=== PATIENT | male | born 1990 | race Caucasian/White ===

== ENCOUNTER 2021-08-14 10:31 | Outpatient (REF) | payer OTHER, SELFPAY | END 2021-08-14 10:32 | disposition home or self-care (01) | LOC: HO.LAB 10:31 | PROVIDERS: PCP Internal Medicine; Visit Provider Internal Medicine | DX: Z20.822 Contact with and (suspected) exposure to COVID-19 (principal) | CPT/HCPCS: C9803; U0003; U0005 ==

== ENCOUNTER 2022-02-20 09:50 | Outpatient (REF) | payer OTHER, SELFPAY ==
[2022-02-20 12:32] LABS: Influenza A PCR NEGATIVE (Negative); Influenza B PCR NEGATIVE (Negative); Resp Syncy Virus RNA Qual PCR NEGATIVE (Negative); SARS COV2 PCR INHOUSE NEGATIVE (Negative)
== END 2022-02-20 09:51 | disposition home or self-care (01) ==
LOC: HO.LAB 09:50
PROVIDERS: Visit Provider Internal Medicine
DX: Z20.822 Contact with and (suspected) exposure to COVID-19 (principal); R43.9 Unspecified disturbances of smell and taste
CPT/HCPCS: 0241U

== ENCOUNTER 2023-01-17 19:43 | Inpatient (IN) | payer MEDICAID, SELFPAY ==
--- NOTE | ~2023-01-17 | US_ITS ---
EXAMINATION: US ABDOMEN LIMITED CLINICAL INFORMATION: Right upper quadrant pain with elevated bilirubin. COMPARISON: None TECHNIQUE: Real-time imaging of the right upper quadrant abdominal viscera. FINDINGS: PANCREAS: Pancreas could not be evaluated as it was obscured by bowel gas LIVER: I suspect the liver is enlarged. There is increased echogenicity consistent with hepatic steatosis. The liver contour is normal. No focal hepatic lesion. There is no intrahepatic biliary duct dilatation seen. GALLBLADDER: The gallbladder is physiologically distended without evidence of stones, sludge, polyps, wall thickening or pericholecystic fluid. COMMON BILE DUCT: Normal in caliber measuring 0.3 cm in diameter. RIGHT KIDNEY: No hydronephrosis. No renal calculi or focal parenchymal lesions. The kidney measures 11.7 cm in maximum dimension. FREE FLUID: None. US/US abdomen limited IMPRESSION: Enlarged fatty liver.
--- NOTE | ~2023-01-17 | XR_ITS ---
EXAMINATION: XR SHOULDER, LEFT CLINICAL INFORMATION: Pain post injury COMPARISON: None TECHNIQUE: AP external rotation, Grashey, scapular Y, and axillary views of the left shoulder. FINDINGS: Humeral head is well-seated in the glenoid fossa. I do not appreciate any acute fracture or dislocation. Acromioclavicular joint is grossly unremarkable. Visualized left-sided ribs and upper chest unremarkable. XR/XR shoulder LT min 2V IMPRESSION: No acute fracture or dislocation.
--- NOTE | ~2023-01-17 | CT_ITS ---
EXAMINATION: CT head/brain wo IV con CLINICAL INFORMATION: Reason for Exam fall head strike COMPARISON: None. TECHNIQUE: Contiguous axial imaging was performed from the skull base to vertex without intravenous contrast. Sagittal and coronal reformatted images were obtained. This CT examination was performed using dose optimization techniques as appropriate, variously including the following: * Automated exposure control * Adjustment of mA and/or kV according to patient size (this includes techniques or standardized protocols for targeted exams where dose is matched to indication/reason for exam; i.e. extremities or head) Use of iterative reconstruction technique DLP: 620 mGy-cm FINDINGS: No acute osseous or soft tissue abnormality. The mastoid air cells and visualized portions of the paranasal sinuses are well aerated. There is no evidence of acute intracranial hemorrhage or territorial infarction. No abnormal mass effect or midline shift is seen. Moore to white matter differentiation is well preserved. No extra-axial fluid collections are identified. No hydrocephalus. No significant volume loss. There is no abnormal attenuation within the brain parenchyma. CT/CT head/brain wo IV con IMPRESSION: No acute intracranial abnormality including hemorrhage, mass effect, hydrocephalus, or acute territorial edematous infarction. .
--- NOTE | ~2023-01-17 | XR_ITS ---
EXAMINATION: XR CHEST CLINICAL INFORMATION: Chest pain. COMPARISON: None TECHNIQUE: 2 views of the chest were obtained. FINDINGS: No significant abnormality is noted involving the heart, lungs, mediastinum, bony thorax or soft tissues. XR/XR chest 2V IMPRESSION: Unremarkable examination.
[2023-01-17 19:49] VITALS: BP 166/100; PULSE 104; O2SAT 98
--- NOTE | 2023-01-17 19:51 | ECG_ITS ---
Test Reason : CHEST PAIN Blood Pressure : / mmHG Vent. Rate : 114 BPM Atrial Rate : 114 BPM P-R Int : 138 ms QRS Dur : 092 ms QT Int : 342 ms P-R-T Axes : 066 033 059 degrees QTc Int : 471 ms Sinus tachycardia Possible Lateral infarct , age undetermined Possible Inferior infarct , age undetermined Abnormal ECG No previous ECGs available Referred By: Allison Whitehead Electronically Signed By:NILDA RIZO MD
[2023-01-17 20:28] LABS: MANUAL DIFF FLAG NO
[2023-01-17 20:29] LABS: Basophils Absolute Auto 0.1 X10*3/uL (0.0-0.2); Mean Corpuscular HGB Conc 34.6 g/dl (31.0-36.0); Mean Corpuscular Hemoglobin 30.2 pg (27.0-33.0); PLT CLUMP 1; Red Cell Distribution Width 14.2 % (11.0-16.0); SCAN SMEAR FLAG 1
[2023-01-17 20:31] LABS: Basophils Percent Auto 0.5 % (0-2); Eosinophils Absolute Auto 0.1 X10*3/uL (0.0-0.4); Hematocrit 40.2 % (42.0-52.0); Hemoglobin 13.9 g/dl (14.0-18.0); Imm Gran Abs Auto 0.02 X10*3/uL (0.00-0.03); Imm Gran Pct Auto 0.2 % (0.0-0.4); Lymphocytes Absolute Auto 1.1 X10*3/uL (1.2-4.9); Lymphocytes Percent Auto 12.2 % (20-40); Mean Corpuscular Volume 87.2 fL (80.0-98.0); Mean Platelet Volume 9.6 fL (9.4-12.4); Monocytes Absolute Auto 0.9 X10*3/uL (0.1-1.2); Monocytes Percent Auto 9.3 % (2-11); Neutrophils Percent Auto 76.8 % (45-73); Red Blood Count 4.61 X10*6/uL (4.60-5.80)
[2023-01-17 20:33] LABS: Platelet Count 107 X10*3/uL (160-400); White Blood Count 9.2 X10*3/uL (4.8-10.8)
[2023-01-17 20:54] VITALS: BP 149/96; PULSE 110; RESP 18; TEMP 36.8; O2SAT 95; BMI 26.4
--- NOTE | 2023-01-17 20:56 | ED.ALCOHOL ---
HPI - Alcohol General Chief Complaint: ETOH/Substance Use <KALPESH Martinez - Last Filed: 01/17/23 20:59> Stated Complaint: Left shoulder,Arm,and Chest Pain <KALPESH Martinez - Last Filed: 01/17/23 20:59> Time Seen by Provider: 01/17/23 22:19 <KALPESH Martinez - Last Filed: 01/17/23 20:59> Source: patient and EMS <KALPESH Ruiz - Last Filed: 01/17/23 23:11> Mode of arrival: EMS <KALPESH Ruiz - Last Filed: 01/17/23 23:11> Limitations: no limitations <KALPESH Ruiz Last Filed: 01/17/23 23:11> History of Present Illness HPI narrative: 33-year-old male history of alcohol use disorder current daily drinkers drinks about 2-3 sleeves of whiskey a day, also drinks wine from time to time, last drink was this morning presenting seeking detox, reports mild headache, nausea, vomiting, visual, auditory hallucinations, sweats, anxiety, tremors both with movement and at rest. Patient is accompanied by his family who state this is the worse that they have seen him. Patient has gone to detox before has not helped him. Patient has never had alcohol withdrawal seizures. Patient tells me he feels awful. Patient also complaining of left back pain, pain to left shoulder and headache, patient reports he had a snowboarding accident a few days ago, fell he thinks he hit his head however he is unsure he tells me he was too intoxicated and forgets. He tells me he drink heavily yesterday unsure how much he drank, he blacked out. Denies any other drug use. Denies suicidal and homicidal ideation. Reports palpitations as well. Denies chest pain, shortness of breath, abdominal pain, changes in urination or bowel habits. CIWA-19 <KALPESH Ruiz - Last Filed: 01/17/23 23:11> Related Data Home Medications: Previous Rx's Medication Instructions Recorded azithromycin 250 mg tablet See Rx Instructions PO .COMPLEX #6 02/20/22 tabs <KALPESH Martinez - Last Filed: 01/17/23 20:59> Allergies/Adverse Reactions: Allergies Allergy/AdvReac Type Severity Reaction Status Date / Time No Known Allergies Allergy Unverified 02/20/22 09:56 <KALPESH Martinez - Last Filed: 01/17/23 20:59> [facility] Social History Social History: Social History Advance Directives: No Advance Directives Information Provided: Yes <KALPESH Martinez - Last Filed: 01/17/23 20:59> Physical Exam ED Vital Signs: Vital Signs - 24 hr 01/17/23 20:54 01/17/23 22:57 Temperature 98.3 F Pulse Rate 110 H 112 H Respiratory Rate 18 14 Blood Pressure 149/96 H 156/91 H Pulse Oximetry 95 96 Oxygen Delivery Method Room Air Room Air BMI result Body Mass Index 26.4 <KALPESH Martinez - Last Filed: 01/17/23 20:59> Vital Signs - 24 hr 01/17/23 20:54 01/17/23 22:57 Temperature 98.3 F Pulse Rate 110 H 112 H Respiratory Rate 18 14 Blood Pressure 149/96 H 156/91 H Pulse Oximetry 95 96 Oxygen Delivery Method Room Air Room Air BMI result Body Mass Index 26.4 Vital signs stable <KALPESH Ruiz - Last Filed: 01/17/23 23:11> Appearance: Alert.? Oriented X3.? No acute distress.? Head: Normocephalic, atraumatic, no step-offs or deformities Eyes: Pupils equal, round and reactive to light.? ENT: Pharynx normal.? Tongue fasciculations noted. Neck: Normal inspection.? Neck supple.? CVS: Normal heart rate and rhythm.? Pulses normal.?+ pain with palpation overlying the left pectoralis major muscle. Normal right. Respiratory: No respiratory distress.? Breath sounds normal.? Abdomen: Soft and nontender.? Skin: Skin warm and dry.? Normal skin color.? Normal skin turgor.? Extremities: No lower extremity edema.? No calf ttp. 5/5 strength to bilateral upper and lower extremities 2+ radial pulses equal bilateral. No wrist drop. Full range of motion to bilateral wrists, elbows, shoulders. Bilateral upper extremities with resting tremors. Asterixis present. Neuro: Oriented X 3.? No motor deficit.? No sensory deficit. CN 2-12 intact <KALPESH Ruiz - Last Filed: 01/17/23 23:11> Course Course Course Narrative: RME - 33 y/o male presents to the ER evaluation of possible alcohol withdrawal. He drinks 1 pt of Rafal Beam per day, last drink was yesterday. Interested in detox. Last drink was yesterday. Also reports left sided chest pain, back pain and shoulder pain from a snowboarding accident 1 month ago, never evaluated. 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 <KALPESH Martinez - Last Filed: 01/17/23 20:59> Reevaluation(s) Reevaluation #1: CBC within normal limits. Chemistry with elevated anion gap likely secondary to ethanol. Total bilirubin 3.3, direct bilirubin elevated 1.6. AST is an ALT is elevated as well, alk-phos 172. These abnormal values are all likely secondary to alcohol abuse chronic in nature. Patient without abdominal tenderness to palpation on exam however will order right upper quadrant ultrasound to evaluate the liver. Ultrasound revealing enlarged fatty liver. Ethanol level 149, this is likely low for patient's baseline concerns for acute alcohol withdrawal with a CO2 of 19. Patient doing well with Ativan and phenobarbital. Seizure precautions in place. COVID and influenza as well as RSV are negative. X-ray of left shoulder with no acute fractures or dislocations. X-ray unremarkable. CT of the head pending. <KALPESH Ruiz - Last Filed: 01/17/23 23:11> Time: 23:10 <KALPESH Ruiz - Last Filed: 01/17/23 23:11> Reevaluation #2: Discuss case with hospitalist. Hospitalist will admit this patient. <KALPESH Ruiz - Last Filed: 01/17/23 23:11> Time: 23:10 <KALPESH Ruiz - Last Filed: 01/17/23 23:11> Medical Decision Making Medical Decision Making MDM Narrative: 33-year-old male presents with acute alcohol withdrawal, also complaining of headache and left shoulder and pack pain status post snowboarding related injury yesterday. Physical examination with bilateral upper extremities with resting tremors, tongue fasciculations. Patient diaphoretic and anxious. Vital signs significant for hypertension and tachycardia. Concerns for DTs, alcohol withdrawal, will rule out alcoholic ketoacidosis. There are signs of autonomic dysfunction on exam. Will rule out electrolyte abnormalities. Plan at this time labs, close observation, seizure precautions. Will give 2 mg of p.o. Ativan now insert him on high-dose phenobarbital. <KALPESH Ruiz - Last Filed: 01/17/23 23:11> Differential Diagnosis Differential Diagnoses: The differential diagnosis associated with the presentation includes <KALPESH Ruiz - Last Filed: 01/17/23 23:11> Concerns for DTs, alcohol withdrawal, will rule out alcoholic ketoacidosis. There are signs of autonomic dysfunction on exam. Will rule out electrolyte abnormalities. <KALPESH Ruiz - Last Filed: 01/17/23 23:11> Admission/Observation Consideration of admission/observation: Escalation of care including admission/observation considered <KALPESH Ruiz - Last Filed: 01/17/23 23:11> Patient will need to be admitted to the hospital <KALPESH Ruiz - Last Filed: 01/17/23 23:11> Consult Healthcare Provider Management of the patient was discussed with: Hospitalist <KALPESH Ruiz - Last Filed: 01/17/23 23:11> Lab Data MDM Lab Attestation statement: I reviewed the patient's lab results. <KALPESH Ruiz - Last Filed: 01/17/23 23:11> Result Diagrams: 01/17/23 20:24 01/17/23 20:24 <KALPESH Martinez - Last Filed: 01/17/23 20:59> Labs: Lab Results 01/17/23 01/17/23 Range/Units 20:24 20:24 WBC 9.2 (4.8-10.8) X10*3/uL RBC 4.61 (4.60-5.80) X10*6/uL Hgb 13.9 L (14.0-18.0) g/dl Hct 40.2 L (42.0-52.0) % MCV 87.2 (80.0-98.0) fL MCH 30.2 (27.0-33.0) pg MCHC 34.6 (31.0-36.0) g/dl RDW 14.2 (11.0-16.0) % Plt Count 107 L (160-400) X10*3/uL MPV 9.6 (9.4-12.4) fL Immature Gran % (Auto) 0.2 (0.0-0.4) % Neut % (Auto) 76.8 H (45-73) % Lymph % (Auto) 12.2 L (20-40) % Salem % (Auto) 9.3 (2-11) % Eos % (Auto) 1.0 (0-4) % Baso % (Auto) 0.5 (0-2) % Lymph # (Auto) 1.1 L (1.2-4.9) X10*3/uL Salem # (Auto) 0.9 (0.1-1.2) X10*3/uL Eos # (Auto) 0.1 (0.0-0.4) X10*3/uL Baso # (Auto) 0.1 (0.0-0.2) X10*3/uL Abs Immat Gran (auto) 0.02 (0.00-0.03) X10*3/uL Absolute Neuts (auto) 7.0 (2.0-8.3) x10*3/uL Absolute Nucleated RBC 0.000 (0.0-0.012) X10*3/uL Nucleated RBC % (auto) 0.0 (0.0-0.2) /100WBC Sodium 139 (135-145) mmol/L Potassium 3.6 (3.3-5.1) mmol/L Chloride 99 (96-108) mmol/L Carbon Dioxide 21 L (22-29) mmol/L Anion Gap 23 H (12-20) BUN 8 L (9-16) mg/dL Creatinine 0.75 (0.5-1.4) mg/dL Estim Creat Clear Calc 150.6 Estimated GFR > 60 Random Glucose 112 (60-115) mg/dL Calcium 9.2 (8.4-10.2) mg/dL Magnesium 1.7 (1.6-2.6) mg/dL Total Bilirubin 3.3 H (0.0-1.0) mg/dL Direct Bilirubin 1.6 H (0.0-0.5) mg/dL AST 372 H (5-37) U/L ALT 41 H (0-40) U/L Alkaline Phosphatase 172 H (39-117) U/L Total Protein 9.3 H (6.5-8.0) g/dL Albumin 4.5 (3.5-5.0) g/dL Ethyl Alcohol 149 mg/dL <KALPESH Martinez - Last Filed: 01/17/23 20:59> Lab Results 01/17/23 01/17/23 Range/Units 20:24 20:24 WBC 9.2 (4.8-10.8) X10*3/uL RBC 4.61 (4.60-5.80) X10*6/uL Hgb 13.9 L (14.0-18.0) g/dl Hct 40.2 L (42.0-52.0) % MCV 87.2 (80.0-98.0) fL MCH 30.2 (27.0-33.0) pg MCHC 34.6 (31.0-36.0) g/dl RDW 14.2 (11.0-16.0) % Plt Count 107 L (160-400) X10*3/uL MPV 9.6 (9.4-12.4) fL Immature Gran % (Auto) 0.2 (0.0-0.4) % Neut % (Auto) 76.8 H (45-73) % Lymph % (Auto) 12.2 L (20-40) % Salem % (Auto) 9.3 (2-11) % Eos % (Auto) 1.0 (0-4) % Baso % (Auto) 0.5 (0-2) % Lymph # (Auto) 1.1 L (1.2-4.9) X10*3/uL Salem # (Auto) 0.9 (0.1-1.2) X10*3/uL Eos # (Auto) 0.1 (0.0-0.4) X10*3/uL Baso # (Auto) 0.1 (0.0-0.2) X10*3/uL Abs Immat Gran (auto) 0.02 (0.00-0.03) X10*3/uL Absolute Neuts (auto) 7.0 (2.0-8.3) x10*3/uL Absolute Nucleated RBC 0.000 (0.0-0.012) X10*3/uL Nucleated RBC % (auto) 0.0 (0.0-0.2) /100WBC Sodium 139 (135-145) mmol/L Potassium 3.6 (3.3-5.1) mmol/L Chloride 99 (96-108) mmol/L Carbon Dioxide 21 L (22-29) mmol/L Anion Gap 23 H (12-20) BUN 8 L (9-16) mg/dL Creatinine 0.75 (0.5-1.4) mg/dL Estim Creat Clear Calc 150.6 Estimated GFR > 60 Random Glucose 112 (60-115) mg/dL Calcium 9.2 (8.4-10.2) mg/dL Magnesium 1.7 (1.6-2.6) mg/dL Total Bilirubin 3.3 H (0.0-1.0) mg/dL Direct Bilirubin 1.6 H (0.0-0.5) mg/dL AST 372 H (5-37) U/L ALT 41 H (0-40) U/L Alkaline Phosphatase 172 H (39-117) U/L Total Protein 9.3 H (6.5-8.0) g/dL Albumin 4.5 (3.5-5.0) g/dL Ethyl Alcohol 149 mg/dL <KALPESH Ruiz - Last Filed: 01/17/23 23:11> Independent Interpretation I performed an independent interpretation of an: Ultrasound (Fatty liver) and CT Scan <KALPESH Ruiz - Last Filed: 01/17/23 23:11> Radiology Impression Discussion of test interpretation with radiology: I have reviewed the radiologist's reading. <KALPESH Ruiz - Last Filed: 01/17/23 23:11> Independent Historian Clinical information obtained from an independent historian. History obtained from or confirmed by: Other (Mother) <KALPESH Ruiz Last Filed: 01/17/23 23:11> Core Measures AMI core measures followed: Yes <KALPESH Ruiz - Last Filed: 01/17/23 23:11> Measure exclusions: not indicated <KALPESH Ruiz - Last Filed: 01/17/23 23:11> Medications Administered Discontinued Medications Generic Name Dose Route Start Last Admin Trade Name Freq PRN Reason Stop Dose Admin Lorazepam 2 mg 01/17/23 22:32 01/17/23 22:44 Lorazepam 1 Mg Tablet PO 01/17/23 22:33 2 mg ONCE ONE Administration Phenobarbital Sodium 450 mg 01/17/23 22:45 01/17/23 22:58 Phenobarbital Sodium 130 Mg/Ml Im Once IM 01/17/23 22:46 450 mg ONCE ONE Administration <KALPESH Martinez - Last Filed: 01/17/23 20:59> Medications Administered Discontinued Medications Generic Name Dose Route Start Last Admin Trade Name Freq PRN Reason Stop Dose Admin Lorazepam 2 mg 01/17/23 22:32 01/17/23 22:44 Lorazepam 1 Mg Tablet PO 01/17/23 22:33 2 mg ONCE ONE Administration Phenobarbital Sodium 450 mg 01/17/23 22:45 01/17/23 22:58 Phenobarbital Sodium 130 Mg/Ml Im Once IM 01/17/23 22:46 450 mg ONCE ONE Administration <KALPESH Ruiz - Last Filed: 01/17/23 23:11> Critical Care Time Critical Care Time Critical Care Time: No <KALPESH Ruiz - Last Filed: 01/17/23 23:11> Discharge Plan Discharge Clinical Impression: Alcohol withdrawal syndrome <KALPESH Martinez - Last Filed: 01/17/23 20:59> Patient Disposition: Still a Patient <KALPESH Martinez - Last Filed: 01/17/23 20:59> Prescriptions: No Action azithromycin 250 mg tablet See Rx Instructions PO .COMPLEX Qty: 6 0RF Rx Instructions: take 500 mg today (day 1), then 250 mg for 4 days (days 2-5) PO <KALPESH Martinez - Last Filed: 01/17/23 20:59>
[2023-01-17 21:31] LABS: Alanine Aminotransferase 41 U/L (0-40); Albumin Level 4.5 g/dL (3.5-5.0); Alkaline Phosphatase 172 U/L (39-117); Anion Gap 23 (12-20); Aspartate Amino Transferase 372 U/L (5-37); Bilirubin Direct 1.6 mg/dL (0.0-0.5); Bilirubin Total 3.3 mg/dL (0.0-1.0); Blood Urea Nitrogen 8 mg/dL (9-16); Calcium 9.2 mg/dL (8.4-10.2); Carbon Dioxide 21 mmol/L (22-29); Chloride 99 mmol/L (96-108); Creatinine Clr Calc Pharmacy 150.6; Estimated Glomerular Filt Rate > 60; Ethanol 149 mg/dL; Glucose Random 112 mg/dL (60-115); Magnesium 1.7 mg/dL (1.6-2.6); Potassium 3.6 mmol/L (3.3-5.1); Sodium 139 mmol/L (135-145); Total Protein 9.3 g/dL (6.5-8.0)
[2023-01-17] MEDS: LORazepam 1 MG TABLET 2 MG PO (22:44)
--- NOTE | 2023-01-17 22:50 | PC.NURSE ---
Pt A&Ox4, reports 5/10 pain to L shoulder and elbow r/t snowboarding accident almost 1 month ago. L upper arm yellow bruising noted. Pt reports mild nausea, moderately anxious, no sleep in two nights, and seeing dots and spots. Visual hand tremors noted, moist palms, auditory hallucinations, mom at bedside stated he thinks he is hearing people in the waiting room talk about him . Pt reports last alcohol drink was this AM. CIWA score 21. Pt placed on the monitor. Seizure precautions in place. IV line placed. Denies SI/HI. Mom at bedside.
[2023-01-17 22:57] VITALS: BP 156/91; PULSE 112; RESP 14; O2SAT 96
[2023-01-17] MEDS: PHENobarbitaL sodium 130 MG/ML IM ONCE 450 MG IM (22:58)
[2023-01-17] MEDS: Enoxaparin Sodium 40 MG/0.4 ML SYRINGE SUBCUT (23:07)
--- NOTE | 2023-01-17 23:15 | P.HPHOSP_ITS ---
History of Present Illness Date of Service: 01/17/23 Chief Complaint: Alcohol withdrawals This is a 33-year-old male who is not on prescription medications who presents to the emergency department for concerns of alcohol withdrawal. Patient states he drinks whiskey every day and had been drinking last night until this morning. His last drink was in a.m.. He has been having tremors, sweating and nausea throughout the day. States he has had alcohol withdrawal in the past. No withdrawal seizures in the past. Patient states he is seeking detox and wants help. States he does not have any past medical history and is not on prescription medications. Patient normally drinks about 3 sleeves of whiskey per day but states last night he drank much more and does not remember. Denies any drug use. Previous smoker. Denies suicidal or homicidal ideations. Patient denies fever, chills, abdominal pain, changes in urinary or bowel habits. Review of Systems 2 Constitutional: Constitutional: Reports chills, Reports lethargy and Reports malaise Cardiovascular: Cardiovascular: Reports no additional cardiovascular complaints Respiratory: Respiratory: Reports no additional respiratory complaints Gastrointestinal: Gastrointestinal: Reports nausea Genitourinary: Genitourinary: Reports no additional male genitourinary complaints Musculoskeletal: Musculoskeletal: Reports no additional musculoskeletal complaints [facility] Medical History Alcohol use disorder Functional capacity: independent ambulation Pertinent family history: No family history of CAD Social History Patient Tobacco Use Status: Never used Tobacco Advance Directives: No Advance Directives Information Provided: Yes Nutrition Risks: No Nutritional Risk Meds Allergies Allergy/AdvReac Type Severity Reaction Status Date / Time No Known Allergies Allergy Unverified 02/20/22 09:56 Active Medications: Current Medications Enoxaparin Sodium (Enoxaparin Sodium 40 Mg/0.4 Ml Syringe) 40 mg SUBCUT Q24H [facility] Last Admin: 01/17/23 23:07 Dose: 40 mg Thiamine HCl 100 mg/ Sodium (Chloride) 101 mls @ 202 mls/hr IV DAILY LEXY Sodium Chloride (Ns) 1,000 mls @ 999 mls/hr IV .Q1H1M [facility] Stop: 01/17/23 23:45 Melatonin (Melatonin 3 Mg Tablet) 6 mg PO BEDTIME PRN PRN Reason: Insomnia Ondansetron HCl (Ondansetron Hcl 4 Mg/2 Ml Vial) 4 mg IVPUSH Q8H PRN PRN Reason: Nausea and Vomiting Pharmacy Consult (Consult Rx Etoh Phenob Im/Po) 1 each MISCELLANE ONCE PRN; Protocol PRN Reason: Consult order Pharmacy Consult (Consult Rx Perform Med Rec) 1 each MISCELLANE ONCE PRN PRN Reason: Consult order Phenobarbital (Phenobarbital 30 Mg Tablet) 60 mg PO BID [facility] Stop: 01/19/23 21:01 Phenobarbital (Phenobarbital 30 Mg Tablet) 30 mg PO BID [facility] Stop: 01/21/23 21:01 Phenobarbital (Phenobarbital 15 Mg Tablet) 15 mg PO DAILY [facility] Stop: 01/23/23 09:01 Phenobarbital Sodium (Phenobarbital Sodium 130 Mg/Ml Vial Im Q3hx2) 338 mg IM Q3H [facility] Stop: 01/18/23 05:01 Sodium Chloride (0.9 % Sodium Chloride Flush 3 Ml Syringe) 3 ml IVFLUSH QSHIFT [facility] Physical Exam Vital Signs and Narrative: Vital Signs: Last Vital Signs Temp 98.3 F 01/17/23 20:54 Pulse 112 H 01/17/23 22:57 Resp 14 01/17/23 22:57 BP 156/91 H 01/17/23 22:57 Pulse Ox 96 01/17/23 22:57 O2 Del Method 01/17/23 22:57 BMI result Body Mass Index 26.4 Middle-aged male lying in bed in mild distress Neck supple, no JVD Tachycardic with regular rhythm, S1-S2 heard Regular breath sounds bilaterally, no wheezing or crackles appreciated Abdomen soft nontender, no guarding, no rigidity Patient is awake, alert and oriented to self, place, time and person ; bilateral hand tremors present Psych: Anxious No pedal edema Results Labs 01/17/23 20:24 01/17/23 20:24 Labs: Laboratory Results - last 24 hr 01/17/23 01/17/23 20:24 20:24 MCV 87.2 MCH 30.2 MCHC 34.6 RDW 14.2 Plt Count 107 L MPV 9.6 Immature Gran % (Auto) 0.2 Neut % (Auto) 76.8 H Lymph % (Auto) 12.2 L Gem % (Auto) 9.3 Eos % (Auto) 1.0 Baso % (Auto) 0.5 Lymph # (Auto) 1.1 L Gem # (Auto) 0.9 Eos # (Auto) 0.1 Baso # (Auto) 0.1 Abs Immat Gran (auto) 0.02 Absolute Neuts (auto) 7.0 Absolute Nucleated RBC 0.000 Nucleated RBC % (auto) 0.0 Anion Gap 23 H Estim Creat Clear Calc 150.6 Estimated GFR > 60 Random Glucose 112 Calcium 9.2 Magnesium 1.7 Total Bilirubin 3.3 H Direct Bilirubin 1.6 H AST 372 H ALT 41 H Alkaline Phosphatase 172 H Total Protein 9.3 H Albumin 4.5 Ethyl Alcohol 149 Imaging Radiologist's Impressions: Impressions Chest X-Ray 01/17/23 20:18 IMPRESSION: Unremarkable examination. Shoulder X-Ray 01/17/23 20:18 IMPRESSION: No acute fracture or dislocation. Abdomen Ultrasound 01/17/23 22:41 IMPRESSION: Enlarged fatty liver. Assessment and Plan (1) Alcohol withdrawal syndrome: Status: Acute Plan This is a 33-year-old male who is not on prescription medications presents to the emergency department for concerns of alcohol withdrawal. #. Alcohol use disorder: Will monitor CIWA and admit for alcohol withdrawal. CARE team consulted. Initiating thiamine and phenobarb protocol. UDS pending. Checking folate levels #. Thrombocytopenia due to alcohol use #. Elevated transaminases due to alcohol use in the setting of fatty liver DVT prophylaxis: Lovenox 40 mg daily Full code Regular diet Admit as inpatient and will require two night minimum hospital stay for close monitoring of alcohol withdrawal Time Spent With Patient Time: Total time managing care of this patient today ____ minutes. Quality Stroke Does the patient have a stroke diagnosis?: No VTE Prior VTE?: No VTE Risk Level:: Medical - low VTE Device Contraindication: Treatment Not Indicated VTE Drug Contraindication: N/A - Med Ordered
[2023-01-17] MEDS: 0.9 % Sodium Chloride 1,000 ML 999 ML IV (23:16)
[2023-01-17] MEDS: Thiamine HCL 100 MG in 0.9 % Sodium Chloride 100 ML 202 MG IV (23:16)
[2023-01-17 23:18] LABS: Acetone, serum QL Negative (Negative)
[2023-01-17 23:44] LABS: Amphetamine Screen Urine Not Detected (Not Detect); Barbiturates, Urine Not Detected (Not Detect); Benzodiazepines Screen Urine Not Detected (Not Detect); Cannabinoid Screen Urine POSITIVE (Not Detect); Cocaine Screen Urine Not Detected (Not Detect); Fentanyl, urine Not Detected (Not Detect); Opiate Screen Urine Not Detected (Not Detect); Phencyclidine Screen Urine Not Detected (Not Detect)
[2023-01-18 00:26] LABS: Folate 4.6 ng/mL (> or = 4.0); Vitamin B12 721 pg/mL (200-900)
[2023-01-18] MEDS: OLANZapine 5 MG TABLET PO (00:38)
[2023-01-18] MEDS: 0.9 % Sodium Chloride Flush 3 ML SYRINGE IVFLUSH (00:39)
[2023-01-18 00:43] VITALS: BP 142/84; PULSE 124; RESP 14; O2SAT 95
[2023-01-18 01:21] LABS: COVID-19 Test Negative (Negative); IDNOW Serial# 6674DD1D
[2023-01-18] MEDS: PHENobarbitaL sodium 130 MG/ML VIAL IM Q3Hx2 338 MG IM ×2 (02:07→05:27)
[2023-01-18 02:12] VITALS: BP 137/87; PULSE 118; RESP 16; O2SAT 94
[2023-01-18] MEDS: ondansetron HCL 4 MG/2 ML VIAL IVPUSH (04:05)
--- NOTE | 2023-01-18 04:12 | PC.NURSE ---
Pt reported nausea, medicated per JAN.
[2023-01-18 05:25] VITALS: BP 130/90; PULSE 98; RESP 12; TEMP 36.7; O2SAT 96
[2023-01-18 06:51] LABS: Basophils Percent Auto 0.5 % (0-2); Imm Gran Abs Auto 0.01 X10*3/uL (0.00-0.03); Imm Gran Pct Auto 0.2 % (0.0-0.4); MANUAL DIFF FLAG NO
[2023-01-18 06:53] LABS: Eosinophils Percent Auto 0.3 % (0-4); Hematocrit 36.5 % (42.0-52.0); Hemoglobin 12.4 g/dl (14.0-18.0); Lymphocytes Absolute Auto 1.2 X10*3/uL (1.2-4.9); Lymphocytes Percent Auto 21.3 % (20-40); Mean Corpuscular Volume 88.2 fL (80.0-98.0); Mean Platelet Volume 11.3 fL (9.4-12.4); Monocytes Absolute Auto 0.9 X10*3/uL (0.1-1.2); Monocytes Percent Auto 16.1 % (2-11); Neutrophils Absolute Auto 3.6 x10*3/uL (2.0-8.3); Neutrophils Percent Auto 61.6 % (45-73); Red Blood Count 4.14 X10*6/uL (4.60-5.80); Red Cell Distribution Width 14.1 % (11.0-16.0); White Blood Count 5.8 X10*3/uL (4.8-10.8)
[2023-01-18 07:04] LABS: Platelet Count 67 X10*3/uL (160-400)
[2023-01-18 07:37] LABS: Anion Gap 20 (12-20); Blood Urea Nitrogen 7 mg/dL (9-16); Calcium 8.4 mg/dL (8.4-10.2); Carbon Dioxide 22 mmol/L (22-29); Chloride 99 mmol/L (96-108); Creatinine Clr Calc Pharmacy 161.3; Estimated Glomerular Filt Rate > 60; Glucose Random 87 mg/dL (60-115); Potassium 3.7 mmol/L (3.3-5.1); Sodium 137 mmol/L (135-145)
[2023-01-18 08:56] LABS: Alanine Aminotransferase 31 U/L (0-40); Albumin Level 3.8 g/dL (3.5-5.0); Alkaline Phosphatase 136 U/L (39-117); Aspartate Amino Transferase 272 U/L (5-37); Bilirubin Direct 1.5 mg/dL (0.0-0.5); Bilirubin Total 3.9 mg/dL (0.0-1.0); Magnesium 1.6 mg/dL (1.6-2.6); Total Protein 7.9 g/dL (6.5-8.0)
[2023-01-18] MEDS: PHENobarbitaL 30 MG TABLET 60 MG PO ×2 (09:39→22:47)
[2023-01-18] MEDS: Thiamine HCL 100 MG in 0.9 % Sodium Chloride 100 ML 202 MG IV (09:40)
--- NOTE | 2023-01-18 09:41 | MHC.CM.PN ---
Received telephone call from patient's mother, Ceci Knox. Ceci can be reached via telephone at [phone]. Patient lives alone, is currently unemployed and has no insurance. Patient has no PCP and has not received any Covid vaccines. Patient has a long standing history of ETOH abuse. Patient was at [facility] once for 3 days. Ceci doesn't feel this was a good fit for him. Ceci was planning on going to the court house today. However, due to the weather they are closed today. She plans on going tomorrow to file Section 35. Patient reports drinking 2 pints of Whiskey a day. Patient's girlfriend recently broke up with him. Patient has been having a difficult time coping with this. Per Ceci, she was unable of how much patient was drinking until she saw him last night. Patient had an OUI years ago and does not drive when he drinks. Due not having insurance, information provided to Ceci about [facility]'s financial counselor. Case management contact information also provided to Ceci. Ceci will keep CM updated about Section 35. Continue to monitor for d/c needs.
[2023-01-18 09:47] VITALS: BP 145/93; PULSE 120; RESP 14; TEMP 37.2; O2SAT 97
--- NOTE | 2023-01-18 11:42 | MHC.RECOVRN ---
Met with pt in ED18 after consult placed to CARE Team for alcohol use. Pt sitting in bed, awake, alert, engages in conversation. Appears diaphoretic and anxious. Pt reports years of alcohol use, currently drinking 2 pints daily. Recent break up with girlfriend (1 week ago) has resulted in increased use. Pt reports ATS admissions x 2 as well as outpatient counseling. Hx OUI. Minimizes negative consequences due to alcohol use. Pt voices interest in reducing use. Inquiring about when he will be able to discharge. Pt denies other questions or concerns for t/w at this time. Will continue to follow.
[2023-01-18 11:43] VITALS: BP 136/91; PULSE 140; RESP 14; O2SAT 97
--- NOTE | 2023-01-18 11:51 | HO.PM.IMPN ---
Subjective Subjective Date of Service: 01/18/23 Review of Systems Follow-up alcohol intoxication withdrawal Mild hand tremors Good appetite Physical Exam Vital Signs: Vital Signs: Last Vital Signs Temp 99.0 F 01/18/23 09:47 Pulse 140 H 01/18/23 11:43 Resp 14 01/18/23 11:43 BP 136/91 H 01/18/23 11:43 Pulse Ox 97 01/18/23 11:43 O2 Del Method 01/18/23 11:43 BMI result Body Mass Index 26.4 Appearing in no acute distress lung sounds are clear to auscultation heart regular rate rhythm, clear S1, S2 positive bowel sounds, abdomen is soft, nontender neuro patient is alert x3, no focal deficits Objective Data Active Medications Enoxaparin Sodium (Enoxaparin Sodium 40 Mg/0.4 Ml Syringe) 40 mg SUBCUT Q24H [facility] Last Admin: 01/17/23 23:07 Dose: 40 mg Documented By: DEMETRIO Thiamine HCl 100 mg/ Sodium (Chloride) 101 mls @ 202 mls/hr IV DAILY [facility] Last Admin: 01/18/23 09:40 Dose: 202 mls/hr Documented By: ANABEL Melatonin (Melatonin 3 Mg Tablet) 6 mg PO BEDTIME PRN PRN Reason: Insomnia Ondansetron HCl (Ondansetron Hcl 4 Mg/2 Ml Vial) 4 mg IVPUSH Q8H PRN PRN Reason: Nausea and Vomiting Last Admin: 01/18/23 04:05 Dose: 4 mg Documented By: DEMETRIO Pharmacy Consult (Consult Rx Etoh Phenob Im/Po) 1 each MISCELLANE ONCE PRN; Protocol PRN Reason: Consult order Pharmacy Consult (Consult Rx Perform Med Rec) 1 each MISCELLANE ONCE PRN PRN Reason: Consult order Phenobarbital (Phenobarbital 30 Mg Tablet) 60 mg PO BID [facility] Stop: 01/19/23 21:01 Last Admin: 01/18/23 09:39 Dose: 60 mg Documented By: ANABEL Phenobarbital (Phenobarbital 30 Mg Tablet) 30 mg PO BID [facility] Stop: 01/21/23 21:01 Phenobarbital (Phenobarbital 15 Mg Tablet) 15 mg PO DAILY [facility] Stop: 01/23/23 09:01 Sodium Chloride (0.9 % Sodium Chloride Flush 3 Ml Syringe) 3 ml IVFLUSH QSHIFT [facility] Last Admin: 01/18/23 09:02 Dose: Not Given Documented By: ANABEL Non-Admin Reason: See Note Labs 01/18/23 06:33 01/18/23 06:33 Labs: Laboratory Results - last 24 hr 01/17/23 01/17/23 01/17/23 20:24 20:24 20:24 MCV 87.2 MCH 30.2 MCHC 34.6 RDW 14.2 Plt Count 107 L MPV 9.6 Immature Gran % (Auto) 0.2 Neut % (Auto) 76.8 H Lymph % (Auto) 12.2 L [place] % (Auto) 9.3 Eos % (Auto) 1.0 Baso % (Auto) 0.5 Lymph # (Auto) 1.1 L [place] # (Auto) 0.9 Eos # (Auto) 0.1 Baso # (Auto) 0.1 Abs Immat Gran (auto) 0.02 Absolute Neuts (auto) 7.0 Absolute Nucleated RBC 0.000 Nucleated RBC % (auto) 0.0 Anion Gap 23 H Estim Creat Clear Calc 150.6 Estimated GFR > 60 Random Glucose 112 Calcium 9.2 Magnesium 1.7 Total Bilirubin 3.3 H Direct Bilirubin 1.6 H AST 372 H ALT 41 H Alkaline Phosphatase 172 H Total Protein 9.3 H Albumin 4.5 Vitamin B12 Folate Urine Opiates Screen Urine Fentanyl Screen Ur Barbiturates Screen Ur Phencyclidine Scrn Ur Amphetamines Screen U Benzodiazepines Scrn Urine Cocaine Screen U Marijuana (THC) Screen Ethyl Alcohol 149 Acetone, Qual Negative COVID-19 (ELISEO) COVID-19 Clin Com 01/17/23 01/17/23 01/18/23 20:42 23:22 00:56 MCV MCH MCHC RDW Plt Count MPV Immature Gran % (Auto) Neut % (Auto) Lymph % (Auto) [place] % (Auto) Eos % (Auto) Baso % (Auto) Lymph # (Auto) [place] # (Auto) Eos # (Auto) Baso # (Auto) Abs Immat Gran (auto) Absolute Neuts (auto) Absolute Nucleated RBC Nucleated RBC % (auto) Anion Gap Estim Creat Clear Calc Estimated GFR Random Glucose Calcium Magnesium Total Bilirubin Direct Bilirubin AST ALT Alkaline Phosphatase Total Protein Albumin Vitamin B12 721 Folate 4.6 Urine Opiates Screen Not Detected Urine Fentanyl Screen Not Detected Ur Barbiturates Screen Not Detected Ur Phencyclidine Scrn Not Detected Ur Amphetamines Screen Not Detected U Benzodiazepines Scrn Not Detected Urine Cocaine Screen Not Detected U Marijuana (THC) Screen POSITIVE H Ethyl Alcohol Acetone, Qual COVID-19 (ELISEO) Negative COVID-19 Clin Com See Note 01/18/23 01/18/23 06:33 06:33 MCV 88.2 MCH 30.0 MCHC 34.0 RDW 14.1 Plt Count 67 L D MPV 11.3 Immature Gran % (Auto) 0.2 Neut % (Auto) 61.6 Lymph % (Auto) 21.3 [place] % (Auto) 16.1 H Eos % (Auto) 0.3 Baso % (Auto) 0.5 Lymph # (Auto) 1.2 [place] # (Auto) 0.9 Eos # (Auto) 0.0 Baso # (Auto) 0.0 Abs Immat Gran (auto) 0.01 Absolute Neuts (auto) 3.6 Absolute Nucleated RBC 0.000 Nucleated RBC % (auto) 0.0 Anion Gap 20 Estim Creat Clear Calc 161.3 Estimated GFR > 60 Random Glucose 87 Calcium 8.4 D Magnesium 1.6 Total Bilirubin 3.9 H Direct Bilirubin 1.5 H AST 272 H ALT 31 Alkaline Phosphatase 136 H Total Protein 7.9 Albumin 3.8 Vitamin B12 Folate Urine Opiates Screen Urine Fentanyl Screen Ur Barbiturates Screen Ur Phencyclidine Scrn Ur Amphetamines Screen U Benzodiazepines Scrn Urine Cocaine Screen U Marijuana (THC) Screen Ethyl Alcohol Acetone, Qual COVID-19 (ELISEO) COVID-19 Clin Com Assessment and Plan (1) Alcohol use disorder: Status: Acute Plan 33-year-old male who is not on prescription medications presents to the emergency department for concerns of alcohol withdrawal. Alcohol use disorder started on phenobarb protocol IV fluids encourage food intake addiction team eval pending Thiamine, folic acid and multivitamin Tachycardia Secondary to alcohol withdrawal Continue treatment as above and add extra dose of phenobarbital now Thrombocytopenia due to alcohol use Elevated transaminases due to alcohol use in the setting of fatty liver disease DVT prophylaxis: Lovenox 40 mg daily Full code Attending Dr. Lombardi continued hospital stay for close monitoring of alcohol withdrawal Time Spent With Patient Time: Total time managing care of this patient today ____ minutes. Quality Stroke Does the patient have a stroke diagnosis?: No VTE Prior VTE?: No VTE Risk Level:: Medical - low VTE Device Contraindication: Treatment Not Indicated VTE Drug Contraindication: N/A - Med Ordered
[2023-01-18] MEDS: PHENobarbitaL sodium 130 MG/ML VIAL 338 MG IM (14:53)
[2023-01-18] MEDS: Lactated Ringers 1,000 ML 150 ML IVCONT ×2 (14:53→22:48)
--- NOTE | 2023-01-18 16:05 | PC.NURSE ---
Pt alert and oriented, resp even and unlabored offering no complaints, LR infusing at this time. Given snacks and milli shantal. Call varela within reach.
--- NOTE | 2023-01-18 17:23 | MHC.CM.PN ---
Addendum entered by Maria Elena Norman 01/18/23 17:33: Emily from recovery services aware and will follow up in the morning. Addendum entered by Maria Elena Norman 01/18/23 17:32: Kim [phone] Original Note: Received a telephone call from pt mother, Kim. She is quite distressed about her son's ongoing ETOH abuse and is concerned that he will be discharged when he feels better and will not go to rehab. Was asking with the doctor could court order him to treatment. CM explained that she would need to go to the court at 8am and request a section 35, that would court order treatment. Mother is understandably upset about situation. CM explained that after treatment with section 35, he son is free to decide sobriety or to drink. Explained that ETOH abuse is an addiction/illness and he will need more treatment in the future. CM notified provider, Maribel Coates via tiger text regarding above conversation. [place] text to addiction services, Emily. CM to follow for d/c needs.
[2023-01-18] MEDS: Enoxaparin Sodium 40 MG/0.4 ML SYRINGE SUBCUT (22:49)
[2023-01-18 23:57] VITALS: BP 131/87; PULSE 96; RESP 13; TEMP 36.6; O2SAT 94
--- NOTE | 2023-01-19 07:04 | PC.NURSE ---
assumed care of patient, patient resting comfortably in bed, VSS, awaiting inpt bed, CIWAs continued
[2023-01-19] MEDS: Lactated Ringers 1,000 ML 150 ML IVCONT (07:17)
[2023-01-19] MEDS: Thiamine HCL 100 MG in 0.9 % Sodium Chloride 100 ML 202 MG IV (07:17)
[2023-01-19] MEDS: Folic Acid 1 MG TABLET PO (07:18)
[2023-01-19] MEDS: PHENobarbitaL 30 MG TABLET 60 MG PO (07:18)
[2023-01-19] MEDS: Multivitamin TABLET 1 TAB PO (07:18)
[2023-01-19 07:39] VITALS: BP 137/94; PULSE 108; RESP 13; TEMP 37.1; O2SAT 95
--- NOTE | 2023-01-19 08:51 | P.PNIM_ITS ---
Subjective Subjective Date of Service: 01/19/23 Review of Systems Follow-up alcohol intoxication withdrawal Mild hand tremors Good appetite Physical Exam Vital Signs: Vital Signs: Last Vital Signs Temp 98.7 F 01/19/23 07:39 Pulse 108 H 01/19/23 07:39 Resp 13 01/19/23 07:39 BP 137/94 H 01/19/23 07:39 Pulse Ox 95 01/19/23 07:39 O2 Del Method 01/19/23 07:39 BMI result Body Mass Index 26.4 Appearing in no acute distress lung sounds are clear to auscultation heart regular rate rhythm, clear S1, S2 positive bowel sounds, abdomen is soft, nontender neuro patient is alert x3, no focal deficits Objective Data Active Medications Enoxaparin Sodium (Enoxaparin Sodium 40 Mg/0.4 Ml Syringe) 40 mg SUBCUT Q24H [facility] Last Admin: 01/18/23 22:49 Dose: 40 mg Documented By: HANS Folic Acid (Folic Acid 1 Mg Tablet) 1 mg PO DAILY [facility] Last Admin: 01/19/23 07:18 Dose: 1 mg Documented By: SAJAN Thiamine HCl 100 mg/ Sodium (Chloride) 101 mls @ 202 mls/hr IV DAILY [facility] Last Infusion: 01/19/23 07:47 Dose: 0 mls/hr Documented By: LAURA-JOSH Lactated Ringer's (Lr) 1,000 mls @ 150 mls/hr IVCONT .[id number] [facility] Last Admin: 01/19/23 07:17 Dose: 150 mls/hr Documented By: SAJAN Melatonin (Melatonin 3 Mg Tablet) 6 mg PO BEDTIME PRN PRN Reason: Insomnia Multivitamins/Vitamin C (Multivitamin Tablet) 1 tab PO DAILY [facility] Last Admin: 01/19/23 07:18 Dose: 1 tab Documented By: SAJAN Ondansetron HCl (Ondansetron Hcl 4 Mg/2 Ml Vial) 4 mg IVPUSH Q8H PRN PRN Reason: Nausea and Vomiting Last Admin: 01/18/23 04:05 Dose: 4 mg Documented By: DEMETRIO Pharmacy Consult (Consult Rx Etoh Phenob Im/Po) 1 each MISCELLANE ONCE PRN; Protocol PRN Reason: Consult order Pharmacy Consult (Consult Rx Perform Med Rec) 1 each MISCELLANE ONCE PRN PRN Reason: Consult order Phenobarbital (Phenobarbital 30 Mg Tablet) 60 mg PO BID [facility] Stop: 01/19/23 21:01 Last Admin: 01/19/23 07:18 Dose: 60 mg Documented By: SAJAN Phenobarbital (Phenobarbital 30 Mg Tablet) 30 mg PO BID [facility] Stop: 01/21/23 21:01 Phenobarbital (Phenobarbital 15 Mg Tablet) 15 mg PO DAILY [facility] Stop: 01/23/23 09:01 Sodium Chloride (0.9 % Sodium Chloride Flush 3 Ml Syringe) 3 ml IVFLUSH QSHIFT [facility] Last Admin: 01/19/23 07:21 Dose: Not Given Documented By: SAJAN Non-Admin Reason: IV Running Labs 01/18/23 06:33 01/18/23 06:33 Labs: Laboratory Results - last 24 hr 01/18/23 06:33 Magnesium 1.6 Total Bilirubin 3.9 H Direct Bilirubin 1.5 H AST 272 H ALT 31 Alkaline Phosphatase 136 H Total Protein 7.9 Albumin 3.8 Assessment and Plan (1) Alcohol use disorder: Status: Acute Plan 33-year-old male who is not on prescription medications presents to the emergency department for concerns of alcohol withdrawal. Alcohol use disorder started on phenobarb protocol IV fluids encourage food intake addiction team following Thiamine, folic acid and multivitamin Tachycardia Secondary to alcohol withdrawal Continue treatment as above Thrombocytopenia due to alcohol use Elevated transaminases due to alcohol use in the setting of fatty liver disease DVT prophylaxis: Lovenox 40 mg daily Full code Attending Dr. Lombardi continued hospital stay for close monitoring of alcohol withdrawal Time Spent With Patient Time: Total time managing care of this patient today ____ minutes. Quality Stroke Does the patient have a stroke diagnosis?: No VTE Prior VTE?: No VTE Risk Level:: Medical - low VTE Device Contraindication: Treatment Not Indicated VTE Drug Contraindication: N/A - Med Ordered
--- NOTE | 2023-01-19 12:07 | MHC.CM.PN ---
Addendum entered by Dang Sarmiento 01/19/23 13:33: Discharge order received by Maribel CULP. Patient's mother at bedside. Patient agreeable to going to court under Section 35. Original Note: Received notification from patient's mother, Kim, that she filed a Section [address]. She asked the expense analyst to allow her to transport patient to court. [employer] Tender agreed. Kim let patient know he had to go to court under Section 35. Patient is now upset and has refused to go to the court with his mother. Kim will return to court and speak to the count team clerk to see if the expense analyst would be wiling to change the order so the police department will transport patient to court. Kim will contact once this is done. Maribel CULP aware. Continue to monitor for d/c needs.
--- NOTE | 2023-01-19 12:40 | PC.NURSE ---
Patient moved to overflow, remains calm and cooperative with staff. CIWA 0. Mom and grandma in at bedside to discuss section 35 with patient.
--- NOTE | 2023-01-19 13:18 | P.DS_ITS ---
DS: Providers Provider Date of Service: 01/19/23 Date of admission: 01/17/23 22:36 Primary care physician: None Physician Consults: 01/18/23 12:00 Addiction Medicine Routine Consulting Provider: Addiction Covering Reason for consultation: etoh Has provider been notified: No Attending physician on discharge: Francisco Lombardi Discharging clinician: Maribel Coates DS: Diagnosis Discharge Diagnosis (1) Alcohol use disorder: Status: Acute DS: Summary Hospital Course Hospital Course: 33 year old man admitted with alcohol intoxication with subsequent withdrawal symptoms. He was treated with IV fluids, multivitamin, folic acid, thiamine and phenobarbitol protocol. His appetite was good and he was urinating and moving his bowels. His mother called the court to obtain a section 35 and he was escorted out of the hospital with the [place] Police. Time Spent with Patient Time attestation: Total time managing care of this patient today ____ minutes. Discharge coordination time: Greater than 30 minutes Quality: Safe Use of Opioids Does Pt have an Active Cancer Diagnosis on the Problem List?: No Quality: Stroke Does the patient have a stroke diagnosis?: No Physical Exam Vital Signs: Vital Signs: Last Vital Signs Temp 98.7 F 01/19/23 07:39 Pulse 108 H 01/19/23 07:39 Resp 13 01/19/23 07:39 BP 137/94 H 01/19/23 07:39 Pulse Ox 95 01/19/23 07:39 O2 Del Method 01/19/23 07:39 BMI result Body Mass Index 26.4 Appearing in no acute distress head is normocephalic atraumatic eyes pupils are PERRLA sclera is anicteric mouth throat mucous membranes are intact and moist neck is supple no lymphadenopathy, no JVD noted lung sounds are clear to auscultation heart regular rate rhythm, clear S1, S2 positive bowel sounds, abdomen is soft, nontender neuro patient is alert x3, no focal deficits Discharge Plan Discharge Anticipated Discharge Date/Time: 01/19/23 13:16 Patient Disposition: Home, Self-Care Discharge Diagnosis: Alcohol withdrawal Discharge Medications: No Action No Known Home Meds Discharge Orders: Discharge Order (Routine); Ordered 01/19/23 Ordered By: Maribel Coates Diet: Advance to usual diet Activity on Discharge: As tolerated Stand Alone Forms: Patient Portal Discharge page Care Plan Goals: Stop drinking alcohol Health Concerns: Alcohol withdrawl Plan of Treatment: Detox for alcohol abuse follow up with a primary care provider Assessment: See discharge summary Discharge Date/Time: 01/19/23 13:31
== END 2023-01-19 13:31 | disposition home or self-care (01) | DRG 775 ==
LOC: HO.ED 23:11 → HO.EDOVER 23:18
PROVIDERS: Physician Assistant; Admitting Provider Student in an Organized Health Care Education/Training Program; Emergency Provider Internal Medicine; Visit Provider Nurse Practitioner Acute Care
DX: F10.139 Alcohol abuse with withdrawal, unspecified (principal); F10.129 Alcohol abuse with intoxication, unspecified; D69.59 Other secondary thrombocytopenia; K70.0 Alcoholic fatty liver; Y90.6 Blood alcohol level of 120-199 mg/100 ml; Z20.822 Contact with and (suspected) exposure to COVID-19; Z87.891 Personal history of nicotine dependence
CPT/HCPCS: 36415; 70450; 71046; 73030; 76705; 80048; 80076; 80307; 82009; 82077; 82607; 82746; 83735; 85025; 87635; 93005; 99285; J1650; J2405; J2560; J3411

== ENCOUNTER 2023-04-15 19:59 | Inpatient (IN) | payer OTHER, SELFPAY ==
[2023-04-15 20:12] VITALS: BP 138/96; PULSE 103; O2SAT 98
[2023-04-15 20:14] VITALS: BP 157/95; PULSE 88; RESP 15; TEMP 36.4; O2SAT 97; BMI 26.1
--- NOTE | 2023-04-15 20:38 | PC.NURSE ---
Assumed care of pt. pt soft spoken, refusing to answer questions, or answering with changing answers. When asked about drug use, indicates heroin x 2 days [employer]. Denies ETOH use, then states 2 drinks today. Appears to be having visual and audial hallucinations at this time. States reason for coming to hospital is heroin , family states via EMS that pt has no history of drug use. Pt in no acute distress at this time. 1:1 sitter for safety. Will reassess when pt more cooperative.
--- NOTE | 2023-04-15 21:17 | PC.NURSE ---
Pt ambulating to bathroom with steady gait, 1:1 present for safety.
[2023-04-15 22:56] LABS: MANUAL DIFF FLAG NO
--- NOTE | 2023-04-15 23:00 | ED.PSYCH ---
HPI - Psych General Chief Complaint: Psychiatric Symptoms Stated Complaint: etoh Time Seen by Provider: 04/15/23 21:00 Source: patient, family (Mother) and EMS Mode of arrival: EMS History of Present Illness HPI Narrative: 33-year-old male brought in by EMS after family complaints auditory hallucinations, running away from the family, Section 12 by the police department but not in custody. He does have a pretty extensive history of alcohol use with alcohol withdrawals and the family denies any drug use but the patient endorses that he is taken of both hair 1 as well as crack cocaine and some pills recently that he is unaware of the name. Patient is struggling to answer questions appropriately and appears to be stunned . He does follow commands but seems unsure of his whereabouts and continues to ask for Greg and Erick. EMS did administer 4 mg of Narcan for observed decrease in oxygen saturation. Patient is on home medications of Lopressor and clonidine. Related Data Home Medications Medication Instructions Recorded Confirmed No Known Home Meds 04/15/23 04/15/23 Allergies Allergy/AdvReac Type Severity Reaction Status Date / Time No Known Allergies Allergy Unverified 02/20/22 09:56 Review of Systems Review of Systems: Pertinent positives and negatives as stated in HPI, but not much information obtainable from the patient himself. [facility] Past Medical History Source: nursing notes reviewed Medical History Alcohol use disorder Social History Social History Alcohol intake: current Alcohol intake frequency: 0-2 drinks per day Alcohol type: hard liquor Patient Tobacco Use Status: Never used Tobacco Smoked in Last 30 Days: No Use of substances other than those prescribed or required for medical reasons: Yes Substance Use Type: Heroin Last Used Substance: Days (ago) Advance Directives: No Advance Directives Information Provided: No service: No Current occupational status: unemployed Physical Exam Vital Signs: Vital Signs: Last Vital Signs Temp 98.3 F 04/15/23 23:42 Pulse 73 04/15/23 23:42 Resp 17 04/15/23 23:42 BP 136/88 04/15/23 23:42 Pulse Ox 97 04/15/23 23:42 O2 Del Method Room Air 04/15/23 23:42 BMI result Body Mass Index 26.1 VITAL SIGNS: Reviewed. GENERAL: Well developed, well nourished, in no acute distress. HEAD: Normocephalic/atraumatic EYES: PERRLA, EOMI EARS: Ext canals without abnormality NOSE: Nares patent bilateral OROPHARYNX: no oral lesions noted, posterior pharynx clear NECK: Supple, no adenopathy LUNGS: Normal breath sounds. No adventitious sounds or accessory muscle use. SpO2<97> CARDIOVASCULAR: Regular rate and rhythm without noted murmurs ABDOMEN: Soft, non-tender, non-distended with bowel sounds. MUSCULOSKELETAL: No tenderness, deformities, or effusions noted on gross inspection. EXTREMITIES: No cyanosis, clubbing or edema. SKIN: Inspection of the skin reveals no rashes NEUROLOGIC: Alert and oriented x 4. Strength and sensation to light touch were grossly intact x 4, cranial nerves 2-12 are grossly intact. PSYCH: Flat affect, appears confused Medications Administered Discontinued Medications Generic Name Dose Route Start Last Admin Trade Name Freq PRN Reason Stop Dose Admin Lorazepam 2 mg 04/16/23 00:11 04/16/23 00:18 Lorazepam 1 Mg Tablet PO 04/16/23 00:12 2 mg ONCE ONE Administration Thiamine HCl 100 mg 04/16/23 00:11 04/16/23 00:19 Thiamine Hcl 100 Mg Tablet PO 04/16/23 00:12 100 mg ONCE ONE Administration Medical Decision Making Medical Decision Making [facility] Narrative: 33-year-old male who appears to be quite confused, potentially under the influence of some unknown substance. Will obtain basic lab work to include toxicologies. Due to concerns raised by his mother as well as my clinical observation I do feel that patient should be further evaluated by the crisis team. I have reviewed all investigations and patient is noted to be medically cleared at this time all toxicology results are negative, suspect that this is chronic use of polysubstance related psychosis. However, patient will undergo crisis evaluation and will be placed in observation at this time. Patient placed in physician observation because the patient needed more time for crisis evaluation. At the time observation was started the patient's vital signs were stable, patient is alert and oriented, neuro: Nonfocal, CV RRR, lungs clear Differential Diagnosis Please see the discussion above Lab Data Please see the discussion above 04/15/23 22:52 04/15/23 22:52 Labs: Lab Results 04/15/23 04/15/23 04/15/23 Range/Units 22:52 22:52 23:24 WBC 7.8 (4.8-10.8) X10*3/uL RBC 4.15 L (4.60-5.80) X10*6/uL Hgb 12.2 L (14.0-18.0) g/dl Hct 35.6 L (42.0-52.0) % MCV 85.8 (80.0-98.0) fL MCH 29.4 (27.0-33.0) pg MCHC 34.3 (31.0-36.0) g/dl RDW 13.8 (11.0-16.0) % Plt Count 107 L D (160-400) X10*3/uL MPV 10.0 (9.4-12.4) fL Immature Gran % (Auto) 0.3 (0.0-0.4) % Neut % (Auto) 73.8 H (45-73) % Lymph % (Auto) 14.7 L (20-40) % [place] % (Auto) 10.2 (2-11) % Eos % (Auto) 0.6 (0-4) % Baso % (Auto) 0.4 (0-2) % Lymph # (Auto) 1.1 L (1.2-4.9) X10*3/uL [place] # (Auto) 0.8 (0.1-1.2) X10*3/uL Eos # (Auto) 0.1 (0.0-0.4) X10*3/uL Baso # (Auto) 0.0 (0.0-0.2) X10*3/uL Abs Immat Gran (auto) 0.02 (0.00-0.03) X10*3/uL Absolute Neuts (auto) 5.7 (2.0-8.3) x10*3/uL Absolute Nucleated RBC 0.000 (0.0-0.012) X10*3/uL Nucleated RBC % (auto) 0.0 (0.0-0.2) /100WBC Sodium 137 (135-145) mmol/L Potassium 3.6 (3.3-5.1) mmol/L Chloride 105 (96-108) mmol/L Carbon Dioxide 22 (22-29) mmol/L Anion Gap 14 (12-20) BUN 8 L (9-16) mg/dL Creatinine 0.70 (0.5-1.4) mg/dL Estim Creat Clear Calc 146.5 Estimated GFR > 60 Random Glucose 107 (60-115) mg/dL Calcium 9.0 D (8.4-10.2) mg/dL Magnesium 1.9 (1.6-2.6) mg/dL Total Bilirubin 2.3 H (0.0-1.0) mg/dL AST 158 H (5-37) U/L ALT 36 (0-40) U/L Alkaline Phosphatase 116 (39-117) U/L Total Protein 8.2 H (6.5-8.0) g/dL Albumin 4.0 (3.5-5.0) g/dL Lipase 62 (8-78) U/L Urine Color Urine Appearance Urine pH (5.0-9.0) Ur Specific [place] (1.005-1.025) Urine Protein (Neg-Trace) mg/dL Urine Glucose (UA) (Negative) mg/dL Urine Ketones (Negative) mg/dL Urine Blood (Negative) Urine Nitrite (Negative) Ur Leukocyte Esterase (Negative) Salicylates < 5.0 L (15-30) mg/dL Urine Opiates Screen (Not Detect) Urine Fentanyl Screen (Not Detect) Acetaminophen < 17 (<30) mcg/mL Ur Barbiturates Screen (Not Detect) Ur Phencyclidine Scrn (Not Detect) Ur Amphetamines Screen (Not Detect) U Benzodiazepines Scrn (Not Detect) Urine Cocaine Screen (Not Detect) U Marijuana (THC) Screen (Not Detect) Ethyl Alcohol < 10 mg/dL COVID-19 (ELISEO) Negative (Negative) COVID-19 Clin Com See Note 04/15/23 04/15/23 Range/Units 23:29 23:30 WBC (4.8-10.8) X10*3/uL RBC (4.60-5.80) X10*6/uL Hgb (14.0-18.0) g/dl Hct (42.0-52.0) % MCV (80.0-98.0) fL MCH (27.0-33.0) pg MCHC (31.0-36.0) g/dl RDW (11.0-16.0) % Plt Count (160-400) X10*3/uL MPV (9.4-12.4) fL Immature Gran % (Auto) (0.0-0.4) % Neut % (Auto) (45-73) % Lymph % (Auto) (20-40) % [place] % (Auto) (2-11) % Eos % (Auto) (0-4) % Baso % (Auto) (0-2) % Lymph # (Auto) (1.2-4.9) X10*3/uL [place] # (Auto) (0.1-1.2) X10*3/uL Eos # (Auto) (0.0-0.4) X10*3/uL Baso # (Auto) (0.0-0.2) X10*3/uL Abs Immat Gran (auto) (0.00-0.03) X10*3/uL Absolute Neuts (auto) (2.0-8.3) x10*3/uL Absolute Nucleated RBC (0.0-0.012) X10*3/uL Nucleated RBC % (auto) (0.0-0.2) /100WBC Sodium (135-145) mmol/L Potassium (3.3-5.1) mmol/L Chloride (96-108) mmol/L Carbon Dioxide (22-29) mmol/L Anion Gap (12-20) BUN (9-16) mg/dL Creatinine (0.5-1.4) mg/dL Estim Creat Clear Calc Estimated GFR Random Glucose (60-115) mg/dL Calcium (8.4-10.2) mg/dL Magnesium (1.6-2.6) mg/dL Total Bilirubin (0.0-1.0) mg/dL AST (5-37) U/L ALT (0-40) U/L Alkaline Phosphatase (39-117) U/L Total Protein (6.5-8.0) g/dL Albumin (3.5-5.0) g/dL Lipase (8-78) U/L Urine Color Yellow Urine Appearance Clear Urine pH 6.5 (5.0-9.0) Ur Specific [place] <= 1.005 (1.005-1.025) Urine Protein Negative (Neg-Trace) mg/dL Urine Glucose (UA) Negative (Negative) mg/dL Urine Ketones Negative (Negative) mg/dL Urine Blood Negative (Negative) Urine Nitrite Negative (Negative) Ur Leukocyte Esterase Negative (Negative) Salicylates (15-30) mg/dL Urine Opiates Screen Not Detected (Not Detect) Urine Fentanyl Screen Not Detected (Not Detect) Acetaminophen (<30) mcg/mL Ur Barbiturates Screen Not Detected (Not Detect) Ur Phencyclidine Scrn Not Detected (Not Detect) Ur Amphetamines Screen Not Detected (Not Detect) U Benzodiazepines Scrn Not Detected (Not Detect) Urine Cocaine Screen Not Detected (Not Detect) U Marijuana (THC) Screen Not Detected (Not Detect) Ethyl Alcohol mg/dL COVID-19 (ELISEO) (Negative) COVID-19 Clin Com External Record Review External record reviewed: Outpatient record and Prior outpatient labs Discharge Plan Discharge Clinical Impression: Acute psychosis Patient Disposition: Still a Patient Prescriptions: No Action No Known Home Meds Interventions: [place]-Suicide Risk Severity Scale Last Done: 04/15/23 20:16
[2023-04-15 23:16] LABS: Alanine Aminotransferase 36 U/L (0-40); Alkaline Phosphatase 116 U/L (39-117); Anion Gap 14 (12-20); Aspartate Amino Transferase 158 U/L (5-37); Bilirubin Total 2.3 mg/dL (0.0-1.0); Blood Urea Nitrogen 8 mg/dL (9-16); Carbon Dioxide 22 mmol/L (22-29); Chloride 105 mmol/L (96-108); Creatinine Clr Calc Pharmacy 146.5; Estimated Glomerular Filt Rate > 60; Ethanol < 10 mg/dL; Glucose Random 107 mg/dL (60-115); Lipase 62 U/L (8-78); Potassium 3.6 mmol/L (3.3-5.1); Sodium 137 mmol/L (135-145); Total Protein 8.2 g/dL (6.5-8.0)
[2023-04-15 23:20] LABS: Basophils Percent Auto 0.4 % (0-2); Eosinophils Absolute Auto 0.1 X10*3/uL (0.0-0.4); Eosinophils Percent Auto 0.6 % (0-4); Hematocrit 35.6 % (42.0-52.0); Hemoglobin 12.2 g/dl (14.0-18.0); Imm Gran Abs Auto 0.02 X10*3/uL (0.00-0.03); Imm Gran Pct Auto 0.3 % (0.0-0.4); Lymphocytes Absolute Auto 1.1 X10*3/uL (1.2-4.9); Lymphocytes Percent Auto 14.7 % (20-40); Mean Corpuscular HGB Conc 34.3 g/dl (31.0-36.0); Mean Corpuscular Hemoglobin 29.4 pg (27.0-33.0); Mean Corpuscular Volume 85.8 fL (80.0-98.0); Monocytes Absolute Auto 0.8 X10*3/uL (0.1-1.2); Monocytes Percent Auto 10.2 % (2-11); Neutrophils Absolute Auto 5.7 x10*3/uL (2.0-8.3); Neutrophils Percent Auto 73.8 % (45-73); Platelet Count 107 X10*3/uL (160-400); Red Blood Count 4.15 X10*6/uL (4.60-5.80); Red Cell Distribution Width 13.8 % (11.0-16.0); White Blood Count 7.8 X10*3/uL (4.8-10.8)
[2023-04-15 23:38] LABS: Appearance Urine Clear; Color Urine Yellow; Glucose Urine UA Negative (Negative); Leukocyte Esterase Urine Negative (Negative); Nitrite Urine Negative (Negative); PH 6.5 (5.0-9.0); Specific Gravity - Urine <= 1.005 (1.005-1.025); Urine Blood Negative (Negative); Urine Ketones Negative (Negative); Urine Protein Negative (Neg-Trace)
--- NOTE | 2023-04-15 23:38 | PC.NURSE ---
Patient just got transferred from main ED, independent gait, per report from RN Scot patient is having unexplained mental status change exhibiting hallucination, this blog writer suspect alcohol delirium, addressed the concern to Reji Muller, requested for Head CT, request denied on the ground that it is not needed but instructed to watch for withdrawal, care consult ordered/pending evaluation, will continue to monitor.
[2023-04-15 23:39] LABS: Acetaminophen LAB < 17 mcg/mL (<30); Salicylate < 5.0 mg/dL (15-30)
[2023-04-15 23:42] VITALS: BP 136/88; PULSE 73; RESP 17; TEMP 36.8; O2SAT 97
[2023-04-15 23:42] LABS: COVID-19 Test Negative (Negative); IDNOW Serial# 6674DD1D
[2023-04-15 23:46] LABS: Amphetamine Screen Urine Not Detected (Not Detect); Barbiturates, Urine Not Detected (Not Detect); Benzodiazepines Screen Urine Not Detected (Not Detect); Cannabinoid Screen Urine Not Detected (Not Detect); Cocaine Screen Urine Not Detected (Not Detect); Opiate Screen Urine Not Detected (Not Detect); Phencyclidine Screen Urine Not Detected (Not Detect)
[2023-04-15 23:50] LABS: Fentanyl, urine Not Detected (Not Detect)
--- NOTE | 2023-04-16 | ECG_ITS ---
Test Reason : MED CLEARANCE Blood Pressure : / mmHG Vent. Rate : 072 BPM Atrial Rate : 072 BPM P-R Int : 144 ms QRS Dur : 098 ms QT Int : 430 ms P-R-T Axes : 019 039 015 degrees QTc Int : 470 ms Normal sinus rhythm Normal ECG When compared with ECG of 17-JAN-2023 20:18, Vent. rate has decreased BY 42 BPM Referred By: David Layne Electronically Signed By:GALILEO ZURITA
[2023-04-16] MEDS: LORazepam 1 MG TABLET 2 MG PO ×3 (00:18→19:06)
[2023-04-16] MEDS: Thiamine HCL 100 MG TABLET PO (00:19)
[2023-04-16 00:23] LABS: Magnesium 1.9 mg/dL (1.6-2.6)
--- NOTE | 2023-04-16 06:21 | PC.NURSE ---
Patient slept through the night, no distress observed/reported, patient is currently not on any home medication, Ativan 2 mg PO and Thiamine 100 mg administered at 0019 with + effect, behavior non concerning, care consult ordered/pending evaluation, VSS, asymptomatic of withdrawal, will continue to monitor
--- NOTE | 2023-04-16 07:03 | PC.NURSE ---
patient appears to remain asleep respirations are even and unlabored patient appears in no distress
[2023-04-16 10:06] VITALS: BP 113/77; PULSE 100; RESP 16; TEMP 36.8; O2SAT 97
--- NOTE | 2023-04-16 17:34 | PC.NURSE ---
Patient states last drink was 2 days prior to coming to ED
[2023-04-16 18:59] VITALS: BP 120/82; PULSE 82; RESP 16; TEMP 36.6; O2SAT 98
[2023-04-16] MEDS: Nicotine Polacrilex 2 MG GUM BUCCAL (21:06)
[2023-04-16] MEDS: traZODone HCL 50 MG TABLET PO (23:30)
[2023-04-16] MEDS: hydrOXYzine HCL 25 MG TABLET PO (23:30)
--- NOTE | 2023-04-17 02:11 | PC.ADMIT ---
Pt is a 33 yo male admitted to unit after referral from the CARE Team arriving on the unit at 1830 on 04/16/2023 from the ED. Pt signed a CV. Pt current medical issues are HTN. Pt has a hx of ETOH abuse. Pt states that he drinks either a fifth of liquor(a sleeve of 10 mini nips) or a 6 pack of beer or BOTH daily. Pt denies THC use for the last 3 months. Pt states the only substances besides ETOH that he uses is prescription meds as directed. Pt reports that he has had 4 rehab stints; 2 in detox, 1 outpatient rehab and 1 inpatient rehab. Pt states most recent detox/rehab was from 02/19 through 04/04 and upon discharge he immediately went back to drinking. Pt reports he smokes casually, smoking 1 pack in a 2 week period. Pt states the nicotine gum is sufficient for nicotine replacement for him. Pt has court for custody of his son, Andrew PURVIS in April. Pt has restraining order against him from his son's mother and a DUI from 2014. 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 Pt states that the precipitant to admission was he was having a panic attack because he was hearing AH of neighbors talking to him through the [place] and his anxiety increased. He ran to his neighbors and his mother followed him. He did not want to stay there and became nervous, pale shaky and confused. Pt stated that he was having a VH of his son running and chased after him. Pt reports the police then tackled him. Pt states that he does not remember the ambulance ride. Apparently Mom filed for and received section 35 on pt. Pt presents as clear and linear thinking. Exhibits some humor, affect was relaxed, calm.and cooperative. Provider consulting psychiatrist Pedro notified of admission and orders obtained. Pt placed on 15 minute checks for safety. Reports feels safe on unit.
[2023-04-17 07:39] LABS: Estimated Average Glucose 97 mg/dL
[2023-04-17 08:26] LABS: Alanine Aminotransferase 53 U/L (0-40); Albumin Level 3.9 g/dL (3.5-5.0); Alkaline Phosphatase 104 U/L (39-117); Anion Gap 11 (12-20); Aspartate Amino Transferase 207 U/L (5-37); Bilirubin Total 2.1 mg/dL (0.0-1.0); Blood Urea Nitrogen 10 mg/dL (9-16); Calcium 9.2 mg/dL (8.4-10.2); Carbon Dioxide 28 mmol/L (22-29); Chloride 105 mmol/L (96-108); Cholesterol 149 mg/dL; Creatinine Clr Calc Pharmacy 125.1; Estimated Glomerular Filt Rate > 60; Folate 17.3 ng/mL (> or = 4.0); Free T4 (Free Thyroxine) 0.94 ng/dL (0.71-1.85); Glucose Fasting 85 mg/dL (60-99); HDL Cholesterol 41 mg/dL; LDL Cholesterol Calculated 94 mg/dl; Potassium 3.8 mmol/L (3.3-5.1); Sodium 140 mmol/L (135-145); Thyroid Stimulating Hormone 0.59 uIU/mL (0.32-4.0); Total Protein 7.8 g/dL (6.5-8.0); Triglycerides 74 mg/dL; Vitamin B12 513 pg/mL (200-900)
[2023-04-17 09:05] VITALS: BP 127/89; PULSE 94; RESP 16; TEMP 36.6; O2SAT 100
[2023-04-17] MEDS: Folic Acid 1 MG TABLET PO (09:13)
[2023-04-17] MEDS: Thiamine HCL 100 MG TABLET PO (09:13)
[2023-04-17] MEDS: Metoprolol Tartrate 25 MG TABLET 50 MG PO ×2 (09:13→22:24)
[2023-04-17 12:00] VITALS: BP 130/75; PULSE 81; RESP 16; TEMP 36.7; O2SAT 100
[2023-04-17] MEDS: Nicotine Polacrilex 2 MG GUM BUCCAL ×3 (14:06→21:33)
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
--- NOTE | 2023-04-17 15:46 | PC.NURSE ---
Patient signed a 3-day on 04/17, up on 04/21
[2023-04-17 17:34] VITALS: BP 150/90; PULSE 77; RESP 18; TEMP 36.8; O2SAT 100
[2023-04-17] MEDS: LORazepam 1 MG TABLET PO (17:37)
[2023-04-17 22:15] VITALS: BP 144/90; PULSE 98; RESP 18; TEMP 36.4; O2SAT 96
[2023-04-17] MEDS: traZODone HCL 50 MG TABLET PO (22:24)
[2023-04-17] MEDS: hydrOXYzine HCL 50 MG TABLET PO (22:27)
[2023-04-18] MEDS: Folic Acid 1 MG TABLET PO (08:49)
[2023-04-18] MEDS: Thiamine HCL 100 MG TABLET PO (08:49)
[2023-04-18] MEDS: Metoprolol Tartrate 25 MG TABLET 50 MG PO ×2 (08:51→21:17)
[2023-04-18 09:00] VITALS: BP 134/65; PULSE 67; RESP 16; TEMP 36.6; O2SAT 99
[2023-04-18] MEDS: Nicotine Polacrilex 2 MG GUM BUCCAL ×4 (10:56→21:19)
--- NOTE | 2023-04-18 15:56 | P.PNPSI_ITS ---
Subjective Subjective Date of Service: 04/18/23 Reason For Visit: psychosis Interim History: calm, cooperative. had weird dreams last night, agrees to DC trazodone and trial remeron tonight. reports he otherwise slept reasonably well. denies any psychotic Sx. informed of ativan taper. per staff, 3-day up on 04/21. visible, pleasant, cooperative. c/o anxiety. dep 4. no SI/HI/AVH. slept well. Mental Status Exam Mental Status Exam Narrative: calm, cooperative. no PMA/PMR. adequately dressed and groomed. speech nml rate, amount, loudness, latency. thoughts linear and logical. affect constricted, normo-intense, non-labile. mood euthymic no SI/HI/AVH expressed. Diagnostics Vital Signs (24Hr): Vital Signs - 24 hr 04/17/23 17:34 04/17/23 22:15 04/18/23 09:00 Temperature 98.3 F 97.6 F 97.9 F Pulse Rate 77 98 67 Respiratory Rate 18 18 16 Blood Pressure 150/90 H 144/90 H 134/65 Pulse Oximetry 100 96 99 Oxygen Delivery Method Room Air Room Air Room Air BMI result Body Mass Index 26.1 Labs 04/15/23 22:52 04/17/23 07:07 Labs: Laboratory Results - last 48 hr 04/17/23 04/17/23 07:07 07:07 Sodium 140 Potassium 3.8 Chloride 105 Carbon Dioxide 28 Anion Gap 11 L BUN 10 Creatinine 0.82 Estim Creat Clear Calc 125.1 Estimated GFR > 60 Fasting Glucose 85 Estimat Average Glucose 97 Hemoglobin A1c % 5.0 Calcium 9.2 Total Bilirubin 2.1 H AST 207 H ALT 53 H Alkaline Phosphatase 104 Total Protein 7.8 Albumin 3.9 Triglycerides 74 Cholesterol 149 LDL Cholesterol, Calc 94 HDL Cholesterol 41 Vitamin B12 513 Folate 17.3 TSH 0.59 Free T4 0.94 Medications Medications Current Medications Acetaminophen (Acetaminophen 325 Mg Tablet) 650 mg PO Q6H PRN PRN Reason: Headache/Pain Mild Scale (1-3) Al Hydroxide/Mg Hydroxide (Magnesium Hydrox/Alum Hydrox 30 Ml Oral.Susp) 30 ml PO Q6H PRN PRN Reason: Heartburn/Nausea Clonidine HCl (Clonidine Hcl 0.1 Mg Tablet) 0.1 mg PO TID PRN PRN Reason: Anxiety Folic Acid (Folic Acid 1 Mg Tablet) 1 mg PO DAILY [facility] Last Admin: 04/18/23 08:49 Dose: 1 mg Hydroxyzine HCl (Hydroxyzine Hcl 50 Mg Tablet) 50 mg PO TID PRN PRN Reason: Anxiety Last Admin: 04/17/23 22:27 Dose: 50 mg Lorazepam (Lorazepam 1 Mg Tablet) 1 mg PO ONCE ONE Stop: 04/18/23 15:55 Lorazepam (Lorazepam 1 Mg Tablet) 1 mg PO ONCE ONE Stop: 04/18/23 21:01 Magnesium Hydroxide (Milk Of Magnesia 30 Ml Oral.Susp) 30 ml PO DAILY PRN PRN Reason: Constipation Metoprolol Tartrate (Metoprolol Tartrate 25 Mg Tablet) 50 mg PO BID [facility] Last Admin: 04/18/23 08:51 Dose: 50 mg Mirtazapine (Mirtazapine 15 Mg Tablet) 15 mg PO BEDTIME LEXY Mirtazapine (Mirtazapine 15 Mg Tablet) 15 mg PO BEDTIME PRN PRN Reason: Insomnia Nicotine Polacrilex (Nicotine Polacrilex 2 Mg Gum) 2 mg BUCCAL Q2H PRN PRN Reason: Nicotine Cravings Last Admin: 04/18/23 15:28 Dose: 2 mg Thiamine HCl (Thiamine Hcl 100 Mg Tablet) 100 mg PO DAILY [facility] Last Admin: 04/18/23 08:49 Dose: 100 mg Allergies Allergies Allergy/AdvReac Type Severity Reaction Status Date / Time No Known Allergies Allergy Unverified 02/20/22 09:56 Assessment & Plan Assessment & Plan (1) Acute psychosis: Status: Acute Code(s): F23 - Brief psychotic disorder (2) 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 comfort meds. referral for rehab. 04/18: schedule ativan taper over next two days. referral for rehab. Reason for continued inpatient stay Substantial Risk for: inability to function and rapid decompensation Time Spent With Patient Time: Total time managing care of this patient today ____ minutes.
[2023-04-18] MEDS: LORazepam 1 MG TABLET PO ×2 (16:44→21:17)
[2023-04-18 21:05] VITALS: BP 130/74; PULSE 85; RESP 16; TEMP 36.6; O2SAT 97
[2023-04-18] MEDS: Mirtazapine 15 MG TABLET PO (21:17)
[2023-04-19 08:50] VITALS: BP 133/74; PULSE 77; TEMP 36.6; O2SAT 98
[2023-04-19] MEDS: Metoprolol Tartrate 25 MG TABLET 50 MG PO ×2 (08:54→21:26)
[2023-04-19] MEDS: Thiamine HCL 100 MG TABLET PO (08:55)
[2023-04-19] MEDS: LORazepam 0.5 MG TABLET PO ×2 (08:55→21:26)
[2023-04-19] MEDS: Folic Acid 1 MG TABLET PO (08:55)
--- NOTE | 2023-04-19 13:21 | P.PNPSI_ITS ---
Subjective Subjective Date of Service: 04/19/23 Reason For Visit: psychosis Interim History: feels he slept well last night. feels rested, no weird dreams. feels his thoughts are clear, denies any confusion. interested in referrals for rehab. does not appear interested in therapy or mental health prescriber. per staff, 3-day up tomorrow (actually would be ). ativan taper started. social, appropriate. Mental Status Exam Mental Status Exam Narrative: calm, cooperative. no PMA/PMR. adequately dressed and groomed. speech nml rate, amount, loudness, latency. thoughts linear and logical. affect constricted, normo-intense, non-labile. mood euthymic no SI/HI/AVH expressed. Diagnostics Vital Signs (24Hr): Vital Signs - 24 hr 04/18/23 21:05 04/19/23 08:50 Temperature 97.8 F 97.8 F Pulse Rate 85 77 Respiratory Rate 16 Blood Pressure 130/74 133/74 Pulse Oximetry 97 98 Oxygen Delivery Method Room Air Room Air BMI result Body Mass Index 26.1 Labs 04/15/23 22:52 04/17/23 07:07 Medications Medications Current Medications Acetaminophen (Acetaminophen 325 Mg Tablet) 650 mg PO Q6H PRN PRN Reason: Headache/Pain Mild Scale (1-3) Al Hydroxide/Mg Hydroxide (Magnesium Hydrox/Alum Hydrox 30 Ml Oral.Susp) 30 ml PO Q6H PRN PRN Reason: Heartburn/Nausea Clonidine HCl (Clonidine Hcl 0.1 Mg Tablet) 0.1 mg PO TID PRN PRN Reason: Anxiety Folic Acid (Folic Acid 1 Mg Tablet) 1 mg PO DAILY [facility] Last Admin: 04/19/23 08:55 Dose: 1 mg Hydroxyzine HCl (Hydroxyzine Hcl 50 Mg Tablet) 50 mg PO TID PRN PRN Reason: Anxiety Last Admin: 04/17/23 22:27 Dose: 50 mg Lorazepam (Lorazepam 0.5 Mg Tablet) 0.5 mg PO BID [facility] Stop: 04/20/23 09:01 Last Admin: 04/19/23 08:55 Dose: 0.5 mg Magnesium Hydroxide (Milk Of Magnesia 30 Ml Oral.Susp) 30 ml PO DAILY PRN PRN Reason: Constipation Metoprolol Tartrate (Metoprolol Tartrate 25 Mg Tablet) 50 mg PO BID [facility] Last Admin: 04/19/23 08:54 Dose: 50 mg Mirtazapine (Mirtazapine 15 Mg Tablet) 15 mg PO BEDTIME [facility] Last Admin: 04/18/23 21:17 Dose: 15 mg Mirtazapine (Mirtazapine 15 Mg Tablet) 15 mg PO BEDTIME PRN PRN Reason: Insomnia Nicotine Polacrilex (Nicotine Polacrilex 2 Mg Gum) 2 mg BUCCAL Q2H PRN PRN Reason: Nicotine Cravings Last Admin: 04/18/23 21:19 Dose: 2 mg Thiamine HCl (Thiamine Hcl 100 Mg Tablet) 100 mg PO DAILY [facility] Last Admin: 04/19/23 08:55 Dose: 100 mg Allergies Allergies Allergy/AdvReac Type Severity Reaction Status Date / Time No Known Allergies Allergy Unverified 02/20/22 09:56 Assessment & Plan Assessment & Plan (1) Acute psychosis: Status: Acute Code(s): F23 - Brief psychotic disorder (2) 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 comfort meds. referral for rehab. 04/18: schedule ativan taper over next two days. referral for rehab. 04/19: ativan taper ending tomorrow. feeling in good spirits. denies any psychotic Sx, confusion. slept well last night with switch from trazodone to remeron. interested in referral for rehab. Reason for continued inpatient stay Substantial Risk for: inability to function and rapid decompensation Time Spent With Patient Time: Total time managing care of this patient today __25__ minutes.
[2023-04-19] MEDS: Nicotine Polacrilex 2 MG GUM BUCCAL ×3 (14:02→21:27)
[2023-04-19] MEDS: hydrOXYzine HCL 50 MG TABLET PO (15:59)
[2023-04-19] MEDS: cloNIDine HCL 0.1 MG TABLET PO (15:59)
[2023-04-19 21:20] VITALS: BP 118/59; PULSE 74; RESP 16; TEMP 36.7; O2SAT 97
[2023-04-19] MEDS: Mirtazapine 15 MG TABLET PO (21:26)
[2023-04-20] MEDS: Folic Acid 1 MG TABLET PO (08:09)
[2023-04-20] MEDS: LORazepam 0.5 MG TABLET PO (08:09)
[2023-04-20] MEDS: Metoprolol Tartrate 25 MG TABLET 50 MG PO (08:09)
[2023-04-20] MEDS: Thiamine HCL 100 MG TABLET PO (08:09)
[2023-04-20 08:33] VITALS: BP 123/68; PULSE 85; RESP 18; TEMP 36.6; O2SAT 98
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
== END 2023-04-20 11:30 | disposition home or self-care (01) | DRG 775 ==
LOC: HO.ED 04-16 00:33 → HO.PADLT16 04-16 18:10
PROVIDERS: Internal Medicine; Admitting Provider Psychiatry & Neurology Psychiatry; Emergency Provider Student in an Organized Health Care Education/Training Program; Visit Provider Psychiatry & Neurology Psychiatry
DX: F10.151 Alcohol abuse with alcohol-induced psychotic disorder with hallucinations (principal); F17.210 Nicotine dependence, cigarettes, uncomplicated; Y90.0 Blood alcohol level of less than 20 mg/100 ml; Z20.822 Contact with and (suspected) exposure to COVID-19; Z71.6 Tobacco abuse counseling; Z79.899 Other long term (current) drug therapy
CPT/HCPCS: 36415; 80053; 80061; 80143; 80179; 80307; 81003; 82607; 82746; 83036; 83690; 83735; 84439; 84443; 85025; 87635; 93005; 99285; S9485

== ENCOUNTER 2024-12-20 11:05 | Inpatient (IN) | payer OTHER, SELFPAY ==
--- NOTE | ~2024-12-20 | XR_ITS ---
EXAMINATION: XR HAND 1-2 VIEWS RIGHT HISTORY: swollen/pain COMPARISON: There are no prior studies available for comparison. FINDINGS: Three views of the right hand are submitted. Osseous mineralization is normal. There is no fracture or dislocation. A suture anchor is noted at the base of the proximal phalanx of the thumb. The joint spaces are preserved. There is dorsal soft tissue swelling. XR/XR hand RT 2V IMPRESSION: Dorsal soft tissue swelling. No osseous abnormality is identified. Electronically signed by: Jerry Pak MD 12/20/2024 12:41 PM EST [facility]
[2024-12-20 11:46] VITALS: BP 165/91; PULSE 101; RESP 16; O2SAT 100; BMI 26.5
[2024-12-20 12:15] LABS: MANUAL DIFF FLAG NO
[2024-12-20 12:20] LABS: Basophils Percent Auto 0.6 % (0-2); Eosinophils Absolute Auto 0.1 X10*3/uL (0.0-0.4); Eosinophils Percent Auto 1.5 % (0-4); Hematocrit 31.7 % (42.0-52.0); Hemoglobin 10.7 g/dl (14.0-18.0); Imm Gran Abs Auto 0.02 X10*3/uL (0.00-0.03); Imm Gran Pct Auto 0.3 % (0.0-0.4); Lymphocytes Absolute Auto 1.5 X10*3/uL (1.2-4.9); Lymphocytes Percent Auto 21.7 % (20-40); Mean Corpuscular HGB Conc 33.8 g/dl (31.0-36.0); Mean Corpuscular Hemoglobin 28.9 pg (27.0-33.0); Mean Corpuscular Volume 85.7 fL (80.0-98.0); Mean Platelet Volume 10.4 fL (9.4-12.4); Monocytes Absolute Auto 0.8 X10*3/uL (0.1-1.2); Monocytes Percent Auto 12.2 % (2-11); Neutrophils Absolute Auto 4.3 x10*3/uL (2.0-8.3); Neutrophils Percent Auto 63.7 % (45-73); Platelet Count 127 X10*3/uL (160-400); Red Cell Distribution Width 13.8 % (11.0-16.0); White Blood Count 6.8 X10*3/uL (4.8-10.8)
[2024-12-20 12:34] LABS: Alanine Aminotransferase < 6 U/L (0-40); Albumin Level 3.5 g/dL (3.5-5.0); Alkaline Phosphatase 121 U/L (39-117); Anion Gap 13 (12-20); Aspartate Amino Transferase 33 U/L (5-37); Bilirubin Total 3.4 mg/dL (0.0-1.0); Blood Urea Nitrogen 7 mg/dL (9-16); Calcium 8.7 mg/dL (8.4-10.2); Carbon Dioxide 26 mmol/L (22-29); Chloride 106 mmol/L (96-108); Creatinine Clr Calc Pharmacy 139.8; Estimated Glomerular Filt Rate > 60; Glucose Random 130 mg/dL (60-115); Potassium 3.9 mmol/L (3.3-5.1); Sodium 141 mmol/L (135-145); Total Protein 8.2 g/dL (6.5-8.0)
[2024-12-20] MEDS: Ketorolac Tromethamine 30 MG/ML VIAL IM (13:50)
--- NOTE | 2024-12-20 13:55 | ED.EXTPRO ---
HPI - Extremity Problem General Chief complaint: Extremity Injury, Upper Stated complaint: Swelling R hand no injury Time Seen by Provider: 12/20/24 13:24 Source: patient and family (Mom) Mode of arrival: ambulatory Limitations: no limitations History of Present Illness ED Provider: CHINTAN ARREDONDO PA-C HPI Narrative: 34-year-old right hand dominant male with pmhx significant for anxiety, alcohol dependence (in remission since Jul), and cirrhosis presents to the ED today with his mother for evaluation of right hand pain/swelling x4 days. Patient reports going to bed Tuesday night with normal right hand. He woke up in the middle of the night with excruciating pain to the dorsal aspect of his right hand. Denies any injury or trauma to the hand. Over the last few days there has been increasing swelling and redness to the right hand. He was evaluated at [facility] with negative xrays. He admits to small healed puncture wound to right thumb from his mother's puppy sustained 2 weeks ago. No other open wounds. Denies hx of DM or gout. Denies IVDU. Admits to previous right first UCl repair in 2010. no other hand surgeries. Denies fever, chills, N/V, numbness/tingling/weakness of the RUE. Related Data Previous Rx's ?Medication ?Instructions ?Recorded clonidine HCl 0.1 mg tablet 0.1 mg PO TID PRN Anxiety 30 days 04/20/23 #90 tabs folic acid 1 mg tablet 1 mg PO DAILY 30 days #30 tabs 04/20/23 hydroxyzine HCl 50 mg tablet 50 mg PO TID PRN Anxiety 30 days 04/20/23 #90 tabs metoprolol tartrate 25 mg tablet 50 mg (2 x 25 mg) PO BID 30 days 04/20/23 #120 tabs mirtazapine 15 mg tablet 15 mg PO BEDTIME 30 days #30 tabs 04/20/23 thiamine mononitrate (vit B1) 100 100 mg PO DAILY 30 days #30 tabs 04/20/23 mg tablet Allergies Allergy/AdvReac Type Severity Reaction Status Date / Time No Known Allergies Allergy Verified 12/20/24 11:49 Review of Systems Review of Systems: Constitutional: No fever, chills, fatigue, night sweats, weight changes ENT/Mouth: No ear pain, hearing loss, nasal congestion, sinus pain, rhinorrhea, sore throat Eyes: No eye pain, swelling, redness, vision changes, discharge Cardio: No chest pain, palpitations, RAYMOND, orthopnea, peripheral edema Pulm: No SOB, cough, sputum, wheezing, dyspnea, hemoptysis GI: No nausea, vomiting, hematemesis, abdominal pain, diarrhea, constipation, hematochezia, melena : No irregular bleeding, dysuria, frequency, urgency, hesitancy, hematuria, flank pain, urinary flow changes, urinary incontinence or retention MSK: No back pain, neck pain, joint pain, myalgias, +right hand pain/swelling Skin: No lesions, rashes Neuro: No weakness, numbness, paresthesias, LOC, dizziness, headache Psych: No anxiety/panic, depression, SI/HI, AH/VH All other systems reviewed and are negative. [facility] Past Medical History Attestation statement: The following information was validated with the patient. Source: old records reviewed and nursing notes reviewed Medical History Alcohol use disorder Social History Social History Household Members: None Housing: Apartment Do you presently have visiting nurse or other home services: No Alcohol intake: current Alcohol intake frequency: 0-2 drinks per day Alcohol type: hard liquor Patient Tobacco Use Status: Current someday Tobacco user Tobacco use type: Cigarette Cigarettes Per Day: 2 e-Cigarette/Vaping Use: Never Used Substance Use Type: Prescription Drugs Advance Directives: No Advance Directives Information Provided: Yes Do you have a plan to hurt others: No Plan service: No Current occupational status: unemployed Sexual orientation: Straight/Heterosexual Physical Exam Vital Signs: Vital Signs: Last Vital Signs Temp 99.3 F 12/20/24 14:47 Pulse 97 12/20/24 14:47 Resp 18 12/20/24 14:47 BP 135/83 12/20/24 14:47 Pulse Ox 98 12/20/24 14:47 O2 Del Method Room Air 12/20/24 14:47 BMI result Body Mass Index 26.5 hypertensive, tachycardic General: Well appearing, in no acute distress. Skin: Warm, dry, intact. No rashes or lesions. Head: Normocephalic, atraumatic. EENT: Hearing is intact b/l. Conjunctiva clear. Sclera is anicteric. PERRLA. EOM intact. Moist mucous membranes.? Neck: Supple without LAD Cardiac: Chest wall symmetric. RRR Lungs: Normal respiratory effort without accessory muscle use. CTA bilaterally Abdomen: Soft, non-tender, non-distended Back: No midline spinous or paraspinal tenderness. No step off deformity. Ext: +significant edema and erythema to dorsal aspect of right hand without extension over digits. no streaking up RUE. warm, ttp without palpable fluctuance or crepitus. pain on ROM of right wrist and all digits. 2+ radial and ulnar pulse intact. Neuro: AOx3. Normal speech. Ambulating with steady gait. Psych: Appropriate mood and affect. Responds appropriately to questions. Course Course Course Narrative: 1230 -- CBC without leukocytosis or left shift. Normocytic anemia and thrombocytopenia, likely secondary to cirrhosis. H&H above transfusion threshold. Chemistry without acute electrolyte abnormality requiring intervention. No KULDIP. Random glucose 130. Bilirubin chronically elevated with elevated LFTs consistent with cirrhosis. Uric acid WNL. Gout less likely. Lactic WNL. No concern for sepsis at 1230. > xr right hand/wrist showing swelling to dorsal aspect, no noted fracture. no evidence of osteo. 1450 -- I have concern for cellulitis of right hand. blood cultres and vanc + zosyn ordered. Patient recieved a dose of IM toradol with minimal improvement in pain. IV morphine ordered. > I did reach out to ortho (yue sun). both him and dr. schneider evaluated patient at bedside. no concern for abscess or septic joint. no surgical intervention warranted at this time. recommending admission to medicine for IV antibiotics. they will continue to follow through admission. patient is agreeable. > I reached out to hospitalist dr. aragon who has accepted patient admission. Medications Administered Discontinued Medications Generic Name Dose Route Start Last Admin Trade Name Freq PRN Reason Stop Dose Admin Ketorolac Tromethamine 30 mg 12/20/24 13:37 12/20/24 13:50 Ketorolac Tromethamine 30 Mg/Ml Vial IM 12/20/24 13:38 30 mg ONCE ONE Administration Medical Decision Making Medical Decision Making MDM Narrative: 34-year-old right hand dominant male with pmhx significant for anxiety, alcohol dependence (in remission since Jul), and cirrhosis presents to the ED today with his mother for evaluation of right hand pain/swelling x4 days. Vital signs notable for tachycardia and hypertension. afebrile. Exam of right upper extremity shows significant edema and erythema to dorsal aspect of right hand without extension over digits. no streaking up RUE. warm, ttp without palpable fluctuance or crepitus. pain on ROM of right wrist and all digits. 2+ radial and ulnar pulse intact. Differential diagnosis includes hand contusion, cellulitis, abscess, tenosynovitis, lymphangitis, septic joint, gout, pseuogout Plan for basic labs, inflammatory markers, uric acid, xr, pain control and re-evaluation. Differential Diagnosis Differential Diagnoses: The differential diagnosis associated with the presentation includes as above Admission/Observation Consideration of admission/observation: Escalation of care including admission/observation considered Patient to be admitted to medicine for treatment of cellulitis with IV antibiotics Consult Healthcare Provider Management of the patient was discussed with: Hospitalist (Dr. Aragon) and Hand Upper And Bottom Lacer (lynnette Nagy PA-C, Dr. Schneider) Lab Data MDM Lab Attestation statement: I reviewed the patient's lab results. as above. 12/20/24 12:09 12/20/24 12:09 Labs: Lab Results 12/20/24 Range/Units 12:09 WBC 6.8 (4.8-10.8) X10*3/uL RBC 3.70 L (4.60-5.80) X10*6/uL Hgb 10.7 L (14.0-18.0) g/dl Hct 31.7 L (42.0-52.0) % MCV 85.7 (80.0-98.0) fL MCH 28.9 (27.0-33.0) pg MCHC 33.8 (31.0-36.0) g/dl RDW 13.8 (11.0-16.0) % Plt Count 127 L (160-400) X10*3/uL MPV 10.4 (9.4-12.4) fL Immature Gran % (Auto) 0.3 (0.0-0.4) % Neut % (Auto) 63.7 (45-73) % Lymph % (Auto) 21.7 (20-40) % Price % (Auto) 12.2 H (2-11) % Eos % (Auto) 1.5 (0-4) % Baso % (Auto) 0.6 (0-2) % Lymph # (Auto) 1.5 (1.2-4.9) X10*3/uL Price # (Auto) 0.8 (0.1-1.2) X10*3/uL Eos # (Auto) 0.1 (0.0-0.4) X10*3/uL Baso # (Auto) 0.0 (0.0-0.2) X10*3/uL Abs Immat Gran (auto) 0.02 (0.00-0.03) X10*3/uL Absolute Neuts (auto) 4.3 (2.0-8.3) x10*3/uL Absolute Nucleated RBC 0.000 (0.0-0.012) X10*3/uL Nucleated RBC % (auto) 0.0 (0.0-0.2) /100WBC ESR 53 H (0-15) MM/HR Sodium 141 (135-145) mmol/L Potassium 3.9 (3.3-5.1) mmol/L Chloride 106 (96-108) mmol/L Carbon Dioxide 26 (22-29) mmol/L Anion Gap 13 (12-20) BUN 7 L (9-16) mg/dL Creatinine 0.80 (0.5-1.4) mg/dL Estim Creat Clear Calc 139.8 Estimated GFR > 60 Random Glucose 130 H (60-115) mg/dL Lactic Acid 2.0 (0.5-2.0) mmol/L Uric Acid 6.1 (3.4-7.0) mg/dL Calcium 8.7 (8.4-10.2) mg/dL Total Bilirubin 3.4 H (0.0-1.0) mg/dL AST 33 (5-37) U/L ALT < 6 (0-40) U/L Alkaline Phosphatase 121 H (39-117) U/L C-Reactive Protein 2.14 H (< or = 0.50) mg/dL Total Protein 8.2 H (6.5-8.0) g/dL Albumin 3.5 (3.5-5.0) g/dL Independent Interpretation I performed an independent interpretation of an: Plain X-Ray Interpretation: XR right hand/wrist without noted fracture Radiology Impression Discussion of test interpretation with radiology: I have reviewed the radiologist's reading. Radiologist Impression: EXAMINATION: XR HAND 1-2 VIEWS RIGHT HISTORY: swollen/pain COMPARISON: There are no prior studies available for comparison. FINDINGS: Three views of the right hand are submitted. Osseous mineralization is normal. There is no fracture or dislocation. A suture anchor is noted at the base of the proximal phalanx of the thumb. The joint spaces are preserved. There is dorsal soft tissue swelling. XR/XR hand RT 2V IMPRESSION: Dorsal soft tissue swelling. No osseous abnormality is identified. Electronically signed by: Jerry Pak MD 12/20/2024 12:41 PM [facility] Independent Historian Clinical information obtained from an independent historian. History obtained from or confirmed by: Parent (mom) External Record Review External record reviewed: Inpatient record Prescription Management I considered prescription management with: Pain Medication and Antibiotic Chronic Conditions Patient?s care impacted by: Other (cirrhosis, etoh abuse) Social Determinants Patient?s care significantly limited by Social Determinants of Health including: Other Social Determinant of Health Critical Care Time Critical Care Time Critical Care Time: No Discharge Plan Discharge Clinical Impression: Cellulitis of right hand Patient Disposition: Admitted As Inpatient Prescriptions: No Action mirtazapine 15 mg Tablet 15 mg PO BEDTIME 30 Days Qty: 30 0RF clonidine HCl 0.1 mg Tablet 0.1 mg PO TID PRN (Reason: Anxiety) 30 Days Qty: 90 0RF hydroxyzine HCl 50 mg Tablet 50 mg PO TID PRN (Reason: Anxiety) 30 Days Qty: 90 0RF folic acid 1 mg Tablet 1 mg PO DAILY 30 Days Qty: 30 0RF metoprolol tartrate 25 mg Tablet 50 mg PO BID 30 Days Qty: 120 0RF thiamine mononitrate (vit B1) 100 mg Tablet 100 mg PO DAILY 30 Days Qty: 30 0RF Print Language: Irish
[2024-12-20 13:59] LABS: C Reactive Protein 2.14 mg/dL (< or = 0.50); Uric Acid 6.1 mg/dL (3.4-7.0)
[2024-12-20 14:24] LABS: Erythrocyte Sedimentation Rate 53 MM/HR (0-15)
[2024-12-20 14:47] VITALS: BP 135/83; PULSE 97; RESP 18; TEMP 37.4; O2SAT 98
--- NOTE | 2024-12-20 15:08 | P.CONOP_ITS ---
History of Present Illness HPI Consult date: 12/20/24 Chief complaint: hand cellulitis Narrative: Patient is a 34 year old male who presents to the emergency department for evaluation of right hand pain and swelling with no acute injury Patient states he woke up last Tuesday and discovered that his hand was painful, and swollen with no evidence of acute injury The patient states that approximately 2 weeks ago he did receive a small abrasion from his mother's puppy on his right thumb. but states that he had no pain around this area Patient states that his pain, swelling, and redness have progressed to the point where they are today Patient states that he has significant pain on the dorsal aspect of the right hand, that worsens with attempted range of motion of the right hand or wrist Patient reports that this area is very tender to palpation Patient denies any injury or history of IV drug use in his area No numbness or tingling right hand No other acute complaints or concerns at this time Review of Systems 2 Review of Systems: Yes all other systems are reviewed and are negative PMFSH Past Medical History Medical History Alcohol use disorder Social History Social History Household Members: None Housing: Apartment Do you presently have visiting nurse or other home services: No Alcohol intake: current Alcohol intake frequency: 0-2 drinks per day Alcohol type: hard liquor Patient Tobacco Use Status: Current someday Tobacco user Tobacco use type: Cigarette Cigarettes Per Day: 2 e-Cigarette/Vaping Use: Never Used Substance Use Type: Prescription Drugs Advance Directives: No Advance Directives Information Provided: Yes Do you have a plan to hurt others: No Plan service: No Current occupational status: unemployed Sexual orientation: Straight/Heterosexual Meds Allergies Allergy/AdvReac Type Severity Reaction Status Date / Time No Known Allergies Allergy Verified 12/20/24 11:49 Active Medications: Current Medications Vancomycin HCl (Vancomycin/Ns) 2,000 mg in 500 mls @ 250 mls/hr IV ONCE ONE Stop: 12/20/24 16:25 Home Medications ?Medication ?Instructions ?Recorded ?Confirmed ?Last Taken ?Type folic acid 1 mg tablet 1 mg PO BEDTIME 12/20/24 12/20/24 12/19/24 History furosemide 20 mg tablet 20 mg PO DAILY 12/20/24 12/20/24 12/20/24 History magnesium oxide 400 mg (241.3 mg 400 mg PO DAILY 12/20/24 12/20/24 12/20/24 History magnesium) tablet mirtazapine 15 mg tablet 15 mg PO BEDTIME 12/20/24 12/20/24 12/19/24 History rifaximin 550 mg tablet (Xifaxan) 550 mg PO Q12H 12/20/24 12/20/24 12/20/24 History Physical Exam 2 Vital Signs: Vital Signs: Last Vital Signs Temp 99.3 F 12/20/24 14:47 Pulse 97 12/20/24 14:47 Resp 18 12/20/24 14:47 BP 135/83 12/20/24 14:47 Pulse Ox 98 12/20/24 14:47 O2 Del Method Room Air 12/20/24 14:47 BMI result Body Mass Index 26.5 Extrem: Other: Patient is alert, oriented, and in no acute distress. Neuro: Normal sensation of the tips of all digits of the right hand at this time Vascular: Cap refill brisk Pain: Significant tenderness to palpation of the dorsal aspect of the right hand Patient reports pain in the dorsal hand with attempted flexion of the right hand No tenderness with axial loading of any of the digits of the right hand or the right wrist. ROM: Patient is able to extend all digits of the right hand fully and without difficulty Patient is able to flex to approximately 50% of the way to a closed fist, but is unable to go beyond this due to pain Skin: No lacerations or abrasions. General: Noted edema and erythema of the dorsal aspect of the right hand No focal area of fluctuance, purulence Edema soft No focal evidence of abscess at this time Psych: Appears grossly normal Affect normal Attitude cooperative Results Labs 12/20/24 12:09 12/20/24 12:09 Labs: Abnormal lab results 12/20/24 Range/Units 12:09 RBC 3.70 L (4.60-5.80) X10*6/uL Hgb 10.7 L (14.0-18.0) g/dl Hct 31.7 L (42.0-52.0) % Plt Count 127 L (160-400) X10*3/uL [place] % (Auto) 12.2 H (2-11) % ESR 53 H (0-15) MM/HR BUN 7 L (9-16) mg/dL Random Glucose 130 H (60-115) mg/dL Total Bilirubin 3.4 H (0.0-1.0) mg/dL Alkaline Phosphatase 121 H (39-117) U/L C-Reactive Protein 2.14 H (< or = 0.50) mg/dL Total Protein 8.2 H (6.5-8.0) g/dL H & H 12/20/24 Range/Units 12:09 Hgb 10.7 L (14.0-18.0) g/dl Hct 31.7 L (42.0-52.0) % All other labs normal. Diagnostic results Wrist/Hand x-ray: report reviewed and image reviewed Assessment and Plan (1) Cellulitis of right hand: Status: Acute Plan 1. Cellulitis of right hand Ongoing since approximately 12/16/2024 Patient is educated about this condition Patient is educated about the typical recovery course Patient was seen and evaluated with Dr. Escamilla, and a collaborative treatment plan was formed: At this time, there is minimal evidence to suggest active abscess or septic joint Edema and erythema appear to be cellulitic in nature Recommend admission to the medicine service for IV antibiotics NPO at midnight pending evaluation tomorrow morning Continue with all other recommendations per Medicine Procedures Date of Service Date of Service: 12/20/24
[2024-12-20] MEDS: Piperacillin Sodium/Tazobactam 3.375 GM in 0.9 % Sodium Chloride 50 ML IV (15:27)
[2024-12-20] MEDS: Morphine Sulfate 4 MG/ML CARTRIDGE IVPUSH (15:27)
[2024-12-20 15:33] LABS: Estimated Average Glucose 82 mg/dL; Hemoglobin A1c % 4.5 % (<6.0); Total Hemoglobin (HGBA1C) 2846.8275 umol/L
--- NOTE | 2024-12-20 15:39 | P.HPHOSP_ITS ---
History of Present Illness Date of Service: 12/20/24 Chief Complaint: hand infection 34yo M with EtOH cirrhosis but sober for past 3 mo, no known DM2, presenting with 4 days of worsening R hand swelling, redness, and pain. Unknown if any trauma other than possibly a family puppy scratching one of his R fingers. No fever or chills. He saw his PCP 3d ago but at that point it wasn't very swollen or red, so nothing was prescribed. No history of MRSA or any kind of skin infection. In the ED, vancomycin and piperacillin-tazobactam were given along with ketorolac and morphine. Review of Systems 2 Review of Systems: Yes all other systems are reviewed and are negative [facility] Medical History Alcohol use disorder Social History Household Members: None Housing: Apartment Do you presently have visiting nurse or other home services: No Alcohol intake: current Alcohol intake frequency: former alcohol drinker Alcohol type: hard liquor Patient Tobacco Use Status: Current everyday Tobacco user Tobacco use type: Cigarette Cigarettes Per Day: 3 e-Cigarette/Vaping Use: Never Used Substance Use Type: Prescription Drugs service: No Current occupational status: unemployed Sexual orientation: Straight/Heterosexual Meds Allergies Allergy/AdvReac Type Severity Reaction Status Date / Time No Known Allergies Allergy Verified 12/20/24 11:49 Active Medications: Current Medications Acetaminophen (Acetaminophen 325 Mg Tablet) 650 mg PO Q6H PRN PRN Reason: Pain, Mild 1-3,fever,headache Calcium Carbonate (Calcium Carbonate 750 Mg Tab.Chew) 750 mg PO Q4H PRN PRN Reason: Heartburn Enoxaparin Sodium (Enoxaparin Sodium 40 Mg/0.4 Ml Syringe) 40 mg SUBCUT Q24H LEXY Vancomycin HCl (Vancomycin/Ns) 2,000 mg in 500 mls @ 250 mls/hr IV ONCE ONE Stop: 12/20/24 16:25 Ampicillin Sodium/Sulbactam (Sodium 3 gm/ Sodium Chloride) 100 mls @ 200 mls/hr IV Q6H LEXY Ketorolac Tromethamine (Ketorolac Tromethamine 15 Mg/Ml Vial) 15 mg IVPUSH Q6H PRN PRN Reason: Pain, Moderate(Pain Scale 4-6) Magnesium Hydroxide (Milk Of Magnesia 30 Ml Oral.Susp) 30 ml PO DAILY PRN PRN Reason: Constipation Melatonin (Melatonin 3 Mg Tablet) 6 mg PO BEDTIME PRN PRN Reason: Insomnia Ondansetron HCl (Ondansetron Hcl 4 Mg/2 Ml Vial) 4 mg IVPUSH Q8H PRN PRN Reason: Nausea and Vomiting Oxycodone HCl (Oxycodone Hcl Immed Release 5 Mg Tablet) 5 mg PO Q6H PRN PRN Reason: Pain, Severe (Pain Scale 7-10) Pharmacy Consult (Consult Rx Vancomycin Dosing) 1 each MISCELLANE DAILY PRN PRN Reason: Consult order Sodium Chloride (0.9 % Sodium Chloride Flush 3 Ml Syringe) 3 ml IVFLUSH [facility] Medications ?Medication ?Instructions ?Recorded ?Confirmed ?Last Taken ?Type folic acid 1 mg tablet 1 mg PO BEDTIME 12/20/24 12/20/24 12/19/24 History furosemide 20 mg tablet 20 mg PO DAILY 12/20/24 12/20/24 12/20/24 History hydroxyzine HCl 10 mg tablet 10 mg PO TID PRN anxiety or itching 12/20/24 12/20/24 Unknown History magnesium oxide 400 mg (241.3 mg 400 mg PO DAILY 12/20/24 12/20/24 12/20/24 History magnesium) tablet mirtazapine 15 mg tablet 15 mg PO BEDTIME 12/20/24 12/20/24 12/19/24 History rifaximin 550 mg tablet (Xifaxan) 550 mg PO Q12H 12/20/24 12/20/24 12/20/24 History Physical Exam 2 Vital Signs and Narrative: Vital Signs: Last Vital Signs Temp 99.3 F 12/20/24 14:47 Pulse 97 12/20/24 14:47 Resp 18 12/20/24 14:47 BP 135/83 12/20/24 14:47 Pulse Ox 98 12/20/24 14:47 O2 Del Method Room Air 12/20/24 14:47 BMI result Body Mass Index 26.5 Gen: in no acute distress HEENT: sclera anicteric, moist mucus membranes Neck: supple Lungs: clear to auscultation bilaterally Heart: regular rate and rhythm, no murmurs Abd: soft, non-tender, non-distended Ext: R hand markedly swollen Skin: erythema, warmth, and induration of R hand; no drainage; no fluctuant collections Neuro: alert and oriented x3, no focal findings Psych: appropriate affect Results Labs 12/21/24 06:10 12/21/24 06:10 Labs: Laboratory Results - last 24 hr 12/20/24 12:09 MCV 85.7 MCH 28.9 MCHC 33.8 RDW 13.8 Plt Count 127 L MPV 10.4 Immature Gran % (Auto) 0.3 Neut % (Auto) 63.7 Lymph % (Auto) 21.7 [place] % (Auto) 12.2 H Eos % (Auto) 1.5 Baso % (Auto) 0.6 Lymph # (Auto) 1.5 [place] # (Auto) 0.8 Eos # (Auto) 0.1 Baso # (Auto) 0.0 Abs Immat Gran (auto) 0.02 Absolute Neuts (auto) 4.3 Absolute Nucleated RBC 0.000 Nucleated RBC % (auto) 0.0 ESR 53 H Anion Gap 13 Estim Creat Clear Calc 139.8 Estimated GFR > 60 Random Glucose 130 H Estimat Average Glucose 82 Hemoglobin A1c % 4.5 Lactic Acid 2.0 Uric Acid 6.1 Calcium 8.7 Total Bilirubin 3.4 H AST 33 ALT < 6 Alkaline Phosphatase 121 H C-Reactive Protein 2.14 H Total Protein 8.2 H Albumin 3.5 Imaging Radiologist's Impressions: Impressions Hand X-Ray 12/20/24 12:20 IMPRESSION: Dorsal soft tissue swelling. No osseous abnormality is identified. Electronically signed by: Jerry Pak MD 12/20/2024 12:41 PM [facility] Assessment and Plan (1) Cellulitis of hand: Status: Acute Plan 34yo M with EtOH cirrhosis, sober for past 3 mo, no diabetes, presenting with worsening R hand infection for past 4 days, possibly initiated by puppy scratch. R hand cellulitis - admit to M/S, check BCx, consult Ortho, give vanco + amp-sulbactam, OT EtOH cirrhosis - continue folic acid, thiamine, rifaximin, magnesium, furosemide pending medication reconciliation mood disorder - continue mirtazapine + sertraline + hydroxyzine + clonidine pending medication reconciliation VTE prophylaxis - enoxaparin dispo - eventual home code status - full I anticipate that the patient will stay at least 2 midnights as an inpatient in the hospital due to the above reasons. It is neither reasonable nor safe to care for them in a less acute setting. Quality Stroke Does the patient have a stroke diagnosis?: No VTE Prior VTE?: No VTE Risk Level:: Medical - moderate - high VTE Device Contraindication: N/A - Device Ordered VTE Drug Contraindication: N/A - Med Ordered
--- NOTE | 2024-12-20 15:40 | PC.NURSE ---
Abx admin delayed d/t consultants in room, bc needed to be drawn.
[2024-12-20] MEDS: vancomycin/NS 2,000 MG/500 ML PLAST..BAG 250 MG IV (15:59)
--- NOTE | 2024-12-20 16:05 | PHA.MEDREC ---
Addendum entered by Davy Coronel RPh 12/20/24 16:28: Reviewed by [facility]. Original Note: Pharmacy Consult ? Medication Reconciliation Pharmacy has completed the medication reconciliation. Spoke to patient to confirm med list. Patient states he is no longer taking Clonidine Hcl 0.1 mg, Sertraline 25 mg, and Vitamin B1 100mg. Patient states he takes Gabapentin 300 mg at bedtime, but ran out of refills and couldn't get it from the pharmacy. Left of med rec because there is no claim history. Patient also states he is on Spironolactone , however he didn't know the dose. Left of med rec.
--- NOTE | 2024-12-20 16:08 | PHA.PROG ---
Admission Date/Time: December 20, 2024 15:36 Indication: skin +skin structure Weight in k.183 kg Adjusted body weight in Kg: [place] body weight in Kg: Obesity Dosing Indication % IBW: BMI 26.5 Serum Creatinine - Last 168 Hours 12/20/24 12:09 Creatinine 0.80 Estimated CrCl and GFR - Last 168 Hours 12/20/24 12:09 Estim Creat Clear Calc 139.8 Estimated GFR > 60 Vancomycin Loading Dose: 2000mg X1 Current Vancomycin Dosing Regimen: 1500mg Q12H Vancomycin Monitoring using AUC goal of 400 - 600 range with trough as surrogate marker: 554 Date and Time for next Vancomycin Level to be drawn: 12/21 @1400 Pharmacist Comments on Vancomycin Plan: Patient's renal function appears stable, predicted trough 16.3, with 1500mg Q12H dosing. To be readjusted based on SCr and trough tomorrow on 12/21. Vancomycin dosing will take advantage of [employer] as a clinical decision support tool that uses Bayesian modeling to calculate individual patient's pharmacokinetic parameters and forecast the patient's drug concentration time course with the target goal AUC 24 range of 400 - 600 mg/L/hr.
[2024-12-20] MEDS: Enoxaparin Sodium 40 MG/0.4 ML SYRINGE SUBCUT (16:24)
[2024-12-20 16:33] VITALS: BP 142/87; PULSE 93; RESP 18; TEMP 37.2; O2SAT 97
[2024-12-20] MEDS: rifAXIMin 550 MG TABLET PO (16:54)
--- OUTSIDE RECORDS SUMMARY | 2024-12-20 17:25 | XMS_ITS | Encounter Summary ---
Author Organization [facility] Address [address] [place] [address] Care Team Providers Care Architectural Engineering Teacher Name Role Phone Elizabethsantimatthew HutchisonDO Diana Primary Care Provider + Encounter Details Date Type Department Care Team (Late st Contact Info) Description 10/26/2024 Orders Only [facility] Interventional Radiology [address] [place] [address] Megan Kramer PA [address] [place] [address] Social History Tobacco Use Types Packs/Day Years Used Date Smoking Tobacco: Some Days Cigarettes 0.1 10 Passive Smoke Exposure: Current Smokeless Tobacco: Never Alcohol Use Standard Drinks/Week Comments Not Currently 0 (1 standard drink = 0.6 oz pur e alcohol) handle/ day of liquor [facility] Utilities Answer Date Recorded In the past 12 months has e electric, gas, oil, or water company threatened to shut off services in your home? Yes 10/26/2024 Hunger Vital Sign Answer Date Recorded Within the past 12 months, y ou worried that your food would run out before you got the money to buy more. Never true 10/26/20 24 Within the past 12 months, t he food you bought just didn't last and you didn't have money to get more. Never true 10/26/2024 Transportation Answer Date Recorded In the past 12 months, has l ack of reliable transportation kept you from medical appointments, meetings, work or from getting things needed for daily living? No 10/26/2024 Housing Answer Date Recorded Housing Risk Low 2 10/26/2024 Housing Risk Medium Not on file 10/26/2024 Housing Risk High Not on file 10/26/2024 What is your living situation today? [facility] 10/26/2024 Sex and Gender Information Value Date Recorded Sex Assigned at Male 09/12/2024 6:50 PM EDT Legal Sex Male 6:39 PM EDT Gender Identity Not on file Sexual Orientation Not on file documented as of this encounter Progress Notes * KALPESH Chan - 10/26/2024 12:31 PM EST Interventional Radiology Progress Note The referring provider, Dr. Raúl Hairston, requested a consultation on this patient regarding paracentesis. I personally reviewed the patient???s medical records including, medical records, imaging studies, uploaded images. I have not seen the patient face to face, during this consultation or within the last 14 days and they were not scheduled to be seen in the next 14 days or the next available appointment as a result of this consult. I spent a total of 5 minutes of which the majority was spent in the verbal and/or internet discussion and both a verbal and written opinion was given to the covering clinician and my assessment is documented below: ED Abdominal POCUS images reviewed. Trace ascites present with no pocket amenable for safe paracentesis. Procedure order will be cancelled. 10/26/2024 12:39 PM KALPESH Chan documented in this encounter Plan of Treatment Upcoming Encounters Date Type Department Care Team (Late st Contact Info) Description 06/18/2025 2:00 PM EDT Follow-Up [address] Family Practice Department [address] [place] [address] Nela Denton NP [address] [place] [address] documented as of this encounter Visit Diagnoses Not on filedocumented in this encounter Care Teams Architectural Engineering Teacher Relationship Specialty Start Date End Date Kallie An DO [address] [place] [address] PCP - General Family Medicine 12/17/24 documented as of this encounter
--- OUTSIDE RECORDS SUMMARY | 2024-12-20 17:25 | XMS_ITS | Encounter Summary ---
Author Organization [facility] Address [address] [place] [address] Care Team Providers Care Jazz Singer Name Role Phone Patient, Has No Pcp Or Ref Primary Care Provider Unavailable Reason for Visit * Reason Onset Date Comments PAC Appt Request - New 10/26/2024 Encounter Details Date Type Department Care Team (Late st Contact Info) Description 10/26/2024 Telephone [facility] Gastroenterology Clinic [address] [place] [address] Engineering Professor: Ceci Pepe Telephone Intake, Staff PAC Appt Request - New Social History Tobacco Use Types Packs/Day Years Used Date Smoking Tobacco: Some Days Cigarettes 0.1 10 Passive Smoke Exposure: Current Smokeless Tobacco: Never Alcohol Use Standard Drinks/Week Comments Not Currently 0 (1 standard drink = 0.6 oz pur e alcohol) handle/ day of liquor [facility] Utilities Answer Date Recorded In the past 12 months has th e electric, gas, oil, or water company [...] on file documented as of this encounter Miscellaneous Notes * Telephone Encounter - Stas Christian - 10/26/2024 3:59 PM EST Called and spoke with pt to r/s for sooner than May 2025 New PT Liver VT to 11/[address] Fulton. * Telephone Encounter - Estephania Lopez - 10/26/2024 2:[address] Jessica from [facility] calling because the pt needs to be seen much sooner than when he is currently scheduled (May 2025). For any further questions please reach out to Dr. Jessica at [phone]. Thank you. documented in this encounter Plan of Treatment Upcoming Encounters Date Type Department Care Team (Late st Contact Info) Description 06/18/2025 2:00 PM EDT Follow-Up [address] Family Practice Department [address] [place] [address] Nela Denton NP [address] [place] [address] documented as of this encounter Visit Diagnoses Not on filedocumented in this encounter Care Teams Jazz Singer Relationship Specialty Start Date End Date Patient, Has No Pcp Or Ref DO NOT EDIT THIS RECORD VIA PROVIDER ON THE FLY PCP - General Motorboat Mechanic Inboard/Outboard 09/12/24 12/16/24 documented as of this encounter
--- OUTSIDE RECORDS SUMMARY | 2024-12-20 17:25 | XMS_ITS ---
Author Organization [facility] Billing Info Address [address] [place], [place] [id number] Care Team Providers Care Sausage Stringer Name Role Phone RANDELL SNYDER Primary Care Provider WILL AVITIA Unavailable [phone] ZAHRAA JCAOB Unavailable [phone] REASON FOR VISIT med check [id number] AMD Encounters Encounter Location Date Provider Diagnosis [id number] [address] [place] [id number] 04/20/2024 ZAHRAA JACOB Plan Of Treatment No Information Progress Notes * Andrew BAINDOB:[birth year] (34 yo M)Acc No.[id number]:04/20/2024 PROGRESS NOTE Patient:?Andrew BAIN Appointment Provider:?ZAHRAA JACOB DO :1990???Age:34 Y???Sex:Male Rodney e:04/20/2024 ?N#:[id number] Address:[address] [place] [address], Patient Has No Address, [place] [address] Pcp:RANDELL SNYDER Subjective: * Chief Complaints: * ???1. med check [id number] AMD . * Medical History:?? Objective: * Vitals:? Assessment: Plan: * Treatment: * Care Plan Details* * This progress note has not b een verified nor is it considered complete until locked and signed by the provider. Sign off status: Pending * Appointment Provider:?DO Katlyn DAVIS ate:?04/20/2024 Generated for Mariel starr/Po/Guy on:?12/20/2024 05:25 PM EST
--- OUTSIDE RECORDS SUMMARY | 2024-12-20 17:26 | XMS_ITS | Encounter Summary ---
Author Organization [facility] Address [address] [place] [address] Care Team Providers Care Screen Cleaner Name Role Phone Juve Hutchison Kallie Primary Care Provider + Encounter Details Date Type Department Care Team (Latest Contact Info) Description 12/18/2024 3:23 PM EST - 12/18/2024 11:59 PM [facility] Hospital Encounter [facility] XRay [address] [place], [place] [id number] Right hand pain Discharge Disposition: Home or Self Care () Social History Tobacco Use Types Packs/Day Years Used Date Smoking Tobacco: Some Days Cigarettes 0.1 10 Passive Smoke Exposure: Current Smokeless Tobacco: Current Alcohol Use Standard Drinks/Week Comments Not Currently 0 (1 standard drink = 0.6 oz pure alcohol) handle/ day of liquor Last drank 09/12/24 [facility] Utilities Answer Date Recorded In the past [...] on file documented as of this encounter Medications at Time of Discharge cholecalciferol (VITAMIN D3) 2,000 unit tablet Take 1 tablet (2,000 Units total) by mouth once a day. 30 tablet 2 11/06/2024 cloNIDine (CATAPRES) 0.1 mg tablet Take 0.1 mg by mouth. 11/07/2024 folic acid (FOLVITE) 1 mg tablet Take 1 tablet (1 mg total) by mouth once a day. 30 tablet 2 11/06/2024 furosemide (LASIX) 20 mg tablet Take 1 tablet (20 mg total) by mouth once a day. 30 tablet 2 11/06/2024 gabapentin (NEURONTIN) 100 mg capsule Take 3 capsules (300 mg total) by mouth at bed time. Take 100mg in the AM, 200mg at night 90 capsule 2 11/06/2024 hydrOXYzine HCL (ATARAX) 10 mg tablet Take 1 tablet (10 mg total) by mouth 3 times a day as needed for itching or anxiety. 90 tablet 1 11/06/2024 ibuprofen (MOTRIN) 600 mg tabletIndication s:Right hand pain Take 1 tablet (600 mg total) by mouth every 6 hours as needed for pain for up to 7 days. 28 tablet 12/17/2024 12/24/2024 magnesium oxide (MAG-OX) 400 mg (241.3 mg mag) tablet Take 1 tablet (400 mg total) by mouth once a day. 30 tablet 2 11/06/2024 melatonin 3 mg tablet Take 10 mg by mouth nightly. mirtazapine (REMERON) 15 mg tabletIndication s:Mild episode of recurrent major depressive disorder (HCC) Take 1 tablet (15 mg total) by mouth nightly. 30 tablet 2 12/18/[address] (PROTONIX) 40 mg tablet Take 40 mg by mouth once a day. rifAXIMin (XIFAXAN) 550 mg tabletIndication s:Alcoholic cirrhosis of liver with ascites (CMS/HCC) (HCC) Take 1 tablet (550 mg total) by mouth every 12 hours. 60 tablet 2 12/17/2024 spironolactone (ALDACTONE) 25 mg tabletIndication s:Alcoholic cirrhosis of liver with ascites (CMS/HCC) (HCC) Take 1 tablet (25 mg total) by mouth 2 times a day. 60 tablet 2 12/17/2024 documented as of this encounter Plan of Treatment Upcoming Encounters Date Type Department Care Team (Late st Contact Info) Description 06/18/2025 2:00 PM EDT Follow-Up [facility] [address] [facility] Family Practice Department [address] [place] [address] Nela Denton NP [address] [place] [address] documented as of this encounter Procedures * Due to [facility] law, this organization might not be sharing negative HIV tests. Procedure Name Priority Date/Time Associated Diagnosis Comments XR WRIST 3+ VW RIGHT Routine 12/18/2024 3:44 PM EST Right hand pain documented in this encounter Results * Due to [facility] law, this organization might not be sharing negative HIV tests. * X-Ray Wrist Right 3+ Views (12/18/2024 3:44 PM EST) Anatomical Region Laterality Modality Upper Extremities, Wrist Right Compute d Radiography 12/19/2024 7:43 AM EST Impressions 12/19/2024 7:44 AM EST FINDINGS/IMPRESSION: No radiographic evidence of acute fracture or dislocation. ??There is a metallic anchor within the thumb proximal phalangeal base. ??Carpal alignment is maintained. If this radiology report contains a blank impression section, it is an incomplete radiology report. ??Please contact the interpreting radiologist or applicable radiology division as soon as possible to obtain the completed interpretation. ? Workstation ID: [id number] Narrative 12/19/2024 7:44 AM EST COMPARISON: There are no prior studies available for comparison at this time. Resulting Agency Comment [id number] Procedure Note Flaco Jaquez MD - 12/19/2024 COMPARISON: There are no prior studies available for comparison at thistime. IMPRESSION: FINDINGS/IMPRESSION: No radiographic evidence of acute fracture or dislocation. There is ametallic anchor within the thumb proximal phalangeal base. Carpalalignment is maintained. If this radiology report contains a blank impression section, it is anincomplete radiology report. Please contact the interpreting radiologistor applicable radiology division as soon as possible to obtain thecompleted interpretation. Workstation ID: [id number] us Nela Denton NP IMG XR PROCEDURES Final Result documented in this encounter Visit Diagnoses Diagnosis Right hand pain Pain in soft tissues of limb documented in this encounter Care Teams Screen Cleaner Relationship Specialty Start Date End Date Kallie An DO [address] [place] [address] PCP - General Family Medicine 12/17/24 documented as of this encounter
--- OUTSIDE RECORDS SUMMARY | 2024-12-20 17:26 | XMS_ITS | Encounter Summary ---
Author Organization [facility] Address [address] [place] [address] Care Team Providers Care Superintendent Factory Name Role Phone Patient, Has No Pcp Or Ref Primary Care Provider Unavailable Encounter Details Date Type Department Care Team (Late st Contact Info) Description 11/19/2024 Telephone [facility] Gastroenterology Clinic [address] [place] [address] Chinese Instructor: Pamela Antonio, DO [address] [place] [address] [place] [address] Social History Tobacco Use Types Packs/Day Years Used Date Smoking Tobacco: Some Days Cigarettes 0.1 10 Passive Smoke Exposure: Current Smokeless Tobacco: Never Alcohol Use Standard Drinks/Week Comments Not Currently 0 (1 standard drink = 0.6 oz pure alcohol) handle/ day of liquor Last drank 09/12/24 [facility] Utilities Answer Date Recorded In the past 12 months has [employer], gas, oil, or water [employer] threatened to shut off services in your [...] * Telephone Encounter - Stas Christian - 11/19/2024 11:05 AM EST PT called to report he is breaking out in a sweat and is got tunnel vision wanted to know if it hasto do with the meds. PT had been out of his xifaximin for few days now and they will not fill it until the first. PT can be reached at [phone]. documented in this encounter Plan of Treatment Upcoming Encounters Date Type Department Care Team (Late st Contact Info) Description 06/18/2025 2:00 PM EDT Follow-Up [address] Family Practice Department [address] [place] [address] Nela Denton NP [address] [place] [address] documented as of this encounter Visit Diagnoses Not on filedocumented in this encounter Care Teams Superintendent Factory Relationship Specialty Start Date End Date Patient, Has No Pcp Or Ref DO NOT EDIT THIS RECORD VIA PROVIDER ON THE FLY PCP - General Interventional Nurse 09/12/24 12/16/24 documented as of this encounter
--- OUTSIDE RECORDS SUMMARY | 2024-12-20 17:26 | XMS_ITS | Encounter Summary ---
Author Organization [facility] Address [address] [place] [address] Care Team Providers Care Accounting Professor Name Role Phone Patient, Has No Pcp Or Ref Primary Care Provider Unavailable Encounter Details Date Type Department Care Team (Late st Contact Info) Description 11/06/2024 Telephone [facility] Gastroenterology Clinic [address] [place] [address] Rock Mason Apprentice: Pamela Antonio, DO [address] [place] [address] [place] [address] Social History Tobacco Use Types Packs/Day Years Used Date Smoking Tobacco: Some Days Cigarettes 0.1 10 Passive Smoke Exposure: Current Smokeless Tobacco: Never Alcohol Use Standard Drinks/Week Comments Not Currently 0 (1 standard drink = 0.6 oz pure alcohol) handle/ day of liquor Last drank 09/12/24 [facility] Utilities Answer Date Recorded In the past 12 months has [employer], gas, oil, or water [employer] threatened to shut off services in your [...] on file documented as of this encounter Plan of Treatment Upcoming Encounters Date Type Department Care Team (Late st Contact Info) Description 06/18/2025 2:00 PM EDT Follow-Up [address] Family Practice Department [address] [place] [address] Nela Denton NP [address] [place] [address] documented as of this encounter Visit Diagnoses Not on filedocumented in this encounter Care Teams Accounting Professor Relationship Specialty Start Date End Date Patient, Has No Pcp Or Ref DO NOT EDIT THIS RECORD VIA PROVIDER ON THE FLY PCP - General Bobbin Trucker 09/12/24 12/16/24 documented as of this encounter
--- OUTSIDE RECORDS SUMMARY | 2024-12-20 17:26 | XMS_ITS | Encounter Summary ---
Author Organization [facility] Address [address] [place] [address] Care Team Providers Care Surveillance Manager Name Role Phone Patient, Has No Pcp Or Ref Primary Care Provider Unavailable Reason for Visit * Reason Onset Date Comments PAC Order Request 12/12/2024 Encounter Details Date Type Department Care Team (Late st Contact Info) Description 12/12/2024 Telephone [facility] Gastroenterology Clinic [address] [place] [address] Roofer Metal: Shante Jj PCA PAC Order Request Social History Tobacco Use Types Packs/Day Years Used Date Smoking Tobacco: Some Days Cigarettes 0.1 10 Passive Smoke Exposure: Current Smokeless Tobacco: Never Alcohol Use Standard Drinks/Week Comments Not Currently 0 (1 standard drink = 0.6 oz pure alcohol) handle/ day of liquor Last drank 09/12/24 [facility] Utilities Answer Date Recorded In the [...] encounter Miscellaneous Notes * Telephone Encounter - Pamela Fulton DO - 12/13/2024 2:48 PM EST Called patient regarding labs, unclear if prior [facility] order . Ordered repeat labs and discussed that these could be checked every 2 weeks moving forward and will also check PETH. If PETH is negative, discussed plan for follow-up and further discussion in liver transplant clinic. * Telephone Encounter - CLAIRE Puente - 12/12/2024 2:13 PM EST Patient mom calling to follow up on lab orders pt at lab and they report no orders are in system Mom is asking if lab orders are still needed Please advise documented in this encounter Plan of Treatment Upcoming Encounters Date Type Department Care Team (Late st Contact Info) Description 06/18/2025 2:00 PM EDT Follow-Up [address] Family Practice Department [address] [place] [address] Nela Denton NP [address] [place] [address] Scheduled Orders Name Type Priority Associated Diagnoses Orde r Schedule Hepatic function panel Lab Routine Alcoholic cirrhosis of liver with ascites (CMS/HCC) (HCC) Every 2 Weeks for 4 Occurrences starting 12/13/2024 until 06/11/2025 Basic metabolic panel Lab Routine Alcoholic cirrhosis of liver with ascites (CMS/HCC) (HCC) Every 2 Weeks for 4 Occurrences starting 12/13/2024 until 06/11/2025 CBC Auto Differential Lab Routine Alcoholic cirrhosis of liver with ascites (CMS/HCC) (HCC) Every 2 Weeks for 4 Occurrences starting 12/13/2024 until 06/11/2025 Protime-INR Lab Routine Alcoholic cirrhosis of liver with ascites (CMS/HCC) (HCC) Every 2 Weeks for 4 Occurrences starting 12/13/2024 until 06/11/2025 Phosphatidylethanol (PEth) - Miscellaneous Test Lab Routine Alcoholic cirrhosis of liver with ascites (CMS/HCC) (HCC) Expected: 12/13/2024, Expires: 12/13/2025 documented as of this encounter Visit Diagnoses Diagnosis Alcoholic cirrhosis of liver with ascites (CMS/HCC) (HCC)- Primary documented in this encounter Care Teams Surveillance Manager Relationship Specialty Start Date End Date Patient, Has No Pcp Or Ref DO NOT EDIT THIS RECORD VIA PROVIDER ON THE FLY PCP - General Director Of Undergraduate Admissions 09/12/24 12/16/24 documented as of this encounter
--- OUTSIDE RECORDS SUMMARY | 2024-12-20 17:26 | XMS_ITS | Clinical Summary ---
Author Organization [facility] Address [address] [place] [address] Care Team Providers Care Can Line Operator Name Role Phone Juve Hutchison DOKallie Primary Care Provider + Allergies No known active allergies Medications * This document contains information received from the source organization and may not represent a complete record from that organization. melatonin 3 mg tablet Take 10 mg by mouth nightly. Active pantoprazole DR (PROTONIX) 40 mg tablet Take 40 mg by mouth once a day. Active folic acid (FOLVITE) 1 mg tablet Take 1 tablet (1 mg total) by mouth once a day. 30 tablet 2 4 Active gabapentin (NEURONTIN) 100 mg capsule Take 3 capsules (300 mg total) by mouth at bed time. Take 100mg in the AM, 200mg at night 90 capsule 2 4 Active hydrOXYzine HCL (ATARAX) 10 mg tablet Take 1 tablet (10 mg total) by mouth 3 times a day as needed for itching or anxiety. 90 tablet 1 4 Active magnesium oxide (MAG-OX) 400 mg (241.3 mg mag) tablet Take 1 tablet (400 mg total) by mouth once a day. 30 tablet 2 4 Active furosemide (LASIX) 20 mg tablet Take 1 tablet (20 mg total) by mouth once a day. 30 tablet 2 4 Active cholecalcifero l (VITAMIN D3) 2,000 unit tablet Take 1 tablet (2,000 Units total) by mouth once a day. 30 tablet 2 4 Active cloNIDine (CATAPRES) 0.1 mg tablet Take 0.1 mg by mouth. 4 Active rifAXIMin (XIFAXAN) 550 mg tabletIndicati ons:Alcoholic cirrhosis of liver with ascites (CMS/HCC) (HCC) Take 1 tablet (550 mg total) by mouth every 12 hours. 60 tablet 2 5 Active spironolactone (ALDACTONE) 25 mg tabletIndicati ons:Alcoholic cirrhosis of liver with ascites (CMS/HCC) (HCC) Take 1 tablet (25 mg total) by mouth 2 times a day. 60 tablet 2 5 Active ibuprofen (MOTRIN) 600 mg tabletIndicati ons:Right hand pain Take 1 tablet (600 mg total) by mouth every 6 hours as needed for pain for up to 7 days. 28 tablet 5 025 Active mirtazapine (REMERON) 15 mg tabletIndicati ons:Mild episode of recurrent major depressive disorder (HCC) Take 1 tablet (15 mg total) by mouth nightly. 30 tablet 2 5 Active prednisoLONE (ORAPRED) 15 mg/5 mL solution Take 30 mg daily for 1 day then 25 mg daily for 1 day then 20 mg daily for 1 day then 50 mg daily for 1 day then 10 mg daily for 1 day then 5 mg daily for 1 day 4 025 Discontinued calcium carbonate (OS-SOFIA) 500 mg calcium (1,250 mg) tablet Take 1 tablet (500 mg total) by mouth 2 times a day. 60 tablet 4 025 naltrexone (REVIA) 50 mg tablet Take 50 mg by mouth every night. 025 Discontinued gabapentin (NEURONTIN) 100 mg capsule Take 100 mg by mouth daily with breakfast. Takes in Am 025 Discontinued mirtazapine (REMERON) 15 mg tablet Take 0.5 tablets (7.5 mg total) by mouth nightly. 30 tablet 2 4 025 Discontinued sertraline (ZOLOFT) 25 mg tabletIndicati ons:Moderate episode of recurrent major depressive disorder (HCC) Take 1 tablet (25 mg total) by mouth once a day. 30 tablet 2 5 025 Discontinued Active Problems Problem Noted Date Diagnosed Date Mild episode of recurrent major depressive disor marily 12/17/2024 Assessment & Plan (12/17/2024 4:14 PM EST): Seen by psychiatry through alcoholic cirrhosis program. Placed on Sertraline 25mg. Continue on Remeron nightly. JOY (generalized anxiety disorder) 12/17/2024 Assessment & Plan (12/17/2024 4:08 PM EST): Seen by psychiatry through alcoholic cirrhosis program. Continue on Hydroxyzine PRN. Right hand pain 12/17/2024 Assessment & Plan (12/17/2024 4:14 PM EST): Moderate swelling to right hand and wrist, no known trauma, no visible ecchymosis, onset 2 days ago, advised rest, elevation and ibuprofen PRN, will hold off on imaging, follow up if symptoms persist. Orders: ibuprofen (MOTRIN) 600 mg tablet; Take 1 tablet (600 mg total) by mouth every 6 hours as needed for pain for up to 7 days. Overweight (BMI 25.0-29.9) 12/17/2024 Assessment & Plan (12/17/2024 4:14 PM EST): Body mass index is 27.64 kg/m??. Liver cirrhosis 10/25/2024 Assessment & Plan (12/17/2024 4:14 PM EST): Following with [facility] liver clinic, Meld score of 26 on 10/27/24, currently on Rifaximin for possible encephalopathy while inpatient at [facility], Gabapentin 300mg to aid with cravings. Continue on Lasix and Spironolactone, alternating medication every other day. Was previously jaundice to sclera and skin, has subsided, mild yellow tinge to sclera present. Last Drink was prior to hospital admission in August. Following with [facility]. Orders: rifAXIMin (XIFAXAN) 550 mg tablet; Take 1 tablet (550 mg total) by mouth every 12 hours. spironolactone (ALDACTONE) 25 mg tablet; Take 1 tablet (25 mg total) by mouth 2 times a day. Portal hypertension (CMS/HCC) 10/25/2024 Assessment & Plan (12/17/2024 4:14 PM EST): Mild ascites inpatient not requiring paracentesis. Continue on Lasix and Spironolactone. Follows with liver clinic at [facility]. Resolved Problems Problem Noted Date Diagnosed Date Resolved Date Alcohol dependence with withdrawal delirium 12/17/2024 12/17/2024 Alcoholic hepatitis without ascites 10/26/2024 12/17/2024 Generalized weakness 10/25/2024 025 Jaundice 10/25/2024 12/17/2024 Prolonged QT interval 10/25/20242024 Hyponatremia 10/25/2024 12/17/2024 Metabolic acidosis 10/25/2024 Leukocytosis 10/25/2024 12/17/2024 Normocytic normochromic anemia 10/25/2024 12/17/2024 Alcoholic hepatitis with ascites 10/25/2024 12/17/2024 Sepsis 10/25/2024 12/17/2024 Encounters * This document contains information received from the source organization and may not represent a complete record from that organization. Date Type Department Care Team Description 12/20/[address] [place] [phone] Nela Denton NP 12/19/[address] [place] [address] [phone] Kallie An V, DO right hand swelling; Results 12/18/2024 3:23 PM EST - 12/18/2024 11:59 PM EST Hospital Encounter [facility] [address] [place] [address] Right hand pain Discharge Disposition: Home or Self Care () 12/18/2024 Orders Only [address] Department [address] [place] [address] [phone] Nela Denton, ROBBI Portal hypertension (CMS/HCC) (HCC) (Primary Dx); Cardiac arrhythmia, unspecified cardiac arrhythmia type 12/18/2024 Orders Only [address] Department [address] [place] [address] [phone] Nela Denton NP Right hand pain (Primary Dx) 12/17/2024 8:30 AM EST Office Visit [address] [place] [address] [phone] Nela Denton NP Alcoholic cirrhosis of liver with ascites (CMS/HCC) (HCC) (Primary Dx); Right hand pain; Mild episode of recurrent major depressive disorder (HCC); Overweight (BMI 25.0-29.9); Portal hypertension (CMS/HCC) (HCC) 12/12/2024 Telephone [facility] [address] [place] [address] [phone] Certified Nurse Practitioner: Shante Jj PCA PAC Order Request 11/27/2024 Telephone [facility] [address] [place] [address] [phone] Certified Nurse Practitioner: Pamela Antonio DO 11/19/2024 Telephone [facility] [address] [place] [address] [phone] Certified Nurse Practitioner: Pamela Antonio DO 11/09/2024 Telephone [facility] [address] [place] [address] 36138 Certified Nurse Practitioner: Pamela Antonio DO Prior Authorization 11/06/2024 9:30 AM EST Office Visit [facility] [address] [place] [address] [phone] Certified Nurse Practitioner: Pamela Antonio DO Alcoholic cirrhosis of liver with ascites (CMS/HCC) (HCC) (Primary Dx) 11/06/2024 Telephone [facility] [address] [place] [address] [phone] Certified Nurse Practitioner: Pamela Antonio, DO 11/06/2024 Telephone [facility] [address] [place] [address] [phone] Certified Nurse Practitioner: Pamela Antonio, DO 10/26/2024 Telephone [facility] [address] [place] [address] [phone] Certified Nurse Practitioner: Ceci Pepe Telephone Intake, Staff PAC Appt Request - New 10/26/2024 Orders Only [facility] Interventional Radiology [address] [place] [phone] Megan Kramer PA 10/25/2024 5:13 PM EST - 10/29/2024 4:56 PM EST Hospital Encounter [facility] Progressive Care Unit [address] [place] [address] Rory Georges MD Jain, Sunny, MD Rao, Suraj, MD Ebb, MD Curt Connell, Sekou Huerta MD Hyperbilirubinemia (Primary Dx) Discharge Disposition: Home or Self Care (01) 10/15/2024 Telephone [facility] [address] [place] [address] [phone] Certified Nurse Practitioner: Nevin Fierro MD PAC Appt Request - New from Last 3 Months Immunizations Name Administration Dates Next Due INFLUENZA, SPLIT VIRUS, TRIVALENT, PF 10/26/2024 (Deferred: Patient Refused) Family History Medical History Relation Name Comments Colon cancer Maternal Grandfather Ovarian cancer Maternal Grandmother Brain cancer Paternal Grandfather Relation Name Status Comments Maternal Grandfather Maternal Grandmother Mother Alive Paternal Grandfather Social History Tobacco Use Types Packs/Day Years Used Date Smoking Tobacco: Some Days Cigarettes 0.1 10 Passive Smoke Exposure: Current Smokeless Tobacco: Current Alcohol Use Standard Drinks/Week Comments Not Currently 0 (1 standard drink = 0.6 oz pure alcohol) handle/ day of liquor Last drank 09/12/24 [facility] Utilities Answer Date Recorded In the past [...] on file Sexual Orientation Not on file Last Filed Vital Signs Vital Sign Reading Time Taken Comments Blood Pressure 136/88 12/17/2024 8:30 AM EST Pulse 94 12/17/2024 8:30 AM EST Temperature 37 ??C (98.6 ??F) 12/17/2024 8:30 AM EST Respiratory Rate 16 11/06/2024 9:21 AM EST Oxygen Saturation 98% 12/17/2024 8:30 AM EST Inhaled Oxygen Concentration - - Weight 87.4 kg (192 lb 9.6 oz) 12/17/2024 8:30 A M EST Height 177.8 cm (5' 10 ) 12/17/2024 8:30 AM EST Body Mass Index 27.64 12/17/2024 8:30 AM EST Plan of Treatment Upcoming Encounters Date Type Department Care Team (Late st Contact Info) Description 06/18/2025 2:00 PM EDT Follow-Up [facility] [address] [facility] Department [address] [place] [address] Nela Denton NP [address] [place] [address] Health Maintenance Due Date Last Done Comments HIV Screening 1991 Hepatitis C Screening 1991 Pneumococcal Vaccine: Pediat guerita (0-5 Years) and At-Risk Patients (6-64 Years) (1 of 2 - PCV) 1997 Varicella Vaccines (1 of 2 - 13+ 2-dose series) 2003 Hepatitis B Vaccines (1 of 3 - 19+ 3-dose series) 12/22 COVID-19 Vaccine (2023- season) 2024 Influenza Vaccine (#1) 2024 [employer] Annual Screening 11/21/2024 10/26/2024 DTaP,Tdap,and Td Vaccines (2 - Td or Tdap) 11/22/2024 11/22/2014 Depression Evaluation 12/17/2025 12/17/2024 RSV Vaccine (60+ years old a nd patients) (1 - 1-dose 75+ series) 2066 Abdominal Aortic Aneurysm (AAA) Screening Completed 10/25/2024 Alcohol/Substance Use Screening Completed Oral Health Screening Completed 12/17/2024 Procedures * Due to [place] state law, this organization might not be sharing negative HIV tests. Procedure Name Priority Date/Time Associated Diagnosis Comments XR WRIST 3+ VW RIGHT Routine 12/18/2024 3:44 PM EST Right hand pain HEPATIC FUNCTION PANEL Routine 12/03/2024 1:57 PM EST Alcoholic cirrhosis of liver with ascites (CMS/HCC) (HCC) PROTIME-INR Routine 12/03/2024 1:57 PM EST Alcoholic cirrhosis of liver with ascites (CMS/HCC) (HCC) BASIC METABOLIC PANEL Routine 12/03/2024 1:57 PM EST Alcoholic cirrhosis of liver with ascites (CMS/HCC) (HCC) CBC AUTO DIFFERENTIAL Routine 12/03/2024 1:57 PM EST Alcoholic cirrhosis of liver with ascites (CMS/HCC) (HCC) HEPATIC FUNCTION PANEL Routine 11/26/2024 10:00 AM EST Alcoholic cirrhosis of liver with ascites (CMS/HCC) (HCC) PROTIME-INR Routine 11/26/2024 10:00 AM EST Alcoholic cirrhosis of liver with ascites (CMS/HCC) (HCC) BASIC METABOLIC PANEL Routine 11/26/2024 10:00 AM EST Alcoholic cirrhosis of liver with ascites (CMS/HCC) (HCC) CBC AUTO DIFFERENTIAL Routine 11/26/2024 10:00 AM EST Alcoholic cirrhosis of liver with ascites (CMS/HCC) (HCC) HEPATIC FUNCTION PANEL Routine 11/19/2024 9:54 AM EST Alcoholic cirrhosis of liver with ascites (CMS/HCC) (HCC) PROTIME-INR Routine 11/19/2024 9:54 AM EST Alcoholic cirrhosis of liver with ascites (CMS/HCC) (HCC) BASIC METABOLIC PANEL Routine 11/19/2024 9:54 AM EST Alcoholic cirrhosis of liver with ascites (CMS/HCC) (HCC) CBC AUTO DIFFERENTIAL Routine 11/19/2024 9:54 AM EST Alcoholic cirrhosis of liver with ascites (CMS/HCC) (HCC) HEPATIC FUNCTION PANEL Routine 11/12/2024 10:19 AM EST Alcoholic cirrhosis of liver with ascites (CMS/HCC) (HCC) PROTIME-INR Routine 11/12/2024 10:19 AM EST Alcoholic cirrhosis of liver with ascites (CMS/HCC) (HCC) BASIC METABOLIC PANEL Routine 11/12/2024 10:19 AM EST Alcoholic cirrhosis of liver with ascites (CMS/HCC) (HCC) CBC AUTO DIFFERENTIAL Routine 11/12/2024 10:19 AM EST Alcoholic cirrhosis of liver with ascites (CMS/HCC) (HCC) PROTIME-INR Routine 11/06/2024 11:50 AM EST Alcoholic cirrhosis of liver with ascites (CMS/HCC) (HCC) CBC AUTO DIFFERENTIAL Routine 11/06/2024 11:50 AM EST Alcoholic cirrhosis of liver with ascites (CMS/HCC) (HCC) HEPATIC FUNCTION PANEL Routine 11/06/2024 11:50 AM EST Alcoholic cirrhosis of liver with ascites (CMS/HCC) (HCC) BASIC METABOLIC PANEL Routine 11/06/2024 11:50 AM EST Alcoholic cirrhosis of liver with ascites (CMS/HCC) (HCC) COMPREHENSIVE METABOLIC PANEL Routine 10/29/2024 5:22 AM EST CBC AUTO DIFFERENTIAL Routine 10/29/2024 5:21 AM EST HEPATIC FUNCTION PANEL Routine 10/28/2024 6:34 AM EST BASIC METABOLIC PANEL Routine 10/28/2024 6:34 AM EST CBC AUTO DIFFERENTIAL Routine 10/28/2024 6:34 AM EST MAGNESIUM Routine 10/27/2024 5:21 AM EST COMPREHENSIVE METABOLIC PANEL Routine 10/27/2024 5:21 AM EST CBC AUTO DIFFERENTIAL Routine 10/27/2024 5:21 AM EST ECG 12-LEAD Routine 10/26/2024 6:10 AM EST GRAM STAIN Routine 10/26/2024 3:12 AM EST BLOOD CULTURE Routine 10/26/2024 3:12 AM EST BLOOD CULTURE Routine 10/26/2024 3:07 AM EST LACTIC ACID, PLASMA Routine 10/26/2024 3 :06 AM EST LIPASE Routine 10/26/2024 3:06 AM EST HEPATIC FUNCTION PANEL Routine 10/26/2024 3:06 AM EST VITAMIN B12 Routine 10/26/2024 3:06 AM EST IRON SATURATION Routine 10/26/2024 3:06 AM EST FOLATE Routine 10/26/2024 3:06 AM EST BASIC METABOLIC PANEL Routine 10/26/2024 3:06 AM EST CBC Routine 10/26/2024 3:06 AM EST ED POCUS ABDOMINAL SINGLE ORGAN Routine 10/25/2024 9:[address] ABDOMEN PELVIS W CONTRAST STAT 10/25/2024 7:01 PM EST MANUAL DIFFERENTIAL STAT 10/25/2024 5 :28 PM EST CK STAT Add-on 10/25/2024 5:28 PM EST PHOSPHORUS STAT Add-on 10/25/2024 5:28 PM EST FERRITIN STAT Add-on 10/25/2024 5:28 PM EST MAGNESIUM STAT 10/25/2024 5:28 PM EST LIPASE STAT 10/25/2024 5:28 PM EST PROTIME-INR STAT 10/25/2024 5:28 PM EST HEPATIC FUNCTION PANEL STAT 10/25/2024 5:28 PM EST BASIC METABOLIC PANEL STAT 10/25/2024 5:28 PM EST CBC AUTO DIFFERENTIAL STAT 10/25/2024 5:28 PM EST ECG 12-LEAD STAT 10/25/2024 5:27 PM EST from Last 3 Months Results * Due to [place] state law, this organization might not be sharing [...] obtain the completed interpretation. ? Workstation ID: [id number] Narrative 12/19/2024 7:44 AM EST COMPARISON: There are no prior studies available for comparison at this time. Resulting Agency Comment [id number] Procedure Note Flaco Jaquez MD - 12/19/2024 [...] possible to obtain thecompleted interpretation. Workstation ID: [id number] Nela Denton [employer] IMG XR PROCEDURES Final Result * (ABNORMAL) CBC Auto Differential (12/03/2024 1:57 PM EST) Only the most recent of9 resultswithin the time period is included. Pathologist [facility] White Blood Cell Count 5.1 3.8 - 10.8 Thousand/ uL 12/04/2024 8:08 AM EST [facility] Red Blood Cell Count 3.23(L) 4.20 - 5.80 Million/u L 12/04/2024 8:08 AM EST [facility] Hemoglobin 9.8(L) 13.2 - 17.1 g/dL 12/04/2024 8:08 AM [facility] Hematocrit 28.5(L) 38.5 - 50.0 % 12/04/2024 8:08 AM EST [facility] MCV 88.2 80.0 - 100.0 fL 12/04/2024 8:08 AM EST [facility] MCH 30.3 27.0 - 33.0 pg 12/04/2024 8:08 AM EST [facility] MCHC 34.4 32.0 - 36.0 g/dL 12/04/2024 8:08 AM [facility] Comment: For adults, a slight decrease in the calculated MCHC value (in the range of 30 to 32 g/dL) is most likely not clinically significant; however, it should be interpreted with caution in correlation with other red cell parameters and the patient's clinical condition. RDW 13.1 11.0 - 15.0 % 12/04/2024 8:08 AM EST [facility] Platelet Count 123(L) 140 - 400 Thousand/ uL 12/04/2024 8:08 AM EST [facility] MPV 11.1 7.5 - 12.5 fL 12/04/2024 8:08 AM [facility] Absolute Neutrophils 2,774 1,500 - 7,800 cells/uL 12/04/2024 8:08 AM EST [facility] Absolute Lymphocytes 1,591 850 - 3,900 cells/uL 12/04/2024 8:08 AM EST [facility] Absolute Monocytes 592 200 - 950 cells/uL 12/04/2024 8:08 AM EST [facility] Absolute Eosinophils 102 15 - 500 cells/uL 12/04/2024 8:08 AM EST [facility] Absolute Basophils 41 0 - 200 cells/uL 12/04/2024 8:08 AM EST [facility] Neutrophils 54.4 % 12/04/2024 8:08 AM EST [facility] Lymphocytes 31.2 % 12/04/2024 8:08 AM EST [facility] Monocytes 11.6 % 12/04/2024 8:08 AM EST [facility] Eosinophils 2.0 % 12/04/2024 8:08 AM EST [facility] Basophils 0.8 % 12/04/2024 8:08 AM EST [facility] Blood Structure of peripheral vein / Unknown 12/03/2024 1:57 PM EST 12/04/2024 5:35 AM EST Narrative [facility] - 12/04/2024 8:35 AM EST FASTING:NO Angélica Wade MD LAB BLOOD ORDERABLES Final Resul t [facility] [address] [facility] [address], [place] [address], [employer] [facility] [address] [place] [address] * (ABNORMAL) Protime-INR (12/03/2024 1:57 PM EST) Only the most recent of6 resultswithin the time period is included. INR 1.3(H) 12/04/2024 8:26 AM EST [employer] [facility] Comment: Reference Range ? 0.9-1.1 Moderate-intensity Warfarin Therapy 2.0-3.0 Higher-intensity Warfarin Therapy ?? 3.0-4.0 PT 14.0(H) 9.0 - 11.5 sec 12/04/2024 8:26 AM EST [facility] Comment: For additional information, please refer to http://education.[employer]/faq/DZN833 (This link is being provided for informational/ educational purposes only.) Blood Structure of peripheral vein / Unknown 12/03/2024 1:57 PM EST 12/04/2024 5:36 AM EST Narrative [facility] - 12/04/2024 8:35 AM EST FASTING:NO us Angélica Wade MD LAB BLOOD ORDERABLES Final Resul t [facility] [address] [facility] [address], [place] [address], [employer] [facility] [address] [place] [address] * (ABNORMAL) Hepatic function panel (12/03/2024 1:57 PM EST) Only the most recent of8 resultswithin the time period is included. Protein, Total 7.6 6.1 - 8.1 g/dL 12/04/2024 5:06 AM EST [facility] Albumin 3.6 3.6 - 5.1 g/dL 12/04/2024 5:06 AM [facility] Globulin 4.0(H) 1.9 - 3.7 g/dL (calc) 12/04/2024 5:06 AM [facility] Albumin/Globuli n Ratio 0.9(L) 1.0 - 2.5 (calc) 12/04/2024 5:06 AM [facility] Bilirubin, Total 4.2(H) 0.2 - 1.2 mg/dL 12/04/2024 5:06 AM EST [facility] Bilirubin, Direct 1.7(H) 0.0 - 0.2 mg/dL 12/04/2024 5:06 AM [facility] Bilirubin, Indirect 2.5(H) 0.2 - 1.2 mg/dL (calc) 12/04/2024 5:06 AM [facility] Alkaline Phosphatase 152(H) 36 - 130 U/L 12/04/2024 5:06 AM EST [facility] AST 33 10 - 40 U/L 12/04/2024 5:06 AM EST [facility] ALT 6(L) 9 - 46 U/L 12/04/2024 5:06 AM [facility] Blood Structure of peripheral vein / Unknown 12/03/2024 1:57 PM EST 12/04/2024 3:27 AM EST Narrative [facility] - 12/04/2024 8:35 AM EST FASTING:NO us Angélica Wade MD LAB BLOOD ORDERABLES Final Resul t [facility] [address] [facility] [address], [place] [address], [employer] [facility] [address] [place] [address] * (ABNORMAL) Basic metabolic panel (12/03/2024 1:57 PM EST) Only the most recent of8 resultswithin the time period is included. Pathologist [facility] Glucose 153(H) 65 - 139 mg/dL 12/04/2024 5:06 AM [facility] Comment: ? Non-fasting reference interval BUN 8 7 - 25 mg/dL 12/04/2024 5:06 AM [facility] Creatinine 0.72 0.60 - 1.26 mg/dL 12/04/2024 5:06 AM [facility] eGFR 124 > OR = 60 mL/min/1. 73m2 12/04/2024 5:06 AM [facility] Bun/Creatinine Ratio SEE NOTE: 6 - 22 (calc) 12/04/2024 5:06 AM [facility] Comment: ?? Not Reported: BUN and Creatinine are within ?? reference range. ? Sodium 135 135 - 146 mmol/L 12/04/2024 5:06 AM [facility] Potassium 3.8 3.5 - 5.3 mmol/L 12/04/2024 5:06 AM [facility] Chloride 101 98 - 110 mmol/L 12/04/2024 5:06 AM [facility] Carbon Dioxide 25 20 - 32 mmol/L 12/04/2024 5:06 AM EST [facility] Calcium 8.8 8.6 - 10.3 mg/dL 12/04/2024 5:06 AM EST [facility] Blood Structure of peripheral vein / Unknown 12/03/2024 1:57 PM EST 12/04/2024 3:27 AM EST Narrative [facility] - 12/04/2024 8:35 AM EST FASTING:NO Angélica Wade MD LAB BLOOD ORDERABLES Final Resul t [facility] [address] [facility] [address], [place] [address], [facility] [address] [place] [address] * (ABNORMAL) Comprehensive Metabolic Panel (10/29/2024 5:22 AM EST) Only the most recent of2 resultswithin the time period is included. NA 133(L) 135 - 145 mmol/L 10/29/2024 6:06 AM EST [facility] K 4.0 3.5 - 5.3 mmol/L 10/29/2024 6:06 AM EST [facility] Cl 99 98 - 107 mmol/L 10/29/2024 6:06 AM EST [facility] CO2 26 22 - 32 mmol/L 10/29/2024 6:06 AM EST [facility] Anion Gap 8 5 - 15 10/29/2024 6:06 AM EST [facility] Glucose 113(H) 65 - 99 mg/dL 10/29/2024 6:06 AM EST [facility] Creatinine 0.72 0.60 - 1.30 mg/dL 10/29/2024 6:06 AM EST [facility] Comment:Specimen is icteric, result may be artificially decreased. Calcium 7.9(L) 8.6 - 10.5 mg/dL 10/29/2024 6:06 AM EST [facility] Total Protein 5.9(L) 6.0 - 8.0 g/dL 10/29/2024 6:06 AM EST [facility] Albumin 2.2(L) 3.5 - 5.2 g/dL 10/29/2024 6:06 AM EST [facility] Bilirubin, Total 11.9(H) 0.2 - 1.2 mg/dL 10/29/2024 6:06 AM EST [facility] Alkaline Phosphatase 278(H) 35 - 129 U/L 10/29/2024 6:06 AM EST [facility] AST 56(H) 10 - 40 U/L 10/29/2024 6:06 AM EST [facility] ALT 18 10 - 40 U/L 10/29/2024 6:06 AM EST [facility] BUN 13 7 - 23 mg/dL 10/29/2024 6:06 AM EST [facility] eGFR >90 >=60 mL/min/1 .73m2 10/29/2024 6:06 AM EST [facility] Comment:The estimated glomer ular filtration rate (eGFR) is calculated using a new formula developed by the NKF-ASN task force to eliminate race-based correction factors. The new formula uses serum/plasma creatinine, age, and gender to determine eGFR. A value below 60mls/min might indicate kidney disease and will be flagged. For additional information, see Trent hayward al, Am J Kidney Dis. 2021;79(2):268- 288, A Unifying Approach for GFR estimation: Recommendations of the NKF-ASN Task Force on Reassessing the Inclusion of Race in Diagnosing Kidney Disease . Globulin, Total 3.7 2.1 - 4.2 g/dL 10/29/2024 6:06 AM EST [facility] A/G Ratio 0.6(L) 1.5 - 3.0 10/29/2024 6:06 AM EST [facility] Blood Structure of peripheral vein / Unknown Venipuncture / Unknown 10/29/2024 5:22 AM EST 10/29/2024 5:31 AM EST us Sekou Elias MD LAB BLOOD ORDERABLES Final R esult Performing Organization Address [facility] System/[facility] Co de Phone Number [address] [address], [place] * Magnesium (10/27/2024 5:21 AM EST) Only the most recent of2 resultswithin the time period is included. MG 2.0 1.6 - 2.4 mg/dL 10/27/2024 7:26 AM EST [facility] Blood Structure of peripheral vein / Unknown Venipuncture / Unknown 10/27/2024 5:21 AM EST 10/27/2024 6:37 AM EST us Raímrez Marquis MD LAB BLOOD ORDERABLES Final Resul t Performing Organization Address [facility] Co de Phone Number [address] [address], [place] * ECG 12 lead (10/26/2024 6:10 AM EST) Only the most recent of2 resultswithin the time period is included. Ventricular Rate EKG 87 BPM MUSE EKG Atrial Rate 87 BPM MUSE EKG OK Interval 156 ms MUSE EKG QRS Interval 100 ms MUSE EKG QT Interval 422 ms MUSE EKG QTC Interval 507 ms MUSE EKG P [place] 58 degrees MUSE EKG R [place] 38 degrees MUSE EKG T Wave [place] 50 degrees MUSE EKG 10/26/2024 6:10 AM EST 10/26/2024 10:33 AM EST Impressions MUSE EKG - 10/26/2024 10:33 AM EST Normal sinus rhythm with sinus arrhythmia Prolonged QT Abnormal ECG When compared with ECG of 25-OCT-2024 17:27, (Unconfirmed) No significant change was found Confirmed by Gary Rodgers ([id number]) on 10/26/2024 10:33:12 AM Raúl Hairston MD ECG ORDERABLES Final Result Performing Organization Address [facility] de Phone Number MUSE EKG * Blood Culture, #2 of 2 (10/26/2024 3:12 AM EST) Only the most recent of2 resultswithin the time period is included. Blood Culture No Growth after 120 Hours 11/01/2024 3:57 PM EST [facility] Blood Structure of peripheral vein / Unknown Venipuncture / Unknown 10/26/2024 3:12 AM EST 10/26/2024 9:12 AM EST Raúl Hairston MD LAB MICROBIOLOGY - GENERAL ORDER WILLIE Final Result Performing Organization Address [facility] de Phone Number [employer]here [id number] LE[facility] Power HoldingsMOUNTAIN [facility] [address] [place] [phone], [place] * Gram Stain (10/26/2024 3:12 AM EST) Gram Stain Result No organisms seen 10/30/2024 8:05 AM EST [employer] [email or web address] [facility]OM[facility] Comment:In aerobic bottle. P ut back for further incubation. Blood Structure of peripheral vein / Unknown Venipuncture / Unknown 10/26/2024 3:12 AM EST 10/26/2024 9:12 AM EST Rúal Hairston MD LAB MICROBIOLOGY - GENERAL ORDER WILLIE Final Result Performing Organization Address City/[facility] Co de Phone Number [facility] [address] [place] [address], [place] * (ABNORMAL) Iron Saturation (10/26/2024 3:06 AM EST) Pathologist [facility] Iron Saturation 33 20 - 50 % 3:44 AM EST [facility] Iron 47 45 - 160 ug/dL 10/26/2024 3:44 AM EST [facility] Transferrin 115(L) 200 - 360 mg/dL 10/26/2024 3:44 AM EST [facility] Total Iron Binding Capacity 144(L) 255 - 450 ug/dL 10/26/2024 3:44 AM EST [facility] Blood Structure of peripheral vein / Unknown Venipuncture / Unknown 10/26/2024 3:06 AM EST 10/26/2024 3:17 AM EST us Raúl Hairston MD LAB BLOOD ORDERABLES Final Resul t [facility]NOR[facility] [address] [place] [address], [place] * (ABNORMAL) CBC (10/26/2024 3:06 AM EST) Pathologist [facility] WBC 25.4(HH) 3.8 - 10.8 10*3/uL 10/26/2024 3:51 AM EST [facility] RBC 2.94(L) 4.20 - 5.80 10*6/uL 10/26/2024 3:51 AM EST [facility] Hemoglobin 9.3(L) 13.2 - 17.1 g/dL 10/26/2024 3:51 AM EST [facility] Hematocrit 26.6(L) 38.5 - 50.0 % 10/26/2024 3:51 AM EST [facility] MCV 90.5 80.0 - 100.0 fL 10/26/2024 3:51 AM EST [facility] MCH 31.6 27.0 - 33.0 pg 10/26/2024 3:51 AM EST [facility] MCHC 35.0 32.0 - 36.0 g/dL 10/26/2024 3:51 AM EST [facility] RDW 19.7(H) 11.0 - 15.0 % 10/26/2024 3:51 AM EST [facility] Platelets 150 140 - 400 10*3/uL 10/26/2024 3:51 AM EST [facility] MPV 11.2 7.5 - 12.5 fL 10/26/2024 3:51 AM EST [facility] Blood Structure of peripheral vein / Unknown Venipuncture / Unknown 10/26/2024 3:06 AM EST 10/26/2024 3:18 AM EST Raúl Hairston MD LAB BLOOD ORDERABLES Final Resul t [facility] [address] [place] [address], [place] * (ABNORMAL) Lipase (10/26/2024 3:06 AM EST) Only the most recent of2 resultswithin the time period is included. Lipase 121(H) 13 - 60 U/L 10/26/2024 3:44 AM EST [facility] Blood Structure of peripheral vein / Unknown Venipuncture / Unknown 10/26/2024 3:06 AM EST 10/26/2024 3:17 AM EST Raúl Hairston MD LAB BLOOD ORDERABLES Final Resul t Performing Organization Address [facility]/ZIP Co de Phone Number [facility] [address] [place] [address], [place] * Lactic Acid, Plasma (10/26/2024 3:06 AM EST) Lactic Acid 1.8 0.5 - 1.9 mmol/L 10/26/2024 3:46 AM EST [facility] Comment: Sepsis Screening: Initial Lactate Level >2.0 mmol/L - Repeat Lactate Level within 3 hours. Initial Lactate Level >4.0 mmol/L - Repeat Lactate Level within 3 hours, Initiate Septic Shock Protocol. Blood Structure of peripheral vein / Unknown Venipuncture / Unknown 10/26/2024 3:06 AM EST 10/26/2024 3:17 AM EST us Raúl Hairston MD LAB BLOOD ORDERABLES Final Resul t Performing Organization Address [facility] Co de Phone Number [facility] [address] [place] [phone], [place] * Folate (10/26/2024 3:06 AM EST) Folate 14.5 4.8 - 24.2 ng/mL 10/26/2024 4:28 AM EST [facility] Blood Structure of peripheral vein / Unknown Venipuncture / Unknown 10/26/2024 3:06 AM EST 10/26/2024 3:18 AM EST Raúl Hairston MD LAB BLOOD ORDERABLES Final Resul t Performing Organization Address City/[facility] Co de Phone Number [facility] [address] [place] [phone], [place] * (ABNORMAL) Vitamin B12 (10/26/2024 3:06 AM EST) Vitamin B12 2,470(H) 232 - 1,245 pg/mL 10/26/2024 4:30 AM EST [facility]QU[facility] Movolo.comWind Power HoldingsMOUNTAIN [facility]IST[facility] Blood Structure of peripheral vein / Unknown Venipuncture / Unknown 10/26/2024 3:06 AM EST 10/26/2024 3:18 AM EST us Raúl Hairston MD LAB BLOOD ORDERABLES Final Resul t [facility] [employer] Skin CareWind Power HoldingsMOUNTAIN [facility] [address] [place] [address], [place] * ED POCUS Abdominal Single Organ (10/25/2024 9:19 PM EST) Anatomical Region Laterality Modality Body N/A Ultrasound 10/25/2024 9:19 PM EST Impressions 10/26/2024 9:45 AM EST Exam Information A [id number] ultrasound was performed to assess the anatomy of the abdomen and evaluate for pathology such as small bowel obstruction or ascites or other pathology as noted below in this patient.. ?? Indication(s) for Exam The exam was performed with the following indications: Evaluation for ascites Other indication for exam: Views Obtained Images Saved for These Views Multiple real-time sonographic images were obtained of the abdomen using curvilinear and/or linear multi-Hz transducers. Other Views: Findings Is free fluid present Yes Dilated loops of small bowel greater than 2.5cm N/A not evaluated on this limited ultrasound Peristalsis visualized N/A not evaluated on this limited ultrasound Other finding(s) free fluid present. no pocket of fluid amenable for paracentesis Impression . Intraperitoneal Free Fluid . . Limited ultrasounds performed in the Emergency Department are performed by emergency physicians at the patients bedside to address specific clinical questions. ??Additional imaging or testing may be required. Electronically Signed by the following: Performing: Rory Georges MD on Resulting Physician: Rory Georges MD on [email or web address] Narrative Procedure Note Rory Georges MD - 10/26/2024 IMPRESSION: Exam Information A [id number] ultrasound was performed to assess the anatomy of theabdomen and evaluate for pathology such as small bowel obstruction orascites or other pathology as noted below in this patient.. Indication(s) for Exam The exam was performed with the following indications: Evaluation forascites Other indication for exam: Views Obtained Images Saved for These Views Multiple real-time sonographic images wereobtained of the abdomen using curvilinear and/or linear multi-Hztransducers. Other Views: Findings Is free fluid present Yes Dilated loops of small bowel greater than 2.5cm N/A not evaluated on thislimited ultrasound Peristalsis visualized N/A not evaluated on this limited ultrasound Other finding(s) free fluid present. no pocket of fluid amenable forparacentesis Impression . Intraperitoneal Free Fluid . . Limited ultrasounds performed in the Emergency Department are performed byemergency physicians at the patients bedside to address specific clinicalquestions. Additional imaging or testing may be required. Electronically Signed by the following: Performing: Rory Georges MD on Resulting Physician: Rory Georges MD on [email or web address] us Historical Conversion Provider IMG US PROCEDURES Final Result * CT Abdomen Pelvis with Contrast (10/25/2024 7:01 PM EST) Anatomical Region Laterality Modality Body Computed Tomogra phy 10/25/2024 7:34 PM EST Impressions 10/25/2024 7:43 PM EST Liver cirrhosis with portal hypertension. Mild thickening involving ascending colon, likely related to portal colopathy. No evidence of cholelithiasis or intrahepatic biliary radical dilatation to suggest choledocholithiasis. Partially distended gallbladder with enhancing ingram, mild enhancement along the common bile duct nonspecific, superimposed infection is not entirely excluded. If this radiology report contains a blank impression section, it is an incomplete radiology report. ??Please contact the interpreting radiologist or applicable radiology division as soon as possible to obtain the completed interpretation. ? Workstation ID: [id number] Up-to-date CT equipment and radiation dose reduction techniques were employed. CTDIvol: 14.7 mGy. DLP: 868 mGy-cm. Narrative 10/25/2024 7:43 PM EST EXAMINATION: CT ABDOMEN PELVIS W CONTRAST INDICATION: Choledocholithiasis. TECHNIQUE: Images of the abdomen and pelvis were obtained with intravenous contrast. Coronal and sagittal reformats were generated. COMPARISON: None ?? FINDINGS: LOWER THORAX: Right basilar atelectasis HEPATOBILIARY: Cirrhotic liver morphology. Patent portal and hepatic veins. Gallbladder is partially distended and shows thickened enhancing ingram. Common bile duct is normal in size and show mild enhancement along its ingram.. No biliary ductal dilatation. SPLEEN: Moderate splenomegaly. Note made of splenules at the hilum. PANCREAS: No focal masses or ductal dilatation. ADRENAL GLANDS: No adrenal nodules. KIDNEYS/URETERS: No hydronephrosis, calculi, or solid mass lesions. GI TRACT: Mild thickening of ascending colon and stomach mucosa, likely related to portal hypertension. No bowel obstruction. PERITONEUM/RETROPERITONEUM: Mild to moderate ascites. No free air. LYMPH NODES: Prominent periportal lymphadenopathy, seen in the setting of portal hypertension and cirrhosis. VESSELS: Unremarkable. PELVIC ORGANS/BLADDER: Within normal limits. BONES AND SOFT TISSUES: Within normal limits. Resulting Agency Comment [id number] Procedure Note Ernestina Pepper MD - 10/25/2024 EXAMINATION: CT ABDOMEN PELVIS W CONTRAST INDICATION: Choledocholithiasis. TECHNIQUE: Images of the abdomen and pelvis were obtained with intravenouscontrast. Coronal and sagittal reformats were generated. COMPARISON: None FINDINGS: LOWER THORAX: Right basilar atelectasis HEPATOBILIARY: Cirrhotic liver morphology. Patent portal and hepaticveins. Gallbladder is partially distended and shows thickened enhancingwalls. Common bile duct is normal in size and show mild enhancement alongits ingram.. No biliary ductal dilatation. SPLEEN: Moderate splenomegaly. Note made of splenules at the hilum. PANCREAS: No focal masses or ductal dilatation. ADRENAL GLANDS: No adrenal nodules. KIDNEYS/URETERS: No hydronephrosis, calculi, or solid mass lesions. GI TRACT: Mild thickening of ascending colon and stomach mucosa, likelyrelated to portal hypertension. No bowel obstruction. PERITONEUM/RETROPERITONEUM: Mild to moderate ascites. No free air. LYMPH NODES: Prominent periportal lymphadenopathy, seen in the setting ofportal hypertension and cirrhosis. VESSELS: Unremarkable. PELVIC ORGANS/BLADDER: Within normal limits. BONES AND SOFT TISSUES: Within normal limits. IMPRESSION: Liver cirrhosis with portal hypertension. Mild thickening involvingascending colon, likely related to portal colopathy. No evidence of cholelithiasis or intrahepatic biliary radical dilatationto suggest choledocholithiasis. Partially distended gallbladder withenhancing ingram, mild enhancement along the common bile duct nonspecific,superimposed infection is not entirely excluded. If this radiology report contains a blank impression section, it is anincomplete radiology report. Please contact the interpreting radiologistor applicable radiology division as soon as possible to obtain thecompleted interpretation. Workstation ID: [id number] Up-to-date CT equipment and radiation dose reduction techniques wereemployed. CTDIvol: 14.7 mGy. DLP: 868 mGy-cm. us Rory Georges MD IMG CT PROCEDURES Final Res ult * (ABNORMAL) Manual Differential (10/25/2024 5:28 PM EST) Neutrophil %, Manual 92 % 10/25/2024 6:06 PM EST [facility] Band % 3 0 - 7 % 10/25/2024 6:06 PM EST [facility] Lymphocyte %, Manual 1 % 10/25/2024 6:06 PM EST [facility] Monocyte %, Manual 4 % 10/25/2024 6:06 PM EST [facility] Eosinophil %, Manual 0 % 10/25/2024 6:06 PM EST [facility] Basophil %, Manual 0 % 10/25/2024 6:06 PM EST [facility] Total Neutrophil #, Manual 24.04(H) 1.50 - 7.80 10*3/uL 10/25/2024 6:06 PM EST [facility] Bands #,Manual 0.76 10*3/uL 10/25/2024 6:06 PM EST [facility] Total Lymph #, Manual 0.25(L) 0.85 - 3.90 10*3/uL 10/25/2024 6:06 PM EST [facility] Monocyte #, Manual 1.01(H) 0.20 - 0.95 10*3/uL 10/25/2024 6:06 PM EST [facility] Eosinophil #, Manual 0.00(L) 0.02 - 0.50 10*3/uL 10/25/2024 6:06 PM EST [facility] Basophil #, Manual 0.00 0.00 - 0.20 10*3/uL 10/25/2024 6:06 PM EST [facility] Platelet Estimate Adequate Adequate 10/25/2024 6:06 PM EST [facility] RBC Morphology Present(A) Normal, No clinically significant RBC morphology present (ICSH guidelines, 2015). 10/25/2024 6:06 PM EST [facility] Target Cells 2+(A) Not Present 10/25/2024 6:06 PM EST [facility] Total Cells Counted 114 10/25/2024 6:06 PM EST [facility] Blood Structure of peripheral vein / Unknown Venipuncture / Unknown 10/25/2024 5:28 PM EST 10/25/2024 5:32 PM EST us Rory Georges MD LAB BLOOD ORDERABLES Final Result [facility] [address] [place] [address], [place] * Phosphorus (10/25/2024 5:28 PM EST) Phosphorus 3.3 2.5 - 4.5 mg/dL 10/25/2024 11:48 PM EST [facility] Blood Structure of peripheral vein / Unknown Venipuncture / Unknown 10/25/2024 5:28 PM EST 10/25/2024 5:32 PM EST Raúl Hairston MD LAB BLOOD ORDERABLES Final Resul t [facility] [address] [place] [address], [place] * Ferritin (10/25/2024 5:28 PM EST) Ferritin 158.0 23.0 - 336.0 ng/mL 10/25/2024 11:48 PM EST [facility] Blood Structure of peripheral vein / Unknown Venipuncture / Unknown 10/25/2024 5:28 PM EST 10/25/2024 5:32 PM EST Raúl Hairston MD LAB BLOOD ORDERABLES Final Resul t [facility] [address] [place] [address], [place] * (ABNORMAL) Creatine Kinase (10/25/2024 5:28 PM EST) CK 39(L) 49 - 348 U/L 10/25/2024 11:48 PM EST [facility] Blood Structure of peripheral vein / Unknown Venipuncture / Unknown 10/25/2024 5:28 PM EST 10/25/2024 5:32 PM EST Raúl Hairston MD LAB BLOOD ORDERABLES Final Resul t [facility] [address] [place] [address], [place] from Last 3 Months Insurance [facility] MEDICAID Advance Directives * Full Code (Latest Code Status on File) Date Activated Date Inactivated Comments 10/25/2024 10:59 PM 10/29/2024 6:56 PM Care Teams Can Line Operator Relationship Specialty Start Date End Date Kallie An DO [address] [place] [address] PCP - General Family Medicine 12/17/24
--- OUTSIDE RECORDS SUMMARY | 2024-12-20 17:26 | XMS_ITS | Encounter Summary ---
Author Organization [facility] Address [address] [place] [address] Care Team Providers Care Screedman Name Role Phone Juve Hutchison DO, Diana Primary Care Provider + Reason for Referral * Consultation (Routine) - Pending Review Specialty Diagnoses / Procedures Referred By Taylor trinidad Referred To Contact Cardiology Diagnoses Portal hypertension (CMS/HCC) (HCC) Cardiac arrhythmia, unspecified cardiac arrhythmia type Nela Denton NP [address] [place] [address] Phone: tel: fax: Chiquis Davis MD [address] [place] [address] Phone: tel: Referral ID Status Reason Start Date Expiration Date Visits Requested Visits Authorized [id number] Pending Review Specialty Services Required 12/18/2024 06/19/2026 6 6 Encounter Details Date Type Department Care Team (Late st Contact Info) Description 12/18/2024 Orders Only [address] Family Practice Department [address] [place] [phone] Nela Denton NP [address] [place] [phone] Portal hypertension (CMS/HCC) (HCC) (Primary Dx); Cardiac arrhythmia, unspecified cardiac arrhythmia type Social History Tobacco Use Types Packs/Day Years Used Date Smoking Tobacco: Some Days Cigarettes 0.1 10 Passive Smoke Exposure: Current Smokeless Tobacco: Current Alcohol Use Standard Drinks/Week Comments Not Currently 0 (1 standard drink = 0.6 oz pure alcohol) handle/ day of liquor Last drank 09/12/24 [facility] Utilities Answer Date Recorded In the past [...] Info) Description 06/18/2025 2:00 PM EDT Follow-Up [address] Family Practice Department [address] [place] [phone] Nela Denton NP [address] [place] [phone] Scheduled Referrals Name Type Priority Associated Diagnoses Orde r Schedule Ambulatory referral to Cardiology Outpatient Referral Routine Portal hypertension (CMS/HCC) (HCC) Cardiac arrhythmia, unspecified cardiac arrhythmia type Expected: 12/18/2024, Expires: 06/17/2025 documented as of this encounter Visit Diagnoses Diagnosis Portal hypertension (CMS/HCC) (HCC)- Primary Portal hypertension Cardiac arrhythmia, unspecified cardiac arrhythmia type documented in this encounter Care Teams Screedman Relationship Specialty Start Date End Date Kallie An DO [address] [place] [id number] PCP - General Family Medicine 12/17/24 documented as of this encounter
--- OUTSIDE RECORDS SUMMARY | 2024-12-20 17:26 | XMS_ITS ---
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 Role Phone RANDELL SNYDER Primary Care Provider [phone] WILL AVITIA Unavailable [phone] ZAHRAA JACOB Unavailable [phone] Allergies No Known Allergies Reason For Referral Reason tinnitus, referral f or testing Diagnosis 1 Tinnitus, unspecifie d laterality (H93.19) Referral Organization [id number] Referring Provider First Name ZAHRAA Referring Provider Last Name CECIL Referring Provider Speciality Family Med rodrigue Referred Provider Debbie Marinelli Referred Provider Specialty Audiologists General Notes SANDY LEUNG 4 04:29:36 PM > please contact the patient to schedule, thank you!, PILAR CONNELLY 02/07/2024 10:10:53 AM > No prior auth required per [facility] Clinical Notes SANDY LEUNG 4 04:29:51 PM >auth?, SANDY LEUNG 02/07/2024 10:25:24 AM >faxed Referral Priority Routine Reason diagnosed w/ schizop hrenia in 05/2023, ongoing anxiety,w ould like to establish to discuss medications [facility] Diagnosis 1 Schizophrenia, unspe cified type (F20.9) Referral Organization [id number] [facility] Referring Provider First Name ZAHRAA Referring Provider Last Name CECIL Referring Provider Speciality Family Med rodrigue Referred Provider [facility] Referred Provider Specialty MENTAL HEALT H General Notes SANDY LEUNG 4 04:30:26 PM > please contact the patient to schedule, thank you!, PILAR CONNELLY 02/07/2024 10:09:58 AM > No prior auth required per [facility] Clinical Notes SANDY LEUNG 4 04:30:34 PM > auth?, SANDY LEUNG 02/07/2024 10:25:00 AM >faxed Referral Priority Routine REASON FOR VISIT 2 week f/u anxiety and tinnitus 3.7.2023 DMB Medications Medication SIG (Take, Route, Fr equency, Duration) Notes Start Date End Date Status HydrOXYzine HCl 50 MG 1 tablet as needed Orally three times a day prn for 30 days 01/26/2024 Active HydrOXYzine HCl 50 MG 1 tablet as needed Orally Once a day Active Social History Tobacco Use: Social History Observation Description Date Details (start date - stop date) Former Smoker NA - NA Tobacco Status: Question Answer Notes Patient is a former smoker Vital Signs Height 71 in 02/06/2024 Weight 212 lbs 02/06/2024 BMI 29.56 kg/m2 02/06/2024 Blood pressure systolic 130 mm Hg 02/06/20 24 Blood pressure diastolic 90 mm Hg 024 Temperature 98 degrees Fahrenheit 02/06/2024 Heart Rate 101 /min 02/06/2024 Respiratory Rate 16 /min 02/06/2024 Oximetry 95 02/06/2024 Encounters Encounter Location Date Provider Diagnosis [id number] [facility] [address] [facility] [address] [place], [place] [id number] 02/06/2024 ZAHRAA JACOB Tinnitus, unspecifie d laterality H93.19 ; Schizophrenia, unspecified type F20.9 ; Elevated blood pressure reading R03.0 and Anxiety F41.9 Assessments Encounter Date Diagnosis (ICD Code) Assessment Notes Treatment Notes Treatment Clinical Notes Section Notes 02/06/2024 Tinnitus, unspecified laterality (ICD-10 - H93.19) Notes tinnitus that is constant. No whooshing sound w/ laying down or after physical activity. Given that there are no red flag symptoms, will refer to audiology for hearing assessment 02/06/2024 Schizophrenia, unspecified type (ICD-10 - F20.9) Per [facility] stay at [facility] in 05/2023, he was diagnosed w/ likely schizophrenia and it was recommended outpatient psych follow up. He was prescribed risperidone in the hospital but this was dc[facility] as [facility]. Patient is willing to restart medication at this time but will want to establish first with psychiatry. Given insurance status (medicaid), will refer to [facility] to establish care. He currently denies any hallucinations, delusions, disorganized speech, thought disorder, no si/hi 02/06/2024 Elevated blood pressure reading (ICD-10 - R03.0) DBP mildly elevated to 90. He notes he would be receptive to medication but would like to start the medication he was previously on. Will await records and once received will review and initiate medication. Follow up in a few weeks time to assess efficacy of anti htn meds 02/06/2024 Anxiety (ICD-10 - F41.9) currently only taking hydroxyzine which he states has been helpful. At previous visit, discussed possibility of starting new daily medication to help with anxiety, however once it was disclosed he was previously taking risperidone/cloni dine, it was agreed upon to wait until prior records. Once records are available and reviewed, will discuss w/ patient options including deferring to outpatient psych who he will be establishing with soon Plan Of Treatment Treatment Notes Assessment Notes Tinnitus, unspecified laterality Notes t innitus that is constant. No whooshing sound w/ laying down or after physical activity. Given that there are no red flag symptoms, will refer to audiology for hearing assessment Schizophrenia, unspecified type Per U stay at [facility] in 05/2023, he was diagnosed w/ likely schizophrenia and it was recommended outpatient psych follow up. He was prescribed risperidone in the hospital but this was dc[facility]. Patient is willing to restart medication at this time but will want to establish first with psychiatry. Given insurance status (medicaid), will refer to [facility] to establish care. He currently denies any hallucinations, delusions, disorganized speech, thought disorder, no si/hi Elevated blood pressure reading DBP mild ly elevated to 90. He notes he would be receptive to medication but would like to start the medication he was previously on. Will await records and once received will review and initiate medication. Follow up in a few weeks time to assess efficacy of anti htn meds Anxiety currently only takin g hydroxyzine which he states has been helpful. At previous visit, discussed possibility of starting new daily medication to help with anxiety, however once it was disclosed he was previously taking risperidone/clonidine, it was agreed upon to wait until prior records. Once records are available and reviewed, will discuss w/ patient options including deferring to outpatient psych who he will be establishing with soon Referrals Referral Date Details 02/06/2024 02/06/2024, tinnitus , referral for testing, Debbie Marinelli 02/06/2024 02/06/2024, diagnose d w/ schizophrenia in 05/2023, ongoing anxiety,w ould like to establish to discuss medications [facility], [facility] Next Appt Details Follow Up: 4-5 weeks, Reason : follow up bp Progress Notes * Miranda KUMAR DebbieDOB:[birth year] (34 yo M)Acc No.[id number]:02/06/2024 PROGRESS NOTE Patient:?Miranda KUMAR Appointment Provider:?ZAHRAA JACOB, DO :1990???Age:34 Y???Sex:Male Sup ervising Provider:RAYMUNDO GORDILLO MD Date:02/06/2024 ?CHN#:[id number] Address:[address] [place] [address], [facility] [address], [place] [address] Pcp:RANDELL SNYDER Subjective: * Chief Complaints: * ???2 week f/u anxiety and ti nnitus 3. DMB * HPI: ???Patient History:? 34 year old presenting for follow up. Patient was seen a couple weeks ago as a new patient to discuss anxiety. He was interested in starting medication, however, it was agreed upon to first obtain previous records. Unfortunately our office still does not have the records. - he was seen previously by psychiatry at [facility] and was rx'd risperidone due to diagnosed schizophrenia in 05/2023 -it was dc'd as [facility] -he states he was on the medication for a couple months but wasn't able to notice a huge difference -he would be receptive to restarting the medication. He is interested in establishing with outpatient psychiatrist -no recent visual/auditory hallucinations. He states last time it occured it was approx a month ago but this was more paranoid anxiety panic attack.? -he has continued with hydroxyzine at this time and believes that it has been adequately managing his anxiety Blood pressure -he states today that he has intermittently been taking his BPs at home and they are typically in the low 140s/90s or high 130s -previously taking medication but would prefer to take what he was rx'd previously and thus willing to?wait for records prior to starting new med Tinnitus -stayed around the same. He is around [employer] now and so it is hard to tell if it has worsened or not recently -he states he notices it more when he lays down as it is typically quiet during those times, but he does not believe that laying supine worsens it -upon further questioning, he does not believe that exerting himself will lead to pulsatile tinnitus -he states it is more consistent with constant tinnitus? -intereted in audiology referral. * ROS:?as per hpi. * Medical History:?? * Surgical History:?THUMB SURG WILMA * Hospitalization/Major Diagno stic Procedure:?EtOH, he does not recall exactly when * Family History:?No Family Hi story documented..? * Social History:?Alcohol Use?Patient?uses alcohol notes hx of alcohol abuse, has been hospitalized for this before, has been working on quitting drinking, last drink 11/2023 ???Tobacco Status?Patient is?a former smoker ???Drugs: marijuana. * Medications:?TakingHydrOXYzi ne HCl 50 MG Tablet 1 tablet as needed Orally Once a day HydrOXYzine HCl 50 MG Tablet 1 tablet as needed Orally three times a day prn Medication List reviewed and reconciled with the patientTaking HydrOXYzine HCl 50 MG Tablet 1 tablet as needed Orally Once a day Taking HydrOXYzine HCl 50 MG Tablet 1 tablet as needed Orally three times a day prn Medication List reviewed and reconciled with the patient * Allergies:?N.K.A. Objective: * Vitals:?Ht: 71 in, Ht-cm: 18 0.34 cm, Wt: 212 lbs, Wt-k.16 kg, BMI:29.56, Weight Change: 2.2 lbs, Body Surface Area: 2.19, BP:130/90, Temp:98F, HR:101, Respiratory Rate:16, Oxygen sat %:95. * Examination: ???GENERAL EXAMINATION: ?Constitutional:?no apparent distress.?Lungs:?clear, breath sounds, nonlabored.?Heart:?regular rate and rhythm.?Psych:?normal affect, thoughts linear, answering questions appropriately.? Assessment: * Assessment: 1.?Schizophrenia, unspecifie d type - F20.9 (Primary)?2.?Tinnitus, unspecified laterality - H93.19?3.?Elevated blood pressure reading - R03.0?4.?Anxiety - F41.9? Plan: * Treatment: 2.?Tinnitus, unspecified lat erality? Notes: Notes tinnitus that is constant. No whooshing sound w/ laying down or after physical activity. Given that there are no red flag symptoms, will refer to audiology for hearing assessment? Referral To:Debbie Marinelli??Audiologists ?Reason:tinnitus, referral for testing 3.?Elevated blood pressure r eading? Notes: DBP mildly elevated to 90. He notes he would be receptive to medication but would like to start the medication he was previously on. Will await records and once received will review and initiate medication. Follow up in a few weeks time to assess efficacy of anti htn meds?? 4.?Anxiety? Notes: currently only taking hydroxyzine which he states has been helpful. At previous visit, discussed possibility of starting new daily medication to help with anxiety, however once it was disclosed he was previously taking risperidone/clonidine, it was agreed upon to wait until prior records. Once records are available and reviewed, will discuss w/ patient options including deferring to outpatient psych who he will be establishing with soon?? * Procedures:?Attestation by Raymundo Gordillo MD. Resident has completed 6 months residency training: modifier This service has been performed by a resident with greater than 6 months residency education without the presence of a teaching physician under the primary care exception. I have reviewed and discussed the care furnished by the resident, including review of the medical history and diagnosis, the physical examination, assessment and the treatment plan. I agree with plan for on-going mgmt of schizophrenia and tinnitus. ? * Procedure Codes:? * Follow Up:?4-5 weeks (Reason : follow up bp) * Care Plan Details* Review Notes: RAYMUNDO GORDILLO 2024-02-08 07:51:09* Sign off status: Completed true * Appointment Provider:?DO Katlyn DAVIS ate:?02/06/2024 Generated for Mariel starr/Po/Guy on:?12/20/2024 05:26 PM EST History and Physical Notes * HPI (History of Present Illness) Category Sub-Category Detail Notes Category Not es Patient History 34 year old presenting for follow up. Patient was seen a couple weeks ago as a new patient to discuss anxiety. He was interested in starting medication, however, it was agreed upon to first obtain previous records. Unfortunately our office still does not have the records. - he was seen previously by psychiatry at [facility] and was rx'd risperidone due to diagnosed schizophrenia in 05/2023 -it was dc[facility] as [facility] -he states he was on the medication for a couple months but wasn't able to notice a huge difference -he would be receptive to restarting the medication. He is interested in establishing with outpatient psychiatrist -no recent visual/auditory hallucinations. He states last time it occured it was approx a month ago but this was more paranoid anxiety panic attack. -he has continued with hydroxyzine at this time and believes that it has been adequately managing his anxiety Blood pressure -he states today that he has intermittently been taking his BPs at home and they are typically in the low 140s/90s or high 130s -previously taking medication but would prefer to take what he was rx'd previously and thus willing to wait for records prior to starting new med Tinnitus -stayed around the same. He is around [employer] now and so it is hard to tell if it has worsened or not recently -he states he notices it more when he lays down as it is typically quiet during those times, but he does not believe that laying supine worsens it -upon further questioning, he does not believe that exerting himself will lead to pulsatile tinnitus -he states it is more consistent with constant tinnitus -intereted in audiology referral Examination Category Sub-Category Detail Notes Category Not es GENERAL EXAMINATION Constitutional: no apparent distre ss Lungs: clear, breath sounds , nonlabored Heart: regular rate and rhy thm Psych: normal affect, thoug hts linear, answering questions appropriately Consultation Request Notes Referral Date Referring Provider Referred Provider Not es 02/06/2024 ZAHRAA JACOB [facility] tinnitus, refe rral for testing 02/06/2024 ZAHRAA JACOB [facility] diagnosed w/ schizophrenia in 05/2023, ongoing anxiety,w ould like to establish to discuss medications [facility]
--- OUTSIDE RECORDS SUMMARY | 2024-12-20 17:26 | XMS_ITS | Encounter Summary ---
Author Organization [facility] Address [address] [place] [address] Care Team Providers Care Mind Reader Name Role Phone Juve Hutchison DO, Diana Primary Care Provider + Reason for Visit * Reason Comments New Patient Encounter Details Date Type Department Care Team (Late st Contact Info) Description 12/17/2024 8:30 AM EST Office Visit [facility] 255 [facility] Family Practice Department [address] [place] [address] [phone] Nela Denton NP [address] [place] [address] Alcoholic cirrhosis of liver with ascites (CMS/HCC) (HCC) (Primary Dx); Right hand pain; Mild episode of recurrent major depressive disorder (HCC); Overweight (BMI 25.0-29.9); Portal hypertension (CMS/HCC) (HCC) Social History Tobacco Use Types Packs/Day Years Used Date Smoking Tobacco: Some Days Cigarettes 0.1 10 Passive Smoke Exposure: Current Smokeless Tobacco: Current Alcohol Use Standard Drinks/Week Comments Not Currently 0 (1 standard drink = 0.6 oz pure alcohol) handle/ day of liquor Last drank 09/12/24 [facility] Utilities Answer Date Recorded In the past 12 months has [employer], gas, oil, or water [employer] threatened to shut off services in your [...] on file documented as of this encounter Last Filed Vital Signs Vital Sign Reading Time Taken Comments Blood Pressure 136/88 12/17/2024 8:30 AM EST Pulse 94 12/17/2024 8:30 AM EST Temperature 37 ??C (98.6 ??F) 12/17/2024 8:30 AM EST Respiratory Rate - - Oxygen Saturation 98% 12/17/2024 8:30 AM EST Inhaled Oxygen Concentration - - Weight 87.4 kg (192 lb 9.6 oz) 12/17/2024 8:30 A M EST Height 177.8 cm (5' 10 ) 12/17/2024 8:30 AM EST Body Mass Index 27.64 12/17/2024 8:30 AM EST documented in this encounter Progress Notes * Nela Denton NP - 12/17/2024 8:55 AM EST New Patient Visit Note Assessment & Plan Alcoholic cirrhosis of liver with ascites (CMS/HCC) (HCC) Following with [facility] liver clinic, Meld score of 26 on 10/27/24, currently on Rifaximin for possibleencephalopathy while inpatient at [facility], Gabapentin 300mg to aid with cravings. Continue on Lasix andSpironolactone, alternating medication every other day. Was previously jaundice to sclera and skin,has subsided, mild yellow tinge to sclera present. Last Drink was prior to hospital admission in August. Following with [facility]. Orders: rifAXIMin (XIFAXAN) 550 mg tablet; Take 1 tablet (550 mg total) by mouth every 12 hours. spironolactone (ALDACTONE) 25 mg tablet; Take 1 tablet (25 mg total) by mouth 2 times a day. Right hand pain Moderate swelling to right hand and wrist, no known trauma, no visible ecchymosis, onset 2 days ago, advised rest, elevation and ibuprofen PRN, will hold off on imaging, follow up if symptoms persist. Orders: ibuprofen (MOTRIN) 600 mg tablet; Take 1 tablet (600 mg total) by mouth every 6 hours as needed forpain for up to 7 days. Mild episode of recurrent major depressive disorder (HCC) Seen by psychiatry through alcoholic cirrhosis program. Placed on Sertraline 25mg. Continue on Remeron nightly. Overweight (BMI 25.0-29.9) Body mass index is 27.64 kg/m??. Portal hypertension (CMS/HCC) (HCC) Mild ascites inpatient not requiring paracentesis. Continue on Lasix and Spironolactone. Follows with liver clinic at [facility]. Return in about 6 months (around 06/16/2025). HPI: Andrew is a 34 y.o. male who presents today in [facility] as a new patient. - presents today with mother, previously a patient of Dr. Colindres in [facility]. - transferred care related to recent Dx of Liver cirrhosis and following with liver clinic at [facility]. - PMH: Alcohol use disorder, substance abuse. - Was recently admitted to [facility] at the end of August 30 through 10/01 for severe alcohol withdrawal and delirium tremens requiring intubation. He was discharged to rehab, [facility] in [place]. - acute concerns today of Right hand swelling, woke up with it 2 days prior, no injury noted. - Following with [facility] in [place]. - See health maintenance list below for updated history and screenings due. Health Maintenance Topic Date Due HIV Screening Never done Hepatitis C Screening Never done Pneumococcal Vaccine: Pediatric (0-5 Years) and At-Risk Patients (6-64 Years) (1 of 2 - PCV) Never done Varicella Vaccines (1 of 2 - 13+ 2-dose series) Never done Hepatitis B Vaccines (1 of 3 - 19+ 3-dose series) Never done Influenza Vaccine (1) Never done COVID-19 Vaccine ( season) Never done Depression Evaluation Never done [employer] [facility] [employer] [facility] D[employer] of Health Annual Screening 11/21/2024 DTaP,Tdap,and Td Vaccines (2 - Td or Tdap) 11/22/2024 RSV Vaccine (60+ years old and patients) (1 - 1-dose 75+ series) 2066 Oral Health Screening Completed Alcohol/Substance Use Screening Completed Abdominal Aortic Aneurysm (AAA) Screening Completed Notes regarding HM list above: Review of Systems Constitutional: Negative for chills and fever. Respiratory: Negative for cough and shortness of breath. Cardiovascular: Negative for chest pain, chest pressure, chest tightness, palpitations and rapid heart beat. Gastrointestinal: Negative for abdominal distention, abdominal pain, blood in stool, constipation, diarrhea, heartburn, nausea and vomiting. Musculoskeletal: Positive for joint swelling. Negative for arthralgias, back pain and foot pain. Skin: Negative for change in mole, skin changes, color change and rash. Neurological: Negative for dizziness and headaches. Psychiatric/Behavioral: Negative for dysphoric mood. The patient is not nervous/anxious. Objective BP 136/88 Pulse 94 Temp 37 ??C (98.6 ??F) Ht 1.778 m (5' 10 ) Wt 87.4 kg (192 lb 9.6 oz) SpO2 98% BMI 27.64 kg/m?? Physical Exam Vitals reviewed. Constitutional: General: He is awake. He is not in acute distress. Appearance: Normal appearance. He is overweight. He is not ill-appearing, toxic- appearing or diaphoretic. Cardiovascular: Rate and Rhythm: Normal rate and regular rhythm. Heart sounds: Normal heart sounds, S1 normal and S2 normal. Pulmonary: Effort: Pulmonary effort is normal. No respiratory distress. Breath sounds: Normal breath sounds and air entry. Musculoskeletal: Right wrist: Swelling present. Decreased range of motion. Skin: General: Skin is warm. Neurological: General: No focal deficit present. Mental Status: He is alert, oriented to person, place, and time and easily aroused. Mental status is at baseline. Psychiatric: Attention and Perception: Attention and perception normal. Mood and Affect: Mood and affect normal. Speech: Speech normal. Behavior: Behavior normal. Behavior is cooperative. Thought Content: Thought content normal. Cognition and Memory: Cognition and memory normal. Judgment: Judgment normal. Depression Evaluation: PHQ-9 6 (12/17/2024 8:43 AM) Interpretation: Has mixed anxiety with depression. Plan: Continue current medications. Continue to monitor. Alcohol/Substance Use Screening: Last 12 months: alcohol >4-5/day: Daily or Almost Daily (Sober x3 months) (12/17/2024 8:45 AM) Last 12 months: use of drugs: Never (12/17/2024 8:45 AM) Last 12 months: misuse of prescription meds: Monthly (3 months sober) (12/17/2024 8:45 AM) Assessment: Alcohol/Substance Use Assessment: Moderate risk substance use (moderate use/outside guidelines) Plan: Counseled on risk reduction. documented in this encounter Miscellaneous Notes * Assessment & Plan Note - Nela Denton NP - 12/17/2024 4:14 PM ESTAssociated Problem(s): Liver cirrhosis (HCC) Following with [facility] liver clinic, Meld score of 26 on 10/27/24, currently on Rifaximin for possibleencephalopathy while inpatient at [facility], Gabapentin 300mg to aid with cravings. Continue on Lasix andSpironolactone, alternating medication every other day. Was previously jaundice to sclera and skin,has subsided, mild yellow tinge to sclera present. Last Drink was prior to hospital admission in August. Following with [facility]. Orders: rifAXIMin (XIFAXAN) 550 mg tablet; Take 1 tablet (550 mg total) by mouth every 12 hours. spironolactone (ALDACTONE) 25 mg tablet; Take 1 tablet (25 mg total) by mouth 2 times a day. * Assessment & Plan Note - Nela Denton NP - 12/17/2024 4:14 PM ESTAssociated Problem(s): Mild episode of recurrent major depressive disorder (HCC) Seen by psychiatry through alcoholic cirrhosis program. Placed on Sertraline 25mg. Continue on Remeron nightly. * Assessment & Plan Note - Nela Denton NP - 12/17/2024 4:14 PM ESTAssociated Problem(s): Right hand pain Moderate swelling to right hand and wrist, no known trauma, no visible ecchymosis, onset 2 days ago, advised rest, elevation and ibuprofen PRN, will hold off on imaging, follow up if symptoms persist. Orders: ibuprofen (MOTRIN) 600 mg tablet; Take 1 tablet (600 mg total) by mouth every 6 hours as needed forpain for up to 7 days. * Assessment & Plan Note - Nela Denton NP - 12/17/2024 4:14 PM ESTAssociated Problem(s): Overweight (BMI 25.0-29.9) Body mass index is 27.64 kg/m??. * Assessment & Plan Note - Nela Denton NP - 12/17/2024 4:14 PM ESTAssociated Problem(s): Portal hypertension (CMS/HCC) (HCC) Mild ascites inpatient not requiring paracentesis. Continue on Lasix and Spironolactone. Follows with liver clinic at [facility]. * Assessment & Plan Note - Nela Denton NP - 12/17/2024 4:08 PM ESTAssociated Problem(s): JOY (generalized anxiety disorder) Seen by psychiatry through alcoholic cirrhosis program. Continue on Hydroxyzine PRN. documented in this encounter Plan of Treatment Upcoming Encounters Date Type Department Care Team (Late st Contact Info) Description 06/18/2025 2:00 PM EDT Follow-Up [address] Family Practice Department [address] [place] [phone] Nela Denton NP [address] [place] [phone] documented as of this encounter Visit Diagnoses Diagnosis Alcoholic cirrhosis of liver with ascites (CMS/HCC) (HCC)- Primary Right hand pain Pain in soft tissues of limb Mild episode of recurrent major depressive disorder (HCC) Overweight (BMI 25.0-29.9) Overweight Portal hypertension (CMS/HCC) (HCC) Portal hypertension documented in this encounter Care Teams Mind Reader Relationship Specialty Start Date End Date Kallie An DO [address] [place] [address] PCP - General Family Medicine 12/17/24 documented as of this encounter
--- OUTSIDE RECORDS SUMMARY | 2024-12-20 17:26 | XMS_ITS | Patient Health Record ---
Author Organization [facility] Keven boone Billing Info Address [address] [place], [place] [id number] Care Team Providers Care Back Tender Cylinder Name Role Phone RANDELL SNYDER Primary Care Provider WILL AVITIA Unavailable [phone] ZAHRAA JACOB Unavailable [phone] Allergies No Known Allergies Reason For Referral Reason tinnitus, referral f or testing Diagnosis 1 Tinnitus, unspecifie d laterality (H93.19) Referral Organization [id number] [facility] Referring Provider First Name ZAHRAA Referring Provider Last Name CECIL Referring Provider Speciality Family Med rodrigue Referred Provider Debbie Marinelli Referred Provider Specialty Audiologists General Notes SANDY LEUNG 4 04:29:36 PM > please contact the patient to schedule, thank you!, PILAR CONNELLY 02/07/2024 10:10:53 AM > No prior auth required per [facility] Clinical Notes SANDY LEUNG 4 04:29:51 PM >auth?, SANDY LEUNG 02/07/2024 10:25:24 AM >faxed Referral Priority Routine Reason diagnosed w/ schizop hrenia in 05/2023, ongoing anxiety,w ould like to establish to discuss [facility] Diagnosis 1 Schizophrenia, unspe cified type (F20.9) Referral Organization [id number] [facility] Referring Provider First Name ZAHRAA Referring Provider Last Name CECIL Referring Provider Speciality Family Med rodrigue Referred Provider [facility] Mental [facility] Notes SANDY LEUNG 4 04:30:26 PM > please contact the patient to schedule, thank you!, PILAR CONNELLY 02/07/2024 10:09:58 AM > No prior auth required per [facility] Clinical Notes EVELYN LEUNGI 4 04:30:34 PM > auth?, EVELYN LEUNGI 02/07/2024 10:25:00 AM >faxed Referral Priority Routine Medications Medication SIG (Take, Route, Fr equency, Duration) Notes Start Date End Date Status HydrOXYzine HCl 50 MG 1 tablet as needed Orally three times a day prn for 30 days 01/26/2024 Active HydrOXYzine HCl 50 MG 1 tablet as needed Orally Once a day for 30 days Active Social History Tobacco Use: Social History Observation Description Date Details (start date - stop date) Former Smoker NA - NA Tobacco Status: Question Answer Notes Patient is a former smoker Problems Problem Type SNOMED Code ICD Code Onset Dates Problem Status W/U Status Risk Notes Problem 814410115 History of alcohol abuse (F10.11) Active confirmed Vital Signs Heart Rate 101 /min 02/06/2024 Temperature 98 degrees Fahrenheit 02/06/2024 Respiratory Rate 16 /min 02/06/2024 Oximetry 95 02/06/2024 Blood pressure diastolic 90 mm Hg 02/06/2024 Height 71 in 02/06/2024 Blood pressure systolic 130 mm Hg 02/06/2024 Weight 212 lbs 02/06/2024 BMI 29.56 kg/m2 02/06/2024 Encounters Encounter Location Date Provider Diagnosis [id number] [address] [id number] 01/26/2024 ZAHRAA JACOB Physical exam, annua l Z00.00 ; Screening for diabetes mellitus Z13.1 ; Screening for hyperlipidemia Z13.220 ; Anxiety F41.9 ; Elevated blood pressure reading R03.0 and Tinnitus, unspecified laterality H93.[id number] [id number] 02/06/2024 ZAHRAA JACOB Tinnitus, unspecifie d laterality H93.19 ; Schizophrenia, unspecified type F20.9 ; Elevated blood pressure reading R03.0 and Anxiety F41.9 [id number] [address] [place] [address] [id number] 01/26/2024 ZAHRAA JACOB [id number] [address] [id number] 04/05/2024 WILL AVITIA Assessments Encounter Date Diagnosis (ICD Code) Assessment Notes Treatment Notes Treatment Clinical Notes Section Notes 01/26/2024 Physical exam, annual (ICD-10 - Z00.00) [age] year old here for routine preventive care. --Cancer screenings, Immunizations and additional age/risk based screenings recommended and reviewed as above. Will obtain previous records from prior PCP to look over immunizations, previous lab work. For lab work for the time being until we obtain records --Healthy lifestyle choices discussed and reviewed. 01/26/2024 Screening for diabetes mellitus (ICD-10 - Z13.1) 02/06/2024 Tinnitus, unspecified laterality (ICD-10 - H93.19) Notes tinnitus that is constant. No whooshing sound w/ laying down or after physical activity. Given that there are no red flag symptoms, will refer to audiology for hearing assessment 02/06/2024 Schizophrenia, unspecified type (ICD-10 - F20.9) Per U stay at [facility] in 05/2023, he was diagnosed w/ likely [...] Given insurance status (medicaid), will [facility] to establish care. He currently denies any [...] to assess efficacy of anti htn meds 01/26/2024 Screening for hyperlipidemia (ICD-10 - Z13.220) 01/26/2024 Anxiety (ICD-10 - F41.9) He notes that he has been on multiple agents in the past due to his anxiety. He does note that he has been on risperidone , clonidine, hydroxyzine. He is potentially interested in starting a daily medication. However wall obtain previous records from prior PCP prior to initiating new medication. Will refill hydroxyzine at this time. Follow-up in 2-3 weeks 02/06/2024 Anxiety (ICD-10 - F41.9) currently only taking hydroxyzine which he states has been helpful. At previous visit, discussed possibility of starting new daily medication to help with anxiety, however once it was disclosed he was previously taking risperidone/clonidi ne, it was agreed upon to wait until prior records. Once records are available and reviewed, will discuss w/ patient options including deferring to outpatient psych who he will be establishing with soon 01/26/2024 Elevated blood pressure reading (ICD-10 - R03.0) Blood pressure elevated, mildly better upon repeat. He states that he has been on medication in the past. Will check prior records and recommended the meantime to intermittently follow his blood pressure at home. Will consider starting antihypertensive at follow-up visit as indicated 01/26/2024 Tinnitus, unspecified laterality (ICD-10 - H93.19) He notes that he has been having ringing in his ear that has been ongoing for a while. He states that he was previously in a bad and suspects that possibly could be secondary to damage from loud music. He does state that the ringing in the ears worse when laying down in intermittently worse after exercising, which could be possibly concerning for vascular issue. Discussed with patient that it may be beneficial to see ENT, patient chooses at this time to hold off in will revisit at subsequent office visit Plan Of Treatment No Information Insurance Providers Payer Name Payer Address Payer Phone Subscriber Number Group Number Insured Name Patient Relationship to Insured Coverage Start Date Coverage End Date [facility] [address] [place], [place] [id number] Trevor Andrew Self - patient is the insured 4 0 Medical (General) History Medical History History ICD Code Hypertension Surgical History Surgery Date(Month/Year) THUMB SURGERY Hospitalization History Reason Date(Month/Year) EtOH, he does not recall exactly when
--- OUTSIDE RECORDS SUMMARY | 2024-12-20 17:26 | XMS_ITS | Encounter Summary ---
Author Organization [facility] Address [address] [place] [address] Care Team Providers Care Natural Sciences Department Chair Name Role Phone Juve Hutchison DO, Diana Primary Care Provider + Encounter Details Date Type Department Care Team (Late st Contact Info) Description 12/18/2024 Orders Only [facility] 255 [facility] Family Practice Department [address] [place] [phone] Nela Denton NP [address] [place] [address] Right hand pain (Primary Dx) Social History Tobacco Use Types Packs/Day Years Used Date Smoking Tobacco: Some Days Cigarettes 0.1 10 Passive Smoke Exposure: Current Smokeless Tobacco: Current Alcohol Use Standard Drinks/Week Comments Not Currently 0 (1 standard drink = 0.6 oz pure alcohol) handle/ day of liquor Last drank 09/12/24 [facility] Utilities Answer Date Recorded In the past 12 months has e [employer], gas, oil, or water [employer] threatened to shut off services in your [...] Info) Description 06/18/2025 2:00 PM EDT Follow-Up [facility] 255 [facility] Family Practice Department [address] [place] [address] Nela Denton NP [address] [place] [address] documented as of this encounter Results * Due to [place] state law, this organization might not be [...] obtain the completed interpretation. ? Workstation ID: [id number] Narrative 12/19/2024 7:44 AM EST COMPARISON: There are no prior studies available for comparison at this time. Resulting Agency Comment [id number] Procedure Note Flaco Jaquez MD - 12/19/2024 [...] possible to obtain thecompleted interpretation. Workstation ID: [id number] Nela Denton NP IMG XR PROCEDURES Final Result documented in this encounter Visit Diagnoses Diagnosis Right hand pain- Primary Pain in soft tissues of limb Right hand pain Pain in soft tissues of limb documented in this encounter Care Teams Natural Sciences Department Chair Relationship Specialty Start Date End Date Kallie An DO [address] [place] [id number] PCP - General Family Medicine 12/17/24 documented as of this encounter
--- OUTSIDE RECORDS SUMMARY | 2024-12-20 17:26 | XMS_ITS | Encounter Summary ---
Author Organization [facility] Address [address] [place] [address] Care Team Providers Care Wind Turbine Mechanic Name Role Phone Juve Hutchison DO, Diana Primary Care Provider + Reason for Visit * Reason Onset Date Comments right hand swelling 12/19/2024 Results 12/19/2024 Encounter Details Date Type Department Care Team (Late st Contact Info) Description 12/19/2024 Telephone [facility] [address] [facility] Family Practice Department [address] [place] [address] Kallie An DO [address] [place] [address] right hand swelling; Results Social History Tobacco Use Types Packs/Day Years Used Date Smoking Tobacco: Some Days Cigarettes 0.1 10 Passive Smoke Exposure: Current Smokeless Tobacco: Current Alcohol Use Standard Drinks/Week Comments Not Currently 0 (1 standard drink = 0.6 oz pure alcohol) handle/ day of liquor Last drank 09/12/24 [facility] Utilities Answer Date Recorded In the past 12 months has th e [employer], gas, oil, or water [employer] threatened to shut off services in your [...] encounter Miscellaneous Notes * Telephone Encounter - Jeanine Lemus MA - 12/20/2024 9:49 AM EST Pt saw results in . Sent message to see if he had any questions. * Telephone Encounter - Nevin Blackwell - 12/20/2024 8:26 AM EST Results What is the test? xray 12/18/24 Rt Hand When and where was it performed? [facility] Who ordered it? Nela Denton SOCIAL MEDIA CAMPAIGN MANAGER Pt is still in a lot of pain. Pain is an 8 on a scale of 1-10. Pt states I can not close my hand. Pt would like a call back to discuss what he should do next. Cb# [phone] * Telephone Encounter - Marga Milan - 12/19/2024 1:03 PM EST Pt lmtrc ccmv @ 12:45 on the results of his x-ray on his hand yesterday as his had is not getting any better * Telephone Encounter - Gordo Hughes - 12/19/2024 9:58 AM EST Pt mom Kim calling as he is in out pt till this afternoon, to inform pt right hand has swelling and pain that is unknown, pt has xray done that showed no findings. Pt is unsure if he should be seen of more testing needs to be done. They are in the [facility] area where if there is any other testing it would be best to stay local If possible ([facility] or [facility]) please advise Kim rizo# [phone] documented in this encounter Plan of Treatment Upcoming Encounters Date Type Department Care Team (Late st Contact Info) Description 06/18/2025 2:00 PM EDT Follow-Up [facility] [address] [facility] Family Practice Department [address] [place] [phone] Nela Denton, ROBBI [address] [place] [address] documented as of this encounter Visit Diagnoses Not on filedocumented in this encounter Care Teams Wind Turbine Mechanic Relationship Specialty Start Date End Date Kallie An DO [address] [place] [address] PCP - General Family Medicine 12/17/24 documented as of this encounter
--- OUTSIDE RECORDS SUMMARY | 2024-12-20 17:26 | XMS_ITS | Encounter Summary ---
Author Organization [facility] Address [address] [place] [address] Care Team Providers Care Webfed Offset Press Operator Name Role Phone Juve Hutchison DO Kallie Primary Care Provider + Encounter Details Date Type Department Care Team (Late st Contact Info) Description 12/20/2024 Telephone [facility] [address] [facility] Family Practice Department [address] [place] [address] [phone] Nela Denton NP [address] [place] [address] Social History Tobacco Use Types Packs/Day Years Used Date Smoking Tobacco: Some Days Cigarettes 0.1 10 Passive Smoke Exposure: Current Smokeless Tobacco: Current Alcohol Use Standard Drinks/Week Comments Not Currently 0 (1 standard drink = 0.6 oz pure alcohol) handle/ day of liquor Last drank 09/12/24 [facility] Utilities Answer Date Recorded In the past 12 months has e [employer], gas, oil, or water [employer] threatened to shut off services in your [...] encounter Miscellaneous Notes * Telephone Encounter - Lizzie Moore - 12/20/2024 10:02 AM EST Pt stated he is still in pain and wrist is swollen. Pt is on his way to the ER. CB in chart. * Telephone Encounter - Maria Guadalupe Fajardo MA - 12/20/2024 9:41 AM EST Called and left detailed message of xray results. * Telephone Encounter - Maria Guadalupe Fajardo MA - 12/20/2024 9:41 AM EST ----- Message from ROBBI Denton NP sent at 12/20/2024 9:01 AM EST ----- Xray of right wrist shows no acute fracture of dislocation, it does show past surgical screw/pin I am assuming from prior surgical procedure to base of thumb. Follow up as needed or if any questions. documented in this encounter Plan of Treatment Upcoming Encounters Date Type Department Care Team (Late st Contact Info) Description 06/18/2025 2:00 PM EDT Follow-Up [address] Family Practice Department [address] [place] [id number] Nela Denton NP [address] [place] [address] documented as of this encounter Visit Diagnoses Not on filedocumented in this encounter Care Teams Webfed Offset Press Operator Relationship Specialty Start Date End Date [place] [address] PCP - General Family Medicine 12/17/24 documented as of this encounter
--- OUTSIDE RECORDS SUMMARY | 2024-12-20 17:26 | XMS_ITS | Encounter Summary ---
Author Organization [facility] Address [address] [place] [address] Care Team Providers Care Research Chief Engineer Name Role Phone Patient, Has No Pcp Or Ref Primary Care Provider Unavailable Encounter Details Date Type Department Care Team (Late st Contact Info) Description 11/27/2024 Telephone [facility] [address] [place] [phone] Station Tender: Pamela Antonio, DO [address] [place] [address] [place] [address] Social History Tobacco Use Types Packs/Day Years Used Date Smoking Tobacco: Some Days Cigarettes 0.1 10 Passive Smoke Exposure: Current Smokeless Tobacco: Never Alcohol Use Standard Drinks/Week Comments Not Currently 0 (1 standard drink = 0.6 oz pure alcohol) handle/ day of liquor Last drank 09/12/24 [facility] Utilities Answer Date Recorded In the past 12 months has [employer], gas, oil, or water [employer] threatened to shut off services in your [...] Telephone Encounter - Pamela Fulton DO - 11/27/2024 5:24 PM EST Called patient regarding improving liver tests and discussed plan to check PETH in 3 weeks. He continues to abstain from alcohol. We will plan for referral to liver transplant clinic if PETH is negative. His last drink was ~09/10 prior to his [facility] hospitalization. documented in this encounter Plan of Treatment Upcoming Encounters Date Type Department Care Team (Late st Contact Info) Description 06/18/2025 2:00 PM EDT Follow-Up [address] Family Practice Department [address] [place] [id number] Nela Denton NP [address] [place] [phone] documented as of this encounter Visit Diagnoses Not on filedocumented in this encounter Care Teams Research Chief Engineer Relationship Specialty Start Date End Date Patient, Has No Pcp Or Ref DO NOT EDIT THIS RECORD VIA PROVIDER ON THE FLY PCP - General Supervisor [employer] Duplicating Unit 09/12/24 12/16/24 documented as of this encounter
--- OUTSIDE RECORDS SUMMARY | 2024-12-20 17:26 | XMS_ITS ---
Author Organization [facility]one Billing Info Address [address] [place], [place] [id number] Support Name Relationship Address Phone andrew Lewis, sr, trevor Emergency Contact [address] [place] [address] [address] [place] [address] Andrew Bain Guarantor Unknown [phone] Care Team Providers Care Identifier Horse Name Role Phone RANDELL SNYDER Primary Care Provider WILL AVITIA [phone] REASON FOR VISIT Refill request Medications Medication SIG (Take, Route, Fr equency, Duration) Notes Start Date End Date Status HydrOXYzine HCl 50 MG 1 tablet as needed Orally Once a day for 30 days Active Encounters Encounter Location Date Provider Diagnosis [id number] [facility] MEDICINE [address] [place] [phone] 04/05/2024 WILL AVITIA Plan Of Treatment Medication Medication Name Sig Start Date Stop Date Notes HydrOXYzine HCl 50 MG 1 tablet as needed Orally Once a day for 30 days Progress Notes * Andrew BAINDOB:[birth year] (34 yo M)Acc No.[id number]:04/05/2024 Patient:?TREVOR Andrew Lewis :1990???Age:34 Y???Sex:Male Phone: Address:[address] [place] [address], [address], [place] [address] * Refills? Refill HydrOXYzine HCl Tablet, 50 MG, Orally, 30, 1 tablet as needed, Once a day, 30 days, Refills=0 * true * Date:? Generated for Mariel starr/Po/eTransmitting on:?12/20/2024 05:25 PM EST
--- OUTSIDE RECORDS SUMMARY | 2024-12-20 17:27 | XMS_ITS | Referral Summary ---
Author Organization [facility] Address [address] [place] [address] Care Team Providers Care Railroad Firer Name Role Phone Juve Hutchison DO, Diana Primary Care Provider + Encounters * This document contains information received from the source organization and may not represent a complete record from that organization. Date Type Department Care Team Description 12/20/[address] [address] Nela Denton NP 12/19/[address] [address] Kallie An DO right hand swelling; Results 12/18/2024 3:23 PM EST - 12/18/2024 11:59 PM EST Hospital Encounter [facility] XRay [address] [place] [address] Right hand pain Discharge Disposition: Home or Self Care () 12/18/2024 Orders Only [address] Department [address] [place] [phone] Nela Denton NP Portal hypertension (CMS/HCC) (HCC) (Primary Dx); Cardiac arrhythmia, unspecified cardiac arrhythmia type 12/18/2024 Orders Only [address] [address] Nela Denton NP Right hand pain (Primary Dx) 12/17/2024 8:30 AM EST Office Visit [address] Practice Department [address] [place] [phone] Nela Denton NP Alcoholic cirrhosis of liver with ascites (CMS/HCC) (HCC) (Primary Dx); Right hand pain; Mild episode of recurrent major depressive disorder (HCC); Overweight (BMI 25.0-29.9); Portal hypertension (CMS/HCC) (HCC) 12/12/2024 Telephone [facility] Gastroenterology [facility] [address] [place] [phone] Shoe Fitter: Shante Jj CASE PACKER PAC Order Request 11/27/2024 Telephone [facility] [address] [place] [phone] Shoe Fitter: Pamela Antonio, DO 11/19/2024 Telephone [facility] [address] [place] [address] Shoe Fitter: Pamela Antonio, DO 11/09/2024 Telephone [facility] [address] [place] [phone] Shoe Fitter: Pamela Antonio, DO Prior Authorization 11/06/2024 Telephone [facility] [address] [place] [address] Shoe Fitter: Pamela Antonio, DO 11/06/2024 Telephone [facility] [address] [place] [phone] Shoe Fitter: Pamela Antonio, DO 11/06/2024 9:30 AM EST Office Visit [facility] [address] [place] [phone] Shoe Fitter: Pamela Antonio DO Alcoholic cirrhosis of liver with ascites (CMS/HCC) (HCC) (Primary Dx) 10/25/2024 5:13 PM EST - 10/29/2024 4:56 PM EST Hospital Encounter [facility] Progressive Care Unit [address] [place] [phone] Rory Georges MD Jain, Sunny, MD Rao, Suraj, MD Ebb, MD Curt Connell Binu J., MD Hyperbilirubinemia (Primary Dx) Discharge Disposition: Home or Self Care (01) 10/26/2024 Telephone [facility] [address] [place] [phone] Shoe Fitter: Ceci Pepe Telephone Intake, Staff PAC Appt Request - New 10/26/2024 Orders Only [facility] Interventional Radiology [address] [place] [phone] Megan Kramer PA 10/15/2024 Telephone [facility] [address] [place] [phone] Shoe Fitter: Nevin Fierro MD PAC Appt Request - New from Last 3 Months Allergies No known active allergies Medications * [...] mouth once a day. 30 tablet 2 Active gabapentin (NEURONTIN) 100 mg capsule Take [...] Plan (12/17/2024 4:14 PM EST): Following with [facility] liver clinic, Meld score of 26 on 10/27/24, currently on Rifaximin for possible encephalopathy while inpatient at [facility], Gabapentin 300mg to aid with cravings. Continue on Lasix and Spironolactone, alternating medication every other day. Was previously jaundice to sclera and skin, has subsided, mild yellow tinge to sclera present. Last Drink was prior to hospital admission in August. [facility] Orders: rifAXIMin (XIFAXAN) 550 mg tablet; Take 1 tablet (550 mg total) by mouth every 12 hours. spironolactone (ALDACTONE) 25 mg tablet; Take 1 tablet (25 mg total) by mouth 2 times a day. Portal hypertension (CMS/HCC) 10/25/2024 Assessment & Plan (12/17/2024 4:14 PM EST): Mild ascites inpatient not requiring paracentesis. Continue on Lasix and Spironolactone. Follows with liver clinic at [facility]. Resolved Problems Problem Noted Date Diagnosed Date Resolved Date Alcohol dependence with withdrawal delirium 12/17/2024 12/17/2024 Alcoholic hepatitis without ascites 10/26/2024 12/17/2024 Generalized weakness 10/25/2024 025 Jaundice 10/25/2024 12/17/2024 Prolonged QT interval 10/25/20242024 Hyponatremia 10/25/2024 12/17/2024 Metabolic acidosis 10/25/2024 Leukocytosis 10/25/2024 12/17/2024 Normocytic normochromic anemia 10/25/2024 12/17/2024 Alcoholic hepatitis with ascites 10/25/2024 12/17/2024 Sepsis 10/25/2024 12/17/2024 Immunizations Name Administration Dates Next Due INFLUENZA, SPLIT VIRUS, TRIVALENT, PF 10/26/2024 (Deferred: Patient Refused) Social History Tobacco Use Types Packs/Day Years Used Date Smoking Tobacco: Some Days Cigarettes 0.1 10 Passive Smoke Exposure: Current Smokeless Tobacco: Current Alcohol Use Standard Drinks/Week Comments Not Currently 0 (1 standard drink = 0.6 oz pure alcohol) handle/ day of liquor Last drank 09/12/24 [facility] Utilities Answer Date Recorded In the past [...] Info) Description 06/18/2025 2:00 PM EDT Follow-Up [facility] [address] [facility] Family Practice Department [address] [place] [address] Nela Denton, OPEN DEVELOPER OPERATOR [address] [place] [address] Procedures * Due to [place] state law, this organization might not be [...] Last 3 Months Results * Due to [place] state law, this organization might not be [...] obtain the completed interpretation. ? Workstation ID: [id number] Narrative 12/19/2024 7:44 AM EST COMPARISON: There are no prior studies available for comparison at this time. Resulting Agency Comment [id number] Procedure Note Flaco Jaquez MD - 12/19/2024 [...] possible to obtain thecompleted interpretation. Workstation ID: [id number] us Nela Denton NP IMG XR PROCEDURES Final Result * (ABNORMAL) CBC Auto Differential (12/03/2024 1:57 PM EST) Only the most recent of9 resultswithin the time period is included. White Blood Cell Count 5.1 3.8 - 10.8 Thousand/ uL 12/04/2024 8:08 AM EST [facility] Red Blood Cell Count 3.23(L) 4.20 - 5.80 Million/u L 12/04/2024 8:08 AM EST [facility] Hemoglobin 9.8(L) 13.2 - 17.1 g/dL 12/04/2024 8:08 AM EST [facility] Hematocrit 28.5(L) 38.5 - 50.0 % 12/04/2024 8:08 AM EST [facility] MCV 88.2 80.0 - 100.0 fL 12/04/2024 8:08 AM EST [facility] MCH 30.3 27.0 - 33.0 pg 12/04/2024 8:08 AM EST [facility] MCHC 34.4 32.0 - 36.0 g/dL 12/04/2024 8:08 AM EST [facility] Comment: For adults, a slight decrease in the calculated MCHC value (in the range of 30 to 32 g/dL) is most likely not clinically significant; however, it should be interpreted with caution in correlation with other red cell parameters and the patient's clinical condition. RDW 13.1 11.0 - 15.0 % 12/04/2024 8:08 AM EST [facility] Platelet Count 123(L) 140 - 400 Thousand/ uL 12/04/2024 8:08 AM EST [facility] MPV 11.1 7.5 - 12.5 fL 12/04/2024 8:08 AM EST [facility] Absolute Neutrophils 2,774 1,500 - 7,800 cells/uL 12/04/2024 8:08 AM EST [facility] Absolute Lymphocytes 1,591 850 - 3,900 cells/uL 12/04/2024 8:08 AM EST [facility] Absolute Monocytes 592 200 - 950 cells/uL 12/04/2024 8:08 AM EST [facility] Absolute Eosinophils 102 15 - 500 cells/uL 12/04/2024 8:08 AM EST [facility] Absolute Basophils 41 0 - 200 cells/uL 12/04/2024 8:08 AM EST [facility] Neutrophils 54.4 % 12/04/2024 8:08 AM EST [facility] Lymphocytes 31.2 % 12/04/2024 8:08 AM EST [facility] Monocytes 11.6 % 12/04/2024 8:08 AM EST [facility] Eosinophils 2.0 % 12/04/2024 8:08 AM EST [facility] Basophils 0.8 % 12/04/2024 8:08 AM EST [facility] Blood Structure of peripheral vein / Unknown 12/03/2024 1:57 PM EST 12/04/2024 5:35 AM EST Narrative [facility] - 12/04/2024 8:35 AM EST FASTING:NO Angélica Wade MD LAB BLOOD ORDERABLES Final Resul t [facility] [address], [place] [address], [facility] [address] [address] * (ABNORMAL) Protime-INR (12/03/2024 1:57 PM EST) Only the most recent of6 resultswithin the time period is included. INR 1.3(H) 12/04/2024 8:26 AM EST [facility] Comment: Reference Range ? 0.9-1.1 Moderate-intensity Warfarin Therapy 2.0-3.0 Higher-intensity Warfarin Therapy ?? 3.0-4.0 PT 14.0(H) 9.0 - 11.5 sec 12/04/2024 8:26 AM EST [facility] Comment: For additional information, please refer to [email or web address] (This link is being provided for informational/ educational purposes only.) Blood Structure of peripheral vein / Unknown 12/03/2024 1:57 PM EST 12/04/2024 5:36 AM EST Narrative [facility] - 12/04/2024 8:35 AM EST FASTING:NO Angélica Wade MD LAB BLOOD ORDERABLES Final Resul t Performing Organization Address City/[facility]/ZIP Co de Phone Number [facility] [address], [place] [address], [place] [phone] [employer] [address] [address] * (ABNORMAL) Hepatic function panel (12/03/2024 1:57 PM EST) Only the most recent of8 resultswithin the time period is included. Protein, Total 7.6 6.1 - 8.1 g/dL 12/04/2024 5:06 AM EST [facility] Albumin 3.6 3.6 - 5.1 g/dL 12/04/2024 5:06 AM EST [facility] Globulin 4.0(H) 1.9 - 3.7 g/dL (calc) 12/04/2024 5:06 AM EST [facility] Albumin/Globuli n Ratio 0.9(L) 1.0 - 2.5 (calc) 12/04/2024 5:06 AM EST [facility] Bilirubin, Total 4.2(H) 0.2 - 1.2 mg/dL 12/04/2024 5:06 AM EST [facility] Bilirubin, Direct 1.7(H) 0.0 - 0.2 mg/dL 12/04/2024 5:06 AM EST [facility] Bilirubin, Indirect 2.5(H) 0.2 - 1.2 mg/dL (calc) 12/04/2024 5:06 AM EST [facility] Alkaline Phosphatase 152(H) 36 - 130 U/L 12/04/2024 5:06 AM EST [facility] AST 33 10 - 40 U/L 12/04/2024 5:06 AM EST [facility] ALT 6(L) 9 - 46 U/L 12/04/2024 5:06 AM EST [facility] Blood Structure of peripheral vein / Unknown 12/03/2024 1:57 PM EST 12/04/2024 3:27 AM EST Narrative [facility] - 12/04/2024 8:35 AM EST FASTING:NO Angélica Wade MD LAB BLOOD ORDERABLES Final Resul t [facility] [address] [facility] 3rd Floor, [place] [address], [facility] [address] [place] [address] * (ABNORMAL) Basic metabolic panel (12/03/2024 1:57 PM EST) Only the most recent of8 resultswithin the time period is included. [facility] [place] Glucose 153(H) 65 - 139 mg/dL 12/04/2024 5:06 AM EST [facility] Comment: ? Non-fasting reference interval BUN 8 7 - 25 mg/dL 12/04/2024 5:06 AM EST [facility] Creatinine 0.72 0.60 - 1.26 mg/dL 12/04/2024 5:06 AM EST [facility] eGFR 124 > OR = 60 mL/min/1. 73m2 12/04/2024 5:06 AM EST [facility] Bun/Creatinine Ratio SEE NOTE: 6 - 22 (calc) 12/04/2024 5:06 AM EST [facility] Comment: ?? Not Reported: BUN and Creatinine are within ?? reference range. ? Sodium 135 135 - 146 mmol/L 12/04/2024 5:06 AM EST [facility] Potassium 3.8 3.5 - 5.3 mmol/L 12/04/2024 5:06 AM EST [facility] Chloride 101 98 - 110 mmol/L 12/04/2024 5:06 AM EST [facility] Carbon Dioxide 25 20 - 32 mmol/L 12/04/2024 5:06 AM EST [facility] Calcium 8.8 8.6 - 10.3 mg/dL 12/04/2024 5:06 AM [facility] Blood Structure of peripheral vein / Unknown 12/03/2024 1:57 PM EST 12/04/2024 3:27 AM EST Narrative [facility] - 12/04/2024 8:35 AM EST FASTING:NO us Angélica Wade MD LAB BLOOD ORDERABLES Final Resul t [facility] [address] [facility] [address], [place] [address], [facility] [address] [place] [address] * (ABNORMAL) Comprehensive Metabolic Panel (10/29/2024 5:22 [...] - 99 mg/dL 10/29/2024 6:06 AM EST [facility] Creatinine 0.72 0.60 - 1.30 mg/dL 10/29/2024 6:06 AM EST [facility] Comment:Specimen is icteric, result may be artificially decreased. Calcium 7.9(L) 8.6 - 10.5 mg/dL 10/29/2024 6:06 AM EST [facility] Total Protein 5.9(L) 6.0 - 8.0 g/dL 10/29/2024 6:06 AM EST [facility] Albumin 2.2(L) 3.5 - 5.2 g/dL 10/29/2024 6:06 AM EST [facility] Bilirubin, Total 11.9(H) [...] - 23 mg/dL 10/29/2024 6:06 AM EST [facility] eGFR >90 >=60 mL/min/1 .73m2 10/29/2024 6:06 AM EST [facility] Comment:The estimated glomer ular filtration rate (eGFR) is calculated using a new formula developed by the NKF-ASN task force to eliminate race-based correction factors. The new formula uses serum/plasma creatinine, age, and gender to determine eGFR. A value below 60mls/min might indicate kidney disease and will be flagged. For additional information, see Newman et al, Am J Kidney Dis. 2021;79(2):268- 288, A Unifying Approach for GFR estimation: Recommendations of the NKF-ASN Task Force on Reassessing the Inclusion of Race in Diagnosing Kidney Disease . Globulin, Total 3.7 2.1 - 4.2 g/dL 10/29/2024 6:06 AM EST [facility] A/G Ratio 0.6(L) 1.5 - 3.0 10/29/2024 6:06 AM EST [facility] Blood Structure of peripheral vein / Unknown Venipuncture / Unknown 10/29/2024 5:22 AM EST 10/29/2024 5:31 AM EST us Sekou Elias MD LAB BLOOD ORDERABLES Final R esult [facility] [address] [place] [address], * Magnesium (10/27/2024 5:21 AM EST) Only the most recent of2 resultswithin the time period is included. MG 2.0 1.6 - 2.4 mg/dL 10/27/2024 7:26 AM EST [facility] Blood Structure of peripheral vein / Unknown Venipuncture / Unknown 10/27/2024 5:21 AM EST 10/27/2024 6:37 AM EST Ramírez Marquis MD LAB BLOOD ORDERABLES Final Resul t Performing Organization Address [facility]/ZIP Co de Phone Number [facility] [address] [place] [address], * ECG 12 lead (10/26/2024 6:10 AM EST) Only the most recent of2 resultswithin the time period is included. Ventricular Rate EKG 87 BPM MUSE EKG Atrial Rate 87 BPM MUSE EKG [place] Interval 156 ms MUSE EKG QRS Interval 100 ms MUSE EKG QT Interval 422 ms MUSE EKG QTC Interval 507 ms MUSE EKG P [place] 58 degrees MUSE EKG R [place] 38 degrees MUSE EKG T Wave [place] 50 degrees MUSE EKG 10/26/2024 6:10 AM EST 10/26/2024 10:33 AM EST Impressions [facility] EKG - 10/26/2024 10:33 AM EST Normal sinus rhythm with sinus arrhythmia Prolonged QT Abnormal ECG When compared with ECG of 25-OCT-2024 17:27, (Unconfirmed) No significant change was found Confirmed by Gary Rodgers ([id number]) on 10/26/2024 10:33:12 AM Raúl Hairston MD ECG ORDERABLES Final Result Performing Organization Address [facility] Co de Phone Number [facility] EKG * Blood Culture, #2 of 2 (10/26/2024 3:12 AM EST) Only the most recent of2 resultswithin the time period is included. Blood Culture No Growth after 120 Hours 11/01/2024 3:57 PM EST [facility] Blood Structure of peripheral vein / Unknown Venipuncture / Unknown 10/26/2024 3:12 AM EST 10/26/2024 9:12 AM EST Raúl Hairston MD LAB MICROBIOLOGY - GENERAL ORDER WILLIE Final Result Performing Organization Address [facility]/ZIP Co de Phone Number [facility] [address] [place] [address], [place] * Gram Stain (10/26/2024 3:12 AM EST) Gram Stain Result No organisms seen 10/30/2024 8:05 AM EST [facility] Comment:In aerobic bottle. P ut back for further incubation. Blood Structure of peripheral vein / Unknown Venipuncture / Unknown 10/26/2024 3:12 AM EST 10/26/2024 9:12 AM EST us Raúl Hairston MD LAB MICROBIOLOGY - GENERAL ORDER WILLIE Final Result Performing Organization Address [facility] Co de Phone Number [facility] [address] [place] [address], [place] * (ABNORMAL) Iron Saturation (10/26/2024 3:06 AM EST) Iron Saturation 33 20 - 50 % 3:44 AM EST [facility] Iron 47 45 - 160 ug/dL 10/26/2024 3:44 AM EST [facility] Transferrin 115(L) 200 - 360 mg/dL 10/26/2024 3:44 AM EST [facility] Total Iron Binding Capacity 144(L) 255 - 450 ug/dL 10/26/2024 3:44 AM EST [facility] Blood Structure of peripheral vein / Unknown Venipuncture / Unknown 10/26/2024 3:06 AM EST 10/26/2024 3:17 AM EST us Raúl Hairston MD LAB BLOOD ORDERABLES Final Resul t Performing Organization Address [facility]/ZIP Co de Phone Number [facility] [address] [place] [address], * (ABNORMAL) CBC (10/26/2024 3:06 AM EST) [facility] WBC 25.4(HH) 3.8 - 10.8 10*3/uL 10/26/2024 3:51 AM EST [facility] RBC 2.94(L) 4.20 - 5.80 10*6/uL 10/26/2024 3:51 AM EST [facility] Hemoglobin 9.3(L) 13.2 - 17.1 g/dL 10/26/2024 3:51 AM EST [facility] Hematocrit 26.6(L) 38.5 - 50.0 % 10/26/2024 3:51 AM EST [facility] MCV 90.5 80.0 - 100.0 fL 10/26/2024 3:51 AM EST [facility] MCH 31.6 27.0 - 33.0 pg 10/26/2024 3:51 AM EST [facility] MCHC 35.0 32.0 - 36.0 g/dL 10/26/2024 3:51 AM EST [facility] RDW 19.7(H) 11.0 - 15.0 % 10/26/2024 3:51 AM EST [facility] Platelets 150 140 - 400 10*3/uL 10/26/2024 3:51 AM EST [facility] MPV 11.2 7.5 - 12.5 fL 10/26/2024 3:51 AM EST [facility] Blood Structure of peripheral vein / Unknown Venipuncture / Unknown 10/26/2024 3:06 AM EST 10/26/2024 3:18 AM EST Raúl Hairston MD LAB BLOOD ORDERABLES Final Resul t Performing Organization Address [facility]/ZIP Co de Phone Number [facility] [address] [place] [address], [place] * (ABNORMAL) Lipase (10/26/2024 3:06 AM EST) Only the most recent of2 resultswithin the time period is included. Lipase 121(H) 13 - 60 U/L 10/26/2024 3:44 AM EST [facility] Blood Structure of peripheral vein / Unknown Venipuncture / Unknown 10/26/2024 3:06 AM EST 10/26/2024 3:17 AM EST us Raúl Hairston MD LAB BLOOD ORDERABLES Final Resul t Performing Organization Address [facility] Co de Phone Number [facility] [address] [place] [address], [place] * Lactic Acid, Plasma (10/26/2024 3:06 AM EST) Lactic Acid 1.8 0.5 - 1.9 mmol/L 10/26/2024 3:46 AM EST [facility] Comment: Sepsis Screening: Initial Lactate Level >2.0 mmol/L - Repeat Lactate Level within 3 hours. Initial Lactate Level >4.0 mmol/L - Repeat Lactate Level within 3 hours, Initiate Septic Shock Protocol. Blood Structure of peripheral vein / Unknown Venipuncture / Unknown 10/26/2024 3:06 AM EST 10/26/2024 3:17 AM EST Raúl Hairston MD LAB BLOOD ORDERABLES Final Resul t Performing Organization Address City[facility] Co de Phone Number [facility] [address] [place] [address], [place] * Folate (10/26/2024 3:06 AM EST) Folate 14.5 4.8 - 24.2 ng/mL 10/26/2024 4:28 AM EST [facility] Blood Structure of peripheral vein / Unknown Venipuncture / Unknown 10/26/2024 3:06 AM EST 10/26/2024 3:18 AM EST us Raúl Hairston MD LAB BLOOD ORDERABLES Final Resul t Performing Organization Address [facility] de Phone Number [facility] [address] [place] [address], [place] * (ABNORMAL) Vitamin B12 (10/26/2024 3:06 AM EST) Vitamin B12 2,470(H) 232 - 1,245 pg/mL 10/26/2024 4:30 AM EST [facility] Blood Structure of peripheral vein / Unknown Venipuncture / Unknown 10/26/2024 3:06 AM EST 10/26/2024 3:18 AM EST Raúl Hairston MD LAB BLOOD ORDERABLES Final Resul t Performing Organization Address [facility] Phone Number [facility] [address] [place] [phone], [place] * ED POCUS Abdominal Single Organ (10/25/2024 9:19 PM EST) Anatomical Region Laterality Modality Body N/A Ultrasound 10/25/2024 9:19 PM EST Impressions 10/26/2024 9:45 AM EST Exam Information A mjfql-[id number] ultrasound was performed to assess the anatomy [...] on Resulting Physician: Rory Georges MD on [email or web address] Narrative Procedure Note Rory Georges MD - 10/26/2024 IMPRESSION: Exam Information A [id number] ultrasound was performed to assess the anatomy [...] on Resulting Physician: Rory Georges MD on [email or web address] us Historical Conversion Provider IMG US PROCEDURES [...] obtain the completed interpretation. ? Workstation ID: [id number] Up-to-date CT equipment and radiation dose reduction [...] TISSUES: Within normal limits. Resulting Agency Comment [id number] Procedure Note Ernestina Pepper MD - 10/25/2024 [...] possible to obtain thecompleted interpretation. Workstation ID: [id number] Up-to-date CT equipment and radiation dose reduction techniques wereemployed. CTDIvol: 14.7 mGy. DLP: 868 mGy-cm. us Rory Georges MD IM CT PROCEDURES Final Res ult * (ABNORMAL) [...] (ICSH guidelines, 2015). 10/25/2024 6:06 PM EST [facility] Target Cells 2+(A) Not Present 10/25/2024 6:06 PM EST [facility] Total Cells Counted 114 10/25/2024 6:06 PM EST [facility] Blood Structure of peripheral vein / Unknown Venipuncture / Unknown 10/25/2024 5:28 PM EST 10/25/2024 5:32 PM EST us Rory Georges MD LAB BLOOD ORDERABLES Final Result Performing Organization Address [facility]/ZIP Co de Phone Number [facility] [address] [place] [phone], [place] * Phosphorus (10/25/2024 5:28 PM EST) Phosphorus 3.3 2.5 - 4.5 mg/dL 10/25/2024 11:48 PM EST [facility] Blood Structure of peripheral vein / Unknown Venipuncture / Unknown 10/25/2024 5:28 PM EST 10/25/2024 5:32 PM EST us Raúl Hairston MD LAB BLOOD ORDERABLES Final Resul t Performing Organization Address [facility]/ZIP Co de Phone Number [facility] [address] [place] [phone], [place] * Ferritin (10/25/2024 5:28 PM EST) Ferritin 158.0 23.0 - 336.0 ng/mL 10/25/2024 11:48 PM EST [facility] Blood Structure of peripheral vein / Unknown Venipuncture / Unknown 10/25/2024 5:28 PM EST 10/25/2024 5:32 PM EST us Raúl Hairston MD LAB BLOOD ORDERABLES Final Resul t Performing Organization Address [facility]/ZIP Co de Phone Number [facility] [address] [place] [address], * (ABNORMAL) Creatine Kinase (10/25/2024 5:28 PM EST) CK 39(L) 49 - 348 U/L 10/25/2024 11:48 PM EST [facility] Blood Structure of peripheral vein / Unknown Venipuncture / Unknown 10/25/2024 5:28 PM EST 10/25/2024 5:32 PM EST us Raúl Hairston MD LAB BLOOD ORDERABLES Final Resul t Performing Organization Address [facility]/ZIP Co de Phone Number [facility] [address] [place] [phone], from Last 3 Months Insurance [facility] MEDICAID Advance Directives * Full Code (Latest Code Status on File) Date Activated Date Inactivated Comments 10/25/2024 10:59 PM 10/29/2024 6:56 PM Care Teams [employer] Relationship Specialty Start Date End Date Kallie An DO [address] [place] [phone] PCP - General Family Medicine 12/17/24
[2024-12-20] MEDS: oxyCODONE HCl Immed Release 5 MG TABLET PO (17:48)
[2024-12-20] MEDS: Ampicillin Sodium/Sulbactam Na 3 GM in 0.9 % Sodium Chloride 100 ML IV ×2 (18:15→23:51)
[2024-12-20 18:31] VITALS: BP 155/85; PULSE 98; RESP 18; TEMP 37.7; O2SAT 99
--- NOTE | 2024-12-20 18:37 | PC.NURSE ---
md informed pt's R hand is more swollen and red per pt and pt's mom
[2024-12-20] MEDS: Ketorolac Tromethamine 15 MG/ML VIAL IVPUSH (19:26)
[2024-12-20 19:28] VITALS: BP 160/94; PULSE 88; RESP 18; TEMP 37.7; O2SAT 100
[2024-12-20] MEDS: Mirtazapine 15 MG TABLET PO (20:29)
[2024-12-20] MEDS: 0.9 % Sodium Chloride Flush 3 ML SYRINGE IVFLUSH (23:59)
[2024-12-21] MEDS: HYDROmorphone HCl 0.5 MG/0.5 ML SYRINGE IVPUSH (00:06)
--- NOTE | 2024-12-21 00:12 | PC.NURSE ---
Pt c/o 06/30 right hand pain stating oxycodone 5mg not helping. notified ordered dilaudid 0.5mg iv x 1 dose.given at 0006.
[2024-12-21] MEDS: Ketorolac Tromethamine 15 MG/ML VIAL IVPUSH ×2 (01:33→07:40)
[2024-12-21 03:55] VITALS: BP 136/82; PULSE 105; RESP 18; TEMP 37.8; O2SAT 98
[2024-12-21] MEDS: rifAXIMin 550 MG TABLET PO ×2 (03:55→16:06)
[2024-12-21] MEDS: vancomycin HCL 1,500 MG in 0.9 % Sodium Chloride 500 ML 333.33 MG IV (03:55)
[2024-12-21] MEDS: oxyCODONE HCl Immed Release 5 MG TABLET PO ×5 (04:02→23:56)
[2024-12-21] MEDS: Ampicillin Sodium/Sulbactam Na 3 GM in 0.9 % Sodium Chloride 100 ML IV ×3 (05:30→17:01)
[2024-12-21 06:39] LABS: Hematocrit 27.4 % (42.0-52.0); Hemoglobin 9.6 g/dl (14.0-18.0); Mean Corpuscular Hemoglobin 29.5 pg (27.0-33.0); Mean Corpuscular Volume 84.3 fL (80.0-98.0); Red Blood Count 3.25 X10*6/uL (4.60-5.80); Red Cell Distribution Width 13.7 % (11.0-16.0); White Blood Count 9.9 X10*3/uL (4.8-10.8)
[2024-12-21 06:40] LABS: Platelet Count 86 X10*3/uL (160-400)
[2024-12-21 06:50] LABS: Creatinine Clr Calc Pharmacy 157.6; Estimated Glomerular Filt Rate > 60
[2024-12-21 07:36] VITALS: BP 161/88; PULSE 110; RESP 16; TEMP 37.8; O2SAT 97
[2024-12-21] MEDS: Furosemide 20 MG TABLET PO (07:40)
[2024-12-21] MEDS: Magnesium Oxide 400 MG TABLET PO (07:40)
--- NOTE | 2024-12-21 12:01 | P.PNIM_ITS ---
Subjective Subjective Date of Service: 12/21/24 Physical Exam 2 Vital Signs: Vital Signs: Last Vital Signs Temp 100.0 F 12/21/24 07:36 Pulse 110 H 12/21/24 07:36 Resp 16 12/21/24 07:36 BP 161/88 H 12/21/24 07:36 Pulse Ox 97 12/21/24 07:36 O2 Del Method Room Air 12/21/24 07:36 BMI result Body Mass Index 26.5 Const: Other: Gen: in no acute distress HEENT: sclera anicteric, moist mucus membranes Neck: supple Lungs: clear to auscultation bilaterally Heart: regular rate and rhythm, no murmurs Abd: soft, non-tender, non-distended Ext: R hand markedly swollen, no fluctuation, positive erythema and warmth Skin: erythema, warmth, no drainage; no fluctuant collections Neuro: alert and oriented x3, no focal findings Psych: appropriate affect Objective Data Active Medications Acetaminophen (Acetaminophen 325 Mg Tablet) 650 mg PO Q6H PRN PRN Reason: Pain, Mild 1-3,fever,headache Calcium Carbonate (Calcium Carbonate 750 Mg Tab.Chew) 750 mg PO Q4H PRN PRN Reason: Heartburn Folic Acid (Folic Acid 1 Mg Tablet) 1 mg PO BEDTIME [facility] Last Admin: 12/20/24 20:30 Dose: Not Given Documented By: MAINE Non-Admin Reason: Patient Refused Furosemide (Furosemide 20 Mg Tablet) 20 mg PO DAILY [facility]; Protocol Last Admin: 12/21/24 07:40 Dose: 20 mg Documented By: KAROLINA Hydroxyzine HCl (Hydroxyzine Hcl 10 Mg Tablet) 10 mg PO TID PRN PRN Reason: Anxiety or itching Vancomycin HCl 1,500 mg/ (Sodium Chloride) 500 mls @ 333.333 mls/hr IV Q12H [facility] Last Infusion: 12/21/24 05:36 Dose: Infused Documented By: MAINE Ampicillin Sodium/Sulbactam (Sodium 3 gm/ Sodium Chloride) 100 mls @ 200 mls/hr IV Q6H [facility] Last Admin: 12/21/24 11:50 Dose: 200 mls/hr Documented By: KAROLINA Ketorolac Tromethamine (Ketorolac Tromethamine 15 Mg/Ml Vial) 30 mg IVPUSH Q6H PRN PRN Reason: Pain, Moderate(Pain Scale 4-6) Magnesium Hydroxide (Milk Of Magnesia 30 Ml Oral.Susp) 30 ml PO DAILY PRN PRN Reason: Constipation Magnesium Oxide (Magnesium Oxide 400 Mg Tablet) 400 mg PO DAILY [facility] Last Admin: 12/21/24 07:40 Dose: 400 mg Documented By: KAROLINA Melatonin (Melatonin 3 Mg Tablet) 6 mg PO BEDTIME PRN PRN Reason: Insomnia Mirtazapine (Mirtazapine 15 Mg Tablet) 15 mg PO BEDTIME [facility] Last Admin: 12/20/24 20:29 Dose: 15 mg Documented By: MAINE Ondansetron HCl (Ondansetron Hcl 4 Mg/2 Ml Vial) 4 mg IVPUSH Q8H PRN PRN Reason: Nausea and Vomiting Oxycodone HCl (Oxycodone Hcl Immed Release 5 Mg Tablet) 5 mg PO Q4H PRN PRN Reason: Pain, Severe (Pain Scale 7-10) Last Admin: 12/21/24 11:50 Dose: 5 mg Documented By: KAROLINA Pharmacy Consult (Consult Rx Vancomycin Dosing) 1 each MISCELLANE DAILY PRN PRN Reason: Consult order Rifaximin (Rifaximin 550 Mg Tablet) 550 mg PO Q12H [facility] Last Admin: 12/21/24 03:55 Dose: 550 mg Documented By: MAINE Sodium Chloride (0.9 % Sodium Chloride Flush 3 Ml Syringe) 3 ml IVFLUSH QSHIFT [facility] Last Admin: 12/21/24 07:05 Dose: Not Given Documented By: KAROLINA Non-Admin Reason: Previously Administered Labs 12/21/24 06:10 12/21/24 06:10 Labs: Laboratory Results - last 24 hr 12/20/24 12/21/24 12:09 06:10 MCV 85.7 84.3 MCH 28.9 29.5 MCHC 33.8 35.0 RDW 13.8 13.7 Plt Count 127 L 86 L D MPV 10.4 10.0 Immature Gran % (Auto) 0.3 Neut % (Auto) 63.7 Lymph % (Auto) 21.7 [place] % (Auto) 12.2 H Eos % (Auto) 1.5 Baso % (Auto) 0.6 Lymph # (Auto) 1.5 [place] # (Auto) 0.8 Eos # (Auto) 0.1 Baso # (Auto) 0.0 Abs Immat Gran (auto) 0.02 Absolute Neuts (auto) 4.3 Absolute Nucleated RBC 0.000 0.000 Nucleated RBC % (auto) 0.0 0.0 ESR 53 H Anion Gap 13 Estim Creat Clear Calc 139.8 157.6 Estimated GFR > 60 > 60 Random Glucose 130 H Estimat Average Glucose 82 Hemoglobin A1c % 4.5 Lactic Acid 2.0 Uric Acid 6.1 Calcium 8.7 Total Bilirubin 3.4 H AST 33 ALT < 6 Alkaline Phosphatase 121 H C-Reactive Protein 2.14 H Total Protein 8.2 H Albumin 3.5 Assessment and Plan (1) Cellulitis of hand: Status: Acute (2) Anxiety: Status: Acute (3) 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 R hand cellulitis -noted to have worsening swelling, low-grade fever, slight bump in WBC from 6.8- 9.9, BCx pending On iv vanco + amp-sulbactam started on 12/20 Will DC IV vanco and place on IV clindamycin 600 mg q.8 hours, continue IV Unasyn day 2, Seen by Orthopedic no indication for drainage , since no abscess noted Keep arm elevated EtOH cirrhosis - continue folic acid, thiamine, rifaximin, magnesium, and furosemide mood disorder - continue mirtazapine + sertraline + hydroxyzine + clonidine pending medication reconciliation VTE prophylaxis- enoxaparin dispo- eventual home code status - full Patient will require continued inpatient hospitalization for IV antibiotic treatment, that can not be provided in less acute setting. Quality Stroke Does the patient have a stroke diagnosis?: No VTE Prior VTE?: No VTE Risk Level:: Medical - moderate - high VTE Device Contraindication: N/A - Device Ordered VTE Drug Contraindication: N/A - Med Ordered
[2024-12-21] MEDS: Clindamycin Phosphate/D5W 600 MG/50 ML PIGGYBACK 100 MG IV ×3 (12:31→23:49)
--- NOTE | 2024-12-21 13:05 | MHC.CM.PN ---
PATIENT LIVES IN AN APARTMENT ALONE. FUNCTIONALLY INDEPENDENT. DENIES USE OF SERVICES OR DME. PER EMR HX ETOH ABUSE - SOBER SINCE . HX I/P PSYCH STAY IN 2022. PCP RENEE JEFFERSON DO HCP ON FILE AND VERIFIED. DP: GOAL IS HOME SELF CARE. MOTHER TO TRANSPORT. ? F/U OUTPATIENT W/ WOUND CLINIC. CM WILL CONTINUE TO FOLLOW.
[2024-12-21] MEDS: Ketorolac Tromethamine 15 MG/ML VIAL 30 MG IVPUSH ×2 (14:39→20:40)
[2024-12-21 15:26] VITALS: BP 137/70; PULSE 127; RESP 16; TEMP 38.1; O2SAT 97
[2024-12-21] MEDS: hydrOXYzine HCL 10 MG TABLET PO (16:07)
[2024-12-21] MEDS: ondansetron HCL 4 MG/2 ML VIAL IVPUSH (17:19)
[2024-12-21 19:25] VITALS: BP 140/80; PULSE 105; RESP 18; TEMP 38.4; O2SAT 98
[2024-12-21] MEDS: Calcium Carbonate 750 MG TAB.CHEW PO (19:39)
[2024-12-21] MEDS: Mirtazapine 15 MG TABLET PO (20:41)
[2024-12-21] MEDS: Folic Acid 1 MG TABLET PO (20:41)
[2024-12-21 21:48] VITALS: TEMP 37.6
[2024-12-22] VITALS (17 sets, daily range): BP systolic 112–174; BP diastolic 58–92; PULSE 86–135; RESP 12–22; TEMP 36.5–39.1; O2SAT 93–98
[2024-12-22] MEDS: hydrOXYzine HCL 10 MG TABLET PO ×2 (00:04→15:38)
[2024-12-22] MEDS: Ampicillin Sodium/Sulbactam Na 3 GM in 0.9 % Sodium Chloride 100 ML IV ×3 (00:26→11:24)
[2024-12-22] MEDS: 0.9 % Sodium Chloride Flush 3 ML SYRINGE IVFLUSH ×3 (00:26→15:38)
[2024-12-22] MEDS: Ketorolac Tromethamine 15 MG/ML VIAL 30 MG IVPUSH ×2 (03:09→09:30)
--- NOTE | 2024-12-22 03:40 | PC.NURSE ---
Addendum entered by Kristel Roe RN 12/22/24 04:10: temp down to 100.4 Original Note: pt's temp 102.3 heart rate 135. Pt medicated with toradol 30mg IV. notified no further orders at this time.
[2024-12-22] MEDS: oxyCODONE HCl Immed Release 5 MG TABLET PO ×2 (05:33→11:24)
[2024-12-22] MEDS: Clindamycin Phosphate/D5W 600 MG/50 ML PIGGYBACK 100 MG IV ×2 (06:03→11:57)
--- NOTE | 2024-12-22 08:43 | PM.PNORT ---
Subjective Subjective Date of Service: 12/22/24 Interval history: f/u rt hand cellulitis patient states still swollen but redness is subsiding Physical Exam Vital Signs: Vital Signs: Last Vital Signs Temp 100.0 F 12/22/24 07:39 Pulse 129 H 12/22/24 07:39 Resp 16 12/22/24 07:39 BP 131/87 12/22/24 07:39 Pulse Ox 98 12/22/24 07:39 O2 Del Method Room Air 12/22/24 07:39 BMI result Body Mass Index 26.5 Extrem: Other: No lacerations or abrasions. No focal area of fluctuance, purulence No focal evidence of abscess at this time Mild tenderness to palpation of the dorsal aspect of the right hand Patient reports pain in the dorsal hand with attempted flexion of the right hand No tenderness with axial loading of any of the digits of the right hand or the right wrist. Patient is able to extend all digits of the right hand fully and without difficulty Patient is able to flex to approximately 50% of the way to a closed fist, but is unable to go beyond this due to pain Procedures Date of Service Date of Service: 12/22/24 Progress Note: A&P Assessment and plan (1) Cellulitis of hand: Status: Acute (2) Cellulitis of right hand: Status: Acute Plan regular diet Elevate and work on ROM No surgical intervention at this time as there is no evidence of abscess formation exam consistent with cellulitis if symptoms worsen please reconsult orthopedics Time Spent With Patient Time: Total time managing care of this patient today ____ minutes. Quality Stroke Does the patient have a stroke diagnosis?: No VTE Prior VTE?: No VTE Risk Level:: Medical - moderate - high VTE Device Contraindication: N/A - Device Ordered VTE Drug Contraindication: N/A - Med Ordered
--- NOTE | 2024-12-22 09:19 | P.PNIM_ITS ---
Subjective Subjective Date of Service: 12/22/24 Review of Systems Follow up right hand cellulitis still with pain and swelling but better ROM Physical Exam 2 Vital Signs: Vital Signs: Last Vital Signs Temp 100.0 F 12/22/24 07:39 Pulse 129 H 12/22/24 07:39 Resp 16 12/22/24 07:39 BP 131/87 12/22/24 07:39 Pulse Ox 98 12/22/24 07:39 O2 Del Method Room Air 12/22/24 07:39 BMI result Body Mass Index 26.5 Appearing in no acute distress lung sounds are clear to auscultation heart regular rate rhythm, clear S1, S2 positive bowel sounds, abdomen is soft, nontender neuro patient is alert x3, no focal deficits Objective Data Active Medications Acetaminophen (Acetaminophen 325 Mg Tablet) 650 mg PO Q6H PRN PRN Reason: Pain, Mild 1-3,fever,headache Calcium Carbonate (Calcium Carbonate 750 Mg Tab.Chew) 750 mg PO Q4H PRN PRN Reason: Heartburn Last Admin: 12/21/24 19:39 Dose: 750 mg Documented By: JESSICA Folic Acid (Folic Acid 1 Mg Tablet) 1 mg PO BEDTIME [facility] Last Admin: 12/21/24 20:41 Dose: 1 mg Documented By: JESSICA Furosemide (Furosemide 20 Mg Tablet) 20 mg PO DAILY [facility]; Protocol Last Admin: 12/21/24 07:40 Dose: 20 mg Documented By: KAROLINA Hydroxyzine HCl (Hydroxyzine Hcl 10 Mg Tablet) 10 mg PO TID PRN PRN Reason: Anxiety or itching Last Admin: 12/22/24 00:04 Dose: 10 mg Documented By: JESSICA Ampicillin Sodium/Sulbactam (Sodium 3 gm/ Sodium Chloride) 100 mls @ 200 mls/hr IV Q6H [facility] Last Infusion: 12/22/24 06:00 Dose: Infused Documented By: JESSICA Clindamycin Phosphate (Cleocin) 600 mg in 50 mls @ 100 mls/hr IV Q6H [facility] Last Infusion: 12/22/24 06:33 Dose: Infused Documented By: JESSICA Ketorolac Tromethamine (Ketorolac Tromethamine 15 Mg/Ml Vial) 30 mg IVPUSH Q6H PRN PRN Reason: Pain, Moderate(Pain Scale 4-6) Last Admin: 12/22/24 03:09 Dose: 30 mg Documented By: JSESICA Magnesium Hydroxide (Milk Of Magnesia 30 Ml Oral.Susp) 30 ml PO DAILY PRN PRN Reason: Constipation Magnesium Oxide (Magnesium Oxide 400 Mg Tablet) 400 mg PO DAILY [facility] Last Admin: 12/21/24 07:40 Dose: 400 mg Documented By: KAROLINA Melatonin (Melatonin 3 Mg Tablet) 6 mg PO BEDTIME PRN PRN Reason: Insomnia Mirtazapine (Mirtazapine 15 Mg Tablet) 15 mg PO BEDTIME [facility] Last Admin: 12/21/24 20:41 Dose: 15 mg Documented By: JESSICA Ondansetron HCl (Ondansetron Hcl 4 Mg/2 Ml Vial) 4 mg IVPUSH Q8H PRN PRN Reason: Nausea and Vomiting Last Admin: 12/21/24 17:19 Dose: 4 mg Documented By: KAROLINA Oxycodone HCl (Oxycodone Hcl Immed Release 5 Mg Tablet) 5 mg PO Q4H PRN PRN Reason: Pain, Severe (Pain Scale 7-10) Last Admin: 12/22/24 05:33 Dose: 5 mg Documented By: JESSICA Rifaximin (Rifaximin 550 Mg Tablet) 550 mg PO Q12H [facility] Last Admin: 12/22/24 04:39 Dose: Not Given Documented By: JESSICA Non-Admin Reason: NPO Sodium Chloride (0.9 % Sodium Chloride Flush 3 Ml Syringe) 3 ml IVFLUSH QSHIFT [facility] Last Admin: 12/22/24 00:26 Dose: 3 ml Documented By: JESSICA Labs 12/21/24 06:10 12/21/24 06:10 Microbiology Microbiology Results: Microbiology 12/20/24 15:09 Blood Culture - Preliminary Blood - Venous No growth after 24 hours. 12/20/24 14:54 Blood Culture - Preliminary Blood - Venous No growth after 24 hours. 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 Sepsis secondary to Right hand cellulitis Still with fever and tachycardia, normal lactic acid blood cx neg after 24 hrs DCd IV vanco and placed on IV clindamycin 600 mg q.8 hours, continue IV Unasyn Seen by Orthopedic no indication for drainage , since no abscess noted Keep arm elevated ETOH cirrhosis continue folic acid, thiamine, rifaximin, magnesium, and furosemide alcohol cessation encouraged Mental health continue mirtazapine + sertraline + hydroxyzine + clonidine VTE prophylaxis enoxaparin code status full Patient will require continued inpatient hospitalization for IV antibiotic treatment, that can not be provided in less acute setting. Quality Stroke Does the patient have a stroke diagnosis?: No VTE Prior VTE?: No VTE Risk Level:: Medical - moderate - high VTE Device Contraindication: N/A - Device Ordered VTE Drug Contraindication: N/A - Med Ordered
[2024-12-22] MEDS: Furosemide 20 MG TABLET PO (09:29)
[2024-12-22] MEDS: Magnesium Oxide 400 MG TABLET PO (09:29)
[2024-12-22] MEDS: ondansetron HCL 4 MG/2 ML VIAL IVPUSH ×2 (09:30→16:17)
[2024-12-22] MEDS: Calcium Carbonate 750 MG TAB.CHEW PO (11:30)
[2024-12-22 15:20] LABS: Hematocrit 21.1 % (42.0-52.0); Hemoglobin 7.3 g/dl (14.0-18.0); Mean Corpuscular HGB Conc 34.6 g/dl (31.0-36.0); Mean Corpuscular Hemoglobin 29.3 pg (27.0-33.0); Mean Corpuscular Volume 84.7 fL (80.0-98.0); Mean Platelet Volume 9.7 fL (9.4-12.4); Platelet Count 101 X10*3/uL (160-400); Red Blood Count 2.49 X10*6/uL (4.60-5.80); Red Cell Distribution Width 14.1 % (11.0-16.0); White Blood Count 9.5 X10*3/uL (4.8-10.8)
[2024-12-22 15:30] LABS: OBS Int Ctl Valid YES; OBS1 POSITIVE (NEGATIVE)
[2024-12-22] MEDS: Pantoprazole Sodium 40 MG/10 ML VIAL IVPUSH (15:38)
[2024-12-22] MEDS: Octreotide Acetate 100 MCG/ML AMPUL IVPUSH (15:38)
[2024-12-22] MEDS: Acetaminophen 325 MG TABLET 650 MG PO (15:38)
--- NOTE | 2024-12-22 16:01 | PM.EVENT ---
Event Note Date of Service: 12/22/24 Event Note: 34 yo man admitted with right hand cellulitis. Noted acute rectal bleeding after some diarrhea, no c/o abd pain, vomiting. some nausea and has been tachycardic most of the day but also being treated for right hand cellulitis Due to patients hx of alcohol liver cirrhosis and active bleeding patient will be tx to ICU for closer monitoring at higher level of care. Discussed with Dr. Cabrera. Also discussed with GI attending, likely plan for scope today, pt made NPO. HH with significant drop, was 9.6/27.4 yesterday, today 7.3/21.1/ 2 units PRBC ordered and pt tx to ICU. Time Spent With Patient Time: Total time managing care of this patient today ____ minutes.
--- NOTE | 2024-12-22 16:04 | PC.NURSE ---
Pt reporting loose stools, Maribel Coates made aware, GI panel and C.diff ordered. Pt tachycardic and placed on radiation monitor. Pt in sinus tachycardia 125.This RN went to collect stool sample at 1504. Stool sample appeared to be liquid and maroon colored. Maribel Coates made aware occult blood stool ordered and sent at 1516. CBC ordered. Pts vitals taken. Oral temp 102.4, heart rate 126, respiratory rate 16, BP 145/87, pulse ox 98 on room air. Maribel Coates at bedside. GI consulted by Maribel Coates. Pt given PRN 650mg tylenol for fever. Pt requested PRN atarax. IV octreotide and IV pantoprazole ordered and administered per JAN. Pt transferred to ICU at 1555 to [facility].
[2024-12-22] MEDS: Calcium Gluconate/NaCl,Iso-Osm 1 GM/50 ML PLAST..BAG IV (16:11)
--- NOTE | 2024-12-22 16:12 | PM.EVENT ---
Event Note Date of Service: 12/22/24 Event Note: Patient is a 34 Y M w/ alcohol misuse, last drink 3 months prior, c/b cirrhosis, initially presenting on 12/20 w/ R hand edema, erythema, admitted medicine for c/f cellulitis; on 11/22, ICU consulted d/t large-volume bright red blood per rectum w/ appreciable acute blood loss anemia and tachycardia, though hypertensive; plan to transfer patient to ICU, continue broad-spectrum antibiotics, as well as balanced transfusion, PPI; of note, gastroenterology consulted, to perform scope today N: no acute issues CV: tachycardia, likely d/t fever, hemorrhage; to monitor very closely for hypotnesion in setting of hemorrhage R: no acute issues GI: bright red blood per rectum; PPI, empiric cefepime, GI to scope today : no acute issues H: acute blood loss anemia, balanced transfusion; avoid chemical DVT prophylaxis, mechanical devices ID: R hand cellulitis, empiric vancomycin, cefepime, and clindamycin E: no acute issues; to monitor hypo-/hyper-glycemia P: anxiety Time Spent With Patient Time: Total time managing care of this patient today ____ minutes.
[2024-12-22] MEDS: LORazepam 2 MG/ML VIAL 0.5 MG IVPUSH (16:16)
--- NOTE | 2024-12-22 16:19 | P.CNID_ITS ---
History of Present Illness Data of Consult Service Date: 12/22/24 Requesting physician: Maribel Coates Primary Care Provider: Kallie An DO HPI Reason for consult: right hand redness He presents with right hand redness spreading up arm started 12/16 and worsening since that time. He had nip from fdc puppy brought in from [facility] which his mother bought. This happened four weeks ago and still has small scar. He has fever and tachycardia. He is now in ICU for GI bleed. He as been on Unasyn and Vancomycin and now Clindamycin added. He has cirrhosis and is getting workup at [facility]. Review of Systems 2 Review of Systems: Yes all other systems are reviewed and are negative [facility] Past Medical History Medical History Alcohol use disorder Family History Family history: reviewed and not pertinent Social History Social History Household Members: None Housing: Apartment Do you presently have visiting nurse or other home services: No Alcohol intake: current Alcohol intake frequency: former alcohol drinker Alcohol type: hard liquor Patient Tobacco Use Status: Current everyday Tobacco user Tobacco use type: Cigarette Cigarettes Per Day: 3 e-Cigarette/Vaping Use: Never Used Substance Use Type: Prescription Drugs service: No Current occupational status: unemployed Sexual orientation: Straight/Heterosexual Meds Allergies Allergy/AdvReac Type Severity Reaction Status Date / Time No Known Allergies Allergy Verified 12/20/24 11:49 Active Medications: Current Medications Clindamycin Phosphate (Cleocin) 600 mg in 50 mls @ 100 mls/hr IV Q6H [facility] Last Infusion: 12/22/24 12:47 Dose: Infused Octreotide Acetate 500 mcg/ (Sodium Chloride) 501 mls @ 50.1 mls/hr IVCONT .Q10H [facility] Acetaminophen (Ofirmev) 1,000 mg in 100 mls @ 400 mls/hr IV Q6H PRN PRN Reason: Fever Cefepime HCl (Maxipime) 2 gm in 50 mls @ 100 mls/hr IV Q8H [facility] Folic Acid 1 mg/ Sodium (Chloride) 50.2 mls @ 100.4 mls/hr IV DAILY [facility] Calcium Gluconate (Calcium Gluconate) 1 gm in 50 mls @ 50 mls/hr IV ONCE ONE Stop: 12/22/24 16:58 Last Admin: 12/22/24 16:11 Dose: 50 mls/hr Vancomycin HCl (Vancomycin/Ns) 2,000 mg in 500 mls @ 250 mls/hr IV ONCE ONE Stop: 12/22/24 18:59 Lorazepam (Lorazepam 2 Mg/Ml Vial) 0.5 mg IVPUSH Q4H PRN PRN Reason: Anxiety Ondansetron HCl (Ondansetron Hcl 4 Mg/2 Ml Vial) 4 mg IVPUSH Q4H PRN PRN Reason: Nausea and Vomiting Pantoprazole Sodium (Pantoprazole Sodium 40 Mg/10 Ml Vial) 40 mg IVPUSH BID@0630,1630 [facility] Last Admin: 12/22/24 15:38 Dose: 40 mg Pharmacy Consult (Consult Rx Vancomycin Dosing) 1 each MISCELLANE DAILY PRN PRN Reason: Consult order Rifaximin (Rifaximin 550 Mg Tablet) 550 mg PO Q12H [facility] Last Admin: 12/22/24 15:36 Dose: Not Given Sodium Chloride (0.9 % Sodium Chloride Flush 3 Ml Syringe) 3 ml IVFLUSH QSHIFT [facility] Last Admin: 12/22/24 15:38 Dose: 3 ml Home Medications ?Medication ?Instructions ?Recorded ?Confirmed ?Last Taken ?Type folic acid 1 mg tablet 1 mg PO BEDTIME 12/20/24 12/20/24 12/19/24 History furosemide 20 mg tablet 20 mg PO DAILY 12/20/24 12/20/24 12/20/24 History hydroxyzine HCl 10 mg tablet 10 mg PO TID PRN anxiety or itching 12/20/24 12/20/24 Unknown History magnesium oxide 400 mg (241.3 mg 400 mg PO DAILY 12/20/24 12/20/24 12/20/24 History magnesium) tablet mirtazapine 15 mg tablet 15 mg PO BEDTIME 12/20/24 12/20/24 12/19/24 History rifaximin 550 mg tablet (Xifaxan) 550 mg PO Q12H 12/20/24 12/20/24 12/20/24 History Physical Exam 2 Vital Signs: Vital Signs: Last Vital Signs Temp 102.4 F H 12/22/24 15:16 Pulse 126 H 12/22/24 15:16 Resp 16 12/22/24 15:16 BP 145/87 H 12/22/24 15:16 Pulse Ox 98 12/22/24 15:16 O2 Del Method Room Air 12/22/24 15:16 BMI result Body Mass Index 26.5 Extrem: Other: .5cm scar right thumb healed scar from previous thumb surgery 2010 on thumb also hand hot and red with diminished movement extending up above wrist 2 cm Results Labs 12/22/24 15:11 12/21/24 06:10 Labs: Short CBC 12/22/24 Range/Units 15:11 WBC 9.5 (4.8-10.8) X10*3/uL Hgb 7.3 L D (14.0-18.0) g/dl Hct 21.1 L D (42.0-52.0) % Plt Count 101 L (160-400) X10*3/uL Microbiology Microbiology Results: Microbiology 12/20/24 15:09 Blood - Venous Blood Culture - Preliminary No growth after 24 hours. 12/20/24 14:54 Blood - Venous Blood Culture - Preliminary No growth after 24 hours. Assessment and Plan (1) Cellulitis of hand: Status: Acute Plan He has cellulitis right hand probably from dog bite as it is still visible and both prior thumb surgery with non curyung tissue planes and immunosuppression due to cirrhosis likely contributed to his susceptibiiity. He is now in ICU for GI bleed Organisms for cellulitis incluce capnocytophaga canimorsus,pasteurella multocida,staph including MRSA and strep among other gram negative like bartonella henselae unlikely fungus but not sure what if any disorders dog may have as presumably came into fdc from concerning situation and is too young for rabies vaccine reportedly He is now not improving despite two days of amp/sulb and Vancomycin. Suggest Merem cover gram negative such as capnocytophaga. Add Doxycycine for possible bartonella. Consider itraconazole if not improving. Duration of antibiotics to be determined. Tetanus shot. Eval rabies risk dog in home for 10 days with no symptoms so not likely but rabies shots for person if changes in dog. Would have Hand Surgery follow closely.
[2024-12-22 16:29] LABS: INTERNATIONAL NORM RATIO 1.8 (0.9-1.1)
[2024-12-22] MEDS: Octreotide Acetate 500 MCG in 0.9 % Sodium Chloride 500 ML 50.1 MCG IVCONT (16:34)
--- NOTE | 2024-12-22 16:48 | PM.EVENT ---
Event Note Date of Service: 12/22/24 Event Note: consider linezolid if not improving Time Spent With Patient Time: Total time managing care of this patient today ____ minutes.
[2024-12-22 16:53] LABS: Alanine Aminotransferase < 6 U/L (0-40); Albumin Level 2.8 g/dL (3.5-5.0); Alkaline Phosphatase 84 U/L (39-117); Anion Gap 12 (12-20); Aspartate Amino Transferase 24 U/L (5-37); Bilirubin Direct 1.2 mg/dL (0.0-0.5); Bilirubin Total 2.4 mg/dL (0.0-1.0); Blood Urea Nitrogen 14 mg/dL (9-16); Calcium 7.7 mg/dL (8.4-10.2); Carbon Dioxide 22 mmol/L (22-29); Chloride 104 mmol/L (96-108); Creatinine Clr Calc Pharmacy 120.3; Estimated Glomerular Filt Rate > 60; Glucose Random 144 mg/dL (60-115); Potassium 3.7 mmol/L (3.3-5.1); Sodium 134 mmol/L (135-145); Total Protein 6.4 g/dL (6.5-8.0)
[2024-12-22] MEDS: Meropenem 1 GM VIAL IVPUSH (17:13)
[2024-12-22] MEDS: Phytonadione (Vit K1) 10 MG in 0.9 % Sodium Chloride 50 ML 51 MG IV (17:13)
--- NOTE | 2024-12-22 17:40 | P.EN_ITS ---
Event Note Date of Service: 12/22/24 Event Note: GI Consult-Full note dictated-History from patient, his mother, MEDICAL EXAMINER, and EMR. Imp: EtOH-cirrhosis being followed at [facility] admitted here with a right hand cellulitis. He has been sober since 08/2024. He has been using Ibuprofen regularly for the past week for his hand and does smoke cigarettes. Today he developed maroon liquid stool with 100cc x 1, and then subsequent just scant amounts. He vomited x 1 but there was no blood nor coffee grounds. He has never had a GI bleed nor an EGD. He has not been told of varices by his gold plater. He has dropped his Hgb by about 2 Gms. His BUN is normal, but he does have an INR of 1.8. Diff dx: UGI bleed due to duodenal ulcer, varices, gastric ulcer, gastropathy. Overall, doubt varices given no hematemesis. Given normal Hgb this tends to go against an UGI bleed and therefore a lower GI bleed from something sush as hemorrhoids from his portal HTN is a possibilty as well. Rec: Resuscitate with PRBC's, FFP, and platelets. Vit K. IV PPI and IV Sandostatin.NPO. F/U labs. EGD tonight or by tomorrow. Full consent obtained for this, including risks of bleeding and perforation. D/W patient and his mother in detail and they are comfortable with this plan. Thanks. Time Spent With Patient Time: Total time managing care of this patient today ____ minutes.
[2024-12-22 19:02] LABS: MANUAL DIFF FLAG NO
[2024-12-22 19:04] LABS: Basophils Percent Auto 0.4 % (0-2); Eosinophils Percent Auto 0.4 % (0-4); Hematocrit 22.6 % (42.0-52.0); Hemoglobin 7.9 g/dl (14.0-18.0); Imm Gran Abs Auto 0.03 X10*3/uL (0.00-0.03); Imm Gran Pct Auto 0.4 % (0.0-0.4); Lymphocytes Absolute Auto 1.6 X10*3/uL (1.2-4.9); Lymphocytes Percent Auto 20.4 % (20-40); Mean Corpuscular Hemoglobin 29.4 pg (27.0-33.0); Mean Platelet Volume 9.9 fL (9.4-12.4); Monocytes Absolute Auto 1.3 X10*3/uL (0.1-1.2); Monocytes Percent Auto 16.7 % (2-11); Neutrophils Absolute Auto 4.9 x10*3/uL (2.0-8.3); Neutrophils Percent Auto 61.7 % (45-73); Red Blood Count 2.69 X10*6/uL (4.60-5.80); Red Cell Distribution Width 14.1 % (11.0-16.0); White Blood Count 7.9 X10*3/uL (4.8-10.8)
[2024-12-22 19:05] LABS: Platelet Count 92 X10*3/uL (160-400)
[2024-12-22] MEDS: Acetaminophen 1,000 MG/100 ML PIGGYBACK 400 MG IV (19:47)
[2024-12-22 20:20] LABS: CDiff Gene PCR NEGATIVE (Negative)
--- NOTE | 2024-12-22 20:50 | P.CONAN_ITS ---
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 (Acute) Flu syndrome (Acute) Past Medical History Medical History Alcohol use disorder Functional capacity: independent ambulation Narrative: right hand severely swollen- cellulitis Family History Family history of problems with anesthesia: No Surgical History History of Problems with Anesthesia: No Social History Social History Household Members: None Housing: Apartment Do you presently have visiting nurse or other home services: No Alcohol intake: current Alcohol intake frequency: former alcohol drinker Alcohol type: hard liquor Patient Tobacco Use Status: Current everyday Tobacco user Tobacco use type: Cigarette Cigarettes Per Day: 3 e-Cigarette/Vaping Use: Never Used Substance Use Type: Prescription Drugs service: No Current occupational status: unemployed Sexual orientation: Straight/Heterosexual Meds Allergies Allergy/AdvReac Type Severity Reaction Status Date / Time No Known Allergies Allergy Verified 12/20/24 11:49 Active Medications: Current Medications Octreotide Acetate 500 mcg/ (Sodium Chloride) 501 mls @ 50.1 mls/hr IVCONT .Q10H LEXY Last Admin: 12/22/24 16:34 Dose: 50 mcg/hr, 50.1 mls/hr Acetaminophen (Ofirmev) 1,000 mg in 100 mls @ 400 mls/hr IV Q6H PRN PRN Reason: Fever Last Infusion: 12/22/24 20:09 Dose: Infused Folic Acid 1 mg/ Sodium (Chloride) 50.2 mls @ 100.4 mls/hr IV DAILY LEXY Doxycycline Hyclate 100 mg/ (Sodium Chloride) 250 mls @ 166.67 mls/hr IV Q12H LEXY Lorazepam (Lorazepam 2 Mg/Ml Vial) 0.5 mg IVPUSH Q4H PRN PRN Reason: Anxiety Last Admin: 12/22/24 16:16 Dose: 0.5 mg Meropenem (Meropenem 1 Gm Vial) 1 gm IVPUSH Q8H LEXY Last Admin: 12/22/24 17:13 Dose: 1 gm Ondansetron HCl (Ondansetron Hcl 4 Mg/2 Ml Vial) 4 mg IVPUSH Q4H PRN PRN Reason: Nausea and Vomiting Last Admin: 12/22/24 16:17 Dose: 4 mg Pantoprazole Sodium (Pantoprazole Sodium 40 Mg/10 Ml Vial) 40 mg IVPUSH BID@0630,1630 [facility] Last Admin: 12/22/24 15:38 Dose: 40 mg Sodium Chloride (0.9 % Sodium Chloride Flush 3 Ml Syringe) 3 ml IVFLUSH QSHIFT [facility] Last Admin: 12/22/24 15:38 Dose: 3 ml Home Medications ?Medication ?Instructions ?Recorded ?Confirmed ?Last Taken ?Type folic acid 1 mg tablet 1 mg PO BEDTIME 12/20/24 12/20/24 12/19/24 History furosemide 20 mg tablet 20 mg PO DAILY 12/20/24 12/20/24 12/20/24 History hydroxyzine HCl 10 mg tablet 10 mg PO TID PRN anxiety or itching 12/20/24 12/20/24 Unknown History magnesium oxide 400 mg (241.3 mg 400 mg PO DAILY 12/20/24 12/20/24 12/20/24 History magnesium) tablet mirtazapine 15 mg tablet 15 mg PO BEDTIME 12/20/24 12/20/24 12/19/24 History rifaximin 550 mg tablet (Xifaxan) 550 mg PO Q12H 12/20/24 12/20/24 12/20/24 History Exam Height,Weight and Vital Signs: Height 5 ft 11 in Weight 86.183 kg Last Vital Signs Temp 101.6 F H 12/22/24 20:00 Pulse 109 H 12/22/24 20:00 Resp 18 12/22/24 20:00 BP 121/66 12/22/24 20:00 Pulse Ox 98 12/22/24 15:16 O2 Del Method Room Air 12/22/24 15:16 Pertinent Lab Results Pertinent Lab Results: Laboratory Tests 12/20/24 12/21/24 12/22/24 12:09 06:10 15:11 WBC 6.8 9.9 9.5 RBC 3.70 L 3.25 L 2.49 L D Hgb 10.7 L 9.6 L 7.3 L D Hct 31.7 L 27.4 L 21.1 L D MCV 85.7 84.3 84.7 MCH 28.9 29.5 29.3 MCHC 33.8 35.0 34.6 RDW 13.8 13.7 14.1 Plt Count 127 L 86 L D 101 L MPV 10.4 10.0 9.7 Immature Gran % (Auto) 0.3 Neut % (Auto) 63.7 Lymph % (Auto) 21.7 [place] % (Auto) 12.2 H Eos % (Auto) 1.5 Baso % (Auto) 0.6 Lymph # (Auto) 1.5 [place] # (Auto) 0.8 Eos # (Auto) 0.1 Baso # (Auto) 0.0 Abs Immat Gran (auto) 0.02 Absolute Neuts (auto) 4.3 Absolute Nucleated RBC 0.000 0.000 0.000 Nucleated RBC % (auto) 0.0 0.0 0.0 ESR 53 H PT INR Sodium 141 Potassium 3.9 Chloride 106 Carbon Dioxide 26 Anion Gap 13 BUN 7 L Creatinine 0.80 0.71 Estim Creat Clear Calc 139.8 157.6 Estimated GFR > 60 > 60 Random Glucose 130 H Estimat Average Glucose 82 Hemoglobin A1c % 4.5 Lactic Acid 2.0 Uric Acid 6.1 Calcium 8.7 Total Bilirubin 3.4 H Direct Bilirubin AST 33 ALT < 6 Alkaline Phosphatase 121 H C-Reactive Protein 2.14 H Total Protein 8.2 H Albumin 3.5 Hold Yellow Top Stool Occult Blood C. difficile Tox B Gene Blood Type Antibody Screen Crossmatch 12/22/24 12/22/24 12/22/24 15:16 16:12 18:56 WBC 7.9 RBC 2.69 L Hgb 7.9 L Hct 22.6 L MCV 84.0 MCH 29.4 MCHC 35.0 RDW 14.1 Plt Count 92 L MPV 9.9 Immature Gran % (Auto) 0.4 Neut % (Auto) 61.7 Lymph % (Auto) 20.4 [place] % (Auto) 16.7 H Eos % (Auto) 0.4 Baso % (Auto) 0.4 Lymph # (Auto) 1.6 [place] # (Auto) 1.3 H Eos # (Auto) 0.0 Baso # (Auto) 0.0 Abs Immat Gran (auto) 0.03 Absolute Neuts (auto) 4.9 Absolute Nucleated RBC 0.000 Nucleated RBC % (auto) 0.0 ESR PT 21.0 H INR 1.8 H Sodium 134 L Potassium 3.7 Chloride 104 Carbon Dioxide 22 Anion Gap 12 BUN 14 Creatinine 0.93 Estim Creat Clear Calc 120.3 Estimated GFR > 60 Random Glucose 144 H Estimat Average Glucose Hemoglobin A1c % Lactic Acid Uric Acid Calcium 7.7 L D Total Bilirubin 2.4 H Direct Bilirubin 1.2 H AST 24 ALT < 6 Alkaline Phosphatase 84 C-Reactive Protein Total Protein 6.4 L Albumin 2.8 L Hold Yellow Top Stool Occult Blood POSITIVE C. difficile Tox B Gene NEGATIVE Blood Type B Positive Antibody Screen NEGATIVE Crossmatch See Detail 12/22/24 Unknown WBC RBC Hgb Hct MCV MCH MCHC RDW Plt Count MPV Immature Gran % (Auto) Neut % (Auto) Lymph % (Auto) [place] % (Auto) Eos % (Auto) Baso % (Auto) Lymph # (Auto) [place] # (Auto) Eos # (Auto) Baso # (Auto) Abs Immat Gran (auto) Absolute Neuts (auto) Absolute Nucleated RBC Nucleated RBC % (auto) ESR PT INR Sodium Potassium Chloride Carbon Dioxide Anion Gap BUN Creatinine Estim Creat Clear Calc Estimated GFR Random Glucose Estimat Average Glucose Hemoglobin A1c % Lactic Acid Uric Acid Calcium Total Bilirubin Direct Bilirubin AST ALT Alkaline Phosphatase C-Reactive Protein Total Protein Albumin Hold Yellow Top See Note Stool Occult Blood C. difficile Tox B Gene Blood Type Antibody Screen Crossmatch Airway Mallampati Class: II TM Dist: >3cm Neck ROM: Full Heart: tachycardic Lungs: CTA Assessment and Plan Assessment Anesthesia Assessment: Anesthesia Plan Discussed, Smoking Cess. Discussed and Chart Reviewed Final Anesthetic Review Family History of Problems with Anesthesia: No History of Problems with Anesthesia: No NPO: Yes ASA Class: III and Emergency Final Preanesthetic Review: Meds/Allgs Chart Reviewed, Consent Obtained/Reviewed and Anes Risks/Benef Reviewed Patient Risk: Intermediate Procedure Risk: Low Anesthetic Plan Anesthetic Plan: GA Disposition: Inp. Admit - ICU
--- NOTE | 2024-12-22 21:02 | PC.NURSE ---
Addendum entered by Carmen Selby RN 12/22/24 23:55: pt returned from OR 2134 with blood finished. Original Note: RBC started by this RN at 1999, then taken to OR unable to obtain 15 Min vitals since pt in OR
--- NOTE | 2024-12-22 21:37 | PM.OP ---
Brief Operative Note Date of Service: 12/22/24 Pre-op diagnosis: GI Bleed Post-op diagnosis: other (Small hiatal hernia, Internal hemorrhoids) Procedure: EGD, Colonoscopy to the ascending colon Surgeon: Jerry Pearson MD Anesthesia: GETA Was an Casino Supervisor used for this Procedure?: No Estimated blood loss (mL): 0 Pathology: none sent Condition: stable Disposition: ICU
--- NOTE | 2024-12-22 21:39 | PM.EVENT ---
Event Note Date of Service: 12/22/24 Event Note: GI-Full note dictated EGD-Small hiatal hernia, but otherwise WNL to the descending duodenum--no varices, no ulcers, no esophagitis, no Dieulafoy lesion, no fresh or old blood. Colonoscopy to the ascending colon-some maroon liquid blood in rectum, but then only brown stool from mid-sigmoid to the ascending colon-no polyps, colitis, diverticular disease, or Diulafoy lesion--unimpressive internal hemorrhoids but no rectal varices--no active bleeding Imp: GI bleed--? due to internal hemorrhoidal disease with increased bleeding due to portal HTN and coagulopathy? Rec: Observe, D/C Sandostatin and PPI, clear liquids for now, F/U labs in AM. If he has recurrent bleeding I would recommend a Stat CTA of abdomen and pelvis. D/W patient's mother. D/W Dr. Cabrera. Thanks Time Spent With Patient Time: Total time managing care of this patient today ____ minutes.
[2024-12-22] MEDS: Doxycycline Hyclate 100 MG in 0.9 % Sodium Chloride 250 ML 166.67 MG IV (21:48)
[2024-12-22 22:03] LABS: MANUAL DIFF FLAG NO
[2024-12-22 22:05] LABS: Basophils Percent Auto 0.5 % (0-2); Eosinophils Percent Auto 0.9 % (0-4); Hematocrit 22.7 % (42.0-52.0); Hemoglobin 7.9 g/dl (14.0-18.0); Imm Gran Abs Auto 0.04 X10*3/uL (0.00-0.03); Imm Gran Pct Auto 0.9 % (0.0-0.4); Lymphocytes Absolute Auto 0.9 X10*3/uL (1.2-4.9); Lymphocytes Percent Auto 20.6 % (20-40); Mean Corpuscular HGB Conc 34.8 g/dl (31.0-36.0); Mean Corpuscular Hemoglobin 29.2 pg (27.0-33.0); Mean Corpuscular Volume 83.8 fL (80.0-98.0); Mean Platelet Volume 9.4 fL (9.4-12.4); Monocytes Absolute Auto 0.6 X10*3/uL (0.1-1.2); Monocytes Percent Auto 12.9 % (2-11); Neutrophils Absolute Auto 2.8 x10*3/uL (2.0-8.3); Neutrophils Percent Auto 64.2 % (45-73); Red Blood Count 2.71 X10*6/uL (4.60-5.80); Red Cell Distribution Width 14.2 % (11.0-16.0); White Blood Count 4.4 X10*3/uL (4.8-10.8)
[2024-12-22 22:06] LABS: Platelet Count 66 X10*3/uL (160-400)
[2024-12-22 22:37] LABS: Alanine Aminotransferase < 6 U/L (0-40); Albumin Level 2.8 g/dL (3.5-5.0); Alkaline Phosphatase 78 U/L (39-117); Anion Gap 12 (12-20); Aspartate Amino Transferase 26 U/L (5-37); Bilirubin Total 2.3 mg/dL (0.0-1.0); Blood Urea Nitrogen 13 mg/dL (9-16); Calcium 7.4 mg/dL (8.4-10.2); Carbon Dioxide 20 mmol/L (22-29); Chloride 108 mmol/L (96-108); Creatinine Clr Calc Pharmacy 139.8; Estimated Glomerular Filt Rate > 60; Glucose Random 158 mg/dL (60-115); Magnesium 1.8 mg/dL (1.6-2.6); Phosphorus 4.7 mg/dL (2.7-4.5); Potassium 3.8 mmol/L (3.3-5.1); Sodium 136 mmol/L (135-145); Total Protein 6.3 g/dL (6.5-8.0)
[2024-12-23] VITALS (25 sets, daily range): BP systolic 99–126; BP diastolic 52–76; PULSE 69–94; RESP 12–20; TEMP 36.3–37.2; O2SAT 91–98; BMI 26.5
[2024-12-23] MEDS: Calcium Gluconate/NaCl,Iso-Osm 1 GM/50 ML PLAST..BAG IV ×2 (00:09→07:29)
[2024-12-23] MEDS: Meropenem 1 GM VIAL IVPUSH ×4 (00:11→23:57)
[2024-12-23] MEDS: 0.9 % Sodium Chloride Flush 3 ML SYRINGE IVFLUSH ×3 (00:14→15:16)
--- NOTE | 2024-12-23 01:08 | OP_ITS ---
DATE OF SERVICE: 12/22/2024 SURGEON: Jerry Pearson MD INDICATIONS: The patient presents for evaluation of GI bleeding. Full consent was obtained from the patient for the upper endoscopy, including risks of bleeding and perforation. After the upper endoscopy did not reveal a source of bleeding I decided that he would need a colonoscopy on an emergent basis and therefore we proceeded without consent as he was under general anesthesia. PREOPERATIVE DIAGNOSIS: Gastrointestinal bleeding. POSTOPERATIVE DIAGNOSIS: PROCEDURE PERFORMED: Esophagogastroduodenoscopy and colonoscopy to the ascending colon. ESTIMATED BLOOD LOSS: COMPLICATIONS: ANESTHESIA: Medication used, general anesthesia. ASSISTANTS: SPECIMENS: POSTOPERATIVE DIAGNOSES: Gastrointestinal bleeding, small hiatal hernia, small internal hemorrhoids. PROCEDURE IN DETAIL: The patient was kept in the supine position. The Olympus videogastroscope was passed in the posterior oropharynx and upper esophagus under direct vision. The scope was passed slowly to the distal esophagus. The gastroesophageal junction appeared at 40 cm. There was some very minimal irregularity consistent with reflux. There was no esophagitis. The entire esophagus was carefully inspected with insufflation of air and I did not appreciate any sign of varices nor esophagitis. The scope entered the stomach. There was a small hiatal hernia. The scope was advanced to pylorus. The duodenum was cannulated to the 2nd and 3rd portions. There was some retained food in this area, but there was no sign of any fresh blood nor coffee-grounds. The entire duodenum including the bulb was carefully inspected and appeared normal without any sign of mass, ulceration, nor any sign of bleeding lesion. The scope was withdrawn back to the stomach. The gastric antrum also had some small amounts of retained food, which were irrigated and washed away. I did not visualize any sign of mucosal abnormalities such as ulcer disease nor gastritis. There was good peristalsis. The scope was retroflexed visualizing the proximal stomach carefully, which appeared normal, without any sign of mass, ulceration, varices, nor gastropathy. There was no blood nor coffee-grounds anywhere in the stomach. The scope was straightened and withdrawn back to the esophagus. Again, the esophagus appeared normal without any sign of varices. The scope was withdrawn from the patient. At that point, he was turned around for the colonoscopy. The digital rectal exam revealed no abnormalities. However, there was some fairly fresh appearing blood on the glove. I opted to use the gastroscope that we had just finished using as we were in the OR in the evening and there was nobody to go get a colonoscope. The Olympus video gastroscope was entered into the rectum and advanced easily to the region of the ascending colon judging anatomically. Proximal to this, was a large amount of liquid brown stool and therefore, I did not try to advance any further. The scope was slowly withdrawn assessing all mucosal surfaces carefully. For the most part, preparation was quite good despite his not having done a prep. I did not visualize any sign of mucosal abnormalities, active bleeding, polyps, nor colitis. There was scattered amounts of brown stool all the way down to the distal sigmoid colon. In the rectum there was a puddle of the same maroon liquid blood that he had put out earlier in the day. This was suctioned away. The entire rectum was irrigated and well visualized and I did not appreciate any mucosal abnormalities, active bleeding, nor varices. The scope was retroflexed visualizing the distal rectum very carefully and aside from some internal hemorrhoids, no other abnormalities were noted. There was no sign of any active bleeding. The scope was straightened. At that point, there was no residual blood left in the rectum. The scope was withdrawn from the patient. He tolerated both procedures well. He was extubated and was returned to the ICU in stable condition. IMPRESSION: 1. Small hiatal hernia. 2. Internal hemorrhoids. PLAN: At this point there is certainly no sign of any active GI bleeding based on today's exam and his clinical course over the past several hours. Given the finding of the maroon liquid in the rectum and the same type of rectal discharge he had earlier today, this may speak for some hemorrhoidal bleeding that was more than one would expect normally due to his portal hypertension and coagulopathy. At this point, I would recommend observing him. I think his PPI and Sandostatin can both be stopped. He will have followup laboratories in the morning. He can start clear liquids. I would recommend that if he has recurrent active bleeding that he go for a stat CTA of the abdomen and pelvis to try to definitively isolate the source of bleeding, although based on today's exam, it appears it that would be coming from the rectum. If things remain stable, he can have his diet advanced tomorrow. This has all been discussed with his mother in detail. This has all also been discussed with Dr. Cabrera, the cat swamper. MD NICOLE Ospina/ANABELL / [id number] MTDKatlyn
[2024-12-23] MEDS: Albumin Human 25 % 100 ML IV ×4 (02:07→21:04)
[2024-12-23] MEDS: Morphine Sulfate 2 MG/ML CARTRIDGE 1 MG IVPUSH ×4 (02:13→23:47)
--- NOTE | 2024-12-23 02:13 | CONS_ITS ---
DATE OF SERVICE: 12/22/2024 REASON FOR CONSULTATION: GI bleeding and cirrhosis. HISTORY OF PRESENT ILLNESS: This has been obtained from the patient, his mother, the ACCOUNTANCY PROFESSOR, and the medical record. The patient is a 34-year-old male with a longstanding history of alcohol use, who was admitted to the hospital for treatment of a right hand cellulitis. He had been using ibuprofen regularly at home for at least the past week due to the pain in his hand. Today, he developed the onset of GI bleeding with maroon liquid stool of about 100 cc on one occasion. Subsequent to that, he has had some scant rectal discharge, but no further significant bleeding. He was transferred to the ICU due to this situation along with a drop in his hemoglobin. He did have one small episode of vomiting with some old food on the way down to the ICU, but there was no hematemesis and no coffee-grounds emesis. Prior to today, he denies any previous history of GI bleeding. He denies any significant heartburn, dysphagia, nor abdominal pain. Of note, the patient is presently being followed at [facility] with Dr. Wade. He had previously been hospitalized in that area for what sounds like an alcohol induced hepatitis with hepatic encephalopathy and need for treatment with steroids. Since August 2024, he has been abstinent from alcohol and has had no further episodes of jaundice. He describes some possible small amount of ascites, but has never had a paracentesis. He has had multiple imaging studies at [facility] and has not been told of any varices. He has never had an endoscopy. He denies any history of ulcer disease. He does smoke cigarettes daily. Prior to today, he denies any previous history of GI bleeding. There is a family history of colon cancer in a maternal grandfather in his 50s, but no other family history of GI malignancy. Since being in the ICU, he did have the urge to have one more bowel movement, but again only scant amounts of maroon liquid were discharged. He currently denies any abdominal pain. CURRENT MEDICATIONS: His medications here in the hospital include IV doxycycline, folic acid, Ativan p.r.n., meropenem and Zofran p.r.n. 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 He is presently being followed at [facility] with Dr. Wade at the [facility]. He denies any other significant medical problems such as diabetes, heart disease, stroke, nor lung disease. PAST SURGICAL HISTORY: He denies any significant surgeries. SOCIAL HISTORY: He presently does not work. He smokes cigarettes. He has been abstinent from alcohol since August 2024. He has also not used any drugs during that time. He is single. He does have 1 son. FAMILY HISTORY: As above. REVIEW OF SYSTEMS: CONSTITUTIONAL: He has been feeling poorly in relation to the infection in the right hand. CARDIAC: No chest pain. PULMONARY: No coughing or hemoptysis. GI: As above. URINARY: No dysuria or hematuria. PHYSICAL EXAMINATION: GENERAL: The patient is a pleasant, alert, comfortable-appearing male. SKIN: Warm and dry. Nonjaundiced. Anicteric sclerae. NECK: Supple. CARDIAC: Normal S1, S2. ABDOMEN: Soft, nondistended. Normal bowel sounds. Nontender without palpable mass. EXTREMITIES: Without edema. NEUROLOGIC: He is alert and oriented to person, place, and time and answers questions appropriately. LABORATORY DATA: His admitting hemoglobin was 9.6 and went down to 7.3 today. It had been 10.7 earlier during the admission. White blood cell count 9.5, and platelet count of 101,000. PT 21.0 with INR 1.8. Normal electrolytes. BUN 14 with creatinine 0.9. Total bilirubin 2.4, direct bilirubin 1.2, AST 24, ALT less than 6, and alkaline phosphatase of 84. Albumin 2.8. His stool was Hemoccult positive. Blood cultures are negative. IMPRESSION: The patient is a 34-year-old male with significant liver disease in relation to alcohol abuse, who has now developed GI bleeding. Given the description of the maroon liquid stool and his underlying medical history, I would suspect we are dealing with some type of upper GI blood loss. However, based on the history of no hematemesis or coffee-grounds emesis, I doubt this is a variceal bleed. He may very well have varices in relation to the underlying liver disease, but again this does not seem consistent with a variceal bleed, given no hematemesis or coffee-grounds emesis. He may have a duodenal ulcer in relation to the ibuprofen and smoking with subsequent bleeding. Other possibilities would include gastritis or gastric ulcer. He does have underlying cirrhosis and may have prominent hemorrhoids accounting for blood as well, but I would expect that to be more of a bright red blood discharge as opposed to the maroon liquid. At this point, he will be resuscitated with some packed red blood cells, FFP, and platelets. I have ordered a dose of vitamin K as well. I would recommend upper endoscopy for further evaluation. This will be done with monitored anesthesia care or general anesthesia. Full consent has been obtained from the patient and his mother for this, including risks of bleeding and perforation. I would continue to follow his blood counts and other laboratories closely. I have ordered IV PPI and IV Sandostatin as well in the meantime. If the upper endoscopy is completely normal, that we could consider at least a flexible sigmoidoscopy, if not a colonoscopy, for further evaluation. This has all been reviewed with the patient, his mother in detail and they are comfortable with the plan. Thank you for the consultation. MD NICOLE Ospina/ANABELL / [id number] MTDD
[2024-12-23 05:21] LABS: MANUAL DIFF FLAG NO
[2024-12-23 05:24] LABS: Basophils Percent Auto 0.4 % (0-2); Hematocrit 22.9 % (42.0-52.0); Hemoglobin 7.9 g/dl (14.0-18.0); Imm Gran Abs Auto 0.03 X10*3/uL (0.00-0.03); Imm Gran Pct Auto 1.2 % (0.0-0.4); Lymphocytes Absolute Auto 0.6 X10*3/uL (1.2-4.9); Lymphocytes Percent Auto 21.9 % (20-40); Mean Corpuscular HGB Conc 34.5 g/dl (31.0-36.0); Mean Corpuscular Hemoglobin 29.2 pg (27.0-33.0); Mean Corpuscular Volume 84.5 fL (80.0-98.0); Mean Platelet Volume 9.8 fL (9.4-12.4); Monocytes Absolute Auto 0.1 X10*3/uL (0.1-1.2); Monocytes Percent Auto 3.9 % (2-11); Neutrophils Absolute Auto 1.9 x10*3/uL (2.0-8.3); Neutrophils Percent Auto 72.6 % (45-73); Red Blood Count 2.71 X10*6/uL (4.60-5.80); Red Cell Distribution Width 14.2 % (11.0-16.0); White Blood Count 2.6 X10*3/uL (4.8-10.8)
[2024-12-23 05:25] LABS: Platelet Count 63 X10*3/uL (160-400)
[2024-12-23 05:28] LABS: INTERNATIONAL NORM RATIO 1.6 (0.9-1.1)
[2024-12-23 05:43] LABS: Alanine Aminotransferase < 6 U/L (0-40); Albumin Level 3.3 g/dL (3.5-5.0); Alkaline Phosphatase 72 U/L (39-117); Anion Gap 13 (12-20); Aspartate Amino Transferase 28 U/L (5-37); Bilirubin Direct 1.3 mg/dL (0.0-0.5); Bilirubin Total 2.4 mg/dL (0.0-1.0); Blood Urea Nitrogen 13 mg/dL (9-16); Calcium 8.1 mg/dL (8.4-10.2); Carbon Dioxide 22 mmol/L (22-29); Chloride 108 mmol/L (96-108); Creatinine Clr Calc Pharmacy 155.4; Estimated Glomerular Filt Rate > 60; Glucose Random 142 mg/dL (60-115); Phosphorus 4.1 mg/dL (2.7-4.5); Potassium 4.6 mmol/L (3.3-5.1); Sodium 138 mmol/L (135-145); Total Protein 7.1 g/dL (6.5-8.0)
[2024-12-23] MEDS: Folic Acid 1 MG in 0.9 % Sodium Chloride 50 ML 100.4 MG IV (08:17)
--- NOTE | 2024-12-23 08:43 | PM.CCPN ---
Subjective Subjective Date of Service: 12/23/24 Interval History: s/p EGD and colonoscopy w/o overt source of bleeding Critical Care Time (minutes): 60 Physical Exam Vital Signs: Vital Signs: Last Vital Signs Temp 98.8 F 12/23/24 08:00 Pulse 74 12/23/24 08:00 Resp 18 12/23/24 08:00 BP 114/66 12/23/24 08:00 Pulse Ox 95 12/23/24 08:00 O2 Del Method Room Air 12/23/24 08:00 BMI result Body Mass Index 26.5 Const: General: cooperative, healthy appearing, comfortable, no acute distress, well developed, alert, awake and Physically active Orientation/consciousness: patient oriented x3 HEENT: Head: Yes normal to inspection, Yes normocephalic and Yes atraumatic Eyes: General: appearance normal, both eyes and all related structures Neck: Neck: Yes normal visual inspection, Yes full ROM, Yes no meningeal signs, Yes trachea midline and Yes supple Chest: Chest palpation & inspection: normal inspection of the chest Resp: Other: no appreciable rales, rhonchi, wheezing Effort & Inspection: normal respiratory effort Cardio: Rate: regular rate Rhythm: regular rhythm GI: Inspection: Yes normal to inspection, No Abdominal wall edema and No distended Palpation (GI): Soft to palpation, not firm, nontender, no guarding and not rigid Skin: General skin exam: no rashes or lesions noted Neuro: General: patient oriented x3, tone normal, moves all extremities, no meningeal signs and no focal motor deficits Extrem: Other: appreciable edema R hand, though interval improvement R hand erythema; flexion and extension of R digits and wrist intact; appreciable R radial pulse General: Yes normal to inspection, Yes full ROM and Yes capillary refill normal Psych: Appearance: grossly normal Objective Data Labs 12/23/24 05:02 12/23/24 05:02 Labs: Laboratory Results - last 24 hr 12/22/24 12/22/24 12/22/24 15:11 15:16 16:12 WBC 9.5 RBC 2.49 L D Hgb 7.3 L D Hct 21.1 L D MCV 84.7 MCH 29.3 MCHC 34.6 RDW 14.1 Plt Count 101 L MPV 9.7 Immature Gran % (Auto) Neut % (Auto) Lymph % (Auto) [place] % (Auto) Eos % (Auto) Baso % (Auto) Lymph # (Auto) [place] # (Auto) Eos # (Auto) Baso # (Auto) Abs Immat Gran (auto) Absolute Neuts (auto) Absolute Nucleated RBC 0.000 Nucleated RBC % (auto) 0.0 PT 21.0 H INR 1.8 H Sodium 134 L Potassium 3.7 Chloride 104 Carbon Dioxide 22 Anion Gap 12 BUN 14 Creatinine 0.93 Estim Creat Clear Calc 120.3 Estimated GFR > 60 Random Glucose 144 H Calcium 7.7 L D Phosphorus Magnesium Total Bilirubin 2.4 H Direct Bilirubin 1.2 H AST 24 ALT < 6 Alkaline Phosphatase 84 Total Protein 6.4 L Albumin 2.8 L Hold Yellow Top Stool Occult Blood POSITIVE C. difficile Tox B Gene NEGATIVE Blood Type B Positive Antibody Screen NEGATIVE Crossmatch See Detail 12/22/24 12/22/24 12/22/24 18:56 21:55 Unknown WBC 7.9 4.4 L RBC 2.69 L 2.71 L Hgb 7.9 L 7.9 L Hct 22.6 L 22.7 L MCV 84.0 83.8 MCH 29.4 29.2 MCHC 35.0 34.8 RDW 14.1 14.2 Plt Count 92 L 66 L D MPV 9.9 9.4 Immature Gran % (Auto) 0.4 0.9 H Neut % (Auto) 61.7 64.2 Lymph % (Auto) 20.4 20.6 [place] % (Auto) 16.7 H 12.9 H Eos % (Auto) 0.4 0.9 Baso % (Auto) 0.4 0.5 Lymph # (Auto) 1.6 0.9 L [place] # (Auto) 1.3 H 0.6 Eos # (Auto) 0.0 0.0 Baso # (Auto) 0.0 0.0 Abs Immat Gran (auto) 0.03 0.04 H Absolute Neuts (auto) 4.9 2.8 Absolute Nucleated RBC 0.000 0.000 Nucleated RBC % (auto) 0.0 0.0 PT INR Sodium 136 Potassium 3.8 Chloride 108 Carbon Dioxide 20 L Anion Gap 12 BUN 13 Creatinine 0.80 Estim Creat Clear Calc 139.8 Estimated GFR > 60 Random Glucose 158 H Calcium 7.4 L Phosphorus 4.7 H Magnesium 1.8 Total Bilirubin 2.3 H Direct Bilirubin AST 26 ALT < 6 Alkaline Phosphatase 78 Total Protein 6.3 L Albumin 2.8 L Hold Yellow Top See Note Stool Occult Blood C. difficile Tox B Gene Blood Type Antibody Screen Crossmatch 12/23/24 05:02 WBC 2.6 L RBC 2.71 L Hgb 7.9 L Hct 22.9 L MCV 84.5 MCH 29.2 MCHC 34.5 RDW 14.2 Plt Count 63 L MPV 9.8 Immature Gran % (Auto) 1.2 H Neut % (Auto) 72.6 Lymph % (Auto) 21.9 [place] % (Auto) 3.9 Eos % (Auto) 0.0 Baso % (Auto) 0.4 Lymph # (Auto) 0.6 L [place] # (Auto) 0.1 Eos # (Auto) 0.0 Baso # (Auto) 0.0 Abs Immat Gran (auto) 0.03 Absolute Neuts (auto) 1.9 L Absolute Nucleated RBC 0.000 Nucleated RBC % (auto) 0.0 PT 19.0 H INR 1.6 H Sodium 138 Potassium 4.6 D Chloride 108 Carbon Dioxide 22 Anion Gap 13 BUN 13 Creatinine 0.72 Estim Creat Clear Calc 155.4 Estimated GFR > 60 Random Glucose 142 H Calcium 8.1 L D Phosphorus 4.1 Magnesium 2.0 Total Bilirubin 2.4 H Direct Bilirubin 1.3 H AST 28 ALT < 6 Alkaline Phosphatase 72 Total Protein 7.1 Albumin 3.3 L Hold Yellow Top Stool Occult Blood C. difficile Tox B Gene Blood Type Antibody Screen Crossmatch Microbiology Microbiology Results: Microbiology 12/20/24 15:09 Blood - Venous Blood Culture - Preliminary No growth after 48 hours. 12/20/24 14:54 Blood - Venous Blood Culture - Preliminary No growth after 48 hours. Progress Note: A&P Assessment and plan (1) Cellulitis of right hand: Status: Acute (2) GI bleed: Status: Acute (3) Cirrhosis, alcoholic: Status: Acute Plan Patient is a 34 Y M w/ alcohol misuse, last drink 3 months prior, c/b cirrhosis, initially presenting on 12/20 w/ R hand edema, erythema, admitted medicine for c/f cellulitis; on 11/22, ICU consulted d/t large-volume bright red blood per rectum w/ appreciable acute blood loss anemia and tachycardia N: no acute issues CV: no acute issues; to monitor very closely R: no acute issues GI: bright red blood per rectum, s/p EGD and colonoscopy 12/22 w/o overt source of bleeding; to monitor very closely; alcohol misuse c/b cirrhosis : no acute issues H: acute blood loss anemia, balanced transfusion; avoid chemical DVT prophylaxis, mechanical devices ID: R hand cellulitis, empiric meropenem, doxycycline per infectious disease; tetanus booster E: no acute issues; to monitor hypo-/hyper-glycemia P: alcohol misuse, last drink 3 months prior; anxiety Quality Stroke Does the patient have a stroke diagnosis?: No VTE Prior VTE?: No VTE Risk Level:: Medical - moderate - high VTE Device Contraindication: N/A - Device Ordered VTE Drug Contraindication: N/A - Med Ordered
[2024-12-23 09:55] LABS: Adenovirus F 40/41 Not Detected (Not Detect.); Astrovirus Not Detected (Not Detect.); Campylobacter Not Detected (Not Detect.); Cryptosporidium Not Detected (Not Detect.); Cyclospora cayetanensis Not Detected (Not Detect.); E. coli EAEC Not Detected (Not Detect.); E. coli EPEC Not Detected (Not Detect.); E. coli ETEC Not Detected (Not Detect.); E. coli STEC Not Detected (Not Detect.); Entamoeba histolytica Not Detected (Not Detect.); Giardia lamblia Not Detected (Not Detect.); Norovirus GI/GII Not Detected (Not Detect.); Plesiomonas shigelloides Not Detected (Not Detect.); Rotavirus A Not Detected (Not Detect.); Salmonella Not Detected (Not Detect.); Sapovirus Not Detected (Not Detect.); Shigella sp./EIEC Not Detected (Not Detect.); Vibrio Not Detected (Not Detect.); Vibrio Cholerae Not Detected (Not Detect.); Yersinia enterocolitica Not Detected (Not Detect.)
[2024-12-23] MEDS: Doxycycline Hyclate 100 MG in 0.9 % Sodium Chloride 250 ML 166.67 MG IV ×2 (10:32→21:04)
[2024-12-23] MEDS: Tetanus Immune Globulin/PF 250 UNIT SYRINGE IM (10:32)
[2024-12-23] MEDS: Furosemide 20 MG/2 ML VIAL 10 MG IVPUSH (10:32)
[2024-12-23 19:30] LABS: Hematocrit 21.8 % (42.0-52.0); Hemoglobin 7.8 g/dl (14.0-18.0); Mean Corpuscular HGB Conc 35.8 g/dl (31.0-36.0); Mean Corpuscular Hemoglobin 29.9 pg (27.0-33.0); Mean Corpuscular Volume 83.5 fL (80.0-98.0); Mean Platelet Volume 10.3 fL (9.4-12.4); Red Blood Count 2.61 X10*6/uL (4.60-5.80); Red Cell Distribution Width 14.5 % (11.0-16.0)
[2024-12-23 19:38] LABS: Platelet Count 74 X10*3/uL (160-400)
[2024-12-23 19:44] LABS: Anion Gap 13 (12-20); Blood Urea Nitrogen 13 mg/dL (9-16); Calcium 8.6 mg/dL (8.4-10.2); Carbon Dioxide 21 mmol/L (22-29); Chloride 109 mmol/L (96-108); Creatinine Clr Calc Pharmacy 141.6; Estimated Glomerular Filt Rate > 60; Glucose Random 133 mg/dL (60-115); Magnesium 1.9 mg/dL (1.6-2.6); Phosphorus 2.8 mg/dL (2.7-4.5); Potassium 3.9 mmol/L (3.3-5.1); Sodium 139 mmol/L (135-145)
[2024-12-23] MEDS: LORazepam 2 MG/ML VIAL 0.5 MG IVPUSH (21:05)
[2024-12-23] MEDS: Melatonin 3 MG TABLET 6 MG PO (23:47)
[2024-12-24] VITALS (13 sets, daily range): BP systolic 96–134; BP diastolic 46–79; PULSE 64–85; RESP 13–18; TEMP 36.3–37.2; O2SAT 96–99; BMI 26.9
[2024-12-24] MEDS: 0.9 % Sodium Chloride Flush 3 ML SYRINGE IVFLUSH ×2 (00:09→08:46)
--- NOTE | 2024-12-24 04:44 | PM.EVENT ---
Documented by User: Johnson Friedmna NP 12/24/24 04:46 Event Note Date of Service: 12/24/24 Event Note: ?34-year-old male with a past medical history of alcohol abuse,? cirrhosis, sober since august of 2024 and being followed by [facility] admitted? on 12/20/2024? with right hand cellulitis to Hospital Medicine,? transferred to ICU on 12/22/2024? due to bright red per rectum treated with 2RBCs, 1 FFP, 1 platelets. S/p EGD and colonoscopy 12/[address] Ochoa, withoutovert source of bleeding. ?Right hand cellulitis being treated with meropenem and doxycycline. Patient is followed by ID? Patient is stable,? does not require critical care level of care any longer.? Will transfer to Hospital Medicine. Please reach out to ICU team if patient condition worsens. Time Spent With Patient Time: Total time managing care of this patient today ____ minutes. Documented by User: Maria T Cabrera MD 12/24/24 06:42 Event Note Date of Service: 12/24/24
[2024-12-24 05:42] LABS: MANUAL DIFF FLAG NO
[2024-12-24 05:44] LABS: Basophils Percent Auto 0.3 % (0-2); Hematocrit 21.1 % (42.0-52.0); Hemoglobin 7.3 g/dl (14.0-18.0); Imm Gran Abs Auto 0.03 X10*3/uL (0.00-0.03); Imm Gran Pct Auto 0.8 % (0.0-0.4); Lymphocytes Absolute Auto 0.9 X10*3/uL (1.2-4.9); Lymphocytes Percent Auto 21.6 % (20-40); Mean Corpuscular HGB Conc 34.6 g/dl (31.0-36.0); Mean Corpuscular Hemoglobin 29.4 pg (27.0-33.0); Mean Corpuscular Volume 85.1 fL (80.0-98.0); Mean Platelet Volume 10.4 fL (9.4-12.4); Monocytes Absolute Auto 0.4 X10*3/uL (0.1-1.2); Monocytes Percent Auto 9.3 % (2-11); Neutrophils Absolute Auto 2.7 x10*3/uL (2.0-8.3); Platelet Count 81 X10*3/uL (160-400); Red Blood Count 2.48 X10*6/uL (4.60-5.80); Red Cell Distribution Width 14.5 % (11.0-16.0)
[2024-12-24 06:03] LABS: Albumin Level 3.5 g/dL (3.5-5.0); Anion Gap 13 (12-20); Blood Urea Nitrogen 14 mg/dL (9-16); Calcium 8.5 mg/dL (8.4-10.2); Carbon Dioxide 21 mmol/L (22-29); Chloride 110 mmol/L (96-108); Creatinine Clr Calc Pharmacy 162.1; Estimated Glomerular Filt Rate > 60; Glucose Random 117 mg/dL (60-115); Magnesium 2.1 mg/dL (1.6-2.6); Phosphorus 3.7 mg/dL (2.7-4.5); Potassium 3.8 mmol/L (3.3-5.1); Sodium 140 mmol/L (135-145)
[2024-12-24] MEDS: Morphine Sulfate 2 MG/ML CARTRIDGE 1 MG IVPUSH (06:53)
--- NOTE | 2024-12-24 07:21 | HE.PHANOTE ---
Doxy IV to PO Patient meets criteria for IV to PO conversion. Doxy changed from 100mgiv bid to 100mg po bid
--- NOTE | 2024-12-24 08:11 | HO.POSTANES ---
Post Anesthesia Evaluation Post Anesthesia Evaluation Date of Service: 12/24/24 Vital Signs: Vital Signs Temp Pulse Resp BP Pulse Ox O2 Del Method 12/24/24 07:18 98.2 F 74 18 120/73 99 Room Air 12/24/24 06:18 97.4 F 68 18 134/79 98 Room Air 12/24/24 06:00 66 13 109/58 L 96 Room Air 12/24/24 05:00 64 14 102/48 L 96 Room Air 12/24/24 04:00 97.9 F 68 14 114/54 L 97 Room Air 12/24/24 03:00 74 16 96/56 L 96 Room Air 12/24/24 02:00 78 16 104/46 L 96 Room Air 12/24/24 01:00 78 14 113/61 98 Room Air 12/24/24 00:00 98.9 F 83 18 119/71 97 Room Air 12/23/24 23:00 90 14 126/71 97 Room Air 12/23/24 22:00 87 16 95 Room Air 12/23/24 20:54 98.6 F 94 19 110/52 L 97 Room Air Anesthesia: General Endotracheal-GETA Mental Status: Awake Pain Control: Satisfactory Nausea/Vomiting: None Hydration: Adequate Anesthesia-Related Issues: No Anes. Related Issues
[2024-12-24] MEDS: Doxycycline Monohydrate 100 MG CAPSULE PO (08:40)
[2024-12-24] MEDS: Furosemide 20 MG/2 ML VIAL 10 MG IVPUSH (08:40)
[2024-12-24] MEDS: Meropenem 1 GM VIAL IVPUSH (08:40)
--- NOTE | 2024-12-24 09:38 | P.DS_ITS ---
DS: Providers Provider Date of Service: 12/24/24 Date of admission: 12/20/24 15:36 Date of discharge: 12/24/24 Primary care physician: Kallie An DO Consults: 12/20/24 15:12 Consult to Orthopedics Routine Consulting Provider: [facility] Reason for consultation: hand infection 12/21/24 17:12 Consult to Infectious Diseases Routine Consulting Provider: [facility] Reason for consultation: worsening rt hand cellulitis Has provider been notified: No 12/22/24 15:05 Consult to Gastroenterology Routine Consulting Provider: Jerry Pearson Reason for consultation: gi bleed DS: Diagnosis Discharge Diagnosis (1) Cellulitis of right hand: Status: Acute (2) GI bleed: Status: Acute (3) Cirrhosis, alcoholic: Status: Acute DS: Summary Hospital Course Hospital Course: History and physical as per admitting provider. 34yo M with EtOH cirrhosis but sober for past 3 mo, no known DM2, presenting with 4 days of worsening R hand swelling, redness, and pain. Unknown if any trauma other than possibly a family puppy scratching one of his R fingers. No fever or chills. He saw his PCP 3d ago but at that point it wasn't very swollen or red, so nothing was prescribed. No history of MRSA or any kind of skin infection. In the ED, vancomycin and piperacillin-tazobactam were given along with ketorolac and morphine. Sepsis secondary to Right hand cellulitis, fever and tachycardia, normal lactic acid, blood cx neg, treated with IV vancoIV clindamycin 600 mg q.8 hours and IV Unasyn Seen by Orthopedic no indication for drainage , since no abscess noted. Keep arm elevated. Less edema and pain, more ROM. Complete abx treatment. on 12/22/24 patient noted acute rectal bleeding after some diarrhea, no c/o abd pain, vomiting. some nausea and has been tachycardic most of the day but also being treated for right hand cellulitis. Due to patients hx of alcohol liver cirrhosis and active bleeding patient will be tx to ICU for closer monitoring at higher level of care. Discussed with Dr. Cabrera. Also discussed with GI attending, likely plan for scope today, pt made NPO. HH with significant drop, was 9.6/27.4 yesterday, today 7.3/21.1/ 2 units PRBC ordered and pt tx to ICU. ETOH cirrhosis. Patient developed hematochezia after several episodes of diar susannah. His HH dropped from 9.6/27.4 to 7.3/21.1. He received 2 units PRBC. Case was discussed with GI and due to concern for bleeding with hx of Liver cirrhosis, pt was tx to the ICU for close monitoring. He was treated with octreotide, PLT, vit K, PPI. He was scoped overnight on 12/23/24 with findings of internal hemorrhoids, no variceal bleeding or acute other bleeding seen. Patient remained hemodynamically stable and tx back to med floor. Patient received one more unit of PRBC today. He should f/u with GI o/p . continue folic acid, thiamine, rifaximin, magnesium, and furosemide . alcohol cessation encouraged Mental health. continue mirtazapine + sertraline + hydroxyzine + clonidine Time Attestation Discharge Coordination Time (in mins): 45 Quality: Safe Use of Opioids Does Pt have an Active Cancer Diagnosis on the Problem List?: No Quality: Stroke Does the patient have a stroke diagnosis?: No Physical Exam Vital Signs: Vital Signs: Last Vital Signs Temp 98.2 F 12/24/24 07:18 Pulse 74 12/24/24 07:18 Resp 18 12/24/24 07:18 BP 120/73 12/24/24 07:18 Pulse Ox 99 12/24/24 07:18 O2 Del Method Room Air 12/24/24 07:18 BMI result Body Mass Index 26.9 Appearing in no acute distress head is normocephalic atraumatic eyes pupils are PERRLA sclera is anicteric mouth throat mucous membranes are intact and moist neck is supple no lymphadenopathy, no JVD noted lung sounds are clear to auscultation heart regular rate rhythm, clear S1, S2 positive bowel sounds, abdomen is soft, nontender neuro patient is alert x3, no focal deficits DS: Data Data Completed and Pending Completed studies during hospitalization [Text1]: Procedures Detoxification Services for Substance Abuse Treatment (01/17/23) Labs on day of discharge: Laboratory Results - last 24 hr 12/22/24 12/23/24 12/24/24 19:20 19:11 05:29 WBC 5.0 4.0 L RBC 2.61 L 2.48 L Hgb 7.8 L 7.3 L Hct 21.8 L 21.1 L MCV 83.5 85.1 MCH 29.9 29.4 MCHC 35.8 34.6 RDW 14.5 14.5 Plt Count 74 L 81 L MPV 10.3 10.4 Immature Gran % (Auto) 0.8 H Neut % (Auto) 68.0 Lymph % (Auto) 21.6 [place] % (Auto) 9.3 Eos % (Auto) 0.0 Baso % (Auto) 0.3 Lymph # (Auto) 0.9 L [place] # (Auto) 0.4 Eos # (Auto) 0.0 Baso # (Auto) 0.0 Abs Immat Gran (auto) 0.03 Absolute Neuts (auto) 2.7 Absolute Nucleated RBC 0.000 0.000 Nucleated RBC % (auto) 0.0 0.0 Sodium 139 140 Potassium 3.9 3.8 Chloride 109 H 110 H Carbon Dioxide 21 L 21 L Anion Gap 13 13 BUN 13 14 Creatinine 0.79 0.69 Estim Creat Clear Calc 141.6 162.1 Estimated GFR > 60 > 60 Random Glucose 133 H 117 H Calcium 8.6 D 8.5 Phosphorus 2.8 3.7 Magnesium 1.9 2.1 Albumin 3.5 Stl C. cayetanensis PCR Not Detected Stool Rotavirus A PCR Not Detected Stl Adenov F 40/41 PCR Not Detected Stool Astrovirus (PCR) Not Detected Stool Campylobacter PCR Not Detected Stool Cryptosporidium PCR Not Detected Stl Sh Tox Pr E STEC PCR Not Detected Stool E coli O157 PCR Not applicable Stl Enterotoxigenic E PCR Not Detected Stool EPEC (PCR) Not Detected Stool EAEC (PCR) Not Detected Stl E. histolytica PCR Not Detected Stool Giardia Lamblia PCR Not Detected Stl P. shigelloides PCR Not Detected Stool Salmonella PCR Not Detected Stool Sapovirus (PCR) Not Detected Stl Shigella/EIEC PCR Not Detected St Y.enterocolitica PCR Not Detected Stool Vibrio (PCR) Not Detected Stl Vibrio cholerae PCR Not Detected Stl Norovirus GI/GII PCR Not Detected Preliminary micro results at discharge 12/20/24 15:09 Blood Culture - Preliminary Blood - Venous No growth after 48 hours. 12/20/24 14:54 Blood Culture - Preliminary Blood - Venous No growth after 48 hours. Discharge Plan Discharge Anticipated Discharge Date/Time: 12/24/24 09:34 Patient Disposition: Home, Self-Care Discharge Diagnosis: Hemorrhoidal bleeding Right hand cellulitis Referrals: Kallie An DO [Primary Care Provider] - 1 Week Discharge Medications: New doxycycline monohydrate 100 mg Capsule 100 mg PO Q12H Qty: 14 0RF amoxicillin-pot clavulanate 875-125 mg tablet 1 tab PO BID Qty: 14 0RF oxycodone 5 mg tablet 5 mg PO Q8H PRN (Reason: pain) Qty: 9 0RF Rx Instructions: Partial Fill upon patient request. Continued magnesium oxide 400 mg (241.3 mg magnesium) tablet 400 mg PO DAILY furosemide 20 mg tablet 20 mg PO DAILY mirtazapine 15 mg tablet 15 mg PO BEDTIME Xifaxan 550 mg tablet 550 mg PO Q12H folic acid 1 mg tablet 1 mg PO BEDTIME hydroxyzine HCl 10 mg tablet 10 mg PO TID PRN (Reason: anxiety or itching) Discharge Orders: Discharge Order (Routine); Ordered 12/24/24 Ordered By: Maribel Coates Diet: Advance to usual diet Activity on Discharge: As tolerated Stand Alone Forms: Patient Portal Discharge page Print Language: Romanian Care Plan Goals: complete antibiotic treatment Health Concerns: Hemorrhoidal bleeding Right hand cellulitis Plan of Treatment: Follow up with primary care provider as needed Take all medications as prescribed Assessment: See discharge summary Patient Instructions: Doxycycline (By mouth), Amoxicillin/Clavulanate Potassium (By mouth), Oxycodone, Rapid Release (By mouth) Discharge Date/Time: 12/24/24 15:00
[2024-12-24] MEDS: Folic Acid 1 MG in 0.9 % Sodium Chloride 50 ML 100.4 MG IV (11:01)
[2024-12-24] MEDS: oxyCODONE HCl Immed Release 5 MG TABLET PO (12:44)
--- NOTE | 2024-12-24 14:03 | MHC.CM.PN ---
PT CLEARED TO DC HOME TODAY WITH NO SERVICES FAMILY TO TRANSPORT
== END 2024-12-24 15:00 | disposition home or self-care (01) | DRG 383 ==
LOC: HO.ED 15:11 → HO.EDOVER 15:52 → HO.S3 17:35 → HO.IMC 12-22 15:42 → HO.ICU 12-22 15:57 → HO.IMC 12-24 05:48
PROVIDERS: Internal Medicine; Internal Medicine Critical Care Medicine; Physician Assistant Medical; Registered Nurse Community Health; Admitting Provider Family Medicine; Emergency Provider Emergency Medicine; PCP Family Medicine; Visit Provider Nurse Practitioner Acute Care
PROC: 0DJ08ZZ Inspection of Upper Intestinal Tract, Via Natural or Artificial Opening Endoscopic (ICD-10-PCS; principal; 2024-12-22 19:30)
DX: L03.113 Cellulitis of right upper limb (principal); A41.9 Sepsis, unspecified organism; K70.30 Alcoholic cirrhosis of liver without ascites; D62 Acute posthemorrhagic anemia; F10.11 Alcohol abuse, in remission; K62.5 Hemorrhage of anus and rectum; F17.210 Nicotine dependence, cigarettes, uncomplicated; F39 Unspecified mood [affective] disorder; K64.8 Other hemorrhoids; K44.9 Diaphragmatic hernia without obstruction or gangrene; Z71.6 Tobacco abuse counseling; Z79.899 Other long term (current) drug therapy
CPT/HCPCS: 36415; 73120; 80048; 80053; 80076; 82040; 82272; 82565; 83036; 83605; 83735; 84100; 84550; 85025; 85027; 85610; 85652; 86140; 86850; 86900; 86901; 86923; 87040; 87493; 87507; 97110; 97166; 99285; J0131; J0295; J0613; J0736; J1100; J1171; J1650; J1670; J1885; J1940; J2003; J2060; J2185; J2250; J2270; J2354; J2371; J2405; J2470; J2543; J2704; J2765; J3370; J3371; J3430; P9016; P9017; P9047; P9073

== ENCOUNTER → 2024-12-20 15:36 | Outpatient (BNV) | payer OTHER, SELFPAY | PROVIDERS: Admitting Provider Family Medicine; Emergency Provider Emergency Medicine; PCP Family Medicine; Visit Provider Internal Medicine | DX: L03.119 Cellulitis of unspecified part of limb (principal) | CPT/HCPCS: 99222; 99499 ==

== ENCOUNTER → 2024-12-20 15:36 | Outpatient (BNV) | payer OTHER, SELFPAY | PROVIDERS: Admitting Provider Family Medicine; Emergency Provider Emergency Medicine; PCP Family Medicine | DX: L03.113 Cellulitis of right upper limb (principal) | CPT/HCPCS: 99222 ==

== ENCOUNTER → 2024-12-20 15:36 | Outpatient (BNV) | payer OTHER, SELFPAY | PROVIDERS: Admitting Provider Family Medicine; Emergency Provider Emergency Medicine; PCP Family Medicine; Visit Provider Hospitalist | DX: L03.113 Cellulitis of right upper limb (principal); K92.2 Gastrointestinal hemorrhage, unspecified; K70.30 Alcoholic cirrhosis of liver without ascites | CPT/HCPCS: 99222; 99232; 99239; 99499 ==

== ENCOUNTER 2025-06-17 02:49 | Inpatient (IN) | payer OTHER, SELFPAY ==
--- OUTSIDE RECORDS SUMMARY | 2024-04-20 12:00 | XMS_ITS ---
Author Organization [address] [place] [address] [address] [facility] Address [address] [facility] [address] [place], [place] [id number] Care Team Providers Care Wire Preparation Machine Tender Name Role Phone RANDELL SNYDER Primary Care Provider WILL AVITIA Unavailable [phone] ZAHRAA JACOB Unavailable [phone] REASON FOR VISIT med check [id number] AMD Encounters Encounter Location Date Provider Diagnosis [id number] [address] [place] [address] [id number] 04/20/2024 ZAHRAA JACOB Plan Of Treatment No Information Progress Notes * Andrew BAINDOB:[birth year] (35 yo M)Acc No.[id number]:04/20/2024 PROGRESS NOTE Patient: Evelyne RUVALCABASARAH Andrew Lewis Appointment Provider: Katlyn JCAOB DO :1990 A ge:34 Y S ex:Male Date:04/20/2024 C HN#:[id number] Address:[address] [place] [address], Patient Has No Address, [place] [address] Pcp:RANDELL SNYDER Subjective: * Chief Complaints: * 1 . med check [id number] AMD. * Medical History: Objective: * Vitals: Assessment: Plan: * Treatment: * Care Plan Details* * This progress note has not b een verified nor is it considered complete until locked and signed by the provider. Sign off status: Pending * Appointment Provider: Katlyn JACOB, DO Date: 0 04/20/2024 Generated for Mariel starr/Po/Guy on: 0 06/17/2025 03:20 AM EDT
[2025-06-17] VITALS (38 sets, daily range): BP systolic 97–170; BP diastolic 33–93; PULSE 86–160; RESP 13–18; TEMP 33.7–37.7; O2SAT 88–100; BMI 27.6; BMI 28.6
--- NOTE | 2025-06-17 | ECG_ITS ---
Test Reason : WEAKNESS Blood Pressure : */* mmHG Vent. Rate : 116 BPM Atrial Rate : 116 BPM P-R Int : 140 ms QRS Dur : 90 ms QT Int : 346 ms P-R-T Axes : 64 54 50 degrees QTcB Int : 480 ms Sinus tachycardia Possible Lateral infarct , age undetermined Cannot rule out Inferior infarct , age undetermined Abnormal ECG When compared with ECG of 16-Apr-2023 17:49, Vent. rate has increased by 44 bpm Minimal criteria for Inferior infarct are now Present Referred By: Generic ED Physician Electronically Signed By: NILDA RIZO MD
--- NOTE | ~2025-06-17 | XR_ITS ---
EXAMINATION: XR CHEST CLINICAL INFORMATION: intubated COMPARISON: None available. TECHNIQUE: Frontal view of the chest was obtained. FINDINGS: ET tube tip is positioned in the midthoracic trachea. There is new opacity in the left lung base partially obscuring the hemidiaphragm. There is focal opacity in the medial right upper lung with air bronchograms. Chronic size is within normal limits. XR/XR chest 1V IMPRESSION: Properly positioned ET tube. New left basilar density likely represents pneumonia. Probable changes of pneumonia in the medial right upper lung zone. Electronically signed by: Cosmo Dutton MD 06/17/2025 03:37 PM EDT
--- NOTE | ~2025-06-17 | CT_ITS ---
CLINICAL HISTORY: upper and lower GIB CT angiography abdomen and pelvis with contrast. 3-D post processing. Comparison: None provided Findings: Aorta, mesenteric/renal arteries, and iliofemoral systems are within normal limits. No consolidation or effusion. The appearance of the liver suggests hepatocellular pathology such as cirrhosis. There is recanalization of the umbilical vein suggesting an element of portal hypertension. The spleen measures 15.6 x 14.7 x 7.1 cm. The gallbladder and solid organs are otherwise within normal limits. No renal stones. No bowel obstruction, pneumoperitoneum, or pneumatosis. Pelvic contents unremarkable. Normal appendix. No acute fracture. IMPRESSION: 1. Possible cirrhosis with splenomegaly and portal hypertension. 2. No evidence of acute gastrointestinal tract hemorrhage. This document has been electronically signed by: Gene Rocha MD on 06/17/2025 06:49:55
--- OUTSIDE RECORDS SUMMARY | 2025-06-17 03:20 | XMS_ITS | Encounter Summary ---
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 Name Role Phone Elizabethsantimatthew Hutchison Kallie Primary Care Provider + Encounter Details Date Type Department Care Team (Late st Contact Info) Description 01/22/2025 Orders Only [facility] Interventional Radiology [address] [place] [phone] Isabel Ordonez MD [address] [place], [place] [id number] Social History Tobacco Use Types Packs/Day Years Used Date Smoking Tobacco: Some Days Cigarettes 0.1 10 Passive Smoke Exposure: Current Smokeless Tobacco: Current Alcohol Use Standard Drinks/Week Comments Not Currently 0 (1 standard drink = 0.6 oz pure alcohol) handle/ day of liquor Last drank 09/12/24 [facility] Utilities Answer Date Recorded In the past 12 months has th e electric, gas, oil, or water [employer] threatened to shut off services in your [...] Sex Male 6:39 PM EDT Gender Identity Male 01/17/2025 8:53 AM EST Sexual Orientation Straight 01/17/2025 8: 53 AM EST documented as of this encounter Plan of Treatment Upcoming Encounters Date Type Department Care Team (Late st Contact Info) Description 06/18/2025 2:00 PM EDT Follow-Up [address] Family Practice Department [address] [place] [id number] Nela Denton NP [address] [place] [phone] 08/06/2025 3:00 PM EDT Follow-Up [facility] [address] [place] [phone] Angélica Wade MD [address] [place] [id number] 02/25/2026 11:30 AM EDT Social Work [facility] [address] [place] [id number] [address] Transplant Services - -[address] [place] [id number] documented as of this encounter Procedures * Due to [place] state law, this organization might not be sharing negative HIV tests. Procedure Name Priority Date/Time Associated Diagnosis Comments HEART & VASCULAR - SCANNED Routine 01/22/2025 2:56 PM EST documented in this encounter Results * Due to [place] [employer] law, this organization might not be sharing negative HIV tests. * HEART & VASCULAR - SCANNED (01/22/2025 2:56 PM EST) Anatomical Region Laterality Modality Other us Unknown Provider SCANNED PROCEDURES Final Res ult documented in this encounter Visit Diagnoses Not on filedocumented in this encounter Care Teams Plunger Shovel Operator Relationship Specialty Start Date End Date Kallie An DO [address] [place] [address] PCP - General Family Medicine 12/17/24 documented as of this encounter
--- OUTSIDE RECORDS SUMMARY | 2025-06-17 03:21 | XMS_ITS | Clinical Summary ---
Author Organization [facility] Address [address] [place] [address] Phone Care Team Providers Care Swine Genetics Researcher Name Role Phone Kallie An DO Primary Care Provider Unav ailable Allergies No known active allergies Medications folic acid (FOLVITE) 1 mg tablet Take 1 tablet (1 mg total) by mouth 1 (one) time each day. 02/01/2025 Active gabapentin (NEURONTIN) 300 mg capsule Take 1 capsule (300 mg total) by mouth at bedtime. 02/05/2025 Active hydrOXYzine HCL (ATARAX) 10 mg tablet Take 1 tablet (10 mg total) by mouth 3 (three) times a day if needed for anxiety. 12/31/2024 Active mirtazapine (REMERON) 15 mg tablet Take 1 tablet (15 mg total) by mouth at bedtime. 02/26/2025 Active naltrexone (DEPADE) 50 mg tablet Take 1 tablet (50 mg total) by mouth 1 (one) time each day. 03/12/2025 Active Xifaxan 550 mg tablet Take 1 tablet (550 mg total) by mouth every 12 (twelve) hours. Active magnesium oxide (MAG-OX) 400 mg (241.3 elemental magnesium) tablet Take 1 tablet (400 mg total) by mouth 1 (one) time each day. 11/06/2024 Active Active Problems Problem Noted Date Diagnosed Date Anemia 03/21/2025 Encounters Date Type Department Care Team Description 05/14/2025 Telephone Gastroenterology - [address] [phone] Paramjit Gutiérrez MD 04/29/2025 Telephone Gastroenterology - [address] [place] [phone] Jeremiah Chloe, [place] 04/23/2025 Billing Patient Not Present Gastroenterology - [address] [phone] Paramjit Gutiérrez MD Iron deficiency anemia due to chronic blood loss (Primary Dx) 04/01/2025 Telephone Gastroenterology - [address] [phone] Nevin Art [place] 03/25/2025 Telephone Gastroenterology - [address] [phone] Kiarra Albright MD 03/21/2025 1:11 PM EDT - 03/24/2025 4:00 PM EDT Hospital Encounter [facility] [address] [place] [phone] Daren Mancilla MD Ishtiaq, Rizwan, MD Kela, Kashyap Devendrabhai, MD Alcohol withdrawal syndrome without complication ([facility]/HCC V24, [facility]/HCC V28) (Primary Dx); Upper GI bleed; Iron deficiency anemia due to chronic blood loss Discharge Disposition: Home or Self Care from Last 3 Months Surgical History Surgery Date Site/Laterality Comments OTHER SURGICAL HISTORY PROCEDURE: DENIES PREVIOUS SURGERY Medical History Medical History Date Comments Liver cirrhosis ([facility]/HCC V24, [facility]/HCC V28) Family History Medical History Relation Name Comments Coronary artery disease Maternal Grandfather Uterine cancer Paternal Grandmother Relation Name Status Comments Brother Alive Father Alive gout Maternal Grandfather Mother Alive back problems Paternal Grandmother Sister Alive Son Alive Social History Tobacco Use Types Packs/Day Years Used Date Smoking Tobacco: Never Smokeless Tobacco: Never Alcohol Use Standard Drinks/Week Comments Yes 0 (1 standard drink = 0.6 oz pur e alcohol) Interpersonal Safety Answer Date Record ed Physical Abuse 03/21/2025 Verbal Abuse 03/21/2025 Sex and Gender Information Value Date Recorded Sex Assigned at Not on file Legal Sex Male 10:13 AM EST Gender Identity Not on file Sexual Orientation Not on file Obstetrics History Last Filed Vital Signs Vital Sign Reading Time Taken Comments Blood Pressure 116/76 03/24/2025 10:53 AM EDT Pulse 72 03/24/2025 10:53 AM EDT Temperature 36.8 C (98.2 F) 03/24/2025 10:53 AM EDT Respiratory Rate 18 03/24/2025 10:53 AM EDT Oxygen Saturation 97% 03/24/2025 10:53 AM EDT Inhaled Oxygen Concentration - - Weight 90.7 kg (200 lb) 03/21/2025 12:55 PM EDT Height 180.3 cm (5' 11 ) 03/21/2025 12:55 PM EDT Body Mass Index 27.89 03/21/2025 12:55 PM EDT Plan of Treatment Health Maintenance Due Date Last Done Comments Hepatitis A Vaccines (1 of 2 - Risk 2-dose series) 2010 Hepatitis B Vaccines (1 of 3 - 19+ 3-dose series) 2010 Pneumococcal Vaccine: Pediatrics (0 to 5 Years) and At-Risk Patients (6 to 49 Years) (1 of 2 - PCV) 2010 HPV Vaccines (2 - Risk male 3-dose series) 07/10/2013 06/12/2013 COVID-19 Vaccine (1 - 2023-2 5 season) 2024 Depression Screening 11/21/2024 DTaP,Tdap,and Td Vaccines (3 - Td or Tdap) 11/22/2024 11/22/2014, 06/12/2013 HIV Screening 03/21/2025 Social Influencers of Health Screening 03/21/2025 Influenza Vaccine (#1) 2025 Cholesterol Screening (Lipid Panel) 01/22/2030 01/22/2025 Hepatitis C Screening Completed 01/22/2025 HIB Vaccines Aged Out No longer eligi ble based on patient's age to complete this topic IPV Vaccines Aged Out No longer eligi ble based on patient's age to complete this topic MMR Vaccines Aged Out No longer eligi ble based on patient's age to complete this topic Meningococcal ACWY Vaccine Aged Out N o longer eligible based on patient's age to complete this topic Meningococcal B Vaccine Aged Out No l onger eligible based on patient's age to complete this topic RSV Immunization Patients Under 20 months Aged Out No longer eligible b ased on patient's age to complete this topic Varicella Vaccines Aged Out No longer eligible based on patient's age to complete this topic Procedures Procedure Name Priority Date/Time Associated Diagnosis Comments ENDOSCOPY, SMALL BOWEL Routine 2:11 PM EDT ECG ANNOTATED 03/25/2025 LAVENDER - EDTA Routine 03/24/2025 6:07 AM EDT EXTRA TUBES Routine 03/24/2025 6:07 AM EDT CBC WITH AUTO DIFFERENTIAL Routine 03/24/2025 5:57 AM EDT CBC AND DIFFERENTIAL Routine 03/24/2025 5:57 AM EDT COMPREHENSIVE METABOLIC PANEL Routine 03/24/2025 5:57 AM EDT HEMOGLOBIN AND HEMATOCRIT Routine 03/23/2025 6:59 PM EDT CBC WITH AUTO DIFFERENTIAL Routine 03/23/2025 6:15 AM EDT MAGNESIUM Routine 03/23/2025 6:15 AM EDT PHOSPHORUS Routine 03/23/2025 6:15 AM EDT CBC AND DIFFERENTIAL Routine 03/23/2025 6:15 AM EDT COMPREHENSIVE METABOLIC PANEL Routine 03/23/2025 6:15 AM EDT HEMOGLOBIN AND HEMATOCRIT Routine 03/22/2025 8:27 PM EDT HEMOGLOBIN AND HEMATOCRIT Routine 03/22/2025 1:04 PM EDT TRANSFUSE RED BLOOD CELLS Routine 03/22/2025 9:21 AM EDT LIPASE Add-On 03/22/2025 7:46 AM EDT PHOSPHORUS Routine 03/22/2025 7:46 AM EDT MAGNESIUM Routine 03/22/2025 7:46 AM EDT BASIC METABOLIC PANEL Routine 03/22/2025 7:46 AM EDT PREPARE RBC Routine 03/22/2025 7:14 AM EDT COMPLETE BLOOD COUNT Routine 03/22/2025 5:21 AM EDT BASIC METABOLIC PANEL Routine 03/21/2025 11:52 PM EDT TRANSFUSE RED BLOOD CELLS STAT 03/21/2025 10:45 PM EDT TRANSFUSE RED BLOOD CELLS STAT 03/21/2025 7:13 PM EDT TRANSFUSE RED BLOOD CELLS STAT 03/21/2025 4:33 PM EDT MOORE URINE CULTURE TUBE STAT 03/21/2025 3:47 PM EDT URINALYSIS WITH REFLEX MICROSCOPIC AND CULTURE STAT 03/21/2025 3:47 PM EDT URINALYSIS WITH REFLEX MICROSCOPIC AND CULTURE STAT 03/21/2025 3:47 PM EDT CULTURE URINE STAT 03/21/2025 3:47 PM EDT PREPARE RBC STAT 03/21/2025 3:33 PM EDT TYPE AND SCREEN STAT 03/21/2025 2:44 PM EDT TROPONIN I HIGH SENSITIVITY STAT 03/21/2025 2:44 PM EDT CBC WITH AUTO DIFFERENTIAL STAT 03/21/2025 1:41 PM EDT AMMONIA STAT 03/21/2025 1:41 PM EDT CBC AND DIFFERENTIAL STAT 03/21/2025 1:41 PM EDT XR CHEST 2 VIEWS STAT 03/21/2025 1:31 PM EDT LIPASE STAT Add-on 03/21/2025 1:06 PM EDT HEPATIC FUNCTION PANEL STAT Add-on 1:06 PM EDT ETHANOL Add-On 03/21/2025 1:06 PM EDT PROTHROMBIN TIME WITH INR STAT 03/21/2025 1:06 PM EDT ACTIVATED PARTIAL THROMBOPLASTIN TIME STAT 03/21/2025 1:06 PM EDT TROPONIN I HIGH SENSITIVITY STAT 03/21/2025 1:06 PM EDT MAGNESIUM STAT 03/21/2025 1:06 PM EDT BASIC METABOLIC PANEL STAT 03/21/2025 1:06 PM EDT ECG 12-LEAD STAT 03/21/2025 1:00 PM EDT [facility]-74 MINUTES Routine 03/21/2025 12:50 PM EDT from Last 3 Months Results * Endoscopy, small bowel with ileum (04/23/2025 2:11 PM EDT) Anatomical Region Laterality Modality Endoscopy us Historical Provider GI~PROCEDURE ORDERABLES F inal Result * ECG-Annotated (03/25/2025) us Provider Onbase ECG ORDERABLES Final Result * Lavender tube (03/24/2025 6:07 AM EDT) Extra Tube Hold for add-ons. 03/24/2025 8:01 AM EDT [facility] Comment:Auto resulted. Blood Venous blood specimen / Unknown 03/24/2025 6:07 AM EDT 03/24/2025 6:18 AM EDT Arnaldo Bob MD LAB BLOOD ORDERABLE S Final Result [facility] [address] [place] [address], * (ABNORMAL) CBC auto differential (03/24/2025 5:57 AM EDT) Only the most recent of3 resultswithin the time period is included. WBC 3.0(L) 4.8 - 10.8 K/mcL LAB HEMETOLOGY METHOD 03/24/2025 6:49 AM EDT [facility] RBC 2.90(L) 4.50 - 5.50 M/mcL LAB [facility] Hemoglobin 7.4(L) 13.5 - 17.5 g/dL LAB HEMETOLOGY METHOD 03/24/2025 6:49 AM EDT [facility] Hematocrit 24.1(L) 42.0 - 54.0 % LAB HEMETOLOGY METHOD 03/24/2025 6[facility] MCV 82.3 79.0 - 98.0 FL LAB HEMETOLOGY METHOD 03/24/2025 6:[facility] MCH 25.3(L) 27.0 - 32.0 pcg LAB HEMETOLOGY METHOD 03/24/2025 6:49 AM EDT [facility] MCHC 30.7(L) 32.0 - 37.0 g/dL LAB HEMETOLOGY METHOD 03/24/2025 6:[facility] RDW 19.8(H) 11.0 - 15.0 % LAB HEMETOLOGY METHOD 03/24/2025 6:49 [facility] Platelets 52(L) 130 - 400 K/mcL LAB HEMETOLOGY METHOD 03/24/2025 6:49 AM [facility] MPV LAB HEMETOLOGY METHOD 03/24/2025 6:49 AM [facility] Comment:Not Measured NRBC 0.0 <1.0 % LAB HEMETOLOGY METHOD 03/24/2025 6:49 AM [facility] NRBC Absolute 0.00 <0.10 K/mcL LAB HEMETOLOGY METHOD 03/24/2025 6:49 AM [facility] Neutrophils Relative 38.1 % LAB HEMETOLOGY METHOD 03/24/2025 6:49 AM [facility] Lymphocytes Relative 40.5 % LAB HEMETOLOGY METHOD 03/24/2025 6:49 AM [facility] Monocytes Relative 16.1 % LAB HEMETOLOGY METHOD 03/24/2025 6:49 AM [facility] Eosinophils Relative 4.3 % LAB HEMETOLOGY METHOD 03/24/2025 6:49 AM [facility] Basophils Relative 0.7 % LAB HEMETOLOGY METHOD 03/24/2025 6:49 AM [facility] Immature Granulocytes Relative 0.3 % LAB HEMETOLOGY METHOD 03/24/2025 6:49 AM [facility] Neutrophils Absolute 1.14(L) 1.50 - 7.00 K/mcL LAB HEMETOLOGY METHOD 03/24/2025 6:49 AM [facility] Lymphocytes Absolute 1.21 1.00 - 5.00 K/mcL LAB HEMETOLOGY METHOD 03/24/2025 6:49 AM [facility] Monocytes Absolute 0.48 0.20 - 1.00 K/mcL LAB HEMETOLOGY METHOD 03/24/2025 6:49 AM [facility] Eosinophils Absolute 0.13 0.00 - 0.50 K/mcL LAB HEMETOLOGY METHOD 03/24/2025 6:49 AM T [facility] Basophils Absolute 0.02 0.00 - 0.20 K/[facility] 03/24/2025 6:49 AM T [facility] Immature Granulocytes Absolute 0.01 0.00 - 0.03 K/[facility] 03/24/2025 6:49 AM T [facility] Blood Venous blood specimen / Unknown Venipuncture / Unknown 03/24/2025 5:57 AM EDT 03/24/2025 6:17 AM EDT Maria POSEY LAB BLOOD ORDERABLES Final Result [facility] [address] [place] [address], * (ABNORMAL) Comprehensive metabolic panel (03/24/2025 5:57 AM EDT) Only the most recent of2 resultswithin the time period is included. Sodium 138 133 - 145 mmol/L LAB CHEMISTRY METHOD 03/24/2025 7:03 AM [facility] Potassium 3.5 3.5 - 5.5 mmol/L LAB CHEMISTRY METHOD 03/24/2025 7:03 AM [facility] Chloride 106 96 - 110 mmol/L LAB CHEMISTRY METHOD 03/24/2025 7:03 AM [facility] CO2 26 21 - 32 mmol/L LAB CHEMISTRY METHOD 03/24/2025 7:03 AM [facility] Anion Gap 6 3 - 11 LAB CHEMISTRY METHOD 03/24/2025 7:03 AM [facility] Glucose 92 70 - 100 mg/dL LAB CHEMISTRY METHOD 03/24/2025 7:03 AM [facility] BUN 7 5 - 25 mg/dL LAB CHEMISTRY METHOD 03/24/2025 7:03 AM [facility] Creatinine 0.71 0.70 - 1.30 mg/dL LAB CHEMISTRY METHOD 03/24/2025 7:03 AM [facility] eGFR 123 >=60 mL/min/1. 73m2 LAB CHEMISTRY METHOD 03/24/2025 7:03 AM [facility] Comment:Calculation based on the Chronic Kidney Disease Epidemiology Collaboration (CKD-EPI) equation refit without adjustment for race. BUN/Creatinine Ratio 9.9 LAB CHEMISTRY METHOD 03/24/2025 7:03 AM [facility] Calcium 8.2(L) 8.5 - 10.5 mg/dL LAB CHEMISTRY METHOD 03/24/2025 7:03 AM [facility] AST (SGOT) 120(H) 10 - 42 unit/L LAB CHEMISTRY METHOD 03/24/2025 7:03 AM [facility] ALT (SGPT) 29 10 - 60 unit/L LAB CHEMISTRY METHOD 03/24/2025 7:03 AM [facility] Alkaline Phosphatase 124(H) 42 - 121 unit/L LAB CHEMISTRY METHOD 03/24/2025 7:03 AM [facility] Total Protein 6.1 6.0 - 8.0 g/dL LAB CHEMISTRY METHOD 03/24/2025 7:03 AM [facility] Albumin 2.8(L) 3.2 - 5.0 g/dL LAB CHEMISTRY METHOD 03/24/2025 7:03 AM [facility] Total Bilirubin 1.4 0.0 - 1.4 mg/dL LAB CHEMISTRY METHOD 03/24/2025 7:03 AM [facility] Blood Venous blood specimen / Unknown Venipuncture / Unknown 03/24/2025 5:57 AM EDT 03/24/2025 6:17 AM EDT us Maria L Fleurent PA LAB BLOOD ORDERABLES Final Result Performing Organization Address City/[facility]/ZIP Co de Phone Number [facility] [address] [place] [address], [place] [phone] * (ABNORMAL) Hemoglobin and hematocrit (03/23/2025 6:59 PM EDT) Only the most recent of3 resultswithin the time period is included. Hemoglobin 7.1(L) 13.5 - 17.5 g/dL LAB HEMETOLOGY METHOD 03/23/2025 7:38 PM EDT [facility] Hematocrit 22.8(L) 42.0 - 54.0 % LAB HEMETOLOGY METHOD 03/23/2025 7:38 PM EDT [facility] Blood Venous blood specimen / Unknown Venipuncture / Unknown 03/23/2025 6:59 PM EDT 03/23/2025 7:21 PM EDT Arnaldo Bob MD LAB BLOOD ORDERABLE S Final Result Performing Organization Address [facility] de Phone Number [facility] [address] [place] [address], [place] [phone] * Phosphorus (03/23/2025 6:15 AM EDT) Only the most recent of2 resultswithin the time period is included. Phosphorus 4.1 2.5 - 4.5 mg/dL LAB CHEMISTRY METHOD 03/23/2025 8:10 AM EDT [facility] Blood Venous blood specimen / Unknown Venipuncture / Unknown 03/23/2025 6:15 AM EDT 03/23/2025 7:14 AM EDT Maria POSEY LAB BLOOD ORDERABLES Final Result Performing Organization Address City/[facility]/ZIP Co de Phone Number [facility] [address] [place] [address], [place] [phone] * Magnesium (03/23/2025 6:15 AM EDT) Only the most recent of3 resultswithin the time period is included. Magnesium 2.2 1.9 - 2.6 mg/dL LAB CHEMISTRY METHOD 03/23/2025 8:10 AM EDT [facility] Blood Venous blood specimen / Unknown Venipuncture / Unknown 03/23/2025 6:15 AM EDT 03/23/2025 7:14 AM EDT us Maria POSEY LAB BLOOD ORDERABLES Final Result [facility] [address] [place] [address], [place] [phone] * Transfuse RBC (03/22/2025 1:41 PM EDT) Only the most recent of4 resultswithin the time period is included. us Maria Sifuentes PA BLOOD TRANSFUSION ORDERABLE S Final Result * (ABNORMAL) Lipase (03/22/2025 7:46 AM EDT) Only the most recent of2 resultswithin the time period is included. Lipase 89(H) 13 - 75 unit/L LAB CHEMISTRY METHOD 03/22/2025 1:12 PM EDT [facility] Blood Venous blood specimen / Unknown Venipuncture / Unknown 03/22/2025 7:46 AM EDT 03/22/2025 7:50 AM EDT us Maria Sifuentes PA LAB BLOOD ORDERABLES Final Result [facility] [address] [place] [address], [place] [phone] * (ABNORMAL) Basic metabolic panel (03/22/2025 7:46 AM EDT) Only the most recent of3 resultswithin the time period is included. Sodium 140 133 - 145 mmol/L LAB CHEMISTRY METHOD 03/22/2025 8:33 AM [facility] Potassium 3.1(L) 3.5 - 5.5 mmol/L LAB CHEMISTRY METHOD 03/22/2025 8:33 AM [facility] Chloride 105 96 - 110 mmol/L LAB CHEMISTRY METHOD 03/22/2025 8:33 AM [facility] CO2 29 21 - 32 mmol/L LAB CHEMISTRY METHOD 03/22/2025 8:33 AM [facility] Anion Gap 6 3 - 11 LAB CHEMISTRY METHOD 03/22/2025 8:33 AM [facility] Glucose 101(H) 70 - 100 mg/dL LAB CHEMISTRY METHOD 03/22/2025 8:33 AM [facility] BUN 14 5 - 25 mg/dL LAB CHEMISTRY METHOD 03/22/2025 8:33 AM [facility] Creatinine 0.60(L) 0.70 - 1.30 mg/dL LAB CHEMISTRY METHOD 03/22/2025 8:33 AM [facility] eGFR 130 >=60 mL/min/1. 73m2 LAB CHEMISTRY METHOD 03/22/2025 8:33 AM [facility] Comment:Calculation based on the Chronic Kidney Disease Epidemiology Collaboration (CKD-EPI) equation refit without adjustment for race. BUN/Creatinine Ratio 23.3 LAB CHEMISTRY METHOD 03/22/2025 8:33 AM [facility] Calcium 7.8(L) 8.5 - 10.5 mg/dL LAB CHEMISTRY METHOD 03/22/2025 8:33 AM [facility] Blood Venous blood specimen / Unknown Venipuncture / Unknown 03/22/2025 7:46 AM EDT 03/22/2025 7:50 AM EDT Maria POSEY LAB BLOOD ORDERABLES Final Result Performing Organization Address City/[facility]/ZIP Co de Phone Number [facility] [address] [place] [address], * Prepare RBC: 1 Units (03/22/2025 7:14 AM EDT) Only the most recent of2 resultswithin the time period is included. Product Code [id number] 03/22/2025 9:23 AM EDT [facility] Unit Number [id number] 03/22/20 9:23 AM EDT [facility] Crossmatch Compatible 03/22/2025 7:37 AM EDT [facility] Dispense Status Transfused 03/22/2025 9:23 AM EDT [facility] Unit ABO Rh BNEG 03/22/2025 9:23 AM EDT [facility] Unit Expiration Date Time [id number] 03/22/2025 9:23 AM EDT [facility] Unit Blood Type 1700 03/22/2025 9:23 AM EDT [facility] Blood Venous blood specimen / Unknown 03/22/2025 7:14 AM EDT 03/21/2025 3:08 PM EDT Maria POSEY BLOOD BANK PRODUCT ORDERABL ES Final Result [facility] [address] [place] [address], * (ABNORMAL) Complete blood count (03/22/2025 5:21 AM EDT) WBC 3.9(L) 4.8 - 10.8 K/mcL LAB HEMETOLOGY METHOD 03/22/2025 6:49 AM [facility] RBC 2.60(L) 4.50 - 5.50 M/mcL LAB HEMETOLOGY METHOD 03/22/2025 6:49 AM [facility] Hemoglobin 6.6(L) 13.5 - 17.5 g/dL LAB HEMETOLOGY METHOD 03/22/2025 6:49 AM [facility] Hematocrit 21.0(L) 42.0 - 54.0 % LAB HEMETOLOGY METHOD 03/22/2025 6:49 AM [facility] MCV 79.8 79.0 - 98.0 FL LAB HEMETOLOGY METHOD 03/22/2025 6:49 AM [facility] MCH 25.1(L) 27.0 - 32.0 pcg LAB HEMETOLOGY METHOD 03/22/2025 6:49 AM [facility] MCHC 31.4(L) 32.0 - 37.0 g/dL LAB HEMETOLOGY METHOD 03/22/2025 6:49 AM [facility] RDW 20.6(H) 11.0 - 15.0 % LAB HEMETOLOGY METHOD 03/22/2025 6:49 AM [facility] Platelets 61(L) 130 - 400 K/mcL LAB HEMETOLOGY METHOD 03/22/2025 6:49 AM [facility] Comment:previously verified by slide MPV 11.6(H) 7.0 - 11.0 FL LAB HEMETOLOGY METHOD 03/22/2025 6:49 AM [facility] NRBC 0.0 <1.0 % LAB HEMETOLOGY METHOD 03/22/2025 6:49 AM [facility] NRBC Absolute 0.00 <0.10 K/mcL LAB HEMETOLOGY METHOD 03/22/2025 6:49 AM [facility] Blood Venous blood specimen / Unknown Venipuncture / Unknown 03/22/2025 5:21 AM EDT 03/22/2025 6:24 AM EDT us Olga POSEY LAB BLOOD ORDERABLES Final Re sult [facility] [address] [place] [address], [place] [phone] * (ABNORMAL) Urinalysis with reflex microscopic and culture (03/21/2025 3:47 PM EDT) Specific [place] Urine 1.028 1.003 - 1.030 LAB URINALYSIS - AUTOMATED METHOD 03/21/2025 4:34 PM [facility] pH, Urine 6.5 5.0 - 8.0 pH LAB URINALYSIS - AUTOMATED METHOD 03/21/2025 4:34 PM [facility] Leukocytes, Urine Trace(A) Negative LAB URINALYSIS - AUTOMATED METHOD 03/21/2025 4:34 PM [facility] Nitrite, Urine Negative Negative LAB URINALYSIS - AUTOMATED METHOD 03/21/2025 4:34 PM [facility] Protein, Urine 30(A) <=Trace mg/dL LAB URINALYSIS - AUTOMATED METHOD 03/21/2025 4:34 PM [facility] Glucose, Urine Negative Negative mg/dL LAB URINALYSIS - AUTOMATED METHOD 03/21/2025 4:34 PM [facility] Ketones, Urine 15(A) Negative mg/dL LAB URINALYSIS - AUTOMATED METHOD 03/21/2025 4:34 PM [facility] Urobilinogen, Urine >=8.0(A) 0.2 - 1.0 mg/dL LAB URINALYSIS - AUTOMATED METHOD 03/21/2025 4:34 PM [facility] Bilirubin, Urine Negative Negative LAB URINALYSIS - AUTOMATED METHOD 03/21/2025 4:34 PM EDT [facility] Blood, Urine Negative Negative LAB URINALYSIS - AUTOMATED METHOD 03/21/2025 4:34 PM EDT [facility] RBC, Urine 2.0 0 - 4 /HPF LAB URINALYSIS - AUTOMATED METHOD 03/21/2025 4:34 PM EDT [facility] WBC, Urine 1.8 0 - 4 /HPF LAB URINALYSIS - AUTOMATED METHOD 03/21/2025 4:34 PM EDT [facility] Squamous Epithelial, Urine 9 0 - 60 /LPF LAB URINALYSIS - AUTOMATED METHOD [facility]2025 [facility] Bacteria, Urine Negative Negative /HPF LAB URINALYSIS - AUTOMATED METHOD 03/21/2025 4:34 PM [facility] Hyaline Casts, Urine 1.2 0 - 3 /LPF LAB URINALYSIS - AUTOMATED METHOD 03/21/2025 4:34 PM T [facility] Urine Urine specimen obtained by clean catch procedure / Unknown Non-blood Collection / Unknown 03/21/2025 3:47 PM EDT 03/21/2025 3:58 PM EDT us Daren Mancilla MD LAB URINE ORDERABLES Final Result [facility] [address] [place] [address], * Moore urine culture tube (03/21/2025 3:47 PM EDT) Extra Tube Hold for add-ons. 03/21/2025 5:02 PM EDT [facility] Comment:Auto resulted. Urine Urine specimen obtained by clean catch procedure / Unknown Non-blood Collection / Unknown 03/21/2025 3:47 PM EDT 03/21/2025 3:58 PM EDT Daren Mancilla MD LAB URINE ORDERABLES Final Result Performing Organization Address [facility]/ZIP Co de Phone Number [facility] [address] [place] [address], [place] [phone] * Culture urine (03/21/2025 3:47 PM EDT) [facility] Culture, Urine <10,000 cfu/mL Mixed bacterial ezra 03/22/2025 2:27 PM EDT [facility] Urine Urine specimen obtained by clean catch procedure / Unknown Non-blood Collection / Unknown 03/21/2025 3:47 PM EDT 03/21/2025 4:34 PM EDT Daren Mancilla MD LAB MICROBIOLOGY - GENERAL ORDERABLES Final Result Performing Organization Address [facility] de Phone Number [facility] [address] [place] [address], [place] [phone] * Troponin I high sensitivity (03/21/2025 2:44 PM EDT) Only the most recent of2 resultswithin the time period is included. [facility] High Sensitivity Troponin I 7 <=79 ng/L LAB CHEMISTRY METHOD 03/21/2025 4:06 PM EDT [facility] Blood Venous blood specimen / Unknown Venipuncture / Unknown 03/21/2025 2:44 PM EDT 03/21/2025 3:08 PM EDT Narrative [facility] - 03/21/2025 4:06 PM EDT High levels of biotin in samples may falsely decrease hsTroponin values. Use caution when interpreting hsTroponin results in patients taking biotin who exhibit renal impairment (eGFR <60) or in patients taking more than 20 mg/day of biotin. us Daren Mancilla MD LAB BLOOD ORDERABLES Final Result Performing Organization Address [facility] Co de Phone Number [facility] [address] [place] [address], [place] [phone] * Type and screen (03/21/2025 2:44 PM EDT) ABO Group B 03/21/2025 3:56 PM EDT [facility] Rh Type Positive 03/21/2025 3:56 PM EDT [facility] Antibody Screen Negative 03/21/2025 3:56 PM EDT [facility] Blood Venous blood specimen / Unknown Venipuncture / Unknown 03/21/2025 2:44 PM EDT 03/21/2025 3:08 PM EDT Daren Mancilla MD LAB BLOOD BANK TEST ORDERAB LES Final Result Performing Organization Address [facility] de Phone Number [facility] [address] [place] [address], [place] [phone] * (ABNORMAL) Ammonia (03/21/2025 1:41 PM EDT) Pathologist [facility] Ammonia 72(H) 11 - 35 mcmol/L LAB CHEMISTRY METHOD 03/21/2025 2:50 PM EDT [facility] Blood Venous blood specimen / Unknown Venipuncture / Unknown 03/21/2025 1:41 PM EDT 03/21/2025 2:14 PM EDT Daren Mancilla MD LAB BLOOD ORDERABLES Final Result Performing Organization Address [facility] Co de Phone Number [facility] [address] [place] [address], [place] [phone] * XR Chest 2 Views (03/21/2025 1:31 PM EDT) Anatomical Region Laterality Modality Body Radiographic Melanie ging 03/21/2025 1:37 PM EDT Impressions 03/21/2025 1:38 PM EDT FINDINGS/IMPRESSION: No congestive heart failure or pneumonia. No acute osseous abnormality. -------- FINAL REPORT -------- Dictated By: Angie Hanson Dictated Date: 03/21/2025 13:37 ET Assigned Physician: Angie Hanson Reviewed and Electronically Signed By: Angie Hanson Signed Date: 03/21/2025 13:38 ET Workstation ID: [id number] Transcribed By: Self Edit Transcribed Date: 03/21/2025 13:37 ET Narrative 03/21/2025 1:38 PM EDT XR CHEST 2 VIEWS INDICATION: chest pain TECHNIQUE: XR CHEST 2 VIEWS COMPARISON: No priors available. Procedure Note Angie Hanson MD - 03/21/2025 XR CHEST 2 VIEWS INDICATION: chest pain TECHNIQUE: XR CHEST 2 VIEWS COMPARISON: No priors available. IMPRESSION: FINDINGS/IMPRESSION: No congestive heart failure or pneumonia. No acuteosseous abnormality. -------- FINAL REPORT -------- Dictated By: Angie Hanson Dictated Date: 03/21/2025 13:37 ET Assigned Physician: Angie Hanson Reviewed and Electronically Signed By: Angie Hanson Signed Date: 03/21/2025 13:38 ET Workstation ID: [id number] Transcribed By: Self Edit Transcribed Date: 03/21/2025 13:37 ET us Daren Mancilla MD IMG XR PROCEDURES Final Res ult * APTT (03/21/2025 1:06 PM EDT) aPTT 32.7 24.1 - 39.3 sec LAB COAGULATION METHOD 03/21/2025 2:32 PM EDT [facility] Blood Venous blood specimen / Unknown Venipuncture / Unknown 03/21/2025 1:06 PM EDT 03/21/2025 2:19 PM EDT Daren Mancilla MD LAB BLOOD ORDERABLES Final Result [facility] [address] [place] [address], [place] [phone] * (ABNORMAL) Protime-INR (03/21/2025 1:06 PM EDT) [facility] Protime 18.5(H) 10.6 - 13.9 sec LAB COAGULATION METHOD 03/21/2025 2:32 PM EDT [facility] INR 1.5 LAB COAGULATION METHOD 03/21/2025 2:32 PM EDT [facility] Blood Venous blood specimen / Unknown Venipuncture / Unknown 03/21/2025 1:06 PM EDT 03/21/2025 2:19 PM EDT Daren Mancilla MD LAB BLOOD ORDERABLES Final Result Performing Organization Address [facility] de Phone Number [facility] [address] [place] [address], [place] [phone] * (ABNORMAL) Ethanol (03/21/2025 1:06 PM EDT) [facility] Ethanol Level 126(H) 0 - 10 mg/dL LAB CHEMISTRY METHOD 03/21/2025 3:10 PM EDT [facility] Blood Venous blood specimen / Unknown Venipuncture / Unknown 03/21/2025 1:06 PM EDT 03/21/2025 2:19 PM EDT Daren Mancilla MD LAB BLOOD ORDERABLES Final Result Performing Organization Address [facility] Co de Phone Number [facility] [address] [place] [address], [place] [phone] * (ABNORMAL) Hepatic function panel (03/21/2025 1:06 PM EDT) [facility] Total Protein 7.6 6.0 - 8.0 g/dL LAB CHEMISTRY METHOD 03/21/2025 3:10 PM EDT [facility] Albumin 3.5 3.2 - 5.0 g/dL LAB CHEMISTRY METHOD 03/21/2025 3:10 PM EDT [facility] Total Bilirubin 1.3 0.0 - 1.4 mg/dL LAB CHEMISTRY METHOD 03/21/2025 3:10 PM EDT [facility] Bilirubin, Direct 0.6(H) 0.0 - 0.3 mg/dL LAB CHEMISTRY METHOD 03/21/2025 3:10 PM EDT [facility] Bilirubin, Indirect 0.7 0.0 - 1.1 mg/dL LAB CHEMISTRY METHOD 03/21/2025 3:10 PM EDT [facility] ALT (SGPT) 29 10 - 60 unit/L LAB CHEMISTRY METHOD 03/21/2025 3:10 PM EDT [facility] AST (SGOT) 136(H) 10 - 42 unit/L LAB CHEMISTRY METHOD 03/21/2025 3:10 PM EDT [facility] Alkaline Phosphatase 107 42 - 121 unit/L LAB CHEMISTRY METHOD 03/21/2025 3:10 PM EDT [facility] Blood Venous blood specimen / Unknown Venipuncture / Unknown 03/21/2025 1:06 PM EDT 03/21/2025 2:19 PM EDT us Daren Mancilla MD LAB BLOOD ORDERABLES Final Result [facility] [address] [place] [address], * ECG 12 lead (03/21/2025 1:00 PM EDT) Ventricular Rate ECG 96 BPM GEMUSE Atrial Rate 96 BPM GEMUSE P-R Interval 146 ms GEMUSE QRS Duration 104 ms GEMUSE Q-T Interval 406 ms GEMUSE QTc 512 ms GEMUSE P Wave [place] 67 degrees GEMUSE R [place] 35 degrees GEMUSE T [place] 41 degrees GEMUSE ECG Interpretation Normal sinus rhythm Prolonged QT Abnormal ECG No previous ECGs available Confirmed by LAZARO ARNOLD ([id number]) on 03/21/2025 6:18:57 PM GEMUSE 03/21/2025 1:00 PM EDT 03/21/2025 6:18 PM EDT us Daren Mancilla MD ECG ORDERABLES Final Resul t GEMUSE * [facility] 30-74 MINUTES (03/21/2025 12:50 PM EDT) Narrative Daren Mancilla MD - 03/21/2025 12:50 PM EDT Daren Mancilla MD 04/02/2025 9:44 PM Critical Care Performed by: Daren Mancilla MD Authorized by: Daren Mancilla MD Critical care provider statement: Critical care time (minutes): 35 Total face to face critical care time (minutes): 35 Critical care was necessary to treat or prevent imminent or life-threatening deterioration of the following conditions: Circulatory failure Critical care was time spent personally by me on the following activities: Discussions with consultants and re-evaluation of patient's condition Face to face critical care was time spent personally by me on the following activities: Discussions with consultants I assumed direction of critical care for this patient from another provider in my specialty: no Comments: Acquired 3 units PRBCs for life-threatening hemorrhagic anemia. Possible upper GI bleeding. GI consultation. us Daren Mancilla MD IN CLINIC/BEDSIDE ORDERABLE S Final Result from Last 3 Months Insurance [facility] PUBLIC [employer] Advance Directives * Full Code - Default (Latest Code Status on File) Date Activated Date Inactivated Comments 03/21/2025 3:46 PM 03/24/2025 6:05 PM This is order is used when code status has not been discussed with the patient, or code status is otherwise unknown/unconfirmed To update the patient's code status, place a code status order. Do not modify or discontinue any currently active code status orders. Care Teams [employer] Researcher Relationship Specialty Start Date End Date Kallie An DO [address] [place] [address] PCP - General Family Medicine 04/23/25 DR. TOM GUNTER Gastroenterology 04/29/25
[2025-06-17 03:25] LABS: MANUAL DIFF FLAG NO
[2025-06-17 03:25] LABS: OBS Int Ctl Valid YES
[2025-06-17 03:26] LABS: OBS1 POSITIVE (NEGATIVE)
[2025-06-17 03:28] LABS: Hematocrit 32.8 % (42.0-52.0); Hemoglobin 10.8 g/dl (14.0-18.0); Imm Gran Abs Auto 0.02 X10*3/uL (0.00-0.03); Imm Gran Pct Auto 0.2 % (0.0-0.4); Lymphocytes Absolute Auto 1.7 X10*3/uL (1.2-4.9); Mean Corpuscular HGB Conc 32.9 g/dl (31.0-36.0); Mean Corpuscular Hemoglobin 24.6 pg (27.0-33.0); Mean Corpuscular Volume 74.7 fL (80.0-98.0); NRBC Abs Auto 0.000 X10*3/uL (0.0-0.012); NRBC Pct Auto 0.0 /100WBC (0.0-0.2); Red Blood Count 4.39 X10*6/uL (4.60-5.80); White Blood Count 8.8 X10*3/uL (4.8-10.8)
--- NOTE | 2025-06-17 03:31 | PC.NURSE ---
Pt ambulated with one assist to bathroom to move bowels. Bowel movement noted to have bright red blood. Reported to Dr. Palmer and Bradley Foy. Pt ambulated back to bed with one assist. Pt continually falls asleep and then wakes up and is uncertain of what is happening and where he is. Explained to patient where he is. Pt requesting drink and explained to pt that due to report of vomiting blood earlier as well as bloody bowel movement at hospital that the providers do not want him eating and drinking anything at this time.
[2025-06-17 03:35] LABS: Platelet Count 96 X10*3/uL (160-400)
[2025-06-17 03:41] LABS: Alanine Aminotransferase 47 U/L (0-40); Albumin Level 3.8 g/dL (3.5-5.0); Alkaline Phosphatase 187 U/L (39-117); Anion Gap 20 (12-20); Aspartate Amino Transferase 331 U/L (5-37); Blood Urea Nitrogen 8 mg/dL (9-16); Calcium 8.1 mg/dL (8.4-10.2); Carbon Dioxide 22 mmol/L (22-29); Chloride 105 mmol/L (96-108); Creatinine Clr Calc Pharmacy 145.8; Estimated Glomerular Filt Rate > 60; Magnesium 1.7 mg/dL (1.6-2.6); Potassium 3.7 mmol/L (3.3-5.1); Sodium 143 mmol/L (135-145); Total Protein 7.7 g/dL (6.5-8.0)
[2025-06-17 03:45] LABS: INTERNATIONAL NORM RATIO 2.1 (0.9-1.1); Prothrombin Time 23.6 SEC (10.9-12.4)
--- NOTE | 2025-06-17 04:17 | ED.GIBLEED ---
HPI - GI Bleed General Chief complaint: ETOH/Substance Use Stated complaint: Vomiting blood hx alcoholism drank 1hr ago Time Seen by Provider: 06/17/25 03:23 Source: patient, family and EMS Mode of arrival: EMS Limitations: altered mental status and other (Intoxication) History of Present Illness ED Provider: Dr. Myrna Palmer HPI Narrative: 35-year-old male with extensive medical history including alcohol use disorder, history of alcohol withdrawal seizure, alcoholic liver cirrhosis, presenting via EMS with hematemesis and hematochezia. Patient is unable to give much history secondary to his clinical condition. He is intoxicated. Last drink of alcohol was around 10:00 p.m. tonight. Mom admits that he had a recent endoscopy performed at another hospital which showed no evidence of varices. He was found to be anemic with a hemoglobin of 4 and had received blood transfusions at that time. This was about a month ago. Tonight, the patient began vomiting around midnight. Mom reports that was Gatorade that may have been red in color, but that there was also large blood clots in the vomit. He has had at least 4 large volume bloody stools that appear to be melanotic. Patient denies bleeding prior to today though he did have a significantly low hemoglobin level. No reported fever. Does feel extremely weak and dizzy. No anticoagulant use. Related Data Home Medications ?Medication ?Instructions ?Recorded ?Confirmed folic acid 1 mg tablet 1 mg PO BEDTIME 12/20/24 12/20/24 furosemide 20 mg tablet 20 mg PO DAILY 12/20/24 12/20/24 hydroxyzine HCl 10 mg tablet 10 mg PO TID PRN anxiety or itching 12/20/24 12/20/24 magnesium oxide 400 mg (241.3 mg 400 mg PO DAILY 12/20/24 12/20/24 magnesium) tablet mirtazapine 15 mg tablet 15 mg PO BEDTIME 12/20/24 12/20/24 rifaximin 550 mg tablet (Xifaxan) 550 mg PO Q12H 12/20/24 12/20/24 Previous Rx's ?Medication ?Instructions ?Recorded amoxicillin 875 mg-potassium 1 tab PO BID #14 tabs 12/24/24 clavulanate 125 mg tablet doxycycline monohydrate 100 mg 100 mg PO Q12H #14 caps 02/03/25 capsule oxycodone 5 mg tablet 5 mg PO Q8H PRN pain #9 tabs 12/24/24 Allergies Allergy/AdvReac Type Severity Reaction Status Date / Time No Known Allergies Allergy Verified 06/17/25 03:02 Review of Systems Review of Systems: As per HPI Yes Unobtainable due to mental status [facility] Past Medical History [facility] Narrative: Alcohol use disorder, alcoholic liver cirrhosis Source: obtained from family (mother) 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 Alcohol use disorder Social History Social History Household Members: None Housing: Apartment Do you presently have visiting nurse or other home services: No Alcohol intake: current Alcohol intake frequency: former alcohol drinker Alcohol type: hard liquor Patient Tobacco Use Status: Current everyday Tobacco user Tobacco use type: Cigarette Cigarettes Per Day: 3 e-Cigarette/Vaping Use: Never Used Substance Use Type: Prescription Drugs Advance Directives: Yes Advance Directives on File: Yes Advance Directives Date on File: 01/18/23 service: No Current occupational status: unemployed Sexual orientation: Straight/Heterosexual Physical Exam Exam: Exam: GENERAL: Ill-Appearing, appears uncomfortable. SKIN: Pale, slightly jaundiced, warm, dry, no rashes noted. HEENT:? Normocephalic, atraumatic, no stridor, dry mucous membranes, dentition intact, EOMI. NECK: Soft, supple, full ROM, midline structures nontender, no step-offs, no deformities, no lymphadenopathy. CHEST: Heart regular tachycardia, no murmurs, symmetric chest rise and fall. PULMONARY: Clear to auscultation bilaterally, diminished at the bases, no labored breathing, no wheezes/rhales/rhonchi. ABDOMINAL: Soft, nondistended, diffusely tender to palpation without rebound or guarding, positive bowel sounds in all quadrants. : Guaiac-positive, melanotic stool in the vault. MUSCULOSKELETAL: Normal tone, full range of motion, no deformities, no peripheral edema. NEURO: Alert and oriented x3, CN II through XII intact, equal strength and sensation bilateral upper and lower extremities, no focal neurologic deficits.? PSYCHIATRIC: Flat affect, fluid speech, poor eye contact and appropriate demeanor. Vital Signs: Vital Signs: BMI result Body Mass Index 27.6 Medications Administered Discontinued Medications Generic Name Dose Route Start Last Admin Trade Name Kings PRN Reason Stop Dose Admin Ceftriaxone Sodium 2 gm 06/17/25 04:36 06/17/25 05:41 Ceftriaxone Sodium 2 Gm Vial IVPUSH 06/17/25 04:37 2 gm ONCE ONE Administration Diazepam 5 mg 06/17/25 04:25 06/17/25 04:40 Diazepam 10 Mg/2 Ml Cartridge IVPUSH 06/17/25 04:26 5 mg STAT STA Administration Diazepam 5 mg 06/17/25 06:32 06/17/25 06:39 Diazepam 10 Mg/2 Ml Cartridge IVPUSH 06/17/25 06:33 5 mg STAT STA Administration Lactated Ringer's 1,000 mls @ 999 mls/hr 06/17/25 04:25 06/17/25 05:41 Lr IV 06/17/25 05:25 Infused .Q1H1M ONE Infusion Lactated Ringer's 1,000 mls @ 999 mls/hr 06/17/25 06:33 06/17/25 06:38 Lr IV 06/17/25 07:33 999 mls/hr .Q1H1M ONE Administration Iohexol 80 ml 06/17/25 05:08 06/17/25 05:08 Iohexol 350 Mg/Ml 100 Ml Infus..Btl IV 06/17/25 05:09 80 ml ONCE ONE Administration Ondansetron HCl 4 mg 06/17/25 05:16 06/17/25 05:35 Ondansetron Hcl 4 Mg/2 Ml Vial IVPUSH 06/17/25 05:17 4 mg ONCE ONE Administration Pantoprazole Sodium 40 mg 06/17/25 04:25 06/17/25 04:40 Pantoprazole Sodium 40 Mg/10 Ml Vial IVPUSH 06/17/25 04:26 40 mg ONCE ONE Administration Medical Decision Making Medical Decision Making [facility] Narrative: Patient presents today with a chief complaint of possible GI bleed. Differential diagnosis includes rectal bleeding from sources such as a fissure, hemorrhoid, lower GI bleed, diverticulitis, upper GI bleeding, peptic ulcer disease, perforation, esophageal bleed, among many others. Broad-based work-up was initiated based on the patient's presentation including CTA, blood work and EKG. Patient is currently hemodynamically stable though slightly tachycardic. Blood pressures are remaining with maps greater than 65. Plan for Valium to avoid alcohol withdrawal seizure. 6:14 AM 06/17/2025 (Dr. Myrna Palmer D.O.) lactic acid level significantly elevated at 6.1. Patient is now flagging for sepsis, though I do believe that this is at least partially type 2 lactic acidosis given his history of liver cirrhosis. He remains afebrile and part of his tachycardia and hypotension is secondary to the GI bleeding/alcohol withdrawal/intoxication as well. He did receive a dose of Rocephin for GI bleeding. He also received a L of IV fluid. Avoiding further IV fluid administration secondary to his GI bleeding and potential for worsening anemia. Will give blood if his H&H drops significantly. Because H&H remained stable he can have another L of IV fluid. Repeating H&H now. 6:40 AM 06/17/2025 (Dr. Myrna Palmer, EdiliaO.) repeat H&H has dropped by only about 1g. He continues to have bloody bowel movements however. While sitting up to the bedside commode because he could not use a bed gutierrez, the patient became significantly tachycardic into the 140's, reporting that he felt like he was going to have another seizure. I have ordered Valium and IV fluids. Since his H&H did not drop by much and elevated lactic acid level, giving an additional L of IV fluids. 7:50 AM 06/17/2025 (Dr. Myrna Palmer, Katlyn.O.) case discussed with machine rope maker, Dr. Zamora, recommends 2 units of FFP, 10 mg of vitamin K, octreotide bolus and drip. He will take him to endoscopy later today. Case discussed with group controller on-call, Dr. Hess, who will evaluate the patient as well. Case discussed with hospitalist, Dr. Kaiser who is aware that the patient is being evaluated by the ICU however, I feel that he is likely stable for the floor at this point. Signing out to oncoming provider pending ICU evaluation, final disposition. Differential Diagnosis Differential Diagnoses: The differential diagnosis associated with the presentation includes (As above) Admission/Observation Consideration of admission/observation: Escalation of care including admission/observation considered Consult Healthcare Provider Management of the patient was discussed with: Hospitalist and Lumber Marker (Outbound Supervisor, machine rope maker) Lab Data MDM Lab Attestation statement: I reviewed the patient's lab results. 06/17/25 06:15 06/17/25 03:16 Labs: Lab Results 06/17/25 06/17/25 06/17/25 Range/Units 03:16 03:20 03:33 WBC 8.8 (4.8-10.8) X10*3/uL RBC 4.39 L D (4.60-5.80) X10*6/uL Hgb 10.8 L D (14.0-18.0) g/dl Hct 32.8 L D (42.0-52.0) % MCV 74.7 L (80.0-98.0) fL MCH 24.6 L (27.0-33.0) pg MCHC 32.9 (31.0-36.0) g/dl RDW 19.7 H (11.0-16.0) % Plt Count 96 L (160-400) X10*3/uL MPV Not Reportable Immature Gran % (Auto) 0.2 (0.0-0.4) % Neut % (Auto) 73.4 H (45-73) % Lymph % (Auto) 18.9 L (20-40) % Meeker % (Auto) 6.8 (2-11) % Eos % (Auto) 0.2 (0-4) % Baso % (Auto) 0.5 (0-2) % Lymph # (Auto) 1.7 (1.2-4.9) X10*3/uL Meeker # (Auto) 0.6 (0.1-1.2) X10*3/uL Eos # (Auto) 0.0 (0.0-0.4) X10*3/uL Baso # (Auto) 0.0 (0.0-0.2) X10*3/uL Abs Immat Gran (auto) 0.02 (0.00-0.03) X10*3/uL Absolute Neuts (auto) 6.5 (2.0-8.3) x10*3/uL Absolute Nucleated RBC 0.000 (0.0-0.012) X10*3/uL Nucleated RBC % (auto) 0.0 (0.0-0.2) /100WBC PT 23.6 H D (10.9-12.4) SEC INR 2.1 H (0.9-1.1) Sodium 143 (135-145) mmol/L Potassium 3.7 (3.3-5.1) mmol/L Chloride 105 (96-108) mmol/L Carbon Dioxide 22 (22-29) mmol/L Anion Gap 20 (12-20) BUN 8 L (9-16) mg/dL Creatinine 0.76 (0.5-1.4) mg/dL Estim Creat Clear Calc 145.8 Estimated GFR > 60 Random Glucose 132 H (60-115) mg/dL Lactic Acid (0.5-2.0) mmol/L Calcium 8.1 L (8.4-10.2) mg/dL Magnesium 1.7 (1.6-2.6) mg/dL Total Bilirubin 2.8 H (0.0-1.0) mg/dL AST 331 H (5-37) U/L ALT 47 H (0-40) U/L Alkaline Phosphatase 187 H (39-117) U/L Ammonia (13-55) umol/L Troponin I High Sens 7.0 (<3.5-35.0) ng/L Total Protein 7.7 (6.5-8.0) g/dL Albumin 3.8 (3.5-5.0) g/dL Urine Color Urine Appearance Urine pH (5.0-9.0) Ur Specific Hollis (1.005-1.025) Urine Protein (Neg-Trace) mg/dL Urine Glucose (UA) (Negative) mg/dL Urine Ketones (Negative) mg/dL Urine Blood (Negative) Urine Nitrite (Negative) Ur Leukocyte Esterase (Negative) Stool Occult Blood POSITIVE (NEGATIVE) Urine Opiates Screen (Not Detect) Ur Buprenorphine Scrn (Not Detect) ng/mL Ur Oxycodone Screen (Not Detect) ng/mL Urine Methadone Screen (Not Detect) ng/mL Urine Fentanyl Screen (Not Detect) Ur Barbiturates Screen (Not Detect) Ur Phencyclidine Scrn (Not Detect) Ur Amphetamines Screen (Not Detect) U Benzodiazepines Scrn (Not Detect) Urine Cocaine Screen (Not Detect) U Marijuana (THC) Screen (Not Detect) Ethyl Alcohol 257 mg/dL Blood Type B Positive Antibody Screen NEGATIVE 06/17/25 06/17/25 06/17/25 Range/Units 04:49 05:39 06:13 WBC (4.8-10.8) X10*3/uL RBC (4.60-5.80) X10*6/uL Hgb (14.0-18.0) g/dl Hct (42.0-52.0) % MCV (80.0-98.0) fL MCH (27.0-33.0) pg MCHC (31.0-36.0) g/dl RDW (11.0-16.0) % Plt Count (160-400) X10*3/uL MPV Immature Gran % (Auto) (0.0-0.4) % Neut % (Auto) (45-73) % Lymph % (Auto) (20-40) % Meeker % (Auto) (2-11) % Eos % (Auto) (0-4) % Baso % (Auto) (0-2) % Lymph # (Auto) (1.2-4.9) X10*3/uL Meeker # (Auto) (0.1-1.2) X10*3/uL Eos # (Auto) (0.0-0.4) X10*3/uL Baso # (Auto) (0.0-0.2) X10*3/uL Abs Immat Gran (auto) (0.00-0.03) X10*3/uL Absolute Neuts (auto) (2.0-8.3) x10*3/uL Absolute Nucleated RBC (0.0-0.012) X10*3/uL Nucleated RBC % (auto) (0.0-0.2) /100WBC PT (10.9-12.4) SEC INR (0.9-1.1) Sodium (135-145) mmol/L Potassium (3.3-5.1) mmol/L Chloride (96-108) mmol/L Carbon Dioxide (22-29) mmol/L Anion Gap (12-20) BUN (9-16) mg/dL Creatinine (0.5-1.4) mg/dL Estim Creat Clear Calc Estimated GFR Random Glucose (60-115) mg/dL Lactic Acid 6.1 H* (0.5-2.0) mmol/L Calcium (8.4-10.2) mg/dL Magnesium (1.6-2.6) mg/dL Total Bilirubin (0.0-1.0) mg/dL AST (5-37) U/L ALT (0-40) U/L Alkaline Phosphatase (39-117) U/L Ammonia 103 H (13-55) umol/L Troponin I High Sens (<3.5-35.0) ng/L Total Protein (6.5-8.0) g/dL Albumin (3.5-5.0) g/dL Urine Color Dark Yellow Urine Appearance Clear Urine pH 6.5 (5.0-9.0) Ur Specific Hollis >= 1.030 H (1.005-1.025) Urine Protein Trace (Neg-Trace) mg/dL Urine Glucose (UA) Negative (Negative) mg/dL Urine Ketones 40 (Negative) mg/dL Urine Blood Negative (Negative) Urine Nitrite Negative (Negative) Ur Leukocyte Esterase Negative (Negative) Stool Occult Blood (NEGATIVE) Urine Opiates Screen (Not Detect) Ur Buprenorphine Scrn (Not Detect) ng/mL Ur Oxycodone Screen (Not Detect) ng/mL Urine Methadone Screen (Not Detect) ng/mL Urine Fentanyl Screen (Not Detect) Ur Barbiturates Screen (Not Detect) Ur Phencyclidine Scrn (Not Detect) Ur Amphetamines Screen (Not Detect) U Benzodiazepines Scrn (Not Detect) Urine Cocaine Screen (Not Detect) U Marijuana (THC) Screen (Not Detect) Ethyl Alcohol mg/dL Blood Type Antibody Screen 06/17/25 06/17/25 Range/Units 06:14 06:15 WBC (4.8-10.8) X10*3/uL RBC (4.60-5.80) X10*6/uL Hgb 9.7 L (14.0-18.0) g/dl Hct 29.6 L (42.0-52.0) % MCV (80.0-98.0) fL MCH (27.0-33.0) pg MCHC (31.0-36.0) g/dl RDW (11.0-16.0) % Plt Count (160-400) X10*3/uL MPV Immature Gran % (Auto) (0.0-0.4) % Neut % (Auto) (45-73) % Lymph % (Auto) (20-40) % Meeker % (Auto) (2-11) % Eos % (Auto) (0-4) % Baso % (Auto) (0-2) % Lymph # (Auto) (1.2-4.9) X10*3/uL Meeker # (Auto) (0.1-1.2) X10*3/uL Eos # (Auto) (0.0-0.4) X10*3/uL Baso # (Auto) (0.0-0.2) X10*3/uL Abs Immat Gran (auto) (0.00-0.03) X10*3/uL Absolute Neuts (auto) (2.0-8.3) x10*3/uL Absolute Nucleated RBC (0.0-0.012) X10*3/uL Nucleated RBC % (auto) (0.0-0.2) /100WBC PT (10.9-12.4) SEC INR (0.9-1.1) Sodium (135-145) mmol/L Potassium (3.3-5.1) mmol/L Chloride (96-108) mmol/L Carbon Dioxide (22-29) mmol/L Anion Gap (12-20) BUN (9-16) mg/dL Creatinine (0.5-1.4) mg/dL Estim Creat Clear Calc Estimated GFR Random Glucose (60-115) mg/dL Lactic Acid (0.5-2.0) mmol/L Calcium (8.4-10.2) mg/dL Magnesium (1.6-2.6) mg/dL Total Bilirubin (0.0-1.0) mg/dL AST (5-37) U/L ALT (0-40) U/L Alkaline Phosphatase (39-117) U/L Ammonia (13-55) umol/L Troponin I High Sens (<3.5-35.0) ng/L Total Protein (6.5-8.0) g/dL Albumin (3.5-5.0) g/dL Urine Color Urine Appearance Urine pH (5.0-9.0) Ur Specific Hollis (1.005-1.025) Urine Protein (Neg-Trace) mg/dL Urine Glucose (UA) (Negative) mg/dL Urine Ketones (Negative) mg/dL Urine Blood (Negative) Urine Nitrite (Negative) Ur Leukocyte Esterase (Negative) Stool Occult Blood (NEGATIVE) Urine Opiates Screen Not Detected (Not Detect) Ur Buprenorphine Scrn Not Detected (Not Detect) ng/mL Ur Oxycodone Screen Not Detected (Not Detect) ng/mL Urine Methadone Screen Not Detected (Not Detect) ng/mL Urine Fentanyl Screen Not Detected (Not Detect) Ur Barbiturates Screen Not Detected (Not Detect) Ur Phencyclidine Scrn Not Detected (Not Detect) Ur Amphetamines Screen Not Detected (Not Detect) U Benzodiazepines Scrn Not Detected (Not Detect) Urine Cocaine Screen POSITIVE H (Not Detect) U Marijuana (THC) Screen Not Detected (Not Detect) Ethyl Alcohol mg/dL Blood Type Antibody Screen Independent Interpretation I performed an independent interpretation of an: EKG Interpretation: My independent interpretation of the ECG reveals normal sinus tachycardia with rate of 116, normal axis, normal intervals, no ST elevations or depressions to suggest ischemic changes, no previous for comparison. Radiology Impression Discussion of test interpretation with radiology: I have reviewed the radiologist's reading. Radiologist Impression: CT angiography abdomen and pelvis with contrast. 3-D post processing. Comparison: None provided Findings: Aorta, mesenteric/renal arteries, and iliofemoral systems are within normal limits. No consolidation or effusion. The appearance of the liver suggests hepatocellular pathology such as cirrhosis. There is recanalization of the umbilical vein suggesting an element of portal hypertension. The spleen measures 15.6 x 14.7 x 7.1 cm. The gallbladder and solid organs are otherwise within normal limits. No renal stones. No bowel obstruction, pneumoperitoneum, or pneumatosis. Pelvic contents unremarkable. Normal appendix. No acute fracture. IMPRESSION: 1. Possible cirrhosis with splenomegaly and portal hypertension. 2. No evidence of acute gastrointestinal tract hemorrhage. This document has been electronically signed by: Gene Rocha MD on 06/17/2025 06:49:55 Independent Historian Clinical information obtained from an independent historian. History obtained from or confirmed by: Parent and EMS External Record Review External record reviewed: Inpatient record Chronic Conditions Patient?s care impacted by: Other (Alcoholic liver cirrhosis, polysubstance use) Social Determinants Patient?s care significantly limited by Social Determinants of Health including: Alcoholism and drug addiction in family Critical Care Time Critical Care Time Critical Care Time: Yes Total Critical Care Time: 60 Attestation: Time is exclusive of separately billable procedures. Time includes: direct patient care, patient reassessment, coordination of patient care, interpretation of data (laboratory data, pulse oximetry, arterial blood gases and chest xrays), review of patient's medical records, medical consultation and documentation of patient care. Procedures excluded from critical care time: central intravenous line placement and electrocardiography. Discharge Plan Discharge Clinical Impression: Acute upper gastrointestinal hemorrhage, Symptomatic anemia, Alcohol intoxication, Cocaine use, Decompensated hepatic cirrhosis, Lactic acidosis, Elevated INR, Acute hepatic encephalopathy, Hypomagnesemia Patient Disposition: Admitted As Inpatient Print Language: Uzbek
[2025-06-17] MEDS: diazePAM 10 MG/2 ML CARTRIDGE 5 MG IVPUSH ×3 (04:40→10:11)
[2025-06-17] MEDS: Lactated Ringers 1,000 ML 999 ML IV ×2 (04:40→06:38)
[2025-06-17 04:59] LABS: Ammonia 103 umol/L (13-55)
[2025-06-17] MEDS: iohexoL 350 MG/ML 100 ML INFUS..BTL 80 ML IV (05:08)
[2025-06-17 06:19] LABS: Appearance Urine Clear; Glucose Urine UA Negative (Negative); PH 6.5 (5.0-9.0); Specific Gravity - Urine >= 1.030 (1.005-1.025)
[2025-06-17 06:24] LABS: Hematocrit 29.6 % (42.0-52.0); Hemoglobin 9.7 g/dl (14.0-18.0)
[2025-06-17 06:32] LABS: Cannabinoid Screen Urine Not Detected (Not Detect)
--- NOTE | 2025-06-17 06:40 | PC.NURSE ---
Dr. Palmer wanting to give valium at this time instead of phenobarb d/t soft BPs. 5mg Valium administered at this time.
[2025-06-17 06:56] LABS: Troponin-I High Sensitivity 7.0 ng/L (<3.5-35.0)
[2025-06-17 07:45] LABS: Reflex Lactate? Lactic Acid Added
--- NOTE | 2025-06-17 07:45 | PC.NURSE ---
Resumed care of patient at 0700, pt was resting in bed, IVF bolus running at this time, per MD requesting pheno given once bolus is done and BP are more stable, one more repeat lactic wanted, being collected at this time. Awaiting dispo plan at this time, pt advised to stay NPO until plan in place. Pt mom at bedside at this time. Personal care provided, this RN administering overdue medications at this time. Vitals entered by this RN from previous shift and noted at this time in vitals flow sheet. Seizure precautions maintained at this time. Call varela within reach, urinal and commode at bedside.
[2025-06-17] MEDS: Thiamine HCL 200 MG in 0.9 % Sodium Chloride 100 ML 204 MG IV (08:04)
[2025-06-17] MEDS: Magnesium Sulfate/H2O 2 GM/50 ML PIGGYBACK IV ×2 (08:04→20:08)
[2025-06-17] MEDS: PHENobarbitaL sodium 130 MG/ML IM ONCE 241 MG IM (08:12)
[2025-06-17] MEDS: Octreotide Acetate 100 MCG/ML AMPUL 50 MCG IVPUSH (08:16)
[2025-06-17 08:27] LABS: ~Lactic Acid-LAB USE ONLY 6.6 mmol/L (0.5-2.0)
--- NOTE | 2025-06-17 08:45 | PC.NURSE ---
ED MD, Dr. Zamora, and ICU attending at bedside to discuss POC with mom and pt. Pt has had 2 more BM at this time since RN in room, dark red in color, clots noted. Pt had an episode of dry heaving, another IV dose of zofran given at this time. Blood consent signed by mother at bedside, FFP ordered and ready. 3rd peripheral IV access obtained at this time. Plan to go get a scope this afternoon. Pt is oriented to hospital, year, name. MICHAELOR 22, Pheno given at this time.
--- NOTE | 2025-06-17 09:02 | MHC.SHP ---
Pre-Procedural Eval Section A - 24 Hr Update-Section A only Date of Service: 06/17/25 The patient is an INPATIENT: Yes Changes since office visit: No Cold of Flu in the past 2 weeks, No New Medical Problems, No Changes in Medication and No Patient answered all questions The patient has been examined within 24 hours of the surgical procedure. The History & Physical has been completed within 30 days and I have reviewed it.: Yes Section B - Complete if H&P > 30 days Chief Complaint: Vomiting blood hx alcoholism drank 1hr ago Allergies: Allergies Allergy/AdvReac Type Severity Reaction Status Date / Time No Known Allergies Allergy Verified 06/17/25 03:02 Plan I have reviewed the history and physical and performed a pertinent physical examination on my patient. No changes have occurred unless specified. Time Spent With Patient Time: Total time managing care of this patient today ____ minutes.
--- NOTE | 2025-06-17 09:03 | PM.EVENT ---
Event Note Date of Service: 06/17/25 Event Note: GI consult dictated EGD with Gold probe later this pm after FFP, vit K and octreotide. Pt and mother agreeable Time Spent With Patient Time: Total time managing care of this patient today ____ minutes.
--- NOTE | 2025-06-17 09:29 | CONS_ITS ---
DATE OF SERVICE: 06/17/2025 REFERRING PHYSICIAN: Dr. Palmer REASON FOR CONSULTATION: Hematemesis and melena. HISTORY OF PRESENT ILLNESS: The patient is a 35-year-old man, who presented to the emergency department this morning with hematemesis. He has a history of alcohol abuse and last drank the night before admission. He was evaluated in the emergency department where he reported vomiting bloody clots and had melena. Since evaluation, he has had no hematemesis, but he has had several melanotic stools. He complains of lower abdominal pain. Laboratory studies on admission showed a hematocrit of 32.8 and this dropped to 29.6 following hydration. He has been treated with antiemetics and is starting octreotide, as well as vitamin K and fresh frozen plasma because of an elevated INR at 2.1. Hemodynamically, he has had a stable blood pressure, but has had tachycardia. Other laboratory studies showed elevation of his total bilirubin at 2.8, AST at 331, ALT at 47, and alkaline phosphatase at 187, and ammonia level was 103. He was previously evaluated here and underwent an upper endoscopy in December for gastrointestinal bleeding. Findings at that time included a small hiatal hernia. He did have emergent colonoscopy to the ascending colon, which showed internal hemorrhoids. The patient's history is obtained from his mother as the patient is intoxicated and unable to provide significant history. He was recently evaluated in [place] by his primary GI provider, Dr. Wade and underwent upper endoscopy and colonoscopy, which were reportedly nonrevealing. A small bowel capsule endoscopy was subsequently done at [facility], which also was negative according to his mother. The patient continues to have periods of abstinence/sobriety, but resumes drinking periodically and has been recently drinking upwards of 10 or more individuals packages of vodka when he can. PAST MEDICAL HISTORY: 1. Alcohol abuse. 2. GI bleeding. 3. Cirrhosis. CT scanning in the emergency department was suggestive of possible cirrhosis with splenomegaly and portal hypertension, but no evidence of active bleeding. 4. Withdrawal seizures. 5. Anxiety/depression. CURRENT MEDICATIONS: Current medication list is reviewed in the chart. ALLERGIES: THERE ARE NONE REPORTED. REVIEW OF SYSTEMS: SKIN: No pruritus. HEENT: Negative. CARDIOPULMONARY: He denies shortness of breath or chest pain. GASTROINTESTINAL: As above. He denies recent NSAID usage. GENITOURINARY: Negative. NEUROPSYCHIATRIC: Negative. PHYSICAL EXAMINATION: GENERAL: Shows a male, lying on a stretcher in the emergency department. He was not oriented to date and asks repeatedly for water. SKIN: Anicteric. HEENT: Shows no scleral icterus. NECK: Without lymphadenopathy or thyromegaly. LUNGS: Clear. HEART: Shows a regular rate and rhythm. S1, S2. No murmur. ABDOMEN: Soft. There is some mild tenderness to palpation over the lower abdomen, but no guarding or rebound. EXTREMITIES: Without edema. LABORATORY DATA AND IMAGING STUDIES: Reviewed in detail. IMPRESSION: Gastrointestinal bleeding. His presentation appears consistent with an upper gastrointestinal bleed. We discussed this today. I have recommended he undergo upper endoscopy for further evaluation as he seems to have recent active bleeding despite his negative evaluation in the past. He is being resuscitated with vitamin K, fresh frozen plasma and octreotide. The procedure and its risks were discussed with the patient and his mother. They understand these and agreed to proceed. Thanks for asking me to see him. I will follow him in the hospital as needed. MD RUBIN Villafana/ANABELL / [id number]
--- NOTE | 2025-06-17 09:29 | PHA.MEDREC ---
Addendum entered by Davy Coronel RPh 06/17/25 09:52: Reviewed by [facility] Original Note: Pharmacy Consult ? Medication Reconciliation Pharmacy has completed the medication reconciliation. Spoke to patient mother at bedside to confirm med list. Mother states patient is no longer taking Vitamin D3 1,250 mg (Patient hasn't started yet), Naltrexone 50 mg, Magnesium Oxide 400 mg. Patient last had his morning medications yesterday.
--- NOTE | 2025-06-17 09:31 | HO.ANESPROP2 ---
HPI - Anesthesia Eval Consult details Narrative: 35 yr old male for upper endoscopy, in ED, family member not at bedside +CP/SOB every day per pt with ADLs, family member not at bedside, pt not oriented during evaluation. Alcohol withdrawl, on phenobarb drip, h/o ETOH seizures. On Gabapentin Utox +cocaine Received 2 units of FFP, 10 mg of vitamin K, octreotide in ED for INR 2.1 Alcoholic cirrhosis: follows with [facility] liver/transplant team s/p GA with ETT 7.5 for EGD/colon 12/202425 Grade I varices noted on EGD at [facility] ([place]) 03/2025 [facility] Active Problems Active Problems: All Active Problems Hypomagnesemia (Acute) Acute hepatic encephalopathy (Acute) Elevated INR (Acute) Lactic acidosis (Acute) Decompensated hepatic cirrhosis (Acute) Cocaine use (Acute) Alcohol intoxication (Acute) Symptomatic anemia (Acute) Acute upper gastrointestinal hemorrhage (Acute) Flu syndrome (Acute) Past Medical History 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 Alcohol use disorder Family History Family history of problems with anesthesia: No Surgical History History of Problems with Anesthesia: No Social History Social History Household Members: None Housing: Apartment Do you presently have visiting nurse or other home services: No Alcohol intake: current Alcohol intake frequency: 3 or more drinks per day Alcohol type: hard liquor Patient Tobacco Use Status: Current everyday Tobacco user Tobacco use type: Cigarette Cigarettes Per Day: 3 Smoked in Last 30 Days: No e-Cigarette/Vaping Use: Never Used Use of substances other than those prescribed or required for medical reasons: Yes Substance Use Type: Crack/Cocaine Substance Use Frequency: Occasionally Last Used Substance: Days (ago) Any prior treatment program specific to substance use: No Advance Directives: Yes Advance Directives on File: Yes Advance Directives Date on File: 01/18/23 service: No Current occupational status: unemployed Sexual orientation: Straight/Heterosexual Meds Allergies Allergy/AdvReac Type Severity Reaction Status Date / Time No Known Allergies Allergy Verified 06/17/25 03:02 Active Medications: Current Medications Octreotide Acetate 500 mcg/ (Sodium Chloride) 501 mls @ 50.1 mls/hr IVCONT .Q10H LEXY Last Admin: 06/17/25 08:16 Dose: 50 mcg/hr, 50.1 mls/hr Pharmacy Consult (Consult Rx Etoh Phenob Im/Po) 1 each MISCELLANE ONCE PRN; Protocol PRN Reason: Consult order Phenobarbital (Phenobarbital 30 Mg Tablet) 60 mg PO BID LEXY Stop: 06/19/25 09:01 Phenobarbital (Phenobarbital 30 Mg Tablet) 30 mg PO BID LEXY Stop: 06/21/25 09:01 Phenobarbital (Phenobarbital 30 Mg Tablet) 30 mg PO BEDTIME LEXY Stop: 06/22/25 21:01 Phenobarbital Sodium (Phenobarbital Sodium 130 Mg/Ml Vial Im Q3hx2) 180 mg IM Q3H LEXY Stop: 06/17/25 14:01 Home Medications ?Medication ?Instructions ?Recorded ?Confirmed ?Last Taken ?Type folic acid 1 mg tablet 1 mg PO BEDTIME 12/20/24 06/17/25 06/15/25 History furosemide 20 mg tablet 20 mg PO DAILY 12/20/24 06/17/25 06/16/25 History hydroxyzine HCl 10 mg tablet 10 mg PO TID PRN anxiety or itching 12/20/24 06/17/25 Unknown History rifaximin 550 mg tablet (Xifaxan) 550 mg PO Q12H 12/20/24 06/17/25 06/15/25 History gabapentin 300 mg capsule 300 mg PO BEDTIME 06/17/25 06/17/25 06/15/25 History mirtazapine 30 mg tablet 30 mg PO BEDTIME 06/17/25 06/17/25 06/15/25 History Exam Height,Weight and Vital Signs: Height 5 ft 11 in Weight 89.9 kg Last Vital Signs Temp 98.5 F 06/17/25 09:26 Pulse 131 H 06/17/25 09:26 Resp 18 06/17/25 09:26 BP 114/48 L 06/17/25 09:26 Pulse Ox 94 06/17/25 09:06 O2 Del Method Room Air 06/17/25 09:06 O2 Flow Rate 2 06/17/25 07:30 Pertinent Lab Results Pertinent Lab Results: Laboratory Tests 06/17/25 06/17/25 06/17/25 03:16 03:20 03:33 WBC 8.8 RBC 4.39 L D Hgb 10.8 L D Hct 32.8 L D MCV 74.7 L MCH 24.6 L MCHC 32.9 RDW 19.7 H Plt Count 96 L MPV Not Reportable Immature Gran % (Auto) 0.2 Neut % (Auto) 73.4 H Lymph % (Auto) 18.9 L [place] % (Auto) 6.8 Eos % (Auto) 0.2 Baso % (Auto) 0.5 Lymph # (Auto) 1.7 [place] # (Auto) 0.6 Eos # (Auto) 0.0 Baso # (Auto) 0.0 Abs Immat Gran (auto) 0.02 Absolute Neuts (auto) 6.5 Absolute Nucleated RBC 0.000 Nucleated RBC % (auto) 0.0 PT 23.6 H D INR 2.1 H Sodium 143 Potassium 3.7 Chloride 105 Carbon Dioxide 22 Anion Gap 20 BUN 8 L Creatinine 0.76 Estim Creat Clear Calc 145.8 Estimated GFR > 60 Random Glucose 132 H Lactic Acid Lactic Acid F/U @ 2Hr Calcium 8.1 L Magnesium 1.7 Total Bilirubin 2.8 H AST 331 H ALT 47 H Alkaline Phosphatase 187 H Ammonia Troponin I High Sens 7.0 Total Protein 7.7 Albumin 3.8 Urine Color Urine Appearance Urine pH Ur Specific [place] Urine Protein Urine Glucose (UA) Urine Ketones Urine Blood Urine Nitrite Ur Leukocyte Esterase Stool Occult Blood POSITIVE Urine Opiates Screen Ur Buprenorphine Scrn Ur Oxycodone Screen Urine Methadone Screen Urine Fentanyl Screen Ur Barbiturates Screen Ur Phencyclidine Scrn Ur Amphetamines Screen U Benzodiazepines Scrn Urine Cocaine Screen U Marijuana (THC) Screen Ethyl Alcohol 257 Blood Type B Positive Antibody Screen NEGATIVE 06/17/25 06/17/25 06/17/25 04:49 05:39 06:13 WBC RBC Hgb Hct MCV MCH MCHC RDW Plt Count MPV Immature Gran % (Auto) Neut % (Auto) Lymph % (Auto) [place] % (Auto) Eos % (Auto) Baso % (Auto) Lymph # (Auto) [place] # (Auto) Eos # (Auto) Baso # (Auto) Abs Immat Gran (auto) Absolute Neuts (auto) Absolute Nucleated RBC Nucleated RBC % (auto) PT INR Sodium Potassium Chloride Carbon Dioxide Anion Gap BUN Creatinine Estim Creat Clear Calc Estimated GFR Random Glucose Lactic Acid 6.1 H* Lactic Acid F/U @ 2Hr Calcium Magnesium Total Bilirubin AST ALT Alkaline Phosphatase Ammonia 103 H Troponin I High Sens Total Protein Albumin Urine Color Dark Yellow Urine Appearance Clear Urine pH 6.5 Ur Specific [place] >= 1.030 H Urine Protein Trace Urine Glucose (UA) Negative Urine Ketones 40 Urine Blood Negative Urine Nitrite Negative Ur Leukocyte Esterase Negative Stool Occult Blood Urine Opiates Screen Ur Buprenorphine Scrn Ur Oxycodone Screen Urine Methadone Screen Urine Fentanyl Screen Ur Barbiturates Screen Ur Phencyclidine Scrn Ur Amphetamines Screen U Benzodiazepines Scrn Urine Cocaine Screen U Marijuana (THC) Screen Ethyl Alcohol Blood Type Antibody Screen 06/17/25 06/17/25 06/17/25 06:14 06:15 07:51 WBC RBC Hgb 9.7 L Hct 29.6 L MCV MCH MCHC RDW Plt Count MPV Immature Gran % (Auto) Neut % (Auto) Lymph % (Auto) [place] % (Auto) Eos % (Auto) Baso % (Auto) Lymph # (Auto) [place] # (Auto) Eos # (Auto) Baso # (Auto) Abs Immat Gran (auto) Absolute Neuts (auto) Absolute Nucleated RBC Nucleated RBC % (auto) PT INR Sodium Potassium Chloride Carbon Dioxide Anion Gap BUN Creatinine Estim Creat Clear Calc Estimated GFR Random Glucose Lactic Acid Lactic Acid F/U @ 2Hr 6.6 H* Calcium Magnesium Total Bilirubin AST ALT Alkaline Phosphatase Ammonia Troponin I High Sens Total Protein Albumin Urine Color Urine Appearance Urine pH Ur Specific [place] Urine Protein Urine Glucose (UA) Urine Ketones Urine Blood Urine Nitrite Ur Leukocyte Esterase Stool Occult Blood Urine Opiates Screen Not Detected Ur Buprenorphine Scrn Not Detected Ur Oxycodone Screen Not Detected Urine Methadone Screen Not Detected Urine Fentanyl Screen Not Detected Ur Barbiturates Screen Not Detected Ur Phencyclidine Scrn Not Detected Ur Amphetamines Screen Not Detected U Benzodiazepines Scrn Not Detected Urine Cocaine Screen POSITIVE H U Marijuana (THC) Screen Not Detected Ethyl Alcohol Blood Type Antibody Screen Narrative Narrative: EKG 06/16/25 Vent. Rate : 116 BPM Atrial Rate : 116 BPM P-R Int : 140 ms QRS Dur : 90 ms QT Int : 346 ms P-R-T Axes : 64 54 50 degrees QTcB Int : 480 ms Sinus tachycardia Possible Lateral infarct , age undetermined Cannot rule out Inferior infarct , age undetermined Abnormal ECG When compared with ECG of 16-Apr-2023 17:49, Vent. rate has increased by 44 bpm Minimal criteria for Inferior infarct are now Present ECG 04/14 at [facility] NSR, Prolonged QT, rate 96 TTE at [facility] 02/2025 Normal LV systolic function with LVEF 64% Left atrial enlargement No significant valvular disease Stress echo: Normal RV size and systolic function. No significant valvular disease Airway Mallampati Class: II TM Dist: >3cm Neck ROM: Full Loose/Missing/Broken Teeth: No Heart: tachycardic Lungs: CTAB Assessment and Plan Final Anesthetic Review Family History of Problems with Anesthesia: No History of Problems with Anesthesia: No
[2025-06-17 09:55] LABS: Reflex Lactate? 2 Y
[2025-06-17 10:55] LABS: ~Lactic Acid-LAB USE ONLY 7.0 mmol/L (0.5-2.0)
[2025-06-17] MEDS: PHENobarbitaL sodium 130 MG/ML VIAL IM Q3Hx2 180 MG IM ×2 (11:12→13:04)
--- NOTE | 2025-06-17 11:25 | PC.NURSE ---
report given to ICU nurse at this time, 2 unit FFP currently infusing at this time, pt reportung decrease in abdominal pain, 2/10 at this time. Pt still having multiple Bms. Urinary output has remained stable. vitals remain stable at this time, HR anywhere from 110-140's, pt continues to deny SOB/CP.
--- NOTE | 2025-06-17 11:37 | PC.NURSE ---
Hand off given to ICU, who is transferring pt to Unit now with fire protection equipment technician. FFP currently running due for 15 minute vitals at 1136, Rn aware. Pt brought down on all monitors, mom at bedside.
[2025-06-17 13:20] LABS: MANUAL DIFF FLAG NO
[2025-06-17 13:26] LABS: INTERNATIONAL NORM RATIO 2.0 (0.9-1.1); Prothrombin Time 22.8 SEC (10.9-12.4)
--- NOTE | 2025-06-17 13:28 | PC.NURSE ---
Went to ED to get patient to bring to ICU. Patient alert, talking in full sentences, mom at bedside. Brought to ICU, moved from stretcher to bed with no incident. Vitals taken for 15 min check for second unit of FFP (see vitals). Cleaned patient (had been on bedpan), small amount of dark red stool. Immediately after getting off bedpan and cleaned, stated needed again. Asked for mom to assist. Brought mom to bedside, she assisted, and this time a little more dark red stool. Octeotride infusing at ordered rate. Handoff to Marzena Eason RN.
[2025-06-17 13:30] LABS: Anion Gap 21 (12-20); Blood Urea Nitrogen 11 mg/dL (9-16); Calcium 7.8 mg/dL (8.4-10.2); Carbon Dioxide 21 mmol/L (22-29); Chloride 106 mmol/L (96-108); Creatinine Clr Calc Pharmacy 198.9; Estimated Glomerular Filt Rate > 60; Potassium 4.7 mmol/L (3.3-5.1); Sodium 143 mmol/L (135-145)
[2025-06-17 13:31] LABS: Imm Gran Abs Auto 0.05 X10*3/uL (0.00-0.03); Imm Gran Pct Auto 0.5 % (0.0-0.4); Lymphocytes Absolute Auto 1.6 X10*3/uL (1.2-4.9); Mean Corpuscular HGB Conc 32.4 g/dl (31.0-36.0); Mean Corpuscular Hemoglobin 24.4 pg (27.0-33.0); Mean Corpuscular Volume 75.3 fL (80.0-98.0); NRBC Abs Auto 0.000 X10*3/uL (0.0-0.012); NRBC Pct Auto 0.0 /100WBC (0.0-0.2); Red Blood Count 2.71 X10*6/uL (4.60-5.80); White Blood Count 9.5 X10*3/uL (4.8-10.8)
[2025-06-17 13:33] LABS: Platelet Count 71 X10*3/uL (160-400)
[2025-06-17 13:39] LABS: Hematocrit 20.4 % (42.0-52.0); Hemoglobin 6.6 g/dl (14.0-18.0)
--- NOTE | 2025-06-17 14:51 | PM.EVENT ---
Event Note Date of Service: 06/17/25 Event Note: EGD 3 chains of grade 2-3 varices without active bleeding, banded x4 no active bleeding clotted blood in stomach no other bleeding source identified. Rec continue octreotide, protonix transfuse blood products as needed. Time Spent With Patient Time: Total time managing care of this patient today ____ minutes.
--- NOTE | 2025-06-17 14:55 | P.BOP_ITS ---
Brief Operative Note Date of Service: 06/17/25 Pre-op diagnosis: gi bleed Procedure: EGD with banding Surgeon: Ronnell Zamora MD Anesthesia: GETA Was an Bonbon Cream Warmer used for this Procedure?: No Estimated blood loss (mL): 0 Pathology: none sent Condition: stable Disposition: ICU
--- NOTE | 2025-06-17 15:26 | OP_ITS ---
DATE OF SERVICE: 06/17/2025 SURGEON: Ronnell Zamora MD PREOPERATIVE DIAGNOSIS: POSTOPERATIVE DIAGNOSIS: PROCEDURE PERFORMED: Upper endoscopy with esophageal banding and control of hemorrhage. ESTIMATED BLOOD LOSS: COMPLICATIONS: ANESTHESIA: General anesthesia. ASSISTANTS: SPECIMENS: PROCEDURE DESCRIPTION: A history and physical performed. The risks and benefits of the procedure were explained to the patient's mother, and informed consent was obtained. The patient was placed in the left lateral decubitus position, and after general endotracheal anesthesia was introduced, the Olympus video gastroscope was introduced into the esophagus, stomach, and duodenum. Examination was performed. The scope was removed. He tolerated the procedure well and was taken to recovery area in stable condition. FINDINGS: Esophagus: There were 3 chains of grade 2 to 3 varices extending from the EG junction at 40 cm to about 30 cm. There were no active bleeding definitely identified from the varices. There was some mild esophagitis just at the EG junction. Stomach: There was a large amount of clotted blood in the stomach and some liquid blood. This was washed and suctioned as best possible, but the fundus was not well seen because the entire clot could not be evacuated. The body and antrum appeared normal once irrigation was performed. Duodenum: The bulb and 2nd portion were carefully examined. There was some fresh blood in the duodenum, but no active bleeding. This was washed and suctioned, and no bleeding site was identified. Because of the patient's clinical course, it was elected to proceed with esophageal variceal banding. The scope was removed from the patient, and a banding attachment was applied. Total of 4 bands were placed successfully over the largest varices in the distal esophagus with no immediate complications. IMPRESSION: Esophageal varices, status post banding. RECOMMENDATION: 1. Monitor intubated in the ICU over the next 24 hours. 2. If continued bleeding, he will need repeat endoscopy with a second-look procedure. 3. Continue octreotide. 4. Transfuse blood products as needed. MD RUBIN Villafana/GOMEZL / [id number]
[2025-06-17] MEDS: fentaNYL citrate/NS 1,000 MCG/100 ML PLAST..BAG 2.5 MCG IVCONT (15:41)
--- NOTE | 2025-06-17 16:16 | PM.CCHP ---
History of Present Illness Date of Service: 06/17/25 Chief Complaint: Hematemesis 35-year-old gentleman with PMH of IV drug abuse, alcohol-related cirrhosis, history of alcohol withdrawal syndrome with seizures in the past presented to the ED after having 3-4 episodes of hematemesis earlier this morning. His last drink was this morning, after presentation to the ED he had multiple episodes of melena. His hemoglobin dropped from 10.8 at 03:00 to 9.7 at 6AM. GI was consulted, underwent upper GI endoscopy which showed large bleeding varices with pool of blood in the stomach. He was intubated for the procedure, could not extubate postprocedure due to risk of aspiration. Bleeding started this morning, acute in onset worsened with alcohol intake, no relieving factors, multiple episodes, associated with blood. 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 Alcohol use disorder Social History Social History Household Members: None Housing: Apartment Do you presently have visiting nurse or other home services: No Alcohol intake: current Alcohol intake frequency: 3 or more drinks per day Alcohol type: hard liquor Patient Tobacco Use Status: Never used Tobacco Tobacco use type: Smokeless Tobacco Cigarettes Per Day: 3 Smoked in Last 30 Days: No e-Cigarette/Vaping Use: Never Used Patient Interested in Nicotine Replacement: Yes Patient Given Instructions on How to Stop Smoking: No Second Hand Smoke Exposure: No Use of substances other than those prescribed or required for medical reasons: Yes Substance Use Type: Crack/Cocaine Substance Use Frequency: Occasionally Last Used Substance: Days (ago) Any prior treatment program specific to substance use: No Have you been hit, kicked, punched, or otherwise hurt by someone within the past year? If so, by whom?: No Do you feel safe in your current relationship?: No Current Relationship Is there a partner from a previous relationship who is making you feel unsafe now?: No Are you made to feel afraid or neglected: No Spiritual Healthcare Practices: none Advance Directives: Yes Advance Directives on File: Yes Advance Directives Date on File: 01/18/23 Do you have a plan to hurt others: No Plan Recently lost weight without trying: Unsure Nutrition Risks: Acute nausea or vomiting x1 week Poor oral hygiene: No service: No Current occupational status: unemployed Sexual orientation: Straight/Heterosexual Meds Allergies Allergy/AdvReac Type Severity Reaction Status Date / Time No Known Allergies Allergy Verified 06/17/25 03:02 Active Medications: Current Medications Ceftriaxone Sodium (Ceftriaxone Sodium 2 Gm Vial) 2 gm IVPUSH Q24H [facility] Octreotide Acetate 500 mcg/ (Sodium Chloride) 501 mls @ 50.1 mls/hr IVCONT .Q10H [facility] Last Admin: 06/17/25 08:16 Dose: 50 mcg/hr, 50.1 mls/hr Propofol (Diprivan) 1,000 mg in 100 mls @ 0 mls/hr IVCONT .Q0M [facility]; Protocol Last Titration: 06/17/25 15:41 Dose: 50 mcg/kg/min, 27.93 mls/hr Fentanyl (Sublimaze/Ns) 1,000 mcg in 100 mls @ 0 mls/hr IVCONT .Q0M [facility]; Protocol Last Admin: 06/17/25 15:41 Dose: 25 mcg/hr, 2.5 mls/hr Naloxone HCl (Naloxone Hcl 0.4 Mg/Ml Vial) 0.2 mg IVPUSH Q2M PRN PRN Reason: Excessive sedation or RR < 8 Pantoprazole Sodium (Pantoprazole Sodium 40 Mg/10 Ml Vial) 40 mg IVPUSH BID@0630,1630 [facility] Last Admin: 06/17/25 15:14 Dose: 40 mg Pharmacy Consult (Consult Rx Etoh Phenob Im/Po) 1 each MISCELLANE ONCE PRN; Protocol PRN Reason: Consult order Phenobarbital (Phenobarbital 30 Mg Tablet) 60 mg PO BID [facility] Stop: 06/19/25 09:01 Phenobarbital (Phenobarbital 30 Mg Tablet) 30 mg PO BID [facility] Stop: 06/21/25 09:01 Phenobarbital (Phenobarbital 30 Mg Tablet) 30 mg PO BEDTIME [facility] Stop: 06/22/25 21:01 Home Medications ?Medication ?Instructions ?Recorded ?Confirmed ?Last Taken ?Type folic acid 1 mg tablet 1 mg PO BEDTIME 12/20/24 06/17/25 06/15/25 History furosemide 20 mg tablet 20 mg PO DAILY 12/20/24 06/17/25 06/16/25 History hydroxyzine HCl 10 mg tablet 10 mg PO TID PRN anxiety or itching 12/20/24 06/17/25 Unknown History rifaximin 550 mg tablet (Xifaxan) 550 mg PO Q12H 12/20/24 06/17/25 06/15/25 History gabapentin 300 mg capsule 300 mg PO BEDTIME 06/17/25 06/17/25 06/15/25 History mirtazapine 30 mg tablet 30 mg PO BEDTIME 06/17/25 06/17/25 06/15/25 History Physical Exam Exam: Exam: General: Young male in severe acute distress Nutritional Appearance: well nourished and overweight Eyes: appearance normal, both eyes and all related structures; Alignment and Position: alignment normal and position normal Neck: No lymphadenopathy, no thyromegaly Resp: bilateral air entry equal, occasional added sounds present Cardio: Regular rate, regular rhythm; Heart sounds: S1 normal heart sound present and S2 normal heart sound present GI: soft, nontender, no guarding, no hepatosplenomegaly : bladder normal to inspection, bladder normal to palpation, no renal angle tenderness Skin: no rashes or lesions noted and elasticity normal Neuro: oriented to person, oriented to place, oriented to time and moves all extremities Vital Signs: Vital Signs: Last Vital Signs Temp 98.2 F 06/17/25 12:59 Pulse 141 H 06/17/25 15:00 Resp 17 06/17/25 15:00 BP 160/73 H 06/17/25 15:00 Pulse Ox 96 06/17/25 15:00 O2 Del Method Room Air 06/17/25 15:00 O2 Flow Rate 2 06/17/25 07:30 FiO2 30 06/17/25 15:26 BMI result Body Mass Index 28.6 Results Labs 06/17/25 12:51 06/17/25 12:51 Labs: Laboratory Results - last 24 hr 06/17/25 06/17/25 06/17/25 03:16 03:20 03:33 MCV 74.7 L MCH 24.6 L MCHC 32.9 RDW 19.7 H Plt Count 96 L MPV Not Reportable Immature Gran % (Auto) 0.2 Neut % (Auto) 73.4 H Lymph % (Auto) 18.9 L [place] % (Auto) 6.8 Eos % (Auto) 0.2 Baso % (Auto) 0.5 Lymph # (Auto) 1.7 [place] # (Auto) 0.6 Eos # (Auto) 0.0 Baso # (Auto) 0.0 Abs Immat Gran (auto) 0.02 Absolute Neuts (auto) 6.5 Absolute Nucleated RBC 0.000 Nucleated RBC % (auto) 0.0 PT 23.6 H D INR 2.1 H Anion Gap 20 Estim Creat Clear Calc 145.8 Estimated GFR > 60 Random Glucose 132 H Lactic Acid Lactic Acid F/U @ 2Hr Lactic Acid F/U @ 4Hr Calcium 8.1 L Phosphorus Magnesium 1.7 Total Bilirubin 2.8 H AST 331 H ALT 47 H Alkaline Phosphatase 187 H Ammonia Total Protein 7.7 Albumin 3.8 Urine Color Urine Appearance Urine pH Ur Specific [place] Urine Protein Urine Glucose (UA) Urine Ketones Urine Blood Urine Nitrite Ur Leukocyte Esterase Stool Occult Blood POSITIVE Urine Opiates Screen Ur Buprenorphine Scrn Ur Oxycodone Screen Urine Methadone Screen Urine Fentanyl Screen Ur Barbiturates Screen Ur Phencyclidine Scrn Ur Amphetamines Screen U Benzodiazepines Scrn Urine Cocaine Screen U Marijuana (THC) Screen Ethyl Alcohol 257 Blood Type B Positive Antibody Screen NEGATIVE Crossmatch See Detail 06/17/25 06/17/25 06/17/25 04:49 05:39 06:13 MCV MCH MCHC RDW Plt Count MPV Immature Gran % (Auto) Neut % (Auto) Lymph % (Auto) [place] % (Auto) Eos % (Auto) Baso % (Auto) Lymph # (Auto) [place] # (Auto) Eos # (Auto) Baso # (Auto) Abs Immat Gran (auto) Absolute Neuts (auto) Absolute Nucleated RBC Nucleated RBC % (auto) PT INR Anion Gap Estim Creat Clear Calc Estimated GFR Random Glucose Lactic Acid 6.1 H* Lactic Acid F/U @ 2Hr Lactic Acid F/U @ 4Hr Calcium Phosphorus Magnesium Total Bilirubin AST ALT Alkaline Phosphatase Ammonia 103 H Total Protein Albumin Urine Color Dark Yellow Urine Appearance Clear Urine pH 6.5 Ur Specific [place] >= 1.030 H Urine Protein Trace Urine Glucose (UA) Negative Urine Ketones 40 Urine Blood Negative Urine Nitrite Negative Ur Leukocyte Esterase Negative Stool Occult Blood Urine Opiates Screen Ur Buprenorphine Scrn Ur Oxycodone Screen Urine Methadone Screen Urine Fentanyl Screen Ur Barbiturates Screen Ur Phencyclidine Scrn Ur Amphetamines Screen U Benzodiazepines Scrn Urine Cocaine Screen U Marijuana (THC) Screen Ethyl Alcohol Blood Type Antibody Screen Crossmatch 06/17/25 06/17/25 06/17/25 06:14 07:51 10:31 MCV MCH MCHC RDW Plt Count MPV Immature Gran % (Auto) Neut % (Auto) Lymph % (Auto) [place] % (Auto) Eos % (Auto) Baso % (Auto) Lymph # (Auto) [place] # (Auto) Eos # (Auto) Baso # (Auto) Abs Immat Gran (auto) Absolute Neuts (auto) Absolute Nucleated RBC Nucleated RBC % (auto) PT INR Anion Gap Estim Creat Clear Calc Estimated GFR Random Glucose Lactic Acid Lactic Acid F/U @ 2Hr 6.6 H* Lactic Acid F/U @ 4Hr 7.0 H* Calcium Phosphorus Magnesium Total Bilirubin AST ALT Alkaline Phosphatase Ammonia Total Protein Albumin Urine Color Urine Appearance Urine pH Ur Specific [place] Urine Protein Urine Glucose (UA) Urine Ketones Urine Blood Urine Nitrite Ur Leukocyte Esterase Stool Occult Blood Urine Opiates Screen Not Detected Ur Buprenorphine Scrn Not Detected Ur Oxycodone Screen Not Detected Urine Methadone Screen Not Detected Urine Fentanyl Screen Not Detected Ur Barbiturates Screen Not Detected Ur Phencyclidine Scrn Not Detected Ur Amphetamines Screen Not Detected U Benzodiazepines Scrn Not Detected Urine Cocaine Screen POSITIVE H U Marijuana (THC) Screen Not Detected Ethyl Alcohol Blood Type Antibody Screen Crossmatch 06/17/25 06/17/25 06/17/25 12:51 12:51 12:51 MCV Cancelled 75.3 L MCH Cancelled 24.4 L MCHC Cancelled RDW Plt Count MPV Immature Gran % (Auto) Neut % (Auto) Lymph % (Auto) [place] % (Auto) Eos % (Auto) Baso % (Auto) Lymph # (Auto) [place] # (Auto) Eos # (Auto) Baso # (Auto) Abs Immat Gran (auto) Absolute Neuts (auto) Absolute Nucleated RBC Nucleated RBC % (auto) PT INR Anion Gap Estim Creat Clear Calc Estimated GFR Random Glucose Lactic Acid Lactic Acid F/U @ 2Hr Lactic Acid F/U @ 4Hr Calcium Phosphorus Magnesium Total Bilirubin AST ALT Alkaline Phosphatase Ammonia Total Protein Albumin Urine Color Urine Appearance Urine pH Ur Specific [place] Urine Protein Urine Glucose (UA) Urine Ketones Urine Blood Urine Nitrite Ur Leukocyte Esterase Stool Occult Blood Urine Opiates Screen Ur Buprenorphine Scrn Ur Oxycodone Screen Urine Methadone Screen Urine Fentanyl Screen Ur Barbiturates Screen Ur Phencyclidine Scrn Ur Amphetamines Screen U Benzodiazepines Scrn Urine Cocaine Screen U Marijuana (THC) Screen Ethyl Alcohol Blood Type Antibody Screen Crossmatch 06/17/25 06/17/25 06/17/25 12:51 12:51 12:51 MCV MCH MCHC 32.4 RDW Cancelled 20.1 H Plt Count Cancelled 71 L D MPV Cancelled Immature Gran % (Auto) Neut % (Auto) Lymph % (Auto) [place] % (Auto) Eos % (Auto) Baso % (Auto) Lymph # (Auto) [place] # (Auto) Eos # (Auto) Baso # (Auto) Abs Immat Gran (auto) Absolute Neuts (auto) Absolute Nucleated RBC Nucleated RBC % (auto) PT INR Anion Gap Estim Creat Clear Calc Estimated GFR Random Glucose Lactic Acid Lactic Acid F/U @ 2Hr Lactic Acid F/U @ 4Hr Calcium Phosphorus Magnesium Total Bilirubin AST ALT Alkaline Phosphatase Ammonia Total Protein Albumin Urine Color Urine Appearance Urine pH Ur Specific [place] Urine Protein Urine Glucose (UA) Urine Ketones Urine Blood Urine Nitrite Ur Leukocyte Esterase Stool Occult Blood Urine Opiates Screen Ur Buprenorphine Scrn Ur Oxycodone Screen Urine Methadone Screen Urine Fentanyl Screen Ur Barbiturates Screen Ur Phencyclidine Scrn Ur Amphetamines Screen U Benzodiazepines Scrn Urine Cocaine Screen U Marijuana (THC) Screen Ethyl Alcohol Blood Type Antibody Screen Crossmatch 06/17/25 06/17/25 06/17/25 12:51 12:51 12:51 MCV MCH MCHC RDW Plt Count MPV Not Reportable Immature Gran % (Auto) Cancelled 0.5 H Neut % (Auto) Cancelled 70.7 Lymph % (Auto) Cancelled [place] % (Auto) Eos % (Auto) Baso % (Auto) Lymph # (Auto) [place] # (Auto) Eos # (Auto) Baso # (Auto) Abs Immat Gran (auto) Absolute Neuts (auto) Absolute Nucleated RBC Nucleated RBC % (auto) PT INR Anion Gap Estim Creat Clear Calc Estimated GFR Random Glucose Lactic Acid Lactic Acid F/U @ 2Hr Lactic Acid F/U @ 4Hr Calcium Phosphorus Magnesium Total Bilirubin AST ALT Alkaline Phosphatase Ammonia Total Protein Albumin Urine Color Urine Appearance Urine pH Ur Specific [place] Urine Protein Urine Glucose (UA) Urine Ketones Urine Blood Urine Nitrite Ur Leukocyte Esterase Stool Occult Blood Urine Opiates Screen Ur Buprenorphine Scrn Ur Oxycodone Screen Urine Methadone Screen Urine Fentanyl Screen Ur Barbiturates Screen Ur Phencyclidine Scrn Ur Amphetamines Screen U Benzodiazepines Scrn Urine Cocaine Screen U Marijuana (THC) Screen Ethyl Alcohol Blood Type Antibody Screen Crossmatch 06/17/25 06/17/25 06/17/25 12:51 12:51 12:51 MCV MCH MCHC RDW Plt Count MPV Immature Gran % (Auto) Neut % (Auto) Lymph % (Auto) 17.2 L [place] % (Auto) Cancelled 11.4 H Eos % (Auto) Cancelled 0.0 Baso % (Auto) Cancelled Lymph # (Auto) [place] # (Auto) Eos # (Auto) Baso # (Auto) Abs Immat Gran (auto) Absolute Neuts (auto) Absolute Nucleated RBC Nucleated RBC % (auto) PT INR Anion Gap Estim Creat Clear Calc Estimated GFR Random Glucose Lactic Acid Lactic Acid F/U @ 2Hr Lactic Acid F/U @ 4Hr Calcium Phosphorus Magnesium Total Bilirubin AST ALT Alkaline Phosphatase Ammonia Total Protein Albumin Urine Color Urine Appearance Urine pH Ur Specific [place] Urine Protein Urine Glucose (UA) Urine Ketones Urine Blood Urine Nitrite Ur Leukocyte Esterase Stool Occult Blood Urine Opiates Screen Ur Buprenorphine Scrn Ur Oxycodone Screen Urine Methadone Screen Urine Fentanyl Screen Ur Barbiturates Screen Ur Phencyclidine Scrn Ur Amphetamines Screen U Benzodiazepines Scrn Urine Cocaine Screen U Marijuana (THC) Screen Ethyl Alcohol Blood Type Antibody Screen Crossmatch 06/17/25 06/17/25 06/17/25 12:51 12:51 12:51 MCV MCH MCHC RDW Plt Count MPV Immature Gran % (Auto) Neut % (Auto) Lymph % (Auto) [place] % (Auto) Eos % (Auto) Baso % (Auto) 0.2 Lymph # (Auto) Cancelled 1.6 [place] # (Auto) Cancelled 1.1 Eos # (Auto) Cancelled Baso # (Auto) Abs Immat Gran (auto) Absolute Neuts (auto) Absolute Nucleated RBC Nucleated RBC % (auto) PT INR Anion Gap Estim Creat Clear Calc Estimated GFR Random Glucose Lactic Acid Lactic Acid F/U @ 2Hr Lactic Acid F/U @ 4Hr Calcium Phosphorus Magnesium Total Bilirubin AST ALT Alkaline Phosphatase Ammonia Total Protein Albumin Urine Color Urine Appearance Urine pH Ur Specific [place] Urine Protein Urine Glucose (UA) Urine Ketones Urine Blood Urine Nitrite Ur Leukocyte Esterase Stool Occult Blood Urine Opiates Screen Ur Buprenorphine Scrn Ur Oxycodone Screen Urine Methadone Screen Urine Fentanyl Screen Ur Barbiturates Screen Ur Phencyclidine Scrn Ur Amphetamines Screen U Benzodiazepines Scrn Urine Cocaine Screen U Marijuana (THC) Screen Ethyl Alcohol Blood Type Antibody Screen Crossmatch 06/17/25 06/17/25 06/17/25 12:51 12:51 12:51 MCV MCH MCHC RDW Plt Count MPV Immature Gran % (Auto) Neut % (Auto) Lymph % (Auto) [place] % (Auto) Eos % (Auto) Baso % (Auto) Lymph # (Auto) [place] # (Auto) Eos # (Auto) 0.0 Baso # (Auto) Cancelled 0.0 Abs Immat Gran (auto) Cancelled 0.05 H Absolute Neuts (auto) Cancelled Absolute Nucleated RBC Nucleated RBC % (auto) PT INR Anion Gap Estim Creat Clear Calc Estimated GFR Random Glucose Lactic Acid Lactic Acid F/U @ 2Hr Lactic Acid F/U @ 4Hr Calcium Phosphorus Magnesium Total Bilirubin AST ALT Alkaline Phosphatase Ammonia Total Protein Albumin Urine Color Urine Appearance Urine pH Ur Specific [place] Urine Protein Urine Glucose (UA) Urine Ketones Urine Blood Urine Nitrite Ur Leukocyte Esterase Stool Occult Blood Urine Opiates Screen Ur Buprenorphine Scrn Ur Oxycodone Screen Urine Methadone Screen Urine Fentanyl Screen Ur Barbiturates Screen Ur Phencyclidine Scrn Ur Amphetamines Screen U Benzodiazepines Scrn Urine Cocaine Screen U Marijuana (THC) Screen Ethyl Alcohol Blood Type Antibody Screen Crossmatch 06/17/25 06/17/25 06/17/25 12:51 12:51 12:51 MCV MCH MCHC RDW Plt Count MPV Immature Gran % (Auto) Neut % (Auto) Lymph % (Auto) [place] % (Auto) Eos % (Auto) Baso % (Auto) Lymph # (Auto) [place] # (Auto) Eos # (Auto) Baso # (Auto) Abs Immat Gran (auto) Absolute Neuts (auto) 6.7 Absolute Nucleated RBC Cancelled 0.000 Nucleated RBC % (auto) Cancelled 0.0 PT 22.8 H INR 2.0 H Anion Gap 21 H Estim Creat Clear Calc 198.9 Estimated GFR > 60 Random Glucose 122 H Lactic Acid Lactic Acid F/U @ 2Hr Lactic Acid F/U @ 4Hr Calcium 7.8 L Phosphorus 3.5 Magnesium Total Bilirubin AST ALT Alkaline Phosphatase Ammonia Total Protein Albumin Urine Color Urine Appearance Urine pH Ur Specific [place] Urine Protein Urine Glucose (UA) Urine Ketones Urine Blood Urine Nitrite Ur Leukocyte Esterase Stool Occult Blood Urine Opiates Screen Ur Buprenorphine Scrn Ur Oxycodone Screen Urine Methadone Screen Urine Fentanyl Screen Ur Barbiturates Screen Ur Phencyclidine Scrn Ur Amphetamines Screen U Benzodiazepines Scrn Urine Cocaine Screen U Marijuana (THC) Screen Ethyl Alcohol Blood Type Antibody Screen Crossmatch Imaging Radiologist's Impressions: Impressions Chest X-Ray 06/17/25 15:08 IMPRESSION: Properly positioned ET tube. New left basilar density likely represents pneumonia. Probable changes of pneumonia in the medial right upper lung zone. Electronically signed by: Cosmo Dutton MD 06/17/2025 03:37 PM EDT RP Assessment and Plan (1) Alcohol intoxication: Status: Acute (2) Cocaine use: Status: Acute (3) Acute upper gastrointestinal hemorrhage: Status: Acute (4) Elevated INR: Status: Acute (5) Decompensated hepatic cirrhosis: Status: Acute (6) Acute hepatic encephalopathy: Status: Acute (7) Lactic acidosis: Status: Acute Plan Neuro: Acute encephalopathy possibly due to alcohol intoxication later leading to alcohol withdrawal syndrome. He has history of alcohol withdrawal related seizures in the past On propofol for sedation, as needed fentanyl for analgesia Close neurological status monitoring in the ICU every hour Cardiac: Cardiogenic Shock: Possibly secondary to positive pressure ventilation We will give him normal saline 1 L bolus, after that we will start to titrate to keep the map above 65 or systolic blood pressures above 100 Respiratory: Acute hypoxemic respiratory failure due to aspiration Currently on ventilator support On PRVC mode FiO2 30%, PEEP 5, TV 400, RR 20 Peak pressures and plateau pressures are under the curve Ventilator management bundle with head end elevation, aspiration precaution, chlorhexidine mouthwash, daily awakening trials, daily spontaneous breathing trials GI: Upper GI bleed: Secondary to esophageal varices, status post banding this morning. Still has a pool of blood in his stomach, possibly we will need a repeat procedure tomorrow in the morning. 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 Last alcohol intake was this morning Continue octreotide drip for 72 hours, pantoprazole 40 mg b.i.d. We will start on ceftriaxone prophylaxis We will keep him NPO and no NG tube Renal: Renal function normal We will closely monitor I's and O's Avoid nephrotoxic medications Heme: Acute blood loss anemia: Secondary to upper GI bleed Received 1 unit PRBC transfusion this morning and 1 unit FFP We will repeat a CBC and INR Endocrine: Blood sugars under control Sliding scale insulin as needed Infectious disease: We will send pancultures Ceftriaxone for prophylaxis Musculoskeletal: Decubitus ulcer prevention protocol Lines: Peripheral Prophylaxis: SCD, pantoprazole Total critical care time spent is about 60 minutes on managing this acutely and severely ill patient with multiple organ failure, time spent is on evaluation and admission to the critical care unit, formulating critical care plan and management, ventilator management, post intubation care, sedation management, close hemodynamic monitoring, management of acute blood loss anemia, review of charts and imaging at this time is excluding any procedural time.
[2025-06-17 16:33] LABS: Hematocrit 23.1 % (42.0-52.0); Hemoglobin 7.3 g/dl (14.0-18.0); Mean Corpuscular HGB Conc 31.6 g/dl (31.0-36.0); Mean Corpuscular Hemoglobin 25.5 pg (27.0-33.0); Mean Corpuscular Volume 80.8 fL (80.0-98.0); NRBC Abs Auto 0.000 X10*3/uL (0.0-0.012); NRBC Pct Auto 0.0 /100WBC (0.0-0.2); Red Blood Count 2.86 X10*6/uL (4.60-5.80); White Blood Count 11.0 X10*3/uL (4.8-10.8)
[2025-06-17 16:38] LABS: Platelet Count 91 X10*3/uL (160-400)
[2025-06-17 16:43] LABS: INTERNATIONAL NORM RATIO 2.1 (0.9-1.1); Prothrombin Time 23.9 SEC (10.9-12.4)
[2025-06-17 16:50] LABS: Anion Gap 24 (12-20); Blood Urea Nitrogen 13 mg/dL (9-16); Calcium 8.1 mg/dL (8.4-10.2); Carbon Dioxide 16 mmol/L (22-29); Chloride 108 mmol/L (96-108); Creatinine Clr Calc Pharmacy 159.6; Estimated Glomerular Filt Rate > 60; Potassium 5.4 mmol/L (3.3-5.1); Sodium 143 mmol/L (135-145)
[2025-06-17] MEDS: Chlorhexidine Gluc Oral Rinse 15 ML MOUTHWASH BUCCAL (20:08)
[2025-06-17 21:14] LABS: Hematocrit 19.9 % (42.0-52.0)
[2025-06-17 21:15] LABS: Hemoglobin 6.7 g/dl (14.0-18.0)
[2025-06-17 21:37] LABS: Alanine Aminotransferase 227 U/L (0-40); Albumin Level 2.6 g/dL (3.5-5.0); Alkaline Phosphatase 105 U/L (39-117); Anion Gap 15 (12-20); Aspartate Amino Transferase 1548 U/L (5-37); Blood Urea Nitrogen 13 mg/dL (9-16); Calcium 7.4 mg/dL (8.4-10.2); Carbon Dioxide 19 mmol/L (22-29); Chloride 113 mmol/L (96-108); Creatinine Clr Calc Pharmacy 149.8; Estimated Glomerular Filt Rate > 60; Potassium 5.2 mmol/L (3.3-5.1); Sodium 142 mmol/L (135-145); Total Protein 5.3 g/dL (6.5-8.0)
[2025-06-18] VITALS (50 sets, daily range): BP systolic 92–132; BP diastolic 42–74; PULSE 67–128; RESP 14–18; TEMP 33.7–37.6; O2SAT 92–98; BMI 29.6
[2025-06-18] MEDS: Tranexamic Acid 1,000 MG in 0.9 % Sodium Chloride 50 ML 360 MG IV (00:23)
[2025-06-18 01:26] LABS: Hematocrit 21.7 % (42.0-52.0); Hemoglobin 7.5 g/dl (14.0-18.0)
[2025-06-18] MEDS: Furosemide 20 MG/2 ML VIAL IVPUSH (02:03)
[2025-06-18] MEDS: fentaNYL citrate/NS 1,000 MCG/100 ML PLAST..BAG 10 MCG IVCONT ×3 (02:13→19:32)
[2025-06-18 05:36] LABS: Hematocrit 22.2 % (42.0-52.0); Hemoglobin 7.6 g/dl (14.0-18.0); Mean Corpuscular HGB Conc 34.2 g/dl (31.0-36.0); Mean Corpuscular Hemoglobin 27.4 pg (27.0-33.0); Mean Corpuscular Volume 80.1 fL (80.0-98.0); NRBC Abs Auto 0.000 X10*3/uL (0.0-0.012); NRBC Pct Auto 0.0 /100WBC (0.0-0.2); Red Blood Count 2.77 X10*6/uL (4.60-5.80); White Blood Count 6.6 X10*3/uL (4.8-10.8)
[2025-06-18 05:40] LABS: INTERNATIONAL NORM RATIO 2.1 (0.9-1.1); Prothrombin Time 24.2 SEC (10.9-12.4)
[2025-06-18 05:48] LABS: VBG HCO3 24 mmol/L (22-26); VBG O2 % Saturation 91.0 %
[2025-06-18 05:50] LABS: Venous Blood Gas Refer to POC result
[2025-06-18 05:51] LABS: Alanine Aminotransferase 241 U/L (0-40); Albumin Level 2.5 g/dL (3.5-5.0); Alkaline Phosphatase 97 U/L (39-117); Anion Gap 12 (12-20); Aspartate Amino Transferase 2071 U/L (5-37); Blood Urea Nitrogen 16 mg/dL (9-16); Calcium 7.6 mg/dL (8.4-10.2); Carbon Dioxide 23 mmol/L (22-29); Chloride 111 mmol/L (96-108); Creatinine Clr Calc Pharmacy 122.5; Estimated Glomerular Filt Rate > 60; Magnesium 2.2 mg/dL (1.6-2.6); Potassium 4.6 mmol/L (3.3-5.1); Sodium 141 mmol/L (135-145); Total Protein 5.2 g/dL (6.5-8.0)
[2025-06-18 07:22] LABS: Lymphocytes Absolute Manual 1.1 X10*3/uL (1.2-4.9); Lymphocytes Percent Manual 17 % (20-40); Monocytes Absolute Manual 1.1 X10*3/uL (0.1-1.2); Monocytes Percent Manual 17 % (2-11); Neutrophils Percent Manual 66 % (45-73)
[2025-06-18 07:24] LABS: Burr Cells 1+ (0-2) /OIF; Large Platelet PRESENT; Macrocytosis 1+ (5-14) /OIF; Ovalocytes 1+ (5-14) /OIF; RBC Morphology NOTED; Smudge Cells PRESENT; Tear Drop Cells 1+ (0-2) /OIF
[2025-06-18 07:35] LABS: Band Neutrophils Percent 0 % (3-5); Neutrophils Absolute Manual 4.4 X10*3/uL (2.0-8.3)
[2025-06-18 07:50] LABS: Platelet Count 51 X10*3/uL (160-400)
[2025-06-18] MEDS: Albumin Human 25 % 100 ML 133.33 ML IV ×2 (07:55→09:09)
[2025-06-18] MEDS: Chlorhexidine Gluc Oral Rinse 15 ML MOUTHWASH BUCCAL ×2 (07:55→15:24)
--- NOTE | 2025-06-18 08:08 | HO.POSTANES ---
Post Anesthesia Evaluation Post Anesthesia Evaluation Date of Service: 06/18/25 Vital Signs: Vital Signs Temp Pulse Resp BP Pulse Ox O2 Del Method FiO2 06/18/25 07:42 06/18/25 07:00 97.3 F 86 15 102/58 L 95 Mechanical Ventilation 06/18/25 06:00 97.7 F 88 14 98/55 L 94 Mechanical Ventilation 06/18/25 05:00 98.1 F 101 H 15 104/55 L 95 Mechanical Ventilation 06/18/25 04:40 98.1 F 89 14 97/51 L 06/18/25 04:01 98.2 F 91 14 95/53 L 06/18/25 04:00 06/18/25 04:00 98.4 F 93 14 97/48 L 95 Mechanical Ventilation 06/18/25 04:00 95 06/18/25 03:00 98.8 F 100 14 98/55 L 96 Mechanical Ventilation 06/18/25 02:12 99.1 F 101 H 14 99/54 L 06/18/25 02:00 99.3 F 102 H 15 95/56 L 95 Mechanical Ventilation 06/18/25 01:56 99.3 F 104 H 14 95/56 L 06/18/25 01:35 99.3 F 104 H 14 95/56 L 06/18/25 01:10 99.5 F 123 H 14 113/58 L 06/18/25 01:00 99.7 F 123 H 14 110/58 L 95 Mechanical Ventilation 06/18/25 00:55 99.7 F 126 H 14 113/60 06/18/25 00:34 117 H 107/61 06/18/25 00:00 95 06/18/25 00:00 06/18/25 00:00 99.7 F 112 H 14 101/56 L 95 Mechanical Ventilation 06/17/25 23:00 110 H 112/54 L 06/17/25 23:00 112 H 14 103/51 L 96 Mechanical Ventilation 06/17/25 22:57 99.9 F 111 H 14 112/54 L 06/17/25 22:41 99.9 F 105 H 14 114/60 06/17/25 22:00 86 18 114/60 98 Mechanical Ventilation 06/17/25 21:39 102 H 106/55 L 06/17/25 21:39 102 H 106/55 L 06/17/25 21:00 106 H 14 105/54 L 97 Mechanical Ventilation 06/17/25 20:41 113 H 131/70 Anesthesia: General Mental Status: Sedated (intubated) Pain Control: Satisfactory Nausea/Vomiting: None Hydration: Adequate Anesthesia-Related Issues: No Anes. Related Issues
--- NOTE | 2025-06-18 08:52 | P.PNCC_ITS ---
Subjective Subjective Date of Service: 06/18/25 Interval History: Drop in hemoglobin overnight requiring 2 units of PRBC and 1 unit of FFP Continues to be on ventilator support Critical Care Time (minutes): 35 Physical Exam 2 Exam: Exam: General: Young male in severe acute distress, ill appearing and tired appearing Nutritional Appearance: well nourished and overweight Eyes: appearance normal, both eyes and all related structures; Alignment and Position: alignment normal and position normal Neck: No lymphadenopathy, no thyromegaly Resp: bilateral air entry equal, occasional added sounds present Cardio: Regular rate, regular rhythm; Heart sounds: S1 normal heart sound present and S2 normal heart sound present GI: soft, nontender, no guarding, no hepatosplenomegaly : bladder normal to inspection, bladder normal to palpation, no renal angle tenderness Skin: no rashes or lesions noted and elasticity normal Neuro: Sedated, no focal deficits Vital Signs: Vital Signs: Last Vital Signs Temp 97.3 F 06/18/25 08:00 Pulse 84 06/18/25 08:00 Resp 15 06/18/25 08:00 BP 110/63 06/18/25 08:00 Pulse Ox 94 06/18/25 08:00 O2 Del Method Mechanical Ventil ation 06/18/25 08:00 O2 Flow Rate 2 06/17/25 07:30 FiO2 30 06/18/25 08:00 BMI result Body Mass Index 29.6 Objective Data Labs 06/18/25 09:07 06/18/25 05:09 Labs: Laboratory Results - last 24 hr 06/17/25 06/17/25 06/17/25 03:20 10:31 12:51 WBC Cancelled RBC Hgb Hct MCV MCH MCHC RDW Plt Count MPV Immature Gran % (Auto) Neut % (Auto) Lymph % (Auto) [place] % (Auto) Eos % (Auto) Baso % (Auto) Lymph # (Auto) [place] # (Auto) Eos # (Auto) Baso # (Auto) Abs Immat Gran (auto) Absolute Neuts (auto) Absolute Nucleated RBC Nucleated RBC % (auto) Neutrophils % (Manual) Band Neutrophils % Lymphocytes % (Manual) Monocytes % (Manual) Abs Neuts (Manual) Lymphocytes # (Manual) Monocytes # (Manual) Smudge Cells Platelet Estimate Large Platelets Plt Morphology Comment RBC Morphology Macrocytosis Tear Drop Cells Ovalocytes Katheryn Cells PT INR VBG pH VBG pCO2 VBG pO2 VBG HCO3 VBG O2 Saturation VBG Base Excess Sodium Potassium Chloride Carbon Dioxide Anion Gap BUN Creatinine Estim Creat Clear Calc Estimated GFR Random Glucose Lactic Acid F/U @ 4Hr 7.0 H* Calcium Phosphorus Magnesium Total Bilirubin AST ALT Alkaline Phosphatase Total Protein Albumin Blood Type B Positive Antibody Screen NEGATIVE Crossmatch See Detail 06/17/25 06/17/25 06/17/25 12:51 12:51 12:51 WBC 9.5 RBC Cancelled 2.71 L D Hgb Cancelled 6.6 L* D Hct Cancelled MCV MCH MCHC RDW Plt Count MPV Immature Gran % (Auto) Neut % (Auto) Lymph % (Auto) [place] % (Auto) Eos % (Auto) Baso % (Auto) Lymph # (Auto) [place] # (Auto) Eos # (Auto) Baso # (Auto) Abs Immat Gran (auto) Absolute Neuts (auto) Absolute Nucleated RBC Nucleated RBC % (auto) Neutrophils % (Manual) Band Neutrophils % Lymphocytes % (Manual) Monocytes % (Manual) Abs Neuts (Manual) Lymphocytes # (Manual) Monocytes # (Manual) Smudge Cells Platelet Estimate Large Platelets Plt Morphology Comment RBC Morphology Macrocytosis Tear Drop Cells Ovalocytes [place] Cells PT INR VBG pH VBG pCO2 VBG pO2 VBG HCO3 VBG O2 Saturation VBG Base Excess Sodium Potassium Chloride Carbon Dioxide Anion Gap BUN Creatinine Estim Creat Clear Calc Estimated GFR Random Glucose Lactic Acid F/U @ 4Hr Calcium Phosphorus Magnesium Total Bilirubin AST ALT Alkaline Phosphatase Total Protein Albumin Blood Type Antibody Screen Crossmatch 06/17/25 06/17/25 06/17/25 12:51 12:51 12:51 WBC RBC Hgb Hct 20.4 L* D MCV Cancelled 75.3 L MCH Cancelled 24.4 L MCHC Cancelled RDW Plt Count MPV Immature Gran % (Auto) Neut % (Auto) Lymph % (Auto) [place] % (Auto) Eos % (Auto) Baso % (Auto) Lymph # (Auto) [place] # (Auto) Eos # (Auto) Baso # (Auto) Abs Immat Gran (auto) Absolute Neuts (auto) Absolute Nucleated RBC Nucleated RBC % (auto) Neutrophils % (Manual) Band Neutrophils % Lymphocytes % (Manual) Monocytes % (Manual) Abs Neuts (Manual) Lymphocytes # (Manual) Monocytes # (Manual) Smudge Cells Platelet Estimate Large Platelets Plt Morphology Comment RBC Morphology Macrocytosis Tear Drop Cells Ovalocytes [place] Cells PT INR VBG pH VBG pCO2 VBG pO2 VBG HCO3 VBG O2 Saturation VBG Base Excess Sodium Potassium Chloride Carbon Dioxide Anion Gap BUN Creatinine Estim Creat Clear Calc Estimated GFR Random Glucose Lactic Acid F/U @ 4Hr Calcium Phosphorus Magnesium Total Bilirubin AST ALT Alkaline Phosphatase Total Protein Albumin Blood Type Antibody Screen Crossmatch 06/17/25 06/17/25 06/17/25 12:51 12:51 12:51 WBC RBC Hgb Hct MCV MCH MCHC 32.4 RDW Cancelled 20.1 H Plt Count Cancelled 71 L D MPV Cancelled Immature Gran % (Auto) Neut % (Auto) Lymph % (Auto) [place] % (Auto) Eos % (Auto) Baso % (Auto) Lymph # (Auto) [place] # (Auto) Eos # (Auto) Baso # (Auto) Abs Immat Gran (auto) Absolute Neuts (auto) Absolute Nucleated RBC Nucleated RBC % (auto) Neutrophils % (Manual) Band Neutrophils % Lymphocytes % (Manual) Monocytes % (Manual) Abs Neuts (Manual) Lymphocytes # (Manual) Monocytes # (Manual) Smudge Cells Platelet Estimate Large Platelets Plt Morphology Comment RBC Morphology Macrocytosis Tear Drop Cells Ovalocytes [place] Cells PT INR VBG pH VBG pCO2 VBG pO2 VBG HCO3 VBG O2 Saturation VBG Base Excess Sodium Potassium Chloride Carbon Dioxide Anion Gap BUN Creatinine Estim Creat Clear Calc Estimated GFR Random Glucose Lactic Acid F/U @ 4Hr Calcium Phosphorus Magnesium Total Bilirubin AST ALT Alkaline Phosphatase Total Protein Albumin Blood Type Antibody Screen Crossmatch 06/17/25 06/17/25 06/17/25 12:51 12:51 12:51 WBC RBC Hgb Hct MCV MCH MCHC RDW Plt Count MPV Not Reportable Immature Gran % (Auto) Cancelled 0.5 H Neut % (Auto) Cancelled 70.7 Lymph % (Auto) Cancelled [place] % (Auto) Eos % (Auto) Baso % (Auto) Lymph # (Auto) [place] # (Auto) Eos # (Auto) Baso # (Auto) Abs Immat Gran (auto) Absolute Neuts (auto) Absolute Nucleated RBC Nucleated RBC % (auto) Neutrophils % (Manual) Band Neutrophils % Lymphocytes % (Manual) Monocytes % (Manual) Abs Neuts (Manual) Lymphocytes # (Manual) Monocytes # (Manual) Smudge Cells Platelet Estimate Large Platelets Plt Morphology Comment RBC Morphology Macrocytosis Tear Drop Cells Ovalocytes [place] Cells PT INR VBG pH VBG pCO2 VBG pO2 VBG HCO3 VBG O2 Saturation VBG Base Excess Sodium Potassium Chloride Carbon Dioxide Anion Gap BUN Creatinine Estim Creat Clear Calc Estimated GFR Random Glucose Lactic Acid F/U @ 4Hr Calcium Phosphorus Magnesium Total Bilirubin AST ALT Alkaline Phosphatase Total Protein Albumin Blood Type Antibody Screen Crossmatch 06/17/25 06/17/25 06/17/25 12:51 12:51 12:51 WBC RBC Hgb Hct MCV MCH MCHC RDW Plt Count MPV Immature Gran % (Auto) Neut % (Auto) Lymph % (Auto) 17.2 L [place] % (Auto) Cancelled 11.4 H Eos % (Auto) Cancelled 0.0 Baso % (Auto) Cancelled Lymph # (Auto) [place] # (Auto) Eos # (Auto) Baso # (Auto) Abs Immat Gran (auto) Absolute Neuts (auto) Absolute Nucleated RBC Nucleated RBC % (auto) Neutrophils % (Manual) Band Neutrophils % Lymphocytes % (Manual) Monocytes % (Manual) Abs Neuts (Manual) Lymphocytes # (Manual) Monocytes # (Manual) Smudge Cells Platelet Estimate Large Platelets Plt Morphology Comment RBC Morphology Macrocytosis Tear Drop Cells Ovalocytes [place] Cells PT INR VBG pH VBG pCO2 VBG pO2 VBG HCO3 VBG O2 Saturation VBG Base Excess Sodium Potassium Chloride Carbon Dioxide Anion Gap BUN Creatinine Estim Creat Clear Calc Estimated GFR Random Glucose Lactic Acid F/U @ 4Hr Calcium Phosphorus Magnesium Total Bilirubin AST ALT Alkaline Phosphatase Total Protein Albumin Blood Type Antibody Screen Crossmatch 06/17/25 06/17/25 06/17/25 12:51 12:51 12:51 WBC RBC Hgb Hct MCV MCH MCHC RDW Plt Count MPV Immature Gran % (Auto) Neut % (Auto) Lymph % (Auto) [place] % (Auto) Eos % (Auto) Baso % (Auto) 0.2 Lymph # (Auto) Cancelled 1.6 [place] # (Auto) Cancelled 1.1 Eos # (Auto) Cancelled Baso # (Auto) Abs Immat Gran (auto) Absolute Neuts (auto) Absolute Nucleated RBC Nucleated RBC % (auto) Neutrophils % (Manual) Band Neutrophils % Lymphocytes % (Manual) Monocytes % (Manual) Abs Neuts (Manual) Lymphocytes # (Manual) Monocytes # (Manual) Smudge Cells Platelet Estimate Large Platelets Plt Morphology Comment RBC Morphology Macrocytosis Tear Drop Cells Ovalocytes [place] Cells PT INR VBG pH VBG pCO2 VBG pO2 VBG HCO3 VBG O2 Saturation VBG Base Excess Sodium Potassium Chloride Carbon Dioxide Anion Gap BUN Creatinine Estim Creat Clear Calc Estimated GFR Random Glucose Lactic Acid F/U @ 4Hr Calcium Phosphorus Magnesium Total Bilirubin AST ALT Alkaline Phosphatase Total Protein Albumin Blood Type Antibody Screen Crossmatch 06/17/25 06/17/25 06/17/25 12:51 12:51 12:51 WBC RBC Hgb Hct MCV MCH MCHC RDW Plt Count MPV Immature Gran % (Auto) Neut % (Auto) Lymph % (Auto) [place] % (Auto) Eos % (Auto) Baso % (Auto) Lymph # (Auto) [place] # (Auto) Eos # (Auto) 0.0 Baso # (Auto) Cancelled 0.0 Abs Immat Gran (auto) Cancelled 0.05 H Absolute Neuts (auto) Cancelled Absolute Nucleated RBC Nucleated RBC % (auto) Neutrophils % (Manual) Band Neutrophils % Lymphocytes % (Manual) Monocytes % (Manual) Abs Neuts (Manual) Lymphocytes # (Manual) Monocytes # (Manual) Smudge Cells Platelet Estimate Large Platelets Plt Morphology Comment RBC Morphology Macrocytosis Tear Drop Cells Ovalocytes [place] Cells PT INR VBG pH VBG pCO2 VBG pO2 VBG HCO3 VBG O2 Saturation VBG Base Excess Sodium Potassium Chloride Carbon Dioxide Anion Gap BUN Creatinine Estim Creat Clear Calc Estimated GFR Random Glucose Lactic Acid F/U @ 4Hr Calcium Phosphorus Magnesium Total Bilirubin AST ALT Alkaline Phosphatase Total Protein Albumin Blood Type Antibody Screen Crossmatch 06/17/25 06/17/25 06/17/25 12:51 12:51 12:51 WBC RBC Hgb Hct MCV MCH MCHC RDW Plt Count MPV Immature Gran % (Auto) Neut % (Auto) Lymph % (Auto) [place] % (Auto) Eos % (Auto) Baso % (Auto) Lymph # (Auto) [place] # (Auto) Eos # (Auto) Baso # (Auto) Abs Immat Gran (auto) Absolute Neuts (auto) 6.7 Absolute Nucleated RBC Cancelled 0.000 Nucleated RBC % (auto) Cancelled 0.0 Neutrophils % (Manual) Band Neutrophils % Lymphocytes % (Manual) Monocytes % (Manual) Abs Neuts (Manual) Lymphocytes # (Manual) Monocytes # (Manual) Smudge Cells Platelet Estimate Large Platelets Plt Morphology Comment RBC Morphology Macrocytosis Tear Drop Cells Ovalocytes Katheryn Cells PT 22.8 H INR 2.0 H VBG pH VBG pCO2 VBG pO2 VBG HCO3 VBG O2 Saturation VBG Base Excess Sodium 143 Potassium 4.7 D Chloride 106 Carbon Dioxide 21 L Anion Gap 21 H BUN 11 Creatinine 0.61 Estim Creat Clear Calc 198.9 Estimated GFR > 60 Random Glucose 122 H Lactic Acid F/U @ 4Hr Calcium 7.8 L Phosphorus 3.5 Magnesium Total Bilirubin AST ALT Alkaline Phosphatase Total Protein Albumin Blood Type Antibody Screen Crossmatch 06/17/25 06/17/25 06/18/25 16:22 20:52 01:20 WBC 11.0 H RBC 2.86 L Hgb 7.3 L 6.7 L* 7.5 L Hct 23.1 L 19.9 L* 21.7 L MCV 80.8 D MCH 25.5 L MCHC 31.6 RDW 19.9 H Plt Count 91 L D MPV 11.3 Immature Gran % (Auto) Neut % (Auto) Lymph % (Auto) [place] % (Auto) Eos % (Auto) Baso % (Auto) Lymph # (Auto) [place] # (Auto) Eos # (Auto) Baso # (Auto) Abs Immat Gran (auto) Absolute Neuts (auto) Absolute Nucleated RBC 0.000 Nucleated RBC % (auto) 0.0 Neutrophils % (Manual) Band Neutrophils % Lymphocytes % (Manual) Monocytes % (Manual) Abs Neuts (Manual) Lymphocytes # (Manual) Monocytes # (Manual) Smudge Cells Platelet Estimate Large Platelets Plt Morphology Comment RBC Morphology Macrocytosis Tear Drop Cells Ovalocytes Katheryn Cells PT 23.9 H INR 2.1 H VBG pH VBG pCO2 VBG pO2 VBG HCO3 VBG O2 Saturation VBG Base Excess Sodium 143 142 Potassium 5.4 H 5.2 H Chloride 108 113 H Carbon Dioxide 16 L 19 L Anion Gap 24 H 15 BUN 13 13 Creatinine 0.76 0.81 Estim Creat Clear Calc 159.6 149.8 Estimated GFR > 60 > 60 Random Glucose 121 H 125 H Lactic Acid F/U @ 4Hr Calcium 8.1 L 7.4 L D Phosphorus Magnesium Total Bilirubin 3.4 H AST 1548 H ALT 227 H Alkaline Phosphatase 105 Total Protein 5.3 L Albumin 2.6 L Blood Type Antibody Screen Crossmatch 06/18/25 06/18/25 05:09 05:10 WBC 6.6 RBC 2.77 L Hgb 7.6 L Hct 22.2 L MCV 80.1 MCH 27.4 MCHC 34.2 RDW 17.5 H Plt Count 51 L D MPV 11.2 Immature Gran % (Auto) Cancelled Neut % (Auto) Cancelled Lymph % (Auto) Cancelled [place] % (Auto) Cancelled Eos % (Auto) Cancelled Baso % (Auto) Cancelled Lymph # (Auto) Cancelled [place] # (Auto) Cancelled Eos # (Auto) Cancelled Baso # (Auto) Cancelled Abs Immat Gran (auto) Cancelled Absolute Neuts (auto) Cancelled Absolute Nucleated RBC 0.000 Nucleated RBC % (auto) 0.0 Neutrophils % (Manual) 66 Band Neutrophils % 0 L Lymphocytes % (Manual) 17 L Monocytes % (Manual) 17 H Abs Neuts (Manual) 4.4 Lymphocytes # (Manual) 1.1 L Monocytes # (Manual) 1.1 Smudge Cells PRESENT Platelet Estimate DECREASED Large Platelets PRESENT Plt Morphology Comment NOTED RBC Morphology NOTED Macrocytosis 1+ (5-14) Tear Drop Cells 1+ (0-2) Ovalocytes 1+ (5-14) Katheryn Cells 1+ (0-2) PT 24.2 H INR 2.1 H VBG pH 7.47 H VBG pCO2 33 VBG pO2 63 VBG HCO3 24 VBG O2 Saturation 91.0 VBG Base Excess 1.5 Sodium 141 Potassium 4.6 Chloride 111 H Carbon Dioxide 23 Anion Gap 12 BUN 16 Creatinine 0.99 Estim Creat Clear Calc 122.5 Estimated GFR > 60 Random Glucose 153 H Lactic Acid F/U @ 4Hr Calcium 7.6 L Phosphorus 3.1 Magnesium 2.2 Total Bilirubin 3.3 H AST 2071 H ALT 241 H Alkaline Phosphatase 97 Total Protein 5.2 L Albumin 2.5 L Blood Type Antibody Screen Crossmatch Microbiology Microbiology Results: Microbiology 06/17/25 05:40 Blood - Venous Blood Culture - Preliminary No growth after 24 hours. 06/17/25 05:40 Blood - Venous Blood Culture - Preliminary No growth after 24 hours. Progress Note: A&P Assessment and plan (1) Alcohol intoxication: Status: Acute (2) Cocaine use: Status: Acute (3) Decompensated hepatic cirrhosis: Status: Acute (4) Acute hepatic encephalopathy: Status: Acute (5) Lactic acidosis: Status: Acute Plan Neuro: Acute encephalopathy possibly due to alcohol intoxication later leading to alcohol withdrawal syndrome. He has history of alcohol withdrawal related seizures in the past On propofol for sedation, as needed fentanyl for analgesia Close neurological status monitoring in the ICU every hour Cardiac: Cardiogenic Shock: Possibly secondary to positive pressure ventilation on phenylephrine for vasopressor support, titrate to keep MAP above 65mmHG Respiratory: Acute hypoxemic respiratory failure due to aspiration Currently on ventilator support On PRVC mode FiO2 30%, PEEP 5, TV 400, RR 20 Peak pressures and plateau pressures are under the curve Ventilator management bundle with head end elevation, aspiration precaution, chlorhexidine mouthwash, daily awakening trials, daily spontaneous breathing trials GI: Upper GI bleed: Secondary to esophageal varices, status post banding this morning. Possibly we will need a repeat procedure today will discuss with GI. 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 Last alcohol intake was morning of admission Continue octreotide drip for 72 hours, pantoprazole 40 mg b.i.d. continue ceftriaxone prophylaxis We will keep him NPO and no NG tube transaminitis: AST 2071, ALT 241 possibly secondary to alcoholic hepatitis with some component of shock liver from acute blood loss will continue to monitor. Renal: Renal function normal We will closely monitor I's and O's Avoid nephrotoxic medications Heme: Acute blood loss anemia: Secondary to upper GI bleed Received 3 unit PRBC transfusion and 2 unit FFP so far We will repeat a CBC and INR later in the day update: repeat HB 6.6- will transfuse him 2 PRBC and 2 FFP. Endocrine: Blood sugars under control Sliding scale insulin as needed Infectious disease: pending pancultures Ceftriaxone for prophylaxis Musculoskeletal: Decubitus ulcer prevention protocol Lines: Peripheral Foy catheter for urinary retention. Prophylaxis: SCD, pantoprazole Critical care time spent is about 45 minutes on ventilator management, sedation management, close hemodynamic monitoring, vasopressor management, stabilizing patient's upper GI bleed, multiple transfusions and this time is excluding any procedural time Quality Stroke Does the patient have a stroke diagnosis?: No VTE Prior VTE?: No VTE Risk Level:: Medical - moderate - high VTE Device Contraindication: N/A - Device Ordered VTE Drug Contraindication: N/A - Med Ordered
[2025-06-18 09:25] LABS: Hematocrit 20.1 % (42.0-52.0); Hemoglobin 6.9 g/dl (14.0-18.0)
--- NOTE | 2025-06-18 11:15 | MHC.CLN ---
PT MAY REQUIRE TF FOR NUTRITION SUPPORT R/T PROLONGED NPO STATUS PT IS INTUBATED AND SEDATED DISCUSSED AT ROUNDS WITH MD WILL ADD NPO FOR DIET ORDER IF TF NEEDED; RECOMMEND PROMOTE AT MAX GOAL RATE 50ML/HR WITH 240ML FREE WATER FLUSHES Q 4 HRS TO PROVIDE 1200KCALS (1937KCALS WITH SEDATION; 23KCALS/KG), 75G PROTEIN (.89G/KG), 2447ML TOTAL WATER FROM FORMULA AND FLUSHES (28ML/KG) MONITOR TOLERANCE AND LYTES FOLLOWING FOR DIET ADVANCEMENT SEE ALSO FULL ASSESSMENT
--- NOTE | 2025-06-18 14:29 | PC.NURSE ---
Assumed care of patient 0700. Patient remains intubated and sedated with Propofol gtt and Fentanyl gtt. Vitamin K IV administered per JAN. H+H rechecked at 09:00 6.9/20.1 . Plan for total of 2 RBCs and 4 FFP today. 12:15 full bed bath provided. Patient had small maroon jelly stool. 13:45 consent obtained by GI MD and Anesthesia MD for repeat endoscopy. 14:00 Patient transported to OR with Anesthesia, 2 OR RNs. Second unit RBCs and FFPs hanging at this time. Patient had a moderate liquid tarry stool. MD notified.
--- NOTE | 2025-06-18 14:57 | MHC.CM.PN ---
Addendum entered by Teetee Roe 06/18/25 15:07: HCP on file - will verify w/pt when applicable Original Note: Pt on ventilator support and unable to participate in CM assessment: Information obtained from pt's parent and EMR. Pt resides alone: family close by and assists as needed. Pt w/active ETOH use - has been to detox in past. Pt will benefit from CARE team consult when medically stable for assistance w/possible placement or resources. CM to follow for finalization of d/c needs.
--- NOTE | 2025-06-18 16:22 | P.EN_ITS ---
Event Note Date of Service: 06/18/25 Event Note: GI Mr Taya was brought for repeat EGD because of continuing blood loss. Additional banding was done. No active bleeding seen. Dr Wade at [facility] was contacted for transfer as TIPS or BRTO may be needed. [facility] transfer center has been contacted for arrangements. Family and Dr. Hess are aware. Continue octreotide, transfuse prn. Critical care time today 60 minutes exclusive of procedures. Time Spent With Patient Time: Total time managing care of this patient today ____ minutes.
--- NOTE | 2025-06-18 16:29 | P.PNGI_ITS ---
Subjective Subjective Date of Service: 06/18/25 Interval History: Intubated and sedated Critical Care Time (minutes): 60 Comment: see event note Physical Exam 2 Vital Signs: Vital Signs: Last Vital Signs Temp 97.7 F 06/18/25 16:17 Pulse 69 06/18/25 16:17 Resp 15 06/18/25 16:17 BP 95/44 L 06/18/25 16:17 Pulse Ox 94 06/18/25 16:00 O2 Del Method Mechanical Ventil ation 06/18/25 16:00 O2 Flow Rate 2 06/17/25 07:30 FiO2 30 06/18/25 16:00 BMI result Body Mass Index 29.6 GI: Other: abdomen soft, no masses melena x1 overnight Objective Data Labs 06/18/25 09:07 06/18/25 05:09 Microbiology Microbiology Results: Microbiology 06/17/25 05:40 Blood - Venous Blood Culture - Preliminary No growth after 24 hours. 06/17/25 05:40 Blood - Venous Blood Culture - Preliminary No growth after 24 hours. Procedures Date of Service Date of Service: 06/18/25 Progress Note: A&P Assessment and plan (1) Acute upper gastrointestinal hemorrhage: Status: Acute Assessment and Plan: repeat EGD for bleeding elevated lfts ? shock liver INR, sCr stable so far. See event note. Time Spent With Patient Time: Total time managing care of this patient today ____ minutes. Quality Stroke Does the patient have a stroke diagnosis?: No VTE Prior VTE?: No VTE Risk Level:: Medical - moderate - high VTE Device Contraindication: N/A - Device Ordered VTE Drug Contraindication: N/A - Med Ordered
[2025-06-18 17:28] LABS: Hematocrit 23.1 % (42.0-52.0); Hemoglobin 8.1 g/dl (14.0-18.0); Mean Corpuscular HGB Conc 35.1 g/dl (31.0-36.0); Mean Corpuscular Hemoglobin 29.0 pg (27.0-33.0); Mean Corpuscular Volume 82.8 fL (80.0-98.0); NRBC Abs Auto 0.000 X10*3/uL (0.0-0.012); NRBC Pct Auto 0.0 /100WBC (0.0-0.2); Red Blood Count 2.79 X10*6/uL (4.60-5.80); White Blood Count 5.1 X10*3/uL (4.8-10.8)
[2025-06-18 17:29] LABS: Platelet Count 41 X10*3/uL (160-400)
[2025-06-18 17:32] LABS: INTERNATIONAL NORM RATIO 1.9 (0.9-1.1); Prothrombin Time 21.9 SEC (10.9-12.4)
--- NOTE | 2025-06-18 19:37 | PM.TDS ---
Transfer Discharge Sum: Prov Provider Date of admission: 06/17/25 11:08 Primary care physician: Kallie An DO Admitting clinician: Macario Hess Attending physician on admission: Macario Hess Attending physician on discharge: Macario Hess Discharging clinician: Vidal Bailey Anticipated date of transfer: 06/18/25 Receiving physician/facility: [facility] [address] GUNTER DS: Diagnosis Discharge Diagnosis (1) Acute upper gastrointestinal hemorrhage: Start date: 06/17/25 Start time: 06:00 Status: Acute Transfer Discharge Sum: Med Medications Active and Home Medications: Home Medications folic acid 1 mg tablet 1 mg PO BEDTIME 12/20/24 [History Confirmed 06/17/25] furosemide 20 mg tablet 20 mg PO DAILY 12/20/24 [History Confirmed 06/17/25] hydroxyzine HCl 10 mg tablet 10 mg PO TID PRN anxiety or itching 12/20/24 [History Confirmed 06/17/25] rifaximin 550 mg tablet (Xifaxan) 550 mg PO Q12H 12/20/24 [History Confirmed 06/17/25] gabapentin 300 mg capsule 300 mg PO BEDTIME 06/17/25 [History Confirmed 06/17/25] mirtazapine 30 mg tablet 30 mg PO BEDTIME 06/17/25 [History Confirmed 06/17/25] Active Medications Ceftriaxone Sodium (Ceftriaxone Sodium 2 Gm Vial) 2 gm IVPUSH Q24H [facility] Last Admin: 06/18/25 06:05 Dose: 2 gm Chlorhexidine Gluconate (Chlorhexidine Gluc Oral Rinse 15 Ml Mouthwash) 15 ml BUCCAL TID [facility] Last Admin: 06/18/25 15:24 Dose: 15 ml Octreotide Acetate 500 mcg/ (Sodium Chloride) 501 mls @ 50.1 mls/hr IVCONT .Q10H [facility] Last Admin: 06/18/25 13:33 Dose: 50 mcg/hr, 50.1 mls/hr Propofol (Diprivan) 1,000 mg in 100 mls @ 0 mls/hr IVCONT .Q0M [facility]; Protocol Last Admin: 06/18/25 18:38 Dose: 50 mcg/kg/min, 27.93 mls/hr Fentanyl (Sublimaze/Ns) 1,000 mcg in 100 mls @ 0 mls/hr IVCONT .Q0M [facility]; Protocol Last Admin: 06/18/25 19:32 Dose: 100 mcg/hr, 10 mls/hr Phenylephrine HCl 20 mg/ (Sodium Chloride) 252 mls @ 0 mls/hr IVCONT .Q0M [facility]; Protocol Last Titration: 06/18/25 18:45 Dose: 0 mcg/kg/min, 0 mls/hr Naloxone HCl (Naloxone Hcl 0.4 Mg/Ml Vial) 0.2 mg IVPUSH Q2M PRN PRN Reason: Excessive sedation or RR < 8 Pantoprazole Sodium (Pantoprazole Sodium 40 Mg/10 Ml Vial) 40 mg IVPUSH BID@0630,1630 [facility] Last Admin: 06/18/25 15:24 Dose: 40 mg Pharmacy Consult (Consult Rx Etoh Phenob Im/Po) 1 each MISCELLANE ONCE PRN; Protocol PRN Reason: Consult order Phenobarbital (Phenobarbital 30 Mg Tablet) 60 mg PO BID [facility] Stop: 06/19/25 09:01 Last Admin: 06/18/25 09:12 Dose: Not Given Phenobarbital (Phenobarbital 30 Mg Tablet) 30 mg PO BID [facility] Stop: 06/21/25 09:01 Phenobarbital (Phenobarbital 30 Mg Tablet) 30 mg PO BEDTIME [facility] Stop: 06/22/25 21:01 Transfer Discharge Sum: Hosp Hospital Course Hospital course: ADMISSION/DISCHARGE DIAGNOSIS Acute upper GI bleed Acute variceal bleeding Shocked liver syndrome Acute Hemorrhagic shock Acute alcohol intoxication Acute coagulopathy due to liver disease Acute on chronic alcoholic hepatitis Acute hepatic encephalopathy Acute lactic acidosis Chronic alcoholic cirrhosis Chronic alcohol abuse History of alcohol withdrawal syndrome with seizures History of IV drug abuse HPI/HOSPITAL COURSE 35-year-old male with past history of IV drug abuse, alcoholic cirrhosis, alcohol withdrawal related seizures, anxiety among others presented to [facility] on 06/17/2025 with complaints of 4 episodes of hematemesis starting that morning.? His last alcoholic drink had been the day of admission in the morning, he had reported melena, during the workup the patient was noted to have a hemoglobin of 10.8 down to 9.7.? Gastroenterology had been consulted and underwent a endoscopy which showed large variceal bleeding with a pool of blood in the stomach.? The patient had been intubated for airwa safety and prevention of aspiration, transferred to the ICU after the procedure and kept them to dated in case he continued to bleed. While in the ICU he received a total of 3 units of packed red blood cells, 3 units of FFP, vitamin K, tranexamic acid and vasopressor support. ?He was on phenylephrine but subsequently was discontinued as he is stabilized after packed red blood cells.? He was treated with Protonix and octreotide. ?Additionally he did receive Rocephin 2 g every 24 hours.? In a single dose of Lasix IV push in between packed red blood cells. ?Electrolytes were replaced. ?Given the recurrent overnight drop edge in his H&H and recurrent need of transfusion, the patient underwent a repeated endoscopy this morning. ?Additional variceal banding had been done, no active bleeding was found. Dr. Zamora (superintendent generating plant) at our facility had discussed the case with Dr. Gunter at [facility] and the patient was accepted for transfer for possible TIPS versus BRTO procedure. Currently the patient remains hemodynamically stable 106/48, 73, 92%, 98.2. ?On a ventilator with AC settings, 14, 500, 30% and 5 of PEEP. He is currently on propofol, , fentanyl, octreotide (doses per EMR). ? MOST RECENT LABORATORIES As of 17:00, white blood cells 5.1, hemoglobin 8.1, hematocrit 23.1, platelets 41.? Band neutrophils 0%.? As much cells present.? PT 21.9, INR 1.9. ?Sodium 141, potassium 4.6, chloride 111, carbon dioxide 23, anion gap 12, BUN 16, creatinine 0.99, glucose 153, calcium 7.6 (corrected calcium 8.8), phosphorus 3.1, magnesium 2.2, total bilirubin 3.3, SGOT 2071, ALT 241, albumin 2.5 (he did receive albumin replacement so it will be much higher). DISCHARGE MEDICATIONS Octreotide acetate 50 mcg per hour Protonix 40 mg IV push b.i.d. Rocephin 2 g IV push Q 24 hours Fentanyl 100 mcg IV per hour IMAGES Chest x-ray IMPRESSION: Properly positioned ET tube. New left basilar density likely represents pneumonia. Probable changes of pneumonia in the medial right upper lung zone. CT angiogram of abdomen and pelvis with contrast. [address] [address] [address] Scan Report Signed Patient: Andrew Bain MR#: [id number] : 1990 Acct:[id number] Age/Sex: 35 / M ADM Date: 06/17/25 Loc: HO.ED Attending Dr: Ordering Physician: Myrna Palmer DO Date of Service: 06/17/25 Procedure(s): CT gi bleed abd pel wo/w IVcon Accession Number(s): [id number] cc: Myrna Palmer DO; Kallie An DO~ Report Number: [id number]: Total DLP = 1533.00 mGy-cm CLINICAL HISTORY: upper and lower GIB CT angiography abdomen and pelvis with contrast. 3-D post processing. Comparison: None provided Findings: Aorta, mesenteric/renal arteries, and iliofemoral systems are within normal limits. No consolidation or effusion. The appearance of the liver suggests hepatocellular pathology such as cirrhosis. The is recanalization of the umbilical vein suggesting an element of portal hypertension. The spleen measures 15.6 x 14.7 x 7.1 cm. The gallbladder and solid organs are otherwise within normal limits. No renal stones. No bowel obstruction, pneumoperitoneum, or pneumatosis. Pelvic contents unremarkable. Normal appendix. No acute fracture. Time Spent with Patient Time attestation: Total time managing care of this patient today ____ minutes. Physical Exam Vital Signs: Vital Signs: Last Vital Signs Temp 98.2 F 06/18/25 19:00 Pulse 73 06/18/25 19:00 Resp 15 06/18/25 19:00 BP 104/47 L 06/18/25 19:00 Pulse Ox 93 06/18/25 19:00 O2 Del Method Mechanical Ventil ation 06/18/25 19:00 O2 Flow Rate 2 06/17/25 07:30 FiO2 30 06/18/25 19:00 BMI result Body Mass Index 29.6 Transfer Discharge Sum: Data Data Completed and Pending Completed studies during hospitalization: Procedures Detoxification Services for Substance Abuse Treatment (01/17/23) Drainage of Rectum, Via Natural or Artificial Opening Endoscopic (12/20/24) Inspection of Upper Intestinal Tract, Via Natural or Artificial Opening Endoscopic (12/20/24) Transfusion of Nonautologous Frozen Plasma into Peripheral Vein, Percutaneous Approach (12/20/24) Transfusion of Nonautologous Platelets into Peripheral Vein, Percutaneous Approach (12/20/24) Transfusion of Nonautologous Red Blood Cells into Peripheral Vein, Percutaneous Approach (12/20/24)
--- NOTE | 2025-06-18 19:55 | PC.NURSE ---
Pt was transferred to [facility] via [facility] helicopter. Report given to transport crew. Report given to Facility via previous RN. Pt left unit accompanied by ambulance crew at 1955. Family updated.
--- NOTE | 2025-06-19 01:12 | OP_ITS ---
DATE OF SERVICE: 06/18/2025 SURGEON: Ronnell Zamora MD INDICATIONS: Esophageal varices with continued bleeding. PREOPERATIVE DIAGNOSIS: POSTOPERATIVE DIAGNOSIS: PROCEDURE PERFORMED: Upper endoscopy with banding. ESTIMATED BLOOD LOSS: COMPLICATIONS: ANESTHESIA: General anesthesia. ASSISTANTS: SPECIMENS: PROCEDURE DESCRIPTION: History and physical performed. The risks and benefits of the procedure were explained to the patient's mother and informed consent was obtained. The patient was placed in left oblique position and the Olympus videogastroscope was introduced into the esophagus, stomach, and duodenum. Examination was performed, then the scope was removed. He tolerated the procedure well and was taken to recovery in stable condition. FINDINGS: Esophagus: There were multiple bands in place from previous banding episode yesterday. There was no active bleeding. One of the bands had dislodged with ulceration at the site of band placement. STOMACH: There was a large amount of clotted blood in the stomach, but less than yesterday, so some of the additional fundus was seen, but not all. No active bleeding was identified in the stomach. Duodenum: There was some old blood in the duodenum, but no active bleeding identified. Because of the patient's presentation and continued requirement for blood transfusions with significant anemia, the scope was removed and the banding attachment was placed. Next, 4 bands were successfully placed in the vicinity of the previous banding site with no complications. He tolerated the procedure well and was returned to the ICU in stable condition. He did have moderate to large amount of bloody stool passed during the procedure. IMPRESSION: Esophageal variceal bleeding. PLAN: Continue ICU care. Continue octreotide and if recurrent bleeding occurs, he will need transfer to a tertiary care center with TIPS capability. MD RUBIN Villafana/ANABELL / [phone] MTDD
== END 2025-06-18 19:55 | disposition short-term general hospital (02) | DRG 280 ==
LOC: HO.ED 08:04 → HO.EDOVER 11:21 → HO.ICU 11:23
PROVIDERS: Internal Medicine Gastroenterology; Physician Assistant Medical; Admitting Provider Internal Medicine Critical Care Medicine; Emergency Provider Emergency Medicine; PCP Family Medicine; Visit Provider Internal Medicine Critical Care Medicine
PROC: 30233K1 Transfusion of Nonautologous Frozen Plasma into Peripheral Vein, Percutaneous Approach (ICD-10-PCS; principal; 2025-06-17 13:40)
PROC: 06L38CZ Occlusion of Esophageal Vein with Extraluminal Device, Via Natural or Artificial Opening Endoscopic (ICD-10-PCS; principal; 2025-06-18 13:30)
DX: K70.30 Alcoholic cirrhosis of liver without ascites (principal); K70.10 Alcoholic hepatitis without ascites; J96.01 Acute respiratory failure with hypoxia; R57.0 Cardiogenic shock; I85.11 Secondary esophageal varices with bleeding; F10.129 Alcohol abuse with intoxication, unspecified; F10.139 Alcohol abuse with withdrawal, unspecified; D62 Acute posthemorrhagic anemia; Y90.8 Blood alcohol level of 240 mg/100 ml or more; D68.4 Acquired coagulation factor deficiency; K76.82 Hepatic encephalopathy; F11.11 Opioid abuse, in remission; K72.00 Acute and subacute hepatic failure without coma; Z79.899 Other long term (current) drug therapy
CPT/HCPCS: 36415; 71045; 74178; 80048; 80053; 80307; 81003; 82140; 82272; 82803; 83605; 83735; 84100; 84484; 85007; 85014; 85018; 85025; 85027; 85610; 86850; 86900; 86901; 86923; 87040; 93005; 94002; 94003; 99285; J0168; J0616; J0618; J0696; J1938; J2354; J2371; J2405; J2470; J2560; J2704; J2765; J3010; J3360; J3411; J3430; J3475; J7120; P9016; P9017; P9047; Q9967

== ENCOUNTER → 2025-06-17 03:09 | Outpatient (BNV) | payer OTHER, SELFPAY | PROVIDERS: Emergency Provider Emergency Medicine; PCP Family Medicine; Visit Provider Internal Medicine Cardiovascular Disease | DX: R00.0 Tachycardia, unspecified (principal) | CPT/HCPCS: 93010 ==

== ENCOUNTER → 2025-06-17 04:33 | Outpatient (BNV) | payer OTHER, SELFPAY | PROVIDERS: Emergency Provider Emergency Medicine; PCP Family Medicine; Visit Provider Specialist | DX: K92.2 Gastrointestinal hemorrhage, unspecified (principal) | CPT/HCPCS: 71045; 74178 ==

== ENCOUNTER → 2025-06-17 11:08 | Outpatient (BNV) | payer OTHER, SELFPAY | PROVIDERS: Admitting Provider Internal Medicine Critical Care Medicine; Emergency Provider Emergency Medicine; PCP Family Medicine; Visit Provider Internal Medicine Critical Care Medicine | DX: K92.2 Gastrointestinal hemorrhage, unspecified (principal); R79.1 Abnormal coagulation profile; F10.929 Alcohol use, unspecified with intoxication, unspecified; F14.90 Cocaine use, unspecified, uncomplicated; K72.90 Hepatic failure, unspecified without coma; K74.60 Unspecified cirrhosis of liver; K76.82 Hepatic encephalopathy; E87.20 Acidosis, unspecified | CPT/HCPCS: 99291 ==

== ENCOUNTER 2025-10-03 17:21 | Emergency (ER) | payer OTHER, SELFPAY ==
--- OUTSIDE RECORDS SUMMARY | 2024-04-05 10:45 | XMS_ITS ---
Author Organization [facility] Billing Info Address [address] [place], [place] [id number] Support Name Relationship Address Phone andrew Lewis, sr, trevor Emergency Contact [address] [place] [address] [address] [place] [address] Andrew Bain Guarantor Unknown [phone] Care Team Providers Care Short Order Fry Cook Name Role Phone RANDELL SNYDER Primary Care Provider [phone] WILL AVITIA [phone] REASON FOR VISIT Refill request Medications Medication SIG (Take, Route, Fr equency, Duration) Notes Start Date End Date Status HydrOXYzine HCl 50 MG 1 tablet as needed Orally Once a day for 30 days Active Encounters Encounter Location Date Provider Diagnosis [id number] [address] [place] [address] [id number] 04/05/2024 WILL AVITIA Plan Of Treatment Medication Medication Name Sig Start Date Stop Date Notes HydrOXYzine HCl 50 MG 1 tablet as needed Orally Once a day for 30 days Progress Notes * Andrew BAINDOB:[birth year] (34 yo M)Acc No.[id number]:04/05/2024 Patient: Bernard WADSWORTHemeterio Lewis :1990 A ge:34 Y S ex:Male Address:[address] [place] [address], [address], [place] [address] * Refills Refill HydrOXYzine HCl Tablet, 50 MG, Orally, 30, 1 tablet as needed, Once a day, 30 days, Refills=0 * true * Date: Generated for Mariel starr/Po/eTransmitting on: 12/03/2024 08:40 PM EST
--- OUTSIDE RECORDS SUMMARY | 2024-04-20 11:00 | XMS_ITS ---
Author Organization [facility] Billing Info Address [address] [place], [place] [address] Care Team Providers Care Metal Hanging Supervisor Name Role Phone RANDELL SNYDER Primary Care Provider WILL AVITIA Unavailable [phone] ZAHRAA JACOB Unavailable [phone] REASON FOR VISIT med check [id number] AMD Encounters Encounter Location Date Provider Diagnosis [id number] [address] [place] [address] [id number] 04/20/2024 ZAHRAA JACOB Plan Of Treatment No Information Progress Notes * Andrew BAINDOB:[birth year] (35 yo M)Acc No.[id number]:04/20/2024 PROGRESS NOTE Patient: Evelyne RUVALCABASARAH Andrew Lewis Appointment Provider: Katlyn JACOB DO :1990 A ge:34 Y S ex:Male Date:04/20/2024 C HN#:[id number] Address:[address] [place] [address], Patient Has No Address, [place] [address] Pcp:RANDELL SNYDER Subjective: * Chief Complaints: * 1 . med check [id number] AMD. * Medical History: Objective: * Vitals: Assessment: Plan: * Treatment: * Care Plan Details* * This progress note has not b een verified nor is it considered complete until locked and signed by the provider. Sign off status: Pending * Appointment Provider: Katlyn JACOB, Date: 0 04/20/2024 Generated for Mariel starr/Po/Guy on: 1 12/03/2024 08:41 PM EST
--- OUTSIDE RECORDS SUMMARY | 2025-06-17 08:30 | XMS_ITS ---
Author Organization [facility] Address [address] [place] [id number] Care Team Providers Care Bow Maker Gift Wrapping Name Role Phone Kallie An DO Primary Care Provider Unav ailable Ronnell Zamora Jr Unavailable [phone] REASON FOR VISIT Gi Bleed Encounters Encounter Location Date Provider [place] [facility] [place] [address] [id number] [place]/17/2025 Ronnell Zamora Jr Plan Of Treatment No Information Progress Notes * MIHAI KUMAROB:1990 (35 yo M)Acc No.[id number]:06/17/2025 EGD/MAC Patient: JOLANTA WADSWORTH Provider: Flor Zamora MD :1990 A ge:35 Y S ex:Male Date:06/17/2025 Address:[address] [place], [place] [id number] Pcp:Kallie An DO Subjective: * Chief Complaints: * 1 . Gi Bleed. * Medical History: Objective: * Vitals: Assessment: Plan: * Treatment: * * The named appointment provid er may or may not be the originator of this progress note, and it is not deemed complete until electronically signed by the appointment provider. Sign off status: Pending * Provider: Flor Zamora MD Date: 0 06/17/2025 Generated for Mariel starr/Po/eTransmitting on: 12/03/2024 08:41 PM EST
--- OUTSIDE RECORDS SUMMARY | 2025-06-29 04:00 | XMS_ITS ---
Author Organization [facility], [facility] Address [address] [address] Care Team Providers Care Mechanical Product Engineer Name Role Phone [facility] Primary Care Provider Gabi Dewayne Mora Unavailable [phone] Migration, Provider Unavailable Unavailable REASON FOR VISIT EMR-Moris Encounters Encounter Location Date Provider Diagnosis [facility] [address] [address] 06/29/2025 Provider Migration Plan Of Treatment No Information Progress Notes * JOSÉXavierOB:1990 (35 yo M)Acc No.[id number]:06/29/2025 Patient: Andrew WADSWORTH :1990 A ge:35 Y S ex:Male Address:[address] [place] [address] Subjective: * Chief Complaints: * E MR-Moris * Medical History: * Surgical History: * Hospitalization/Major Diagno stic Procedure: * Medications: Objective: * Vitals: * Physical Examination: Assessment: Plan: * Treatment: * Procedure Codes: * * Date:
--- OUTSIDE RECORDS SUMMARY | 2025-06-30 04:00 | XMS_ITS ---
Author Organization [facility] [employer], [facility] Address [address] [address] Care Team Providers Care Trailhead Construction Worker Name Role Phone [facility] Primary Care Provider Gabi Dewayne Mora Unavailable [phone] Migration, Provider Unavailable Unavailable REASON FOR VISIT EMR-Moris Encounters Encounter Location Date Provider [facility] [address] [address] 06/30/2025 Provider Migration Plan Of Treatment No Information Progress Notes * JOSÉXavierOB:1990 (35 yo M)Acc No.[id number]:06/30/2025 Patient: Andrew WADSWORTH :1990 A ge:35 Y S ex:Male Address:[address] [place] [address] Subjective: * Chief Complaints: * E MR-Moris * Medical History: * Surgical History: * Hospitalization/Major Diagno stic Procedure: * Medications: Objective: * Vitals: * Physical Examination: Assessment: Plan: * Treatment: * Procedure Codes: * * Date:
--- NOTE | ~2025-10-03 | XR_ITS ---
CLINICAL HISTORY: SOB 1 view chest x-ray. Comparison: 06/17/2025 Findings: No consolidation or effusion. Cardiac and mediastinal contours appear stable. Bones unremarkable. Impression: 1. No acute pulmonary disease. This document has been electronically signed by: Jose Dinero MD on 10/03/2025 18:18:54
--- NOTE | ~2025-10-03 | XR_ITS ---
CLINICAL HISTORY: pain, constipation?? 1 view abdomen Comparison: None provided Findings: Normal bowel gas pattern. No abnormal calcifications. No pneumoperitoneum or pneumatosis. No acute fractures. Impression: 1. Moderate stool. This document has been electronically signed by: Brenda Bender MD on 10/03/2025 22:52:40
[2025-10-03 17:31] VITALS: BP 125/74; PULSE 103; RESP 18; TEMP 36.8; O2SAT 97; BMI 30.6
--- NOTE | 2025-10-03 17:36 | ECG_ITS ---
Test Reason : sob Blood Pressure : */* mmHG Vent. Rate : 96 BPM Atrial Rate : 96 BPM P-R Int : 162 ms QRS Dur : 94 ms QT Int : 358 ms P-R-T Axes : 55 5 34 degrees QTcB Int : 452 ms Normal sinus rhythm Inferior infarct (cited on or before 17-Jun-2025) Abnormal ECG When compared with ECG of 17-Jun-2025 03:09, No significant change was found Referred By: Christiano Palacios Electronically Signed By: NILDA RIZO MD
--- NOTE | 2025-10-03 17:36 | ED.GENADULT ---
HPI - General Adult General Chief complaint: General Medical Stated complaint: General Medical Time Seen by Provider: 10/03/25 22:05 Source: patient Limitations: no limitations History of Present Illness ED Provider: Zuly Foy PA-C HPI narrative: 35-year-old male with a history of alcohol use disorder, with associated induced psychosis, with subsequent development of cirrhosis, now status post TIPS at [facility], presents with multiple complaints. Following his procedure, patient was recently released from detox, he states he does not feel well. Associated chest pain, shortness of breath, abdominal distention, dizziness and palpitations. Patient also feels his anxiety is currently poorly controlled. Patient states he met with a psychiatrist affiliated with a detox facility, he was prescribed Wellbutrin, however he has not taken it yet, given he is fearful it will make him feel worse. Associated nasal congestion, denies active cough cold symptoms or fever. Patient states he also has been off his lactulose and spironolactone, he just resumed taking these medications. He is having constipation, with some nausea, he is still passing flatus, denies vomiting. Related Data Home Medications ?Medication ?Instructions ?Recorded ?Confirmed folic acid 1 mg tablet 1 mg PO BEDTIME 12/20/24 06/17/25 furosemide 20 mg tablet 20 mg PO DAILY 12/20/24 06/17/25 hydroxyzine HCl 10 mg tablet 10 mg PO TID PRN anxiety or itching 12/20/24 06/17/25 rifaximin 550 mg tablet (Xifaxan) 550 mg PO Q12H 12/20/24 06/17/25 gabapentin 300 mg capsule 300 mg PO BEDTIME 06/17/25 06/17/25 mirtazapine 30 mg tablet 30 mg PO BEDTIME 06/17/25 06/17/25 Previous Rx's ?Medication ?Instructions ?Recorded ondansetron 4 mg disintegrating 4 mg PO Q8H PRN nausea and 10/03/25 tablet vomiting #10 tabs Allergies Allergy/AdvReac Type Severity Reaction Status Date / Time No Known Allergies Allergy Verified 10/03/25 17:35 [facility] Past Medical History Attestation statement: The following information was validated with the patient. 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 Alcohol use disorder Social History Social History Household Members: None Housing: Apartment Do you presently have visiting nurse or other home services: No Alcohol intake: former Patient Tobacco Use Status: Never used Tobacco Tobacco use type: Smokeless Tobacco Cigarettes Per Day: 3 Smoked in Last 30 Days: No e-Cigarette/Vaping Use: Never Used Second Hand Smoke Exposure: No Use of substances other than those prescribed or required for medical reasons: Yes Substance Use Type: Marijuana Substance Use Type Other:: LAST USED 2 WEEKS AGO Advance Directives: Yes Advance Directives on File: Yes Advance Directives Date on File: 01/18/23 service: No Current occupational status: unemployed Sexual orientation: Straight/Heterosexual Physical Exam ED Vital Signs: Vital Signs - 24 hr 10/03/25 17:31 10/03/25 20:36 10/03/25 21:53 Temperature 98.3 F 97.7 F 97.8 F Pulse Rate 103 H 71 78 Respiratory Rate 18 18 18 Blood Pressure 125/74 127/74 104/57 L Pulse Oximetry 97 100 99 Oxygen Delivery Method Room Air Room Air Room Air 10/03/25 23:19 Temperature 97.8 F Pulse Rate 74 Respiratory Rate 16 Blood Pressure 115/66 Pulse Oximetry 99 Oxygen Delivery Method Room Air BMI result Body Mass Index 30.6 Course Course Course Narrative: RME: 35 year male history of alcohol abuse, tips procedure and you mass especially lab has been without his spironolactone while in detox presents to ED for abdominal distention, shortness of breath, dizziness, and tachycardia. Labs EKG chest x-ray ordered Medications Administered Discontinued Medications Generic Name Dose Route Start Last Admin Trade Name Freq PRN Reason Stop Dose Admin Ondansetron HCl 4 mg 10/03/25 22:44 10/03/25 23:17 Ondansetron Odt 4 Mg Tab.Rapdis TRANSLINGU 10/03/25 22:45 4 mg ONCE ONE Administration Medical Decision Making Medical Decision Making MDM Narrative: 35-year-old male with a history of alcohol use disorder, with associated induced psychosis, with subsequent development of cirrhosis, now status post TIPS at [facility], presents with multiple complaints. Following his procedure, patient was recently released from detox, he states he does not feel well. Associated chest pain, shortness of breath, abdominal distention, dizziness and palpitations. Patient also feels his anxiety is currently poorly controlled. Patient states he met with a psychiatrist affiliated with a detox facility, he was prescribed Wellbutrin, however he has not taken it yet, given he is fearful it will make him feel worse. Associated nasal congestion, denies active cough cold symptoms or fever. Patient states he also has been off his lactulose and spironolactone, he just resumed taking these medications. He is having constipation, with some nausea, he is still passing flatus, denies vomiting. Problem: Alcohol use disorder, anxiety, recent procedure, constipation History: Per patient I have considered the following differential diagnoses: Volume overload, ascites, constipation, bowel obstruction, ACS, viral syndrome, pneumonia, anxiety/panic attack Plan: Patient here with a broad constellation of symptoms. ACS was considered, the patient has a risk factors for coronary artery disease, screening labs including troponin EKG and chest x-ray obtained. The patient is having some degree of new onset viral symptoms, he is declining to stay for a viral panel. There was no pneumonia on the chest x-ray. He admits to being constipated, he has no obstructive symptoms, obtaining a KUB. I doubt he has a ascites, his liver function tests are improved, he is status post tips procedure. In regard to the anxiety, he is actively requesting medication for ?a few days?. I told the patient this would not be medically responsible, he needs to stay in contact with the his psychiatrist, furthermore he was prescribed a medication to help with the his underlying anxiety, he is choosing not to take it. I advised that he take it. He has a medication at home. Sending him with a additional bowel regimen recommendations. I have independently reviewed the following tests: Labs: No leukocytosis, not anemic, no electrolyte abnormality, LFTs improved from last time, troponin less than 2.7, ethanol negative EKG: Normal sinus rhythm, rate of 96, prior inferior infarct noted, no active ischemic changes, no ectopy, QTC 452, no change from prior study Chest x-ray:Findings: No consolidation or effusion. Cardiac and mediastinal contours appear stable. Bones unremarkable. Impression: 1. No acute pulmonary disease. KUB:Findings: Normal bowel gas pattern. No abnormal calcifications. No pneumoperitoneum or pneumatosis. No acute fractures. Impression: 1. Moderate stool. Differential Diagnosis Differential Diagnoses: The differential diagnosis associated with the presentation includes See [facility] Admission/Observation Consideration of admission/observation: Escalation of care including admission/observation considered Not applicable Lab Data [facility] Lab Attestation statement: I reviewed the patient's lab results. 10/03/25 17:43 10/03/25 17:43 Labs: Lab Results 10/03/25 Range/Units 17:43 WBC 5.7 (4.8-10.8) X10*3/uL RBC 4.98 D (4.60-5.80) X10*6/uL Hgb 11.4 L D (14.0-18.0) g/dl Hct 36.0 L D (42.0-52.0) % MCV 72.3 L (80.0-98.0) fL MCH 22.9 L (27.0-33.0) pg MCHC 31.7 (31.0-36.0) g/dl RDW 17.1 H (11.0-16.0) % Plt Count 135 L D (160-400) X10*3/uL MPV 10.7 (9.4-12.4) fL Immature Gran % (Auto) 0.2 (0.0-0.4) % Neut % (Auto) 53.7 (45-73) % Lymph % (Auto) 29.7 (20-40) % [place] % (Auto) 14.8 H (2-11) % Eos % (Auto) 1.1 (0-4) % Baso % (Auto) 0.5 (0-2) % Lymph # (Auto) 1.7 (1.2-4.9) X10*3/uL [place] # (Auto) 0.8 (0.1-1.2) X10*3/uL Eos # (Auto) 0.1 (0.0-0.4) X10*3/uL Baso # (Auto) 0.0 (0.0-0.2) X10*3/uL Abs Immat Gran (auto) 0.01 (0.00-0.03) X10*3/uL Absolute Neuts (auto) 3.0 (2.0-8.3) x10*3/uL Absolute Nucleated RBC 0.000 (0.0-0.012) X10*3/uL Nucleated RBC % (auto) 0.0 (0.0-0.2) /100WBC Smear Tech's Comments VERIFIED Sodium 143 (135-145) mmol/L Potassium 3.8 (3.3-5.1) mmol/L Chloride 110 H (96-108) mmol/L Carbon Dioxide 25 (22-29) mmol/L Anion Gap 12 (12-20) BUN 8 L (9-16) mg/dL Creatinine 0.81 (0.5-1.4) mg/dL Estim Creat Clear Calc 154.5 Estimated GFR > 60 Random Glucose 107 (60-115) mg/dL Calcium 9.1 D (8.4-10.2) mg/dL Magnesium 2.0 (1.6-2.6) mg/dL Total Bilirubin 1.5 H (0.0-1.0) mg/dL AST 52 H (5-37) U/L ALT 21 (0-40) U/L Alkaline Phosphatase 133 H (39-117) U/L Ammonia 35 (13-55) umol/L Troponin I High Sens < 2.7 D (<3.5-35.0) ng/L NT-Pro-B Natriuret Pep 94.2 (<300) pg/mL Total Protein 8.3 H (6.5-8.0) g/dL Albumin 4.3 (3.5-5.0) g/dL Ethyl Alcohol < 10 mg/dL Independent Interpretation I performed an independent interpretation of an: EKG Radiology Impression Discussion of test interpretation with radiology: I have reviewed the radiologist's reading. Discharge Plan Discharge Clinical Impression: Constipation, Anxiety Patient Disposition: Home, Self-Care Instructions: Constipation (ED), Anxiety (ED) Additional Instructions: All of your screening labs are stable. Your cardiac enzyme is negative. The chest x-ray is clear, there were no concerning changes on the EKG. They abdominal x-ray revealed that you are constipated. See home care instructions. You should continue to use your lactulose as directed. In addition, I would use [id number] Colace twice a day, this is a stool softener, it will help you to alleviate your stool burden more effectively. You can also add MiraLax, 1 to 2 times a day. You have been provided with additional information, for outpatient resources for therapy, to help you with your anxiety. Prescriptions: New ondansetron 4 mg tablet,disintegrating 4 mg PO Q8H PRN (Reason: nausea and vomiting) Qty: 10 0RF No Action furosemide 20 mg tablet 20 mg PO DAILY Xifaxan 550 mg tablet 550 mg PO Q12H folic acid 1 mg tablet 1 mg PO BEDTIME hydroxyzine HCl 10 mg tablet 10 mg PO TID PRN (Reason: anxiety or itching) mirtazapine 30 mg tablet 30 mg PO BEDTIME gabapentin 300 mg capsule 300 mg PO BEDTIME Interventions: ED Discharge Assessment Last Done: 10/03/25 23:19 Discharge Date/Time: 10/03/25 23:19 Print Language: Turkmen
[2025-10-03 17:53] LABS: Hematocrit 36.0 % (42.0-52.0); Hemoglobin 11.4 g/dl (14.0-18.0); Imm Gran Abs Auto 0.01 X10*3/uL (0.00-0.03); Imm Gran Pct Auto 0.2 % (0.0-0.4); Lymphocytes Absolute Auto 1.7 X10*3/uL (1.2-4.9); MANUAL DIFF FLAG SCAN; Mean Corpuscular HGB Conc 31.7 g/dl (31.0-36.0); Mean Corpuscular Hemoglobin 22.9 pg (27.0-33.0); Mean Corpuscular Volume 72.3 fL (80.0-98.0); NRBC Abs Auto 0.000 X10*3/uL (0.0-0.012); NRBC Pct Auto 0.0 /100WBC (0.0-0.2); Platelet Count 135 X10*3/uL (160-400); Red Blood Count 4.98 X10*6/uL (4.60-5.80); SCAN SMEAR FLAG 1; White Blood Count 5.7 X10*3/uL (4.8-10.8)
[2025-10-03 17:55] LABS: PLT ABN DIST 1
[2025-10-03 18:05] LABS: Ammonia 35 umol/L (13-55)
[2025-10-03 18:12] LABS: Alanine Aminotransferase 21 U/L (0-40); Albumin Level 4.3 g/dL (3.5-5.0); Alkaline Phosphatase 133 U/L (39-117); Anion Gap 12 (12-20); Aspartate Amino Transferase 52 U/L (5-37); Blood Urea Nitrogen 8 mg/dL (9-16); Calcium 9.1 mg/dL (8.4-10.2); Carbon Dioxide 25 mmol/L (22-29); Chloride 110 mmol/L (96-108); Creatinine Clr Calc Pharmacy 154.5; Estimated Glomerular Filt Rate > 60; Magnesium 2.0 mg/dL (1.6-2.6); Potassium 3.8 mmol/L (3.3-5.1); Sodium 143 mmol/L (135-145); Total Protein 8.3 g/dL (6.5-8.0)
[2025-10-03 18:15] LABS: NT Pro B Type Natriuretic Pept 94.2 pg/mL (<300)
[2025-10-03 18:20] LABS: Troponin-I High Sensitivity < 2.7 ng/L (<3.5-35.0)
[2025-10-03 20:36] VITALS: BP 127/74; PULSE 71; RESP 18; TEMP 36.5; O2SAT 100
--- OUTSIDE RECORDS SUMMARY | 2025-10-03 20:40 | XMS_ITS | Clinical Summary ---
Author Organization [facility] Address [address] [place] [address] Care Team Providers Care Barrel Line Operator Name Role Phone Unknown Primary Care Provider [phone] Social History Tobacco Use Types Packs/Day Years Used Date Smoking Tobacco: Never Assessed Sex and Gender Information Value Date Recorded Sex Assigned at Not on file Legal Sex Male 9:36 PM EDT Gender Identity Not on file Sexual Orientation Not on file Plan of Treatment Health Maintenance Due Date Last Done Comments Hepatitis C Virus Screening 1991 HIV Screening 2004 DTaP/Tdap/Td Vaccines (1 - Tdap) 2010 Hepatitis B Vaccines (1 of 3 - 19+ 3-dose series) 2010 Influenza Vaccine 06/21/2025 COVID-19 Vaccine ( - 2023-2 5 season) 2025 HPV Vaccines (No Doses Required) Completed Pneumococcal Vaccine: Pediat guerita (0-5 Years) and At-Risk Patients (6 to 49 Years) Aged Out No longer eligible b ased on patient's age to complete this topic Insurance MEDICAID OUT OF [facility] Care Teams Barrel Line Operator Relationship Specialty Start Date End Date Unknown Unknow Provider Address PCP - General 06/19/25
--- OUTSIDE RECORDS SUMMARY | 2025-10-03 20:40 | XMS_ITS | Encounter Summary ---
Author Organization [facility] Address [address] [place] [address] Care Team Providers Care Patient Portal Representative Name Role Phone Juve Hutchison DO, Diana Primary Care Provider + Encounter Details Date Type Department Care Team (Late st Contact Info) Description 01/22/2025 Orders Only [facility] Interventional Radiology [address] [place] [address] Isabel Ordonez MD [address] [place], [place] [phone] Social History Tobacco Use Types Packs/Day Years Used Date Smoking Tobacco: Some Days Cigarettes 0.1 10 Passive Smoke Exposure: Current Smokeless Tobacco: Current Alcohol Use Standard Drinks/Week Comments Not Currently 0 (1 standard drink = 0.6 oz pure alcohol) handle/ day of liquor Last drank 09/12/24 [facility] Utilities Answer Date Recorded In the past 12 months has [employer], gas, oil, or water [employer] threatened to shut off services in your [...] Care Team (Late st Contact Info) Description 10/14/2025 9:30 AM EST Follow-Up [facility] Liver Transplant Services [address] [place] [address] Johnna Joyner MD [address] [place] [address] 10/14/2025 2:00 PM EST Follow-Up [address] Family Practice Department [address] [place] [address] Kallie An V, [address] [place] [address] 10/15/2025 9:30 AM EST Follow-Up [facility] Liver Transplant Services [address] [place] [address] Angélica Wade MD [address] [place] [address] 10/15/2025 10:30 AM EST Social Work [facility] Liver Transplant Services [address] [place] [address] Lala Rowe, [address] Transplant [facility] - [address] [address] 03/18/2026 1:00 PM EDT Social Work [facility] Liver Transplant Services [address] [place] [address] Lala Rowe, [facility] 55 [facility] Transplant Services - [address] [place] [address] documented as of this encounter Procedures * Due to [place] [employer] law, this organization might not be sharing negative HIV tests. Procedure Name Priority Date/Time Associated Diagnosis Comments HEART & VASCULAR - SCANNED Routine 01/22/2025 2:56 PM EST documented in this encounter Results * Due to [place] [employer] law, this organization might not be sharing negative HIV tests. * HEART & VASCULAR - SCANNED (01/22/2025 2:56 PM EST) Anatomical Region Laterality Modality Other us Unknown Provider SCANNED PROCEDURES Final Res ult documented in this encounter Visit Diagnoses Not on filedocumented in this encounter Care Teams Patient Portal Representative Relationship Specialty Start Date End Date Klalie An DO [address] [place] [address] PCP - General Family Medicine 12/17/24 BERYL Denson Deputy Attorney General 07/12/25 documented as of this encounter
--- OUTSIDE RECORDS SUMMARY | 2025-10-03 20:40 | XMS_ITS | Encounter Summary ---
Author Organization [facility] Address [address] [place] [address] Care Team Providers Care Nurse Ortho Name Role Phone Juve Hutchison DO, Diana Primary Care Provider + Encounter Details Date Type Department Care Team (Late st Contact Info) Description 01/22/2025 Orders Only [facility] Mammography 10 [facility] [place] [address] [address] Casey Barron MD [address] [place] [address] [place] [address] Social History Tobacco Use Types Packs/Day Years Used Date Smoking Tobacco: Some Days Cigarettes 0.1 10 Passive Smoke Exposure: Current Smokeless Tobacco: Current Alcohol Use Standard Drinks/Week Comments Not Currently 0 (1 standard drink = 0.6 oz pure alcohol) handle/ day of liquor Last drank 09/12/[address] [facility] Utilities Answer Date Recorded In the past 12 months has e [employer], gas, oil, or water [email or web address] threatened to shut off services in your [...] Info) Description 10/14/2025 9:30 AM EST Follow-Up [facility] Liver Transplant Services [address] [place] [address] Johnna Joyner MD [address] [place] [address] 10/14/2025 2:00 PM EST Follow-Up [address] Family Practice Department [address] [place] [address] Kallie An V, [address] [place] [address] 10/15/2025 9:30 AM EST Follow-Up [facility] Liver Transplant Services [address] [place] [address] Angélica Wade MD [address] [place] [address] 10/15/2025 10:30 AM EST Social Work [facility] Liver Transplant Services [address] [place] [address] Lala Rowe, [address] Transplant [facility] - [address] [address] 03/18/2026 1:00 PM EDT Social Work [facility] Liver Transplant Services [address] [place] [address] Lala Rowe, [address] Transplant Services - [address] [address] documented as of this encounter Visit Diagnoses Not on filedocumented in this encounter Care Teams Nurse Ortho Relationship Specialty Start Date End Date Kallie An DO [address] [place] [address] PCP - General Family Medicine 12/17/24 BERYL Denson Metallurgical Engineer 07/12/25 documented as of this encounter
--- OUTSIDE RECORDS SUMMARY | 2025-10-03 20:41 | XMS_ITS | Encounter Summary ---
Author Organization [facility] Address [address] [place] [address] Care Team Providers Care A&P Technician Name Role Phone Juve Hutchison DO, Diana Primary Care Provider + Reason for Referral * Consultation (Routine) - Pending Review Specialty Diagnoses / Procedures Referred By Contsofya t Referred To Contact Diagnoses Overweight (BMI 25.0-29.9) Kathy Daniels NP [address] [place] [address] Phone: tel: fax: Melissa Fragoso MD [address] [place] [address] Phone: tel: fax: Referral ID Status Reason Start Date Expiration Date Visits Requested Visits Authorized [id number] Pending Review Specialty Services Required 10/03/2026 6 6 Encounter Details Date Type Department Care Team (Late st Contact Info) Description 10/03/2025 Telephone [facility] Telehealth [address] [place] [address] Brittany Peña, Baron Social History Tobacco Use Types Packs/Day Years Used Date Smoking Tobacco: Some Days Cigarettes 0.1 10 Passive Smoke Exposure: Current Smokeless Tobacco: Current Alcohol Use Standard Drinks/Week Comments Yes 12 (1 standard drink = 0.6 oz pu re alcohol) 5-6 nights/week [facility] Utilities Answer Date Recorded In the past 12 months has th e electric, gas, oil, or water company threatened to shut off services in your home? Yes 06/26/2025 Hunger Vital Sign Answer Date Recorded Within the past 12 months, y ou worried that your food would run out before you got the money to buy more. Never true 06/26/20 25 Within the past 12 months, t he food you bought just didn't last and you didn't have money to get more. Never true 06/26/2025 Transportation Answer Date Recorded In the past 12 months, has l ack of reliable transportation kept you from medical appointments, meetings, work or from getting things needed for daily living? No 06/26/2025 Housing Answer Date Recorded Housing Risk Low 2 06/26/2025 Housing Risk Medium Not on file 06/26/2025 Housing Risk High Not on file 06/26/2025 What is your living situation today? LSSTEADY 06/26/2025 Sex and Gender Information Value Date Recorded Sex Assigned at Male 09/12/2024 6:50 PM EDT Legal Sex Male 6:39 PM EDT Gender Identity Male 01/17/2025 8:53 AM EST Sexual Orientation Straight 01/17/2025 8: 53 AM EST documented as of this encounter Miscellaneous Notes * Telephone Encounter - Brittany Peña, PharmD - 10/03/2025 4:25 PM EST [facility]: Andrew Bain is a 35 y/o male with a PMH significant for Obesity Class I (Body mass index is 31.98 kg/m??.) who was referred to the [facility] cardiometabolic team for GLP1-agonistconsideration given by patient's appliance repair technician, Dr. Wade. Unfortunately, the patient has a history of alcoholic cirrhosis with relapse < 6 months ago leading to an episode of hemorrhagic shock due to bleeding of esophageal varices. Given the risk of GI side effects with GLP-1 and sobriety < 6 months he is not an appropriate candidate for telehealth at this time. A referral to the in-person endocrinology clinic has been ordered. Referring provider has been updated. Please discuss deferral with your patient as they are not eligible to be scheduled in [facility]. A referral to Brittany Peña PharmD [facility] [phone] documented in this encounter Plan of Treatment Upcoming Encounters Date Type Department Care Team (Late st Contact Info) Description 10/14/2025 9:30 AM EST Follow-Up [facility] Liver Transplant Services [address] [place] [address] Johnna Joyner MD [address] [place] [address] 10/14/2025 2:00 PM EST Follow-Up [address] Practice Department [address] [place] [address] Kallie An DO [address] [place] [address] 10/15/2025 9:30 AM EST Follow-Up [facility] Liver Transplant Services [address] [place] [address] Angélica Wade MD [address] [place] [address] 10/15/2025 10:30 AM EST Social Work [facility] Liver Transplant Services [address] [place] [address] Lala Rowe, COMMUNITY REINVESTMENT ACT OFFICER [address] [place] [address] [address] 03/18/2026 1:00 PM EDT Social Work [facility] Liver Transplant Services [address] [place] [address] Lala Rowe, COMMUNITY REINVESTMENT ACT OFFICER [address] [place] [address] [place] [address] Scheduled Referrals Name Type Priority Associated Diagnoses Order Schedule Ambulatory referral to Endocrinology Outpatient Referral Routine Overweight (BMI 25.0-29.9) Expected: 10/03/2025, Expires: 10/03/2026 documented as of this encounter Visit Diagnoses Diagnosis Overweight (BMI 25.0-29.9)- Primary Overweight documented in this encounter Care Teams A&P Technician Relationship Specialty Start Date End Date Kallie An DO [address] [place] [address] PCP - General Family Medicine 12/17/24 BERYL Denson Hot Plate Plywood Press Operator 07/12/25 documented as of this encounter
--- OUTSIDE RECORDS SUMMARY | 2025-10-03 20:41 | XMS_ITS ---
Author Organization [facility] Address [address] [place] [address] Care Team Providers Care Residential Door Unit Installer Name Role Phone Juve Hutchison DO, Diana Primary Care Provider + Transplant Episode Liver Candidate [facility] [place] - [facility] Evaluation began on 01/22/2025 Marked as Deferred on 02/28/2025 Reason: Substance Abuse Liver CoordinatorZuly Monge RN Phone: N/A Fax: N/A Email: N/A Scores Score Value Updated Expires Exceptions/Arch [place] CPRA Not available MELD (Calc) 13 08/01/2025 [place] Organ Diagnosis Organ Primary Contributory Liver Alcohol-Associated C irrhosis 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 Alcohol-Associated Hepatitis Care Team Name Role Phone Fax Email Zuly Monge RN Liver Coordinator N/A N/A N/A Kallie Hutchison DO Referring Physician [phone] N/A N/A Angélica Wade MD Piped Buttonhole Machine Operator [phone] [email or web address] Events Pre-Transplant Referred: 01/11/2025 Evaluation began: 01/22/2025 Committee: 02/28/2025 Appointments (09/02/2025 - 11/02/2025) When With Visit Type Description 09/17/2025 Transplant - Severo Wade Follow Up Alcoho lic cirrhosis of liver with ascites (Primary Dx) 09/18/2025 Transplant - Farhan Joyner Telehealth No Show 10/02/2025 Transplant - Farhan Joyner Telehealth Canceled (Patient - Hospitalized) 10/14/2025 Transplant - Farhan Joyner F ollow Up 10/15/2025 Transplant - Katlyn Rowe Follow Up 10/15/2025 Transplant - Sheri S Follow Up 10/16/2025 Transplant - Farhan Joyner Telehealth Canceled (Provider - Sooner Appt Granted)
--- OUTSIDE RECORDS SUMMARY | 2025-10-03 20:41 | XMS_ITS | Patient Health Record ---
Author Organization [facility] Billing Info Address [address] [place], [place] [id number] Care Team Providers Care Business Development Intern Name Role Phone RANDELL SNYDER Primary Care Provider [phone] WILL AVITIA Unavailable [phone] Allergies No Known Allergies Reason For Referral No Information Medications Medication SIG (Take, Route, Fr equency, [...] Problem Status W/U Status Risk Notes Problem [id number] History of alcohol abuse (F10.11) Active confirmed Plan Of Treatment No Information Insurance Providers Payer Name Payer Address Payer Phone Subscriber Number Group Number Insured Name Patient Relationship to Insured Coverage Start Date Coverage End Date [facility] [address] [place], [place] [id number] Andrew Bain Self - patient is the insured 4 0 Medical (General) History Medical History History ICD Code Hypertension Surgical History Surgery Date(Month/Year) THUMB SURGERY Hospitalization History Reason Date(Month/Year) EtOH, he does not recall exactly when
--- OUTSIDE RECORDS SUMMARY | 2025-10-03 20:41 | XMS_ITS | Encounter Summary ---
Author Organization [facility] Address [address] [place] [address] Care Team Providers Care Specialist Employee Labor Relations Name Role Phone Juve Hutchison DO, Diana Primary Care Provider + Encounter Details Date Type Department Care Team (Late st Contact Info) Description 08/02/2025 [facility] Message [facility] Endoscopy [address] [place] [address] Capical, Generic Provider [address] [place] [address] Questionnaire Submission Social History Tobacco Use Types Packs/Day Years Used Date Smoking Tobacco: Former Cigarettes 0.1 10 Passive Smoke Exposure: Current Smokeless Tobacco: Current Alcohol Use Standard Drinks/Week Comments Not Currently 0 (1 standard drink = 0.6 oz pure alcohol) handle/ day of liquor Last drank 09/12/24 [facility] Utilities Answer Date Recorded In the past 12 months has e [employer], gas, oil, or water [employer] threatened to shut off services in your [...] Info) Description 10/14/2025 9:30 AM EST Follow-Up [facility] Liver Transplant Services [address] [place] [address] Johnna Joyner MD [address] [place] [address] 10/14/2025 2:00 PM EST Follow-Up [address] Family Practice Department [address] [place] [address] Kallie An DO [address] [place] [address] 10/15/2025 9:30 AM EST Follow-Up [facility] Liver Transplant Services [address] [place] [address] Angélica Wade MD [address] [place] [address] 10/15/2025 10:30 AM EST Social Work [facility] Liver Transplant Services [address] [place] [address] Lala Rowe, CUSTODIAL OFFICER[address] Transplant [facility] - [address] [address] 03/18/2026 1:00 PM EDT Social Work [facility] Liver Transplant Services [address] [place] [address] Lala Rowe, [facility] 55 [facility] Transplant Services - -[address] [place] [address] documented as of this encounter Visit Diagnoses Not on filedocumented in this encounter Care Teams Specialist Employee Labor Relations Relationship Specialty Start Date End Date Kallie An DO [address] [place] [address] PCP - General Family Medicine 12/17/24 BERYL Denson Hotel Manager 07/12/25 documented as of this encounter
--- OUTSIDE RECORDS SUMMARY | 2025-10-03 20:41 | XMS_ITS | Patient Health Record ---
Author Organization [facility] Address [address] [address] Care Team Providers Care Flying Ii Instructor Name Role Phone [facility] Primary Care Provider Gabi Dewayne Mora Unavailable [phone] Migration, Provider Unavailable Unavailable Reason For Referral No Information Problems Problem Type SNOMED Code ICD Code Onset Dates Problem Status W/U Status Risk Notes Problem Seizure disorder (020866405) Seizure disorder (G40.909) Active confirmed Encounters Encounter Location Date Provider Diagnosis [facility] [address] [address] 06/29/2025 Provider Migration [address] [address] 06/30/2025 Provider Migration Plan Of Treatment No Information Insurance Providers Payer Name Payer Address Payer Phone Subscriber Number Group Number Insured Name Patient Relationship to Insured Coverage Start Date Coverage End Date [facility] [address] [place] [phone] [id number] Andrew Bain Self - patient is the insured
--- OUTSIDE RECORDS SUMMARY | 2025-10-03 20:41 | XMS_ITS | Encounter Summary ---
Author Organization [facility] Address [address] [place] [address] Care Team Providers Care Coat Examiner Name Role Phone Juve Hutchison DO, Diana Primary Care Provider + Reason for Visit * Reason Onset Date Comments Cathy PAP 09/26/2025 Encounter Details Date Type Department Care Team (Late st Contact Info) Description 09/26/2025 Telephone [facility]ty Pharmacy [facility] Building [address] [place] [address] Becky Jenkins, Raman Xifaxan PAP Social History Tobacco Use Types Packs/Day Years Used Date Smoking Tobacco: Some Days Cigarettes 0.1 10 Passive Smoke Exposure: Current Smokeless Tobacco: Current Alcohol Use Standard Drinks/Week Comments Yes 12 (1 standard drink = 0.6 oz pu re alcohol) 5-6 nights/week [facility] Utilities Answer Date Recorded In the past 12 months has e [employer], gas, oil, or water [employer] threatened to shut off services in your [...] encounter Miscellaneous Notes * Telephone Encounter - Skye Gonzales CPhT - 09/26/2025 4:14 PM EST Filled out application for [employer] and called patient but he is currently enrolled in a detoxcenter. His mom is trying to get in touch with him to let him know that I sent the application to his email. I emailed over the application through [employer]. documented in this encounter Plan of Treatment Upcoming Encounters Date Type Department Care Team (Late st Contact Info) Description 10/14/2025 9:30 AM EST Follow-Up [facility] Liver Transplant Services [address] [place] [address] Johnna Joyner MD [address] [place] [address] 10/14/2025 2:00 PM EST Follow-Up [address] Family Practice Department [address] [place] [address] Kallie An DO [address] [place] [address] 10/15/2025 9:30 AM EST Follow-Up [facility] Liver Transplant Services [address] [place] [address] Angélica Wade MD [address] [place] [address] 10/15/2025 10:30 AM EST Social Work [facility] Liver Transplant Services [address] [place] [address] Lala Rowe [address] [address] 03/18/2026 1:00 PM EDT Social Work [facility] Liver Transplant Services [address] [place] [address] Lala Rowe [address] [address] documented as of this encounter Visit Diagnoses Not on filedocumented in this encounter Care Teams Coat Examiner Relationship Specialty Start Date End Date Kallie An DO [address] [place] [address] PCP - General Family Medicine 12/17/24 BERYL Denson Landscape Photographer 07/12/25 documented as of this encounter
--- OUTSIDE RECORDS SUMMARY | 2025-10-03 20:41 | XMS_ITS | Encounter Summary ---
Author Organization [facility] Address [address] [place] [address] Care Team Providers Care Mosaic Technician Name Role Phone Juve Hutchison DO, Diana Primary Care Provider + Encounter Details Date Type Department Care Team (Late st Contact Info) Description 06/28/2025 Lab Requisition [facility] [address] [place] [address] Jacy Wiggins PA [address] [facility] [address] [place] [address] Social History Tobacco Use Types Packs/Day Years Used Date Smoking Tobacco: Former Cigarettes 0.1 10 Passive Smoke Exposure: Current Smokeless Tobacco: Current Alcohol Use Standard Drinks/Week Comments Not Currently 0 (1 standard drink = 0.6 oz pure alcohol) handle/ day of liquor Last drank 09/12/24 [facility] Utilities Answer Date Recorded In the past 12 months has [employer] gas, oil, or water [employer] threatened to shut off services in your [...] AM EST documented as of this encounter Functional Status documented as of this encounter Plan of Treatment Upcoming Encounters Date Type Department Care Team (Late st Contact Info) Description 10/14/2025 9:30 AM EST Follow-Up [facility] [address] [place] [phone] Johnna Joyner MD [address] [place] [address] 10/14/2025 2:00 PM EST Follow-Up [address] Family Practice Department [address] [place] [address] Kallie An DO [address] [place] [address] 10/15/2025 9:30 AM EST Follow-Up [facility] [address] [place] [phone] Angélica Wade MD [address] [place] [address] 10/15/2025 10:30 AM EST Social Work [facility] [address] [place] [address] Lala Rowe, WILLI [address] [place] [address] Transplant [facility] - [address] [address] 03/18/2026 1:00 PM EDT Social Work [facility] [address] [place] [address] Rashaun Roweyesika NixKayla, [facility] [address] [facility] Transplant Services - [address] [place] [address] documented as of this encounter Procedures * Due to [place] [employer] law, this organization might not be sharing negative HIV tests. Procedure Name Priority Date/Time Associated Diagnosis Comments CBC AUTO DIFFERENTIAL Routine 07/04/2025 6:08 AM EDT MAGNESIUM Routine 07/04/2025 6:08 AM EDT BASIC METABOLIC PANEL Routine 07/04/2025 6:08 AM EDT CBC AUTO DIFFERENTIAL Routine 07/01/2025 5:40 AM EDT PROTIME-INR Routine 07/01/2025 5:40 AM EDT HEPATIC FUNCTION PANEL Routine 07/01/2025 5:40 AM EDT BASIC METABOLIC PANEL Routine 07/01/2025 5:40 AM EDT CBC AUTO DIFFERENTIAL Routine 06/29/2025 7:00 AM EDT HEPATIC FUNCTION PANEL Routine 06/29/2025 7:00 AM EDT BASIC METABOLIC PANEL Routine 06/29/2025 7:00 AM EDT documented in this encounter Results * Due to [place] [employer] law, this organization might not be sharing negative HIV tests. * Basic Metabolic Panel (07/04/2025 6:08 AM EDT) NA 139 136 - 145 mmol/L 07/04/2025 9:42 AM EDT [facility] K 4.4 3.5 - 5.1 mmol/L 07/04/2025 9:42 AM EDT [facility] Cl 104 98 - 109 mmol/L 07/04/2025 9:42 AM EDT [facility] CO2 24 22 - 32 mmol/L 07/04/2025 9:42 AM EDT [facility] BUN 7 6 - 20 mg/dL 07/04/2025 9:42 AM EDT [facility] Creatinine 0.72 0.50 - 1.12 mg/dL 07/04/2025 9:42 AM EDT [facility] Glucose 78 60 - 99 mg/dL 07/04/2025 9:42 AM EDT [facility] Calcium 8.8 8.4 - 10.4 mg/dL 07/04/2025 9:42 AM EDT [facility] Anion Gap 15 >=0 07/04/2025 9:42 AM T [facility] eGFR >90 >=60 mL/min/1. 73m2 07/04/2025 9:42 AM T [facility] Comment:The estimated glomer ular filtration rate (eGFR) [...] of Race in Diagnosing Kidney Disease . Blood Structure of peripheral vein / Unknown Venipuncture / Unknown 07/04/2025 6:08 AM EDT 07/04/2025 7:34 AM EDT [facility] - 07/04/2025 9:42 AM EDT NUR3\S\313\S\B\S\0156\S\S\BED\S\0156 NUR3\S\313\S\B\S\0156\S\S\BED\S\0156 us Jacy POSEY LAB BLOOD ORDERABLES Final Resul t [facility] [address] [place] [address], [place] [phone] * (ABNORMAL) CBC Auto Differential (07/04/2025 6:08 AM EDT) WBC 7.0 4.8 - 10.8 10*3/uL 07/04/2025 9:24 AM EDT [facility] RBC 3.82(L) 4.70 - 6.10 10*6/uL 07/04/2025 9:24 AM EDT [facility] Hemoglobin 10.1(L) 13.7 - 16.5 g/dL 07/04/2025 9:24 AM EDT [facility] Hematocrit 31.7(L) 40.5 - 48.5 % 07/04/2025 9:24 AM EDT [facility] MCV 83.0 80.0 - 94.0 fL 07/04/2025 9:24 AM EDT [facility] MCH 26.4 26.0 - 34.0 pg 07/04/2025 9:24 AM EDT [facility] MCHC 31.9 31.0 - 36.0 g/dL 07/04/2025 9:24 AM EDT [facility] RDW 18.2(H) 12.0 - 15.0 % 07/04/2025 9:24 AM EDT [facility] RDW Standard Deviation 54.9(H) 35.1 - 43.9 fL 07/04/2025 9:24 AM EDT [facility] Platelets 255 140 - 440 10*3/uL 07/04/2025 9:24 AM EDT [facility] Comment:ALL DELTA RESULTS RE VIEWED MPV 10.9 9.4 - 12.4 fL 07/04/2025 9:24 AM EDT [facility] Neutrophil % 53.9 50.0 - 75.0 % 07/04/2025 9:24 AM EDT [facility] Immature Grans % 0.4 0.0 - 0.9 % 07/04/2025 9:24 AM EDT [facility] Lymphocyte % 31.4 20.0 - 44.0 % 07/04/2025 9:24 AM EDT [facility] Monocyte % 8.4 0.0 - 14.0 % 07/04/2025 9:24 AM EDT [facility] Eosinophil % 4.6 0.0 - 5.0 % 07/04/2025 9:24 AM EDT [facility] Basophil % 1.3 0.0 - 2.0 % 07/04/2025 9:24 AM EDT [facility] Neutrophil # 3.78 1.80 - 7.70 10*3/uL 07/04/2025 9:24 AM EDT [facility] Immature Grans # 0.03 0.00 - 0.03 10*3/uL 07/04/2025 9:24 AM EDT [facility] Lymphocyte # 2.20 1.00 - 4.75 10*3/uL 07/04/2025 9:24 AM EDT [facility] Monocyte # 0.60 0.00 - 0.60 10*3/uL 07/04/2025 9:24 AM EDT [facility] Eosinophil # 0.30 0.00 - 0.80 10*3/uL 07/04/2025 9:24 AM EDT [facility] Basophil # 0.10 0.00 - 0.20 10*3/uL 07/04/2025 9:24 AM EDT [facility] nRBC % 0.0 0 - 0 /100 WBCs 07/04/2025 9:24 AM EDT [facility] nRBC # <0.01 0.00 - 0.13 10*3/uL 07/04/2025 9:24 AM EDT [facility] Blood Structure of peripheral vein / Unknown Venipuncture / Unknown 07/04/2025 6:08 AM EDT 07/04/2025 7:35 AM EDT Jacy POSEY LAB BLOOD ORDERABLES Final Resul t Performing Organization Address [facility] Co de Phone Number [facility] [address] [place] [address], [place] [phone] * Magnesium (07/04/2025 6:08 AM EDT) MG 2.0 1.5 - 2.5 mg/dL 07/04/2025 9:42 AM EDT [facility] Blood Structure of peripheral vein / Unknown Venipuncture / Unknown 07/04/2025 6:08 AM EDT 07/04/2025 7:34 AM EDT Narrative [facility] - 07/04/2025 9:42 AM EDT NUR3\S\313\S\B\S\0156\S\S\BED\S\0156 NUR3\S\313\S\B\S\0156\S\S\BED\S\0156 Brisa Madrigal MD LAB BLOOD ORDERABLES Margoth l Result Performing Organization Address City/[facility]/ZIP Co de Phone Number [facility] [address] [place] [address], [place] [phone] * (ABNORMAL) Hepatic Function Panel (07/01/2025 5:40 AM EDT) Total Protein 6.7 6.6 - 8.7 g/dL 07/01/2025 9:25 AM EDT [facility] Albumin 3.3(L) 3.5 - 5.0 g/dL 07/01/2025 9:25 AM EDT [facility] Globulin, Total 3.4 2.1 - 4.2 g/dL 07/01/2025 9:25 AM EDT [facility] Bilirubin, Total 3.4(H) 0.2 - 1.2 mg/dL 07/01/2025 9:25 AM EDT [facility] Bilirubin, Direct 2.5(H) <=0.3 mg/dL 07/01/2025 9:25 AM EDT [facility] Alkaline Phosphatase 168(H) 40 - 129 U/L 07/01/2025 9:25 AM EDT [facility] AST 116(H) 0 - 40 U/L 07/01/2025 9:25 AM EDT [facility] ALT 34 <=41 U/L 07/01/2025 9:25 AM EDT [facility] Bilirubin, Indirect 0.90(H) <=0.70 mg/dL 07/01/2025 9:25 AM EDT [facility] A/G Ratio 1.0(L) 1.5 - 3.0 07/01/2025 9:25 AM EDT [facility] Blood Structure of peripheral vein / Unknown Venipuncture / Unknown 07/01/2025 5:40 AM EDT 07/01/2025 6:47 AM EDT Narrative [facility] - 07/01/2025 9:25 AM EDT NUR3\S\313\S\B\S\0156\S\S\BED\S\0156 NUR3\S\313\S\B\S\0156\S\S\BED\S\0156 us Brisa Madrigal MD LAB BLOOD ORDERABLES Margoth almanzar Result [facility] [address] [place] [address] [address] [place] [address], * Protime-INR (07/01/2025 5:40 AM EDT) INR 1.4 0.9 - 1.1 07/01/2025 9:59 AM EDT [facility] Comment:The optimal therapeu tic INR range for patients treated with Vitamin K antagonists (VKAS, e.g., Warfarin) is 2.0 to 3.5. Discuss the desired range with your doctor/care team. Blood Structure of peripheral vein / Unknown Venipuncture / Unknown 07/01/2025 5:40 AM EDT 07/01/2025 6:51 AM EDT Brisa Madrigal MD LAB BLOOD ORDERABLES Margoth yohan Result [facility] [address] [place] [address] [address] [place] [address], * (ABNORMAL) Basic Metabolic Panel (07/01/2025 5:40 AM EDT) NA 142 136 - 145 mmol/L 07/01/2025 9:25 AM EDT [facility] K 3.9 3.5 - 5.1 mmol/L 07/01/2025 9:25 AM EDT [facility] Cl 108 98 - 109 mmol/L 07/01/2025 9:25 AM EDT [facility] CO2 23 22 - 32 mmol/L 07/01/2025 9:25 AM EDT [facility] BUN 3(L) 6 - 20 mg/dL 07/01/2025 9:25 AM EDT [facility] Creatinine 0.60 0.50 - 1.12 mg/dL 07/01/2025 9:25 AM EDT [facility] Glucose 84 60 - 99 mg/dL 07/01/2025 9:25 AM EDT [facility] Calcium 8.4 8.4 - 10.4 mg/dL 07/01/2025 9:25 AM EDT [facility] Anion Gap 15 >=0 07/01/2025 9:25 AM EDT [facility] eGFR >90 >=60 mL/min/1. 73m2 07/01/2025 9:25 AM EDT [facility] Comment:The estimated glomer ular filtration rate (eGFR) is calculated using a new formula developed by the NKF-ASN task force to eliminate race-based correction factors. The new formula uses serum/plasma creatinine, age, and gender to determine eGFR. A value below 60mls/min might indicate kidney disease and will be flagged. For additional information, see Trent et al, Am J Kidney Dis. 2021;79(2):268- 288, A Unifying Approach for GFR estimation: Recommendations of the NKF-ASN Task Force on Reassessing the Inclusion of Race in Diagnosing Kidney Disease . Blood Structure of peripheral vein / Unknown Venipuncture / Unknown 07/01/2025 5:40 AM EDT 07/01/2025 6:47 AM EDT [facility] - 07/01/2025 9:25 AM EDT NUR3\S\313\S\B\S\0156\S\S\BED\S\0156 NUR3\S\313\S\B\S\0156\S\S\BED\S\0156 Jacy POSEY LAB BLOOD ORDERABLES Final Resul t [facility] [address] [place] [address] [address] [place] [address], [place] [phone] * (ABNORMAL) CBC Auto Differential (07/01/2025 5:40 AM EDT) WBC 6.8 4.8 - 10.8 10*3/uL 07/01/2025 9:01 AM EDT [facility] RBC 3.32(L) 4.70 - 6.10 10*6/uL 07/01/2025 9:01 AM EDT [facility] Hemoglobin 8.9(L) 13.7 - 16.5 g/dL 07/01/2025 9:01 AM EDT [facility] Hematocrit 27.4(L) 40.5 - 48.5 % 07/01/2025 9:01 AM EDT [facility] MCV 82.5 80.0 - 94.0 fL 07/01/2025 9:01 AM EDT [facility] MCH 26.8 26.0 - 34.0 pg 07/01/2025 9:01 AM EDT [facility] MCHC 32.5 31.0 - 36.0 g/dL 07/01/2025 9:01 AM EDT [facility] RDW 18.7(H) 12.0 - 15.0 % 07/01/2025 9:01 AM EDT [facility] RDW Standard Deviation 57.4(H) 35.1 - 43.9 fL 07/01/2025 9:01 AM EDT [facility] Platelets 176 140 - 440 10*3/uL 07/01/2025 9:01 AM EDT [facility] MPV 10.3 9.4 - 12.4 fL 07/01/2025 9:01 AM EDT [facility] Neutrophil % 57.2 50.0 - 75.0 % 07/01/2025 9:01 AM EDT [facility] Immature Grans % 0.6 0.0 - 0.9 % 07/01/2025 9:01 AM EDT [facility] Lymphocyte % 28.5 20.0 - 44.0 % 07/01/2025 9:01 AM EDT [facility] Monocyte % 8.7 0.0 - 14.0 % 07/01/2025 9:01 AM EDT [facility] Eosinophil % 3.7 0.0 - 5.0 % 07/01/2025 9:01 AM EDT [facility] Basophil % 1.3 0.0 - 2.0 % 07/01/2025 9:01 AM EDT [facility] Neutrophil # 3.87 1.80 - 7.70 10*3/uL 07/01/2025 9:01 AM EDT [facility] Immature Grans # 0.04(H) 0.00 - 0.03 10*3/uL 07/01/2025 9:01 AM EDT [facility] Lymphocyte # 1.90 1.00 - 4.75 10*3/uL 07/01/2025 9:01 AM EDT [facility] Monocyte # 0.60 0.00 - 0.60 10*3/uL 07/01/2025 9:01 AM EDT [facility] Eosinophil # 0.30 0.00 - 0.80 10*3/uL 07/01/2025 9:01 AM EDT [facility] Basophil # 0.10 0.00 - 0.20 10*3/uL 07/01/2025 9:01 AM EDT [facility] nRBC % 0.0 0 - 0 /100 WBCs 07/01/2025 9:01 AM EDT [facility] nRBC # <0.01 0.00 - 0.13 10*3/uL 07/01/2025 9:01 AM EDT [facility] Blood Structure of peripheral vein / Unknown Venipuncture / Unknown 07/01/2025 5:40 AM EDT 07/01/2025 6:51 AM EDT us Jacy POSEY LAB BLOOD ORDERABLES Final Resul t [facility] [address] [facility] [address] [place] [address], [place] [phone] * (ABNORMAL) Hepatic Function Panel (06/29/2025 7:00 AM EDT) Total Protein 6.7 6.6 - 8.7 g/dL 06/29/2025 11:50 AM EDT [facility] Albumin 3.5 3.5 - 5.0 g/dL 06/29/2025 11:50 AM EDT [facility] Globulin, Total 3.2 2.1 - 4.2 g/dL 06/29/2025 11:50 AM EDT [facility] Bilirubin, Total 4.4(H) 0.2 - 1.2 mg/dL 06/29/2025 11:50 AM EDT [facility] Bilirubin, Direct 3.2(H) <=0.3 mg/dL 06/29/2025 11:50 AM EDT [facility] Alkaline Phosphatase 168(H) 40 - 129 U/L 06/29/2025 11:50 AM EDT [facility] AST 115(H) 0 - 40 U/L 06/29/2025 11:50 AM EDT [facility] ALT 36 <=41 U/L 06/29/2025 11:50 AM EDT [facility] Bilirubin, Indirect 1.20(H) <=0.70 mg/dL 06/29/2025 11:50 AM EDT [facility] A/G Ratio 1.1(L) 1.5 - 3.0 06/29/2025 11:50 AM EDT [facility] Blood Structure of peripheral vein / Unknown Venipuncture / Unknown 06/29/2025 7:00 AM EDT 06/29/2025 9:35 AM EDT [facility] - 06/29/2025 11:50 AM EDT NUR3\S\313\S\B\S\0156\S\S\BED\S\0156 NUR3\S\313\S\B\S\0156\S\S\BED\S\0156 us Jacy POSEY LAB BLOOD ORDERABLES Final Resul t [facility] [address] [facility] [address] [place] [address], [place] [phone] * (ABNORMAL) Basic Metabolic Panel (06/29/2025 7:00 AM EDT) NA 139 136 - 145 mmol/L 06/29/2025 11:50 AM EDT [facility] K 4.1 3.5 - 5.1 mmol/L 06/29/2025 11:50 AM EDT [facility] Cl 106 98 - 109 mmol/L 06/29/2025 11:50 AM EDT [facility] CO2 21(L) 22 - 32 mmol/L 06/29/2025 11:50 AM EDT [facility] BUN 5(L) 6 - 20 mg/dL 06/29/2025 11:50 AM EDT [facility] Creatinine 0.65 0.50 - 1.12 mg/dL 06/29/2025 11:50 AM EDT [facility] Glucose 79 60 - 99 mg/dL 06/29/2025 11:50 AM EDT [facility] Calcium 8.7 8.4 - 10.4 mg/dL 06/29/2025 11:50 AM EDT [facility] Anion Gap 16 >=0 06/29/2025 11:50 AM EDT [facility] eGFR >90 >=60 mL/min/1. 73m2 06/29/2025 11:50 AM EDT [facility] Comment:The estimated glomer ular filtration rate (eGFR) is calculated using a new formula developed by the NKF-ASN task force to eliminate race-based correction factors. The new formula uses serum/plasma creatinine, age, and gender to determine eGFR. A value below 60mls/min might indicate kidney disease and will be flagged. For additional information, see Trent et al, Am J Kidney Dis. 2021;79(2):268- 288, A Unifying Approach for GFR estimation: Recommendations of the NKF-ASN Task Force on Reassessing the Inclusion of Race in Diagnosing Kidney Disease . Blood Structure of peripheral vein / Unknown Venipuncture / Unknown 06/29/2025 7:00 AM EDT 06/29/2025 9:35 AM EDT Narrative [facility] - 06/29/2025 11:50 AM EDT NUR3\S\313\S\B\S\0156\S\S\BED\S\0156 NUR3\S\313\S\B\S\0156\S\S\BED\S\0156 us Jacy POSEY LAB BLOOD ORDERABLES Final Resul t [facility] [address] [facility] [address] [place] [address], [place] [phone] * (ABNORMAL) CBC Auto Differential (06/29/2025 7:00 AM EDT) WBC 7.3 4.8 - 10.8 10*3/uL 06/29/2025 11:42 AM EDT [facility] RBC 3.41(L) 4.70 - 6.10 10*6/uL 06/29/2025 11:42 AM EDT [facility] Hemoglobin 9.4(L) 13.7 - 16.5 g/dL 06/29/2025 11:42 AM EDT [facility] Hematocrit 27.9(L) 40.5 - 48.5 % 06/29/2025 11:42 AM EDT [facility] MCV 81.8 80.0 - 94.0 fL 06/29/2025 11:42 AM EDT [facility] MCH 27.6 26.0 - 34.0 pg 06/29/2025 11:42 AM EDT [facility] MCHC 33.7 31.0 - 36.0 g/dL 06/29/2025 11:42 AM EDT [facility] RDW 18.7(H) 12.0 - 15.0 % 06/29/2025 11:42 AM EDT [facility] RDW Standard Deviation 56.1(H) 35.1 - 43.9 fL 06/29/2025 11:42 AM EDT [facility] Platelets 180 140 - 440 10*3/uL 06/29/2025 11:42 AM EDT [facility] MPV 10.9 9.4 - 12.4 fL 06/29/2025 11:42 AM EDT [facility] Neutrophil % 60.6 50.0 - 75.0 % 06/29/2025 11:42 AM EDT [facility] Immature Grans % 0.7 0.0 - 0.9 % 06/29/2025 11:42 AM EDT [facility] Lymphocyte % 20.3 20.0 - 44.0 % 06/29/2025 11:42 AM EDT [facility] Monocyte % 13.9 0.0 - 14.0 % 06/29/2025 11:42 AM EDT [facility] Eosinophil % 3.1 0.0 - 5.0 % 06/29/2025 11:42 AM EDT [facility] Basophil % 1.4 0.0 - 2.0 % 06/29/2025 11:42 AM EDT [facility] Neutrophil # 4.44 1.80 - 7.70 10*3/uL 06/29/2025 11:42 AM EDT [facility] Immature Grans # 0.05(H) 0.00 - 0.03 10*3/uL 06/29/2025 11:42 AM EDT [facility] Lymphocyte # 1.50 1.00 - 4.75 10*3/uL 06/29/2025 11:42 AM EDT [facility] Monocyte # 1.00(H) 0.00 - 0.60 10*3/uL 06/29/2025 11:42 AM EDT [facility] Eosinophil # 0.20 0.00 - 0.80 10*3/uL 06/29/2025 11:42 AM EDT [facility] Basophil # 0.10 0.00 - 0.20 10*3/uL 06/29/2025 11:42 AM EDT [facility] nRBC % 0.0 0 - 0 /100 WBCs 06/29/2025 11:42 AM EDT [facility] nRBC # <0.01 0.00 - 0.13 10*3/uL 06/29/2025 11:42 AM EDT [facility] Blood Structure of peripheral vein / Unknown Venipuncture / Unknown 06/29/2025 7:00 AM EDT 06/29/2025 9:36 AM EDT us Jacy [facility] BLOOD ORDERABLES Final Resul t [facility] [address] [place] [address] [address] [place] [address], [place] [phone] documented in this encounter Visit Diagnoses Not on filedocumented in this encounter Care Teams Mosaic Technician Relationship Specialty Start Date End Date Kallie An DO [address] [place] [id number] PCP - General Family Medicine 12/17/24 BERYL Denson Vc++ Developer 07/12/25 documented as of this encounter
--- OUTSIDE RECORDS SUMMARY | 2025-10-03 20:41 | XMS_ITS | Clinical Summary ---
Author Organization [facility] Address [address] [place] [phone] Phone Care Team Providers Care Park Interpretive Ranger Name Role Phone Kallie An DO Primary [...] Problem Noted Date Diagnosed Date Anemia 03/21/2025 Surgical History Surgery Date Site/Laterality Comments OTHER SURGICAL HISTORY PROCEDURE: DENIES PREVIOUS SURGERY Medical History Medical History Date Comments Liver cirrhosis (CMS/HCC V24, CMS/HCC V28) Family History Medical History Relation Name [...] Safety Answer Date Record ed Physical Abuse Unrecognized value 03/21/2025 Verbal Abuse Unrecognized value 03/21/2025 Sex and Gender Information Value Date [...] - Risk male 3-dose series) 07/10/2013 06/12/2013 Depression Screening 11/21/2024 DTaP,Tdap,and Td Vaccines (3 - Td or Tdap) 11/22/2024 11/22/2014, 06/12/2013 HIV Screening 03/21/2025 Social Influencers of Health Screening 03/21/2025 COVID-19 Vaccine (1 - 2024-2 6 season) 2025 Influenza Vaccine (#1) 2025 Cholesterol Screening (Lipid Panel) 01/22/2030 01/22/2025 RSV Immunization Adult Patients (1 - 1-dose 75+ series) 2066 Hepatitis C Screening Completed 01/22/2025 HIB Vaccines [...] patient's age to complete this topic Insurance [facility] [employer] Advance Directives * Full Code [...] currently active code status orders. Care Teams Park Interpretive Ranger Relationship Specialty Start Date End Date Kallie An DO [address] [place] [phone] PCP - General Family Medicine 04/23/25 DR. TOM GUNTER Gastroenterology 04/29/25
--- OUTSIDE RECORDS SUMMARY | 2025-10-03 20:42 | XMS_ITS | Encounter Summary ---
Author Organization [facility] Address [address] [place] [address] Care Team Providers Care Paper Machine Tender Name Role Phone Juve Hutchison DO, Diana Primary Care Provider + Encounter Details Date Type Department Care Team (Late st Contact Info) Description 10/26/[address] [facility] Entrance B Interventional Radiology [address] [place] [phone] Megan Kramer PA [address] [place] [address] Social History Tobacco Use Types Packs/Day Years Used Date Smoking Tobacco: Some Days Cigarettes 0.1 10 Passive Smoke Exposure: Current Smokeless Tobacco: Never Alcohol Use Standard Drinks/Week Comments Not Currently 0 (1 standard drink = 0.6 oz pur e alcohol) handle/ day of liquor [facility] Utilities Answer Date Recorded In the past 12 months has [employer], gas, oil, or water [employer] threatened to shut off services in your [...] Functional Status documented as of this encounter Progress Notes [...] Info) Description 10/14/2025 9:30 AM EST Follow-Up [facility] Liver Transplant Services [address] [place] [address] Johnna Joyner MD [address] [place] [address] 10/14/2025 2:00 PM EST Follow-Up [address] Family Practice Department [address] [place] [address] Kallie An DO [address] [place] [address] 10/15/2025 9:30 AM EST Follow-Up [facility] Liver Transplant Services [address] [place] [address] Angélica Wade MD [address] [place] [address] 10/15/2025 10:30 AM EST Social Work [facility] Liver Transplant Services [address] [place] [address] Lala Rowe, [address] Transplant [facility] - [address] [address] 03/18/2026 1:00 PM EDT Social Work [facility] Liver Transplant Services [address] [place] [address] Lala Rowe, [address] Transplant [address] [address] documented as of this encounter Visit Diagnoses Not on filedocumented in this encounter Care Teams Paper Machine Tender Relationship Specialty Start Date End Date Kallie An DO [address] [place] [address] PCP - General Family Medicine 12/17/24 BERYL Denson Physician Credentialing Specialist 07/12/25 documented as of this encounter
--- OUTSIDE RECORDS SUMMARY | 2025-10-03 20:42 | XMS_ITS | Encounter Summary ---
Author Organization [facility] Address [address] [place] [address] Care Team Providers Care Airport Tower Controller Name Role Phone Juve Hutchison DO, Diana Primary Care Provider + Encounter Details Date Type Department Care Team (Late st Contact Info) Description 06/18/2025 Documentation [facility] Critical Care [address] [place] [address] Nancy Stevenson Social History Tobacco Use Types Packs/Day Years Used Date Smoking Tobacco: Former Cigarettes 0.1 10 Passive Smoke Exposure: Current Smokeless Tobacco: Current Alcohol Use Standard Drinks/Week Comments Not Currently 0 (1 standard drink = 0.6 oz pure alcohol) handle/ day of liquor Last drank 09/12/24 [facility] Utilities Answer Date Recorded In the [...] EST Follow-Up [facility] Liver Transplant Services [address] [place] [address] Johnna Joyner MD [address] [place] [address] 10/14/2025 2:00 PM EST Follow-Up [address] Family Practice Department [address] [place] [address] Kallie An V, [address] [address] 10/15/2025 9:30 AM EST Follow-Up [facility] Liver Transplant Services [address] [place] [address] Angélica Wade MD [address] [place] [address] 10/15/2025 10:30 AM EST Social Work [facility] Liver Transplant Services [address] [place] [address] Lala Rowe LICSW [address] [place] [address] 03/18/2026 1:00 PM EDT Social Work [facility] Liver Transplant Services [address] [place] [address] Marco-Lala Eldridge, [facility] Transplant Services - [address] [place] [address] documented as of this encounter Visit Diagnoses Not on filedocumented in this encounter Care Teams Airport Tower Controller Relationship Specialty Start Date End Date Kallie An DO [address] [place] [phone] PCP - General Family Medicine 12/17/24 BERYL Denson Lobby Porter 07/12/25 documented as of this encounter
--- OUTSIDE RECORDS SUMMARY | 2025-10-03 20:42 | XMS_ITS | Encounter Summary ---
Author Organization [facility] Address [address] [place] [address] Care Team Providers Care Commodities Broker Name Role Phone Juve Hutchison DO, Diana Primary Care Provider + Encounter Details Date Type Department Care Team (Late st Contact Info) Description 06/19/2025 Orders Only [facility] Interventional Radiology [address] [place] [address] Juana Matta NP [address] [place] [address] Social History Tobacco Use Types Packs/Day Years Used Date Smoking Tobacco: Former Cigarettes 0.1 10 Passive Smoke Exposure: Current Smokeless Tobacco: Current Alcohol Use Standard Drinks/Week Comments Not Currently 0 (1 standard drink = 0.6 oz pure alcohol) handle/ day of liquor Last drank 09/12/24 [facility] Utilities Answer Date Recorded In the past 12 months has [employer], gas, oil, or water [employer] threatened to shut off services in your [...] Info) Description 10/14/2025 9:30 AM EST Follow-Up [facility] Liver Transplant Services [address] [place] [address] Johnna Joyner MD [address] [place] [address] 10/14/2025 2:00 PM EST Follow-Up [address] Family Practice Department [address] [place] [address] Kallie An V, [address] [place] [address] 10/15/2025 9:30 AM EST Follow-Up [facility] Liver Transplant Services [address] [place] [address] Angélica Wade MD [address] [place] [address] 10/15/2025 10:30 AM EST Social Work [facility] Liver Transplant Services [address] [place] [address] Lala Rowe LICSW [address] [place] [address] Transplant [facility] - [address] [address] 03/18/2026 1:00 PM EDT Social Work [facility] Liver Transplant Services [address] [place] [address] Lala Rowe, [facility] 55 [facility] Transplant Services - [address] [address] documented as of this encounter Visit Diagnoses Not on filedocumented in this encounter Care Teams Commodities Broker Relationship Specialty Start Date End Date Kallie An DO [address] [place] [address] PCP - General Family Medicine 12/17/24 BERYL Denson Specialty Transformer Assembler 07/12/25 documented as of this encounter
--- OUTSIDE RECORDS SUMMARY | 2025-10-03 20:42 | XMS_ITS | Encounter Summary ---
Author Organization [facility] Address [address] [place] [address] Care Team Providers Care It Infrastructure Consultant Name Role Phone Juve Hutchison DO, Diana Primary Care Provider + Encounter Details Date Type Department Care Team (Late st Contact Info) Description 06/19/2025 Orders Only [facility] Interventional Radiology [address] [place], [place] [phone] Irasema Ashford, PA [address] [place] [address] Social History Tobacco Use Types Packs/Day Years Used Date Smoking Tobacco: Former Cigarettes 0.1 10 Passive Smoke Exposure: Current Smokeless Tobacco: Current Alcohol Use Standard Drinks/Week Comments Not Currently 0 (1 standard drink = 0.6 oz pure alcohol) handle/ day of liquor Last drank 09/12/24 [facility] Utilities Answer Date Recorded In the past 12 months has [employer], gas, oil, or water [employer] threatened to shut off services in your [...] Info) Description 10/14/2025 9:30 AM EST Follow-Up [facility] Liver Transplant Services [address] [place] [address] Johnna Joyner MD [address] [place] [address] 10/14/2025 2:00 PM EST Follow-Up [address] Family Practice Department [address] [place] [address] Kallie An V, [address] [place] [address] 10/15/2025 9:30 AM EST Follow-Up [facility] Liver Transplant Services [address] [place] [address] Angélica Wade MD [address] [place] [address] 10/15/2025 10:30 AM EST Social Work [facility] Liver Transplant Services [address] [place] [address] Lala Rowe, [address] Transplant [facility] - [address] [address] 03/18/2026 1:00 PM EDT Social Work [facility] Liver Transplant Services [address] [place] [address] Lala Rowe, [facility] 55 [facility] Transplant Services - -[address] [place] [address] documented as of this encounter Visit Diagnoses Not on filedocumented in this encounter Care Teams It Infrastructure Consultant Relationship Specialty Start Date End Date Kallie An DO [address] [place] [address] PCP - General Family Medicine 12/17/24 BERYL Denson Superintendent Greens 07/12/25 documented as of this encounter
--- OUTSIDE RECORDS SUMMARY | 2025-10-03 20:42 | XMS_ITS | Clinical Summary ---
Author Organization [facility] Address [address] [place] [address] Care Team Providers Care Crew Attendant Name Role Phone Juve Hutchison DO, Diana Primary Care Provider + Allergies Active Allergy Reactions Criticality Noted Date Comments Poison Sandie Extract Other (see comments) 025 unk Medications * This document contains information received from the source organization and may not represent a complete record from that organization. magnesium oxide (MAG-OX) 400 mg (241.3 mg mag) tablet Take 1 tablet (400 mg total) by mouth once a day. 30 tablet 2 4 Active nicotine polacrilex (NICORETTE) 2 mg gumIndications: Nicotine use disorder Place 1 each (2 mg total) between cheek and gums as needed for nicotine cravings. 20 each 2 5 Active furosemide (LASIX) 20 mg tablet TAKE 1 TABLET BY MOUTH ONCE A DAY 90 tablet 5 Active Additional Information Patient not taking.Reported on 07/31/2025 lactulose 20 gram/30 mL solution Take 45 mL (30 g total) by mouth 3 times a day. Titrate to 3-5 bowel movements per day. 5 Active Additional Information Patient not taking.Reported on 07/31/2025 multivitamin tablet Take 1 tablet by mouth once a day. 5 Active ergocalciferol (VITAMIN D2) 1,250 mcg (50,000 unit) capsule SMARTSI Capsule(s) By Mouth Once a Week 5 Active spironolactone (ALDACTONE) 25 mg tabletIndicatio ns:Decompensate d cirrhosis Take 0.5 tablets (12.5 mg total) by mouth once a day. 45 [address] (PROTONIX) 40 mg tabletIndicatio ns:Decompensate d cirrhosis Take 1 tablet (40 mg total) by mouth once a day. 90 tablet 1 5 Active thiamine HCl (VITAMIN B1) 100 mg tabletIndicatio ns:Alcohol use disorder Take 1 tablet (100 mg total) by mouth once a day. 90 tablet 1 5 Active cholecalciferol (VITAMIN D3) 1,250 mcg (50,000 unit) capsule TAKE 1 CAPSULE BY MOUTH ONE TIME PER WEEK 12 capsule 1 5 Active folic acid (FOLVITE) 1 mg tablet TAKE 1 TABLET (1 MG TOTAL) BY MOUTH EVERY DAY 90 tablet 1 5 Active melatonin 10 mg tabletIndicatio ns:Alcohol use disorder, severe, in early remission,JOY (generalized anxiety disorder),Panic disorder,Mild episode of recurrent major depressive disorder Take 1 tablet (10 mg total) by mouth nightly. 30 tablet 2 5 Active gabapentin (NEURONTIN) 300 mg capsuleIndicati ons:Alcohol use disorder, severe, in early remission,JOY (generalized anxiety disorder),Panic disorder Take 1 capsule (300 mg total) by mouth 2 (two) times a day. 60 capsule 1 5 Active naltrexone (REVIA) 50 mg tabletIndicatio ns:Alcohol use disorder, severe, in early remission Take 1 tablet (50 mg total) by mouth once a day. 90 tablet 1 5 Active mirtazapine (REMERON) 30 mg tabletIndicatio ns:MDD (major depressive disorder), recurrent episode, moderate (HCC) Take 1 tablet (30 mg total) by mouth nightly. 30 tablet 1 5 Active buPROPion XL (WELLBUTRIN XL) 150 mg tabletIndicatio ns:MDD (major depressive disorder), recurrent episode, moderate (HCC) Take 1 tablet (150 mg total) by mouth every morning. 30 tablet 5 Active rifAXIMin (XIFAXAN) 550 mg tablet Take 1 tablet (550 mg total) by mouth every 12 hours. 60 tablet 11 Active Active Problems Problem Noted Date Diagnosed Date Gastro-esophageal reflux disease without esophag itis 07/12/2025 Esophageal varices in alcoholic cirrhosis 2024 Assessment & Plan (07/12/2025 3:14 PM EDT): Resolved hemorrhagic shock from suspected GI bleed with known esophageal varices s/p banding x 7 at [facility] on 06/18/25 with TIPS procedure performed on 06/20 with GI. Continue on Protonix 40mg. Impaired mobility 06/27/2025 Assessment & Plan (06/28/2025 6:09 PM EDT): Evaluated by physical therapy on 06/27, recommending inpatient rehab. OT evaluation on 06/28. Discharge plan: -Discharge to [employer] [facility] Assessment & Plan (06/27/2025 6:50 PM EDT): Evaluated by physical therapy on 06/27, recommending inpatient rehab. -Will need inpatient rehab once medically cleared - OT evaluation pending Hypokalemia 06/27/2025 Assessment & Plan (07/12/2025 3:14 PM EDT): Last K was 3.8, continue on Spironolactone 12.5mg. Assessment & Plan (06/28/2025 6:09 PM EDT): Noted on labs. Suspect multifactorial. Discharge plan: -Encourage oral intake -Resume low dose spironolactone -Recommend repeat lab check in 2-3 days Assessment & Plan (06/27/2025 6:50 PM EDT): Noted on labs. Suspect multifactorial. - Trend BMP, replete K <4 Acute encephalopathy 06/27/2025 Assessment & Plan (07/12/2025 3:14 PM EDT): Continue on Lactulose, titrate to 3-5 BM per day. Assessment & Plan (06/28/2025 6:09 PM EDT): In the setting of cirrhosis and ICU admission, may have component of delirium. Required Precedex in the ICU which was discontinued on 06/25. Maintain delirium precautions. Assessment & Plan (06/27/2025 6:50 PM EDT): In the setting of cirrhosis and ICU admission, may have component of delirium. Required Precedex in the ICU which was discontinued on 06/25. -Pending OT evaluation -Resume melatonin 9mg nightly -Delirium precautions Nicotine use disorder 05/07/2025 Alcohol use disorder, severe, in early remission 01/08/2025 Assessment & Plan (07/12/2025 3:14 PM EDT): Chronic alcohol use with Hx of alcohol withdrawal, decompensated liver cirrhosis. Follows with Liver clinic. Currently drinking 10 nips and 1 pint of vodka daily, current cocaine use. Last drink 06/16. Has abstain from alcohol since hospital stay/. Continue on naltrexone, gabapentin, thiamine 100 mg daily, folate 1 mg daily, naltrexone and mirtazepine with routine outpatient psychiatry follow-up. - Recommend complete alcohol cessation Assessment & Plan (06/28/2025 6:09 PM EDT): Home meds: Gabapentin 300mg nightly, Mirtazapine 30mg nightly, Nicorette 2mg gum daily, Melatonin 3mg Patient with history of hospitalization for alcohol withdrawal complicated by DT, seizures and delirium. Most recent hospitalization 08/24/2024 for withdrawal requiring ICU level care and intubation. Previous psychiatric hospitalizations for withdrawal delirium mistaken for psychosis. Currently drinking 10 nips and 1 pint of vodka daily, current cocaine use. Last drink 06/16. Discharge plan: - Resume home naltrexone, gabapentin, and mirtazepine with routine outpatient psychiatry follow-up - Continue thiamine 100 mg daily - Continue folate 1 mg daily - Recommend complete alcohol cessation Assessment & Plan (06/27/2025 6:50 PM EDT): Home meds: Gabapentin 300mg nightly, Mirtazapine 30mg nightly, Nicorette 2mg gum daily, Melatonin 3mg Patient with history of hospitalization for alcohol withdrawal complicated by DT, seizures and delirium. Most recent hospitalization 08/24/2024 for withdrawal requiring ICU level care and intubation. Previous psychiatric hospitalizations for withdrawal delirium mistaken for psychosis. Currently drinking 10 nips and 1 pint of vodka daily, current cocaine use. Last drink 06/16. - Continue thiamine 100 mg daily - Continue folate 1 mg daily - Recommend complete alcohol cessation Panic disorder 01/08/2025 MDD (major depressive disord er), recurrent episode, moderate 12/17/2024 Assessment & Plan (07/12/2025 3:14 PM EDT): Seen by psychiatry through alcoholic cirrhosis program. Continue on Mirtazapine and Gabapentin. Recourse given for therapy. Assessment & Plan (12/17/2024 4:14 PM EST): Seen by psychiatry through alcoholic cirrhosis program. Placed on Sertraline 25mg. Continue on Remeron nightly. JOY (generalized anxiety disorder) 12/17/2024 Assessment & Plan (07/12/2025 3:14 PM EDT): Seen by psychiatry through alcoholic cirrhosis program. Continue on Mirtazapine and Gabapentin. Recourse given for therapy. Assessment & Plan (12/17/2024 4:08 PM EST): Seen by psychiatry through alcoholic cirrhosis program. Continue on Hydroxyzine PRN. Overweight (BMI 25.0-29.9) 12/17/2024 Assessment & Plan (12/17/2024 4:14 PM EST): Body mass index is 27.64 kg/m . Anemia 10/25/2024 Assessment & Plan (07/12/2025 3:14 PM EDT): Recent hemorrhagic shock s/p esophageal varies rupture, s/p banding. Initial w/ H/H 7.6/22.3 s/p 6u PRBCs. Last H/H was 10.4/32.9 on 07/10/25, repeat CBC in 3 weeks to monitor. Assessment & Plan (06/28/2025 6:09 PM EDT): Presented from OSH w/ H/H 7.6/22.3 s/p 6u PRBCs iso hematemesis. Has not required blood transfusion since arriving at [facility]. Baseline H/H ~9-10. Last H/H 08/17.7. Follow up with PCP. Assessment & Plan (06/27/2025 6:50 PM EDT): Presented from OSH w/ H/H 7.6/22.3 s/p 6u PRBCs iso hematemesis. Has not required blood transfusion since arriving at [facility]. Baseline H/H ~9-10. Last H/H 08/17.7. -Daily CBC, transfuse for hgb < 7 -DVT ppx w/ lovenox 40 mg daily -Thrombocytopenia has resolved Decompensated cirrhosis 10/25/2024 Assessment & Plan (07/12/2025 3:14 PM EDT): Decompensated cirrhosis followed by Dr. Wade, not a current transplant candidate due to active substance use. Several hospitalizations for alcohol hepatitis. MELD score on 06/25. - Continue on Rifaximin 550mg every 12 hours, continue on Naltrexone. Assessment & Plan (06/28/2025 6:22 PM EDT): Home meds: Lasix 20 mg daily, Rifaximin Known history of decompensated cirrhosis, followed by Dr. Wade, not a current transplant candidate due to active substance abuse. Several hospitalizations for alcoholic hepatitis. Hx known esophageal varices, has been worked up previously at [facility], [facility], [facility]. Most recent EGD prior to presentation in 03/2025 significant for 3 esophageal varices, max diameter >5mm. Presented with hemorrhagic shock in setting of variceal bleeding. EGD performed 06/17 significant for successful banding x4 esophageal varices, suction of clots and fresh blood in stomach, concern for gastric varices. Repeat EGD 06/18 - one band fell off with ulceration around site. 4 more bands placed during second EGD and clot still visualized but unable to suction. Prior hx of hepatic encephalopathy(?) previously prescribed lactulose but not taking currently, currently prescribed rifaximin, unclear if taking. Per mother, patient's mental status was at baseline prior to this episode. At [place], several episodes of currant jelly to tarry black stools. CTA A/P without active hemorrhaging. RUQ ultrasound and CT 3 phase completed upon IR request, depicting chronic liver cirrhosis with varices, patent vasculature. Now s/p TIPS procedure 06/20 as above. Status post ceftriaxone 06/19 - 06/23 and octreotide 06/17 - 06/22. Discharge plan: -Continue lactulose (titrate to 3-5 BMs per day) -Continue rifaximin 550 mg every 12 hours -order sent to pharmacy for dispensation per request of Lencho -Continue Protonix 40 mg p.o. daily -Resume spironolactone at reduced dose 12.5mg daily for now (should help with hypokalemia) -Continue to hold Lasix for now given net negative I/O since admission and electrolyte derangements - low threshold to reinitiate if BP stable and he develops any evidence of volume overload including ascites in his abdomen; would consider re-initiation within the next 5-7 days -Continue routine outpatient follow-up with hepatology, has an appointment scheduled next month with Dr. Wade already -Continue routine HCC screening per hepatology - Continue low sodium, high protein diet -encourage oral intake and consider diet supplements Assessment & Plan (06/27/2025 6:51 PM EDT): Home meds: Lasix 20 mg daily, Rifaximin Known history of decompensated cirrhosis, followed by Dr. Wade, not a current transplant candidate due to active substance abuse. Several hospitalizations for alcoholic hepatitis. Hx known esophageal varices, has been worked up previously at [place], [facility], [facility], [facility]. Most recent EGD prior to presentation in 03/2025 significant for 3 esophageal varices, max diameter >5mm. Presented with hemorrhagic shock in setting of variceal bleeding. EGD performed 06/17 significant for successful banding x4 esophageal varices, suction of clots and fresh blood in stomach, concern for gastric varices. Repeat EGD 06/18 - one band fell off with ulceration around site. 4 more bands placed during second EGD and clot still visualized but unable to suction. Prior hx of hepatic encephalopathy(?) previously prescribed lactulose but not taking currently, currently prescribed rifaximin, unclear if taking. Per mother, patient's mental status was at baseline prior to this episode. At [place], several episodes of currant jelly to tarry black stools. CTA A/P without active hemorrhaging. RUQ ultrasound and CT 3 phase completed upon IR request, depicting chronic liver cirrhosis with varices, patent vasculature. Now s/p TIPS procedure 06/20. -Continue lactulose (titrate to 3-5 BMs per day) -Continue rifaximin 550 mg every 12 hours -Continue Protonix 40 mg p.o. twice daily -Trend MELD labs -Hepatology following, appreciate recs -Continue to hold Lasix for now given net negative I/O since admission and electrolyte derangements -Trend I/Os -Status post ceftriaxone 06/19 - 06/23 -Status post octreotide 06/17 - 06/22 -Continue to hold naltrexone, gabapentin, and mirtazepine for now -Low sodium, high protein diet -Will need outpatient follow-up with Hepatology and routine HCC screening Assessment & Plan (12/17/2024 4:14 PM EST): Following with [facility] liver clinic, Meld score of 26 on 10/27/24, currently on Rifaximin for possible encephalopathy while inpatient at [facility], Gabapentin 300mg to aid with cravings. Continue on Lasix and Spironolactone, alternating medication every other day. Was previously jaundice to sclera and skin, has subsided, mild yellow tinge to sclera present. Last Drink was prior to hospital admission in August. Following with [facility]. Orders: rifAXIMin (XIFAXAN) 550 mg tablet; Take 1 tablet (550 mg total) by mouth every 12 hours. spironolactone (ALDACTONE) 25 mg tablet; Take 1 tablet (25 mg total) by mouth 2 times a day. Portal hypertension 10/25/2024 Assessment & Plan (07/12/2025 3:14 PM EDT): Mild ascites inpatient not requiring paracentesis. Continue on Lasix and Spironolactone. Follows with liver clinic at [facility]. Assessment & Plan (12/17/2024 4:14 PM EST): Mild ascites inpatient not requiring paracentesis. Continue on Lasix and Spironolactone. Follows with liver clinic at [facility]. Resolved Problems Problem Noted Date Diagnosed Date Resolved Date Activity of daily living alteration 06/28/2025 07/12/2025 Fever 06/27/2025 06/28/2025 Assessment & Plan (06/28/2025 6:09 PM EDT): Febrile to Tmax 100.9 in the ICU on the morning of 06/26 for which pt was given tylenol. No leukocytosis thus far. At risk for PNA iso recent intubation. 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 Blood cx at [facility]. MRSA PCR 06/19 negative. Resolved as of 06/27. Can follow up closely with outpatient provider. Assessment & Plan (06/27/2025 6:50 PM EDT): Febrile to Tmax 100.9 in the ICU on the morning of 06/26 for which pt was given tylenol. No leukocytosis thus far. At risk for PNA iso recent intubation. 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 -Blood cx at [facility] -MRSA PCR 06/19 negative -Trend fever curve and WBC count -If recurrent fever, plan to repeat infectious work-up -Maintain total Tylenol dosing <2 g / 24 hours Elevated LFTs 06/27/2025 07/12/2025 Assessment & Plan (06/28/2025 6:22 PM EDT): Home meds: Lasix 20 mg daily, Rifaximin Known history of decompensated cirrhosis, followed by Dr. Wade, not a current transplant candidate due to active substance abuse. Several hospitalizations for alcoholic hepatitis. Hx known esophageal varices, has been worked up previously at [facility], [facility], [facility]. Most recent EGD prior to presentation in 03/2025 significant for 3 esophageal varices, max diameter >5mm. Presented with hemorrhagic shock in setting of variceal bleeding. EGD performed 06/17 significant for successful banding x4 esophageal varices, suction of clots and fresh blood in stomach, concern for gastric varices. Repeat EGD 06/18 - one band fell off with ulceration around site. 4 more bands placed during second EGD and clot still visualized but unable to suction. Prior hx of hepatic encephalopathy(?) previously prescribed lactulose but not taking currently, currently prescribed rifaximin, unclear if taking. Per mother, patient's mental status was at baseline prior to this episode. At [place], several episodes of currant jelly to tarry black stools. CTA A/P without active hemorrhaging. RUQ ultrasound and CT 3 phase completed upon IR request, depicting chronic liver cirrhosis with varices, patent vasculature. Now s/p TIPS procedure 06/20 as above. Status post ceftriaxone 06/19 - 06/23 and octreotide 06/17 - 06/22. Discharge plan: -Continue lactulose (titrate to 3-5 BMs per day) -Continue rifaximin 550 mg every 12 hours -order sent to pharmacy for dispensation per request of Lencho -Continue Protonix 40 mg p.o. daily -Resume spironolactone at reduced dose 12.5mg daily for now (should help with hypokalemia) -Continue to hold Lasix for now given net negative I/O since admission and electrolyte derangements - low threshold to reinitiate if BP stable and he develops any evidence of volume overload including ascites in his abdomen; would consider re-initiation within the next 5-7 days -Continue routine outpatient follow-up with hepatology, has an appointment scheduled next month with Dr. Wade already -Continue routine HCC screening per hepatology - Continue low sodium, high protein diet -encourage oral intake and consider diet supplements Assessment & Plan (06/27/2025 6:51 PM EDT): Home meds: Lasix 20 mg daily, Rifaximin Known history of decompensated cirrhosis, followed by Dr. Wade, not a current transplant candidate due to active substance abuse. Several hospitalizations for alcoholic hepatitis. Hx known esophageal varices, has been worked up previously at [place], [facility], [facility], [facility]. Most recent EGD prior to presentation in 03/2025 significant for 3 esophageal varices, max diameter >5mm. Presented with hemorrhagic shock in setting of variceal bleeding. EGD performed 06/17 significant for successful banding x4 esophageal varices, suction of clots and fresh blood in stomach, concern for gastric varices. Repeat EGD 06/18 - one band fell off with ulceration around site. 4 more bands placed during second EGD and clot still visualized but unable to suction. Prior hx of hepatic encephalopathy(?) previously prescribed lactulose but not taking currently, currently prescribed rifaximin, unclear if taking. Per mother, patient's mental status was at baseline prior to this episode. At [place], several episodes of currant jelly to tarry black stools. CTA A/P without active hemorrhaging. RUQ ultrasound and CT 3 phase completed upon IR request, depicting chronic liver cirrhosis with varices, patent vasculature. Now s/p TIPS procedure 06/20. -Continue lactulose (titrate to 3-5 BMs per day) -Continue rifaximin 550 mg every 12 hours -Continue Protonix 40 mg p.o. twice daily -Trend MELD labs -Hepatology following, appreciate recs -Continue to hold Lasix for now given net negative I/O since admission and electrolyte derangements -Trend I/Os -Status post ceftriaxone 06/19 - 06/23 -Status post octreotide 06/17 - 06/22 -Continue to hold naltrexone, gabapentin, and mirtazepine for now -Low sodium, high protein diet -Will need outpatient follow-up with Hepatology and routine HCC screening Foot pain, right 06/27/2025 06/28/2025 Assessment & Plan (06/28/2025 6:09 PM EDT): Noted right foot pain on 06/27 with focal first MTP TTP, without erythema, edema, or ecchymosis. Foot XR negative for fracture. Discharge plan: -PT as above -Could continue Tylenol PRN however maintain TDD <2g given cirrhosis Assessment & Plan (06/27/2025 6:50 PM EDT): Noted right foot pain on 06/27 with focal first MTP TTP, without erythema, edema, or ecchymosis. -Foot XR negative for fracture -Tylenol PRN, maintain TDD <2g given cirrhosis Acute delirium 06/27/2025 06/28/2025 Bleeding esophageal varices 06/18/2025 06/28/2025 Assessment & Plan (06/28/2025 6:09 PM EDT): Presented at [place] with large volume hematemesis (filling several tupperwares at home per mom), and bloody/tarry stools, in setting of variceal bleeding. S/p 6U pRBCs, 6 FFPs, VitK x2, push dose octreotide 50mcg and octreotide drip. S/p EGD x2 w/ banding. Trended H&H with minimal improvement with blood products at [place]. S/p TIPS on 06/20. H/H has remained stable. At the time of discharge, hemodynamics and labs have remained grossly stable. No overt evidence of bleeding at this time. H&H 8.3/26.0 at time of discharge. Discharge plan: - Discharge to [employer] [facility] -Continue routine outpatient follow-up with hepatology, has an appointment scheduled next month with Dr. Wade already - Recommend close outpatient follow-up with PCP within 1 week for repeat evaluation and lab work - Return precautions: Recommend patient call outpatient provider or return to the hospital should he develop any worsening or concerning symptoms Assessment & Plan (06/27/2025 6:50 PM EDT): Presented at [place] with large volume hematemesis (filling several tupperwares at home per mom), and bloody/tarry stools, in setting of variceal bleeding. S/p 6U pRBCs, 6 FFPs, VitK x2, push dose octreotide 50mcg and octreotide drip. S/p EGD x2 w/ banding. Trended H&H with minimal improvement with blood products at [place]. S/p TIPS on 06/20. H/H has remained stable. - Monitor clinically for recurrent overt bleeding - Maintain active type & screen - Transfuse Hgb <7 - Continue daily CBC - Continue Lovenox 40mg daily for DVT ppx Alcohol dependence with withdrawal delirium 12/17/2024 12/17/2024 Right hand pain 12/17/2024 07/12/2025 Assessment & Plan (12/17/2024 4:14 PM EST): [...] for pain for up to 7 days. Alcoholic hepatitis without ascites 10/26/2024 12/17/2024 Generalized weakness 10/25/2024 025 Jaundice 10/25/2024 12/17/2024 Prolonged QT interval 10/25/20242024 Hyponatremia 10/25/2024 12/17/2024 Metabolic acidosis 10/25/2024 Assessment & Plan (06/28/2025 6:09 PM EDT): Non anion gap. In the setting of above comorbidities. Recommend repeat labs within 1 week. Assessment & Plan (06/27/2025 6:50 PM EDT): Non anion gap. In the setting of above comorbidities. -Trend BMP Leukocytosis 10/25/2024 12/17/2024 Alcoholic hepatitis with ascites 10/25/2024 12/17/2024 Sepsis 10/25/2024 12/17/2024 Encounters * This document contains information received from the source organization and may not represent a complete record from that organization. Date Type Department Care Team Description 10/03/2025 Telephone [facility] [employer] Telehealth [address] [place] [address] Brittany Peña, PharmD 09/26/2025 Refill [facility] [address] [place] [address] Becky Jenkins CPhT 09/26/2025 Telephone [facility] [address] [place] [address] Becky Jenkins CPhT Xifaxan PAP 09/23/2025 8:32 PM EST - 09/24/2025 2:33 AM EST Emergency [facility] Emergency Department [address] [place] [address] William Cyr, Alcohol withdrawal syndrome without complication (Primary Dx) Discharge Disposition: [facility] (INPT Psych facility/unit) ([phone] 09/17/2025 3:00 PM EDT Follow-Up [facility] [address] [place] [id number] Angélica Wade MD Alcoholic cirrhosis of liver with ascites (Primary Dx) 09/17/2025 Refill [facility] Building [address] [place] [address] Becky Jenkins CPhT 08/26/2025 10:20 AM EDT Anesthesia Event [facility] End[facility] [address] [place] [id number] Aranza Houston MD 08/26/2025 9:40 AM EDT - 08/26/2025 10:10 AM EDT Surgery [facility] [address] [place] [address] Angélica Wade MD UPPER ENDOSCOPY; DIAGNOSTIC WITH BRUSH/WASH (SP) WITH POSSIBLE MODERATE SEDATION [85137 (CPT )] 08/26/2025 8:52 AM EDT - 08/26/2025 11:15 AM EDT Hospital Encounter [facility] Endoscopy [address] [place] [phone] Angélica Wade MD Discharge Disposition: Home or Self Care (01) 08/26/2025 Patient Outreach [facility] [address] [address] Kendra Leon 08/21/2025 1:00 PM EDT Telehealth [facility] Liver Transplant Services [address] [place] [address] Johnna Joyner MD MDD (major depressive disorder), recurrent episode, moderate (HCC) (Primary Dx); Alcohol use disorder, severe, in early remission ; Nicotine use disorder; Panic disorder 08/20/2025 Telephone [facility] 21 [facility] Center [address] [place] [address]12 Irasema Awad RN 08/16/2025 Orders Only [facility] [address] [place] [address] Angélica Wade MD 08/13/2025 Refill [facility] G[facility]enterology [facility] [address] [place] [address] Mottle Lay Up Operator: Angélica Perkins MD 08/08/2025 Prep for Case [facility] [address] [place] [address] Angélica Wade MD 08/06/2025 Patient Outreach [facility] [address] [address] Kendra Leon 08/02/2025 myChart Message [facility] Endoscopy [address] [place] [address] 18848 Mychart, Generic Provider Questionnaire Submission 08/01/2025 3:00 PM EDT Follow-Up [facility] [address] [place] [address] Angélica Wade MD Alcohol use disorder, severe, in early remission (HCC) (Primary Dx); Awaiting organ transplant 08/01/2025 11:52 AM EDT - 08/01/2025 11:59 PM EDT Hospital [facility] Ultrasound [address] [place] [phone] Angélica Wade MD Alcoholic cirrhosis of liver with ascites (HCC) Discharge Disposition: Home or Self Care (01) 08/01/2025 Results Follow-Up [facility] [address] [place] [address] 15387 Zuly Monge RN 08/01/2025 Orders Only [facility] Transplant Department [address] [place] [address]13 Zuly Monge RN Alcoholic cirrhosis of liver with ascites (HCC) (Primary Dx) 07/31/2025 4:00 PM EDT Telehealth [facility]plant [facility] [address] [place] [address] 13299 Johnna Joyner MD Alcohol use disorder, severe, in early remission (HCC) (Primary Dx); JOY (generalized anxiety disorder); Panic disorder; MDD (major depressive disorder), recurrent episode, moderate (HCC); Mild episode of recurrent major depressive disorder 07/30/2025 Orders Only [facility] Transplant Department [address] [place] [address] 60979 Zuly Monge RN Alcoholic cirrhosis of liver with ascites (HCC) (Primary Dx) 07/29/2025 Refill [facility] [address] [place] [address] Mottle Lay Up Operator: Pamela Antonio DO 07/26/2025 Patient Outreach [facility] [address] [address] Kendra Leon 07/22/2025 Refill [facility] [address] [place] [address] Mottle Lay Up Operator: Angélica Perkins MD 07/12/2025 1:00 PM EDT Office Visit [address] Family Practice Department [address] [place] [address] Nela Denton NP Alcohol use disorder (Primary Dx); Decompensated cirrhosis (HCC); Portal hypertension (HCC); Esophageal varices in alcoholic cirrhosis (HCC); Anemia, unspecified type; JOY (generalized anxiety disorder); Mild episode of recurrent major depressive disorder; Hypokalemia; Acute encephalopathy 07/12/2025 Patient Outreach [facility] [address] [address] Group, [facility] 07/12/2025 Patient Outreach [facility] [address] [address] Meffen, Kendra 07/11/2025 Results Follow-Up [facility] [address] [place] [address] Zuly Monge RN 07/09/2025 Patient Outreach [facility] [address] [address] Meffen, Kendra 07/09/2025 Patient Outreach [facility] [address] [address] Meffen, Kendra 07/08/2025 1:00 PM EDT Social Work [facility] [address] [place] [address] Lala Rowe LICSW 07/08/[address] Family Practice Department [address] [place] [phone] Nela Denton NP TCM 07/04/2025 2:30 PM EDT Follow-Up [facility] [address] [place] [address] 268[address] Angélica Wade MD Alcoholic cirrhosis of liver with ascites (HCC) (Primary Dx) 07/04/[address] Family Practice Department [address] [place] [address] Kallie An DO TCM 07/03/2025 Telephone [facility] Interventional Radiology [address] [place] [address] Daria Hyde LPN from Last 3 Months Immunizations Immunization Administration Dates Next Due INFLUENZA, SPLIT VIRUS, TRIVALENT, PF 10/26/2024 (Deferred: Patient Refused) Tetanus Toxoid, Reduced Diph theria Toxoid, and Acellular Pertussis Vaccine, Adsorbed 11/22/2014 Family History Medical History Relation Name Comments Colon cancer Maternal Grandfather Ovarian cancer Maternal Grandmother Brain cancer Paternal Grandfather Relation Name Status Comments Maternal Grandfather Maternal Grandmother Mother Alive Paternal Grandfather Social History Tobacco Use Types Packs/Day Years Used Date Smoking Tobacco: Some Days Cigarettes 0.1 10 Passive Smoke Exposure: Current Smokeless Tobacco: Current Tobacco Cessation:Ready to Q uit: Not Asked; Counseling Given: Not Answered Alcohol Use Standard Drinks/Week Comments Yes 12 (1 standard drink = 0.6 oz pu re alcohol) 5-6 nights/week [facility] Utilities Answer Date Recorded In the past 12 months has th e [employer], gas, oil, or water [employer] threatened to shut off services in your [...] Orientation Straight 01/17/2025 8: 53 AM EST Last Filed Vital Signs Vital Sign Reading Time Taken Comments Blood Pressure 149/87 09/24/2025 2:22 AM EST Pulse 95 09/24/2025 2:22 AM EST Temperature 36.9 C (98.5 F) 09/24/2025 2:22 AM EST Respiratory Rate 18 09/24/2025 2:22 AM EST Oxygen Saturation 94% 09/24/2025 2:22 AM EST Inhaled Oxygen Concentration - - Weight 104.3 kg (230 lb) 09/23/2025 8:40 PM EST Height 180.3 cm (5' 11 ) 08/26/2025 9:30 AM EDT Body Mass Index 32.08 08/26/2025 9:30 AM EDT Plan of Treatment Upcoming Encounters Date Type Department Care Team (Late st Contact Info) Description 10/14/2025 9:30 AM EST Follow-Up [facility] [address] [place] [address] Johnna Joyner MD [address] [place] [address] 10/14/2025 2:00 PM EST Follow-Up [address] Family Practice Department [address] [place] [address] Kallie An DO [address] [place] [address] 10/15/2025 9:30 AM EST Follow-Up [facility]plant [facility] [address] [place] [address] Angélica Wade MD [address] [place] [address] 10/15/2025 10:30 AM EST Social Work [facility] [address] [place] [address] Lala Rowe, STAINED [employer] GLAZIER [address] [place] [address] [address] 03/18/2026 1:00 PM EDT Social Work [facility] [address] [place] [address] Lala Rowe, STAINED [employer] GLAZIER [address] [place] [address] [address] (work) Health Maintenance Due Date Last Done Comments Varicella Vaccines (1 of 2 - 13+ 2-dose series) 2004 Hepatitis B Vaccines (1 of 3 - 19+ 3-dose series) 2010 Pneumococcal Vaccine: Pediat guerita (0-5 Years) and At-Risk Patients (6-50 Years) (1 of 2 - PCV) 2010 Social Drivers of Health [place] ual Screening 11/21/2024 DTaP,Tdap,and Td Vaccines (2 - Td or Tdap) 11/22/2024 11/22/2014 Influenza Vaccine (#1) 2025 COVID-19 Vaccine (1 - 2024-2 6 season) 2025 Depression Screening and Follow-Up 05/07/20262024 Basic Metabolic Panel 08/01/2026 08/01/2025 , 07/10/2025, 07/04/2025, Additional history exists Abdominal Aortic Aneurysm (A AA) Screening Completed 10/25/2024 Oral Health Screening Completed 12/17/2024 Alcohol/Substance Use Screening Completed HIV Screening Completed 01/22/2025 Hepatitis C Screening Completed 01/22/2025 Medical Devices Implanted Type Area Accounting Auditor Device Identifier Shelf Expiration Date Model / Serial / Lot Stent Vascular Endoprosthesis With Controlled Expansion 10fr [id number] Viatorr - [id number] - [id number] Implanted:Qty: 1 on 06/20/2025 at [facility] Implant W [employer] GORE [id number] 01/13/2028 PTB [id number] / [id number] / Procedures * Due to [place] state law, this organization might not be sharing negative HIV tests. Procedure Name Priority Date/Time Associated Diagnosis Comments DC ESOPHAGOGASTRODUODENOSCOP Y TRANSORAL DIAGNOSTIC 08/26/2025 10:18 AM EDT Dysphagia UPPER GI ENDOSCOPY 08/26/2025 FERRITIN Routine 08/01/2025 3:20 PM EDT Alcohol use disorder, severe, in early remission (HCC) Awaiting organ transplant IRON SATURATION Routine 08/01/2025 3:20 PM EDT Alcohol use disorder, severe, in early remission (HCC) Awaiting organ transplant IRON, TIBC AND FERRITIN PANE L ([id number]) Routine 08/01/2025 3:20 PM EDT Alcohol use disorder, severe, in early remission (HCC) Awaiting organ transplant CBC AUTO DIFFERENTIAL Routine 08/01/2025 1:36 PM EDT Alcoholic cirrhosis of liver with ascites (HCC) PROTIME-INR Routine 08/01/2025 1:36 PM EDT Alcoholic cirrhosis of liver with ascites (HCC) AFP TUMOR MARKER Routine 08/01/2025 1:36 PM EDT Alcoholic cirrhosis of liver with ascites (HCC) COMPREHENSIVE METABOLIC PANEL Routine 1:36 PM EDT Alcoholic cirrhosis of liver with ascites (HCC) [id number] Routine 08/01/2025 1:36 PM EDT Alcoholic cirrhosis of liver with ascites (HCC) US LIVER SURVEILLANCE W/ TIP S EVALUATION W/ DOPPLER COMPLETE Routine 08/01/2025 1:08 PM EDT Alcoholic cirrhosis of liver with ascites (HCC) CBC AUTO DIFFERENTIAL Routine 07/10/2025 11:27 AM EDT Alcoholic cirrhosis of liver with ascites (HCC) PROTIME-INR Routine 07/10/2025 11:27 AM EDT Alcoholic cirrhosis of liver with ascites (HCC) AFP TUMOR MARKER Routine 07/10/2025 11:27 AM EDT Alcoholic cirrhosis of liver with ascites (HCC) COMPREHENSIVE METABOLIC PANEL Routine 11:27 AM EDT Alcoholic cirrhosis of liver with ascites (HCC) BASIC METABOLIC PANEL Routine 07/04/2025 6:08 AM EDT CBC AUTO DIFFERENTIAL Routine 07/04/2025 6:08 AM EDT MAGNESIUM Routine 07/04/2025 6:08 AM EDT HEPATITIS C ANTIBODY W/REFLE X TO HCV RNA, QUANTITATIVE PCR Routine 01/22/2025 4:12 PM EST Encounter for pre-transplant evaluation for liver transplant CT ABDOMEN PELVIS W CONTRAST STAT 03/2024 7:01 PM EST from Last 3 Months or Most Recently Relevant to Health Maintenance Results * Due to [place] state law, this organization might not be sharing negative HIV tests. * UPPER GI ENDOSCOPY (08/26/2025) Narrative Procedure Note Angélica Wade MD - 08/26/2025 7:31 AM EDT [facility] Gastroenterology Patient Name: Andrew Bain Procedure Date: 08/26/2025 7:31 AM Date of : 1990 Admit Type: Outpatient Age: 35 Room: [facility] 05 Gender: Male Note Status: Finalized Attending MD: Angélica Wade MD Procedure: Upper GI endoscopy Indications: Dysphagia Comorbidities Providers: Angélica Wade MD Referring MD: Requesting Provider: Medicines: Monitored Anesthesia Care Complications: No immediate complications. Estimated Blood Loss: Estimated blood loss: none. Procedure: Pre-Anesthesia Assessment: - Monitored anesthesia care was determined to be medically necessary for this procedure based onreview of the patient's medical history, medications, and prior anesthesia history. After obtaining informed consent, the endoscope was passed under direct vision. Throughout theprocedure, the patient's blood pressure, pulse, and oxygen saturations were monitored continuously. TheEndoscope was introduced through the mouth, and advanced tothe second part of duodenum. The upper GI endoscopy was accomplished without difficulty. The patienttolerated the procedure well. Findings: One benign-appearing, intrinsic mild stenosis was found 37 cm fromthe incisors. This stenosis measured less than one cm (in length). The stenosis was traversed. A TTS dilator was passed through the scope. Dilation with an 18-19-20 mm x 5.5 cm CRE balloon (to a maximumballoon size of 20 mm) dilator was performed. The entire examined stomach was normal. There is no endoscopic evidence of varices in the entire examined stomach. There were esophageal mucosal changes suspicious for short-segment Silva's esophagus present in the lower third of the esophagus. The maximum longitudinal extent of these mucosal changes was 2 cm inlength. Impression: - Benign-appearing esophageal stenosis. Dilatedwith an 18-19-20 mm x 5.5 cm CRE balloon (to a maximum balloon size of 20 mm). - Normal stomach. - Esophageal mucosal changes suspicious for short-segment Silva's esophagus. - No specimens collected. Recommendation: - Discharge patient to home. - Mechanical soft diet today. - Advance diet as tolerated starting tomorrow. - Use a proton pump inhibitor PO daily. - Repeat upper endoscopy in 2-3 months for surveillance of Silva's esophagus with biopsies needed. - Return to GI office at appointment to bescheduled. Angélica Wade MD 08/26/2025 10:43:26 AM This report has been signed electronically. Number of Addenda: 0 Note Initiated On: 08/26/2025 7:31 AM us Angélica Wade MD PROVATION PROCEDURES Final Resul t * (ABNORMAL) Iron Saturation (08/01/2025 3:20 PM EDT) Iron Saturation 9(L) 20 - 50 % 5:32 PM EDT [facility] Iron 35(L) 45 - 160 ug/dL 08/01/2025 5:32 PM EDT [facility] Transferrin 321 200 - 360 mg/dL 08/01/2025 5:32 PM EDT [facility] Total Iron Binding Capacity 401 255 - 450 ug/dL 08/01/2025 5:32 PM EDT [facility] Blood Structure of peripheral vein / Unknown Venipuncture / Unknown 08/01/2025 3:20 PM EDT 08/01/2025 4:55 PM EDT us Angélica Wade MD LAB BLOOD ORDERABLES Final Resul t Performing Organization Address City/[facility]/ZIP Co de Phone Number [facility] [address] [place] [address], [place] * Ferritin (08/01/2025 3:20 PM EDT) Ferritin 66.0 23.0 - 336.0 ng/mL 08/01/2025 5:32 PM EDT [facility] Blood Structure of peripheral vein / Unknown Venipuncture / Unknown 08/01/2025 3:20 PM EDT 08/01/2025 4:55 PM EDT us Angélica Wade MD LAB BLOOD ORDERABLES Final Resul t [facility] CLINICAL PATHOLOGY LABORATORY [address] [place] [address], [place] * Phosphatidylethanol (PEth) (08/01/2025 1:36 PM EDT) PEth 16:0/18:1 (POPEth) 19 ng/mL 08/04/2025 2:14 PM EDT [facility] Comment: PEth 16:0/18:1 (POPEth) Less than 10 ng/mL............Not detected Less than 20 ng/mL............Abstinence or light alcohol consumption 20 - 200 ng/mL................Moderate alcohol consumption Greater than 200 ng/mL........Heavy alcohol consumption or chronic alcohol use (Reference: Rosas Hilario and Verónica Vasquez 2018 J. Forensic Sci) PEth 16:0/18:2 (PLPEth) <10 ng/mL 08/04/2025 2:14 PM EDT [facility] Comment:Reference ranges are not well established. EER Peth See Note 08/04/2025 2:14 PM EDT [facility] Comment: Authorized individuals can access the [employer] Enhanced Report with an [employer] Connect account using the following link. Your local lab can assist you in obtaining the patient report if you don't have a Connect account. [email or web address] PEth Interpretation See Comment 07/22 2:14 PM EDT [facility] Comment: Phosphatidylethanol (PEth) is a group of phospholipids formed in the presence of ethanol, phospholipase D and phosphatidylcholine. PEth is known to be a direct alcohol biomarker. The predominant PEth homologues are PEth 16:0/18:1 (POPEth) and PEth 16:0/18:2 (PLPEth), which account for 37-46% and 26-28% of the total PEth homologues, respectively. PEth is incorporated into the phospholipid membrane of red blood cells and has a general half-life of 4-10 days and a window of detection of 2-4 weeks. However, the window of detection is longer in individuals who chronically or excessively consume alcohol. The limit of quantification is 10 ng/mL. Serial monitoring of PEth may be helpful in monitoring alcohol abstinence over time. PEth results should be interpreted in the context of the patient's clinical and behavioral history. Patients with advanced liver disease may have falsely elevated PEth concentrations (Carol QUIROS et al 2018, Alcoholism Clinical & Experimental Research). This test was developed and its performance characteristics determined by [facility]. It has not been cleared or approved by the U.S. Food and Drug Administration. This test was performed in a CLIA-certified laboratory and is intended for clinical purposes. Performed By: [facility] [address] [place] [address] Peanut Separator: Daren Valerio MD, PhD CLIA Number: [id number] Blood Structure of peripheral vein / Unknown Venipuncture / Unknown 08/01/2025 1:36 PM EDT 08/01/2025 1:48 PM EDT us Angélica Wade MD LAB BLOOD ORDERABLES Final Resul t [facility] [address] [id number], * (ABNORMAL) CBC Auto Differential (08/01/2025 1:36 PM EDT) Only the most recent of3 resultswithin the time period is included. WBC 4.0 3.8 - 10.8 10*3/uL 08/01/2025 1:59 PM EDT [facility] RBC 4.11(L) 4.20 - 5.80 10*6/uL 08/01/2025 1:59 PM EDT [facility] Hemoglobin 9.9(L) 13.2 - 17.1 g/dL 08/01/2025 1:59 PM EDT [facility] Hematocrit 31.9(L) 38.5 - 50.0 % 08/01/2025 1:59 PM EDT [facility] MCV 77.6(L) 80.0 - 100.0 fL 08/01/2025 1:59 PM EDT [facility] MCH 24.1(L) 27.0 - 33.0 pg 08/01/2025 1:59 PM EDT [facility] MCHC 31.0(L) 32.0 - 36.0 g/dL 08/01/2025 1:59 PM EDT [facility] RDW 15.4(H) 11.0 - 15.0 % 08/01/2025 1:59 PM EDT [facility] Platelets 137(L) 140 - 400 10*3/uL 08/01/2025 1:59 PM EDT [facility] MPV 10.2 7.5 - 12.5 fL 08/01/2025 1:59 PM EDT [email or web address] Neutrophil % 45.5 % 08/01/2025 1:59 PM EDT [facility] Immature Grans % 0.3 0.0 - 0.9 % 08/01/2025 1:59 PM EDT [facility] Lymphocyte % 39.6 % 08/01/2025 1:59 PM EDT [facility] Monocyte % 10.8 % 08/01/2025 1:59 PM EDT [facility] Eosinophil % 2.8 % 08/01/2025 1:59 PM EDT [facility] Basophil % 1.0 % 08/01/2025 1:59 PM EDT [facility] Neutrophil # 1.82 1.50 - 7.80 10*3/uL 08/01/2025 1:59 PM EDT [facility] Immature Grans # <0.03 <=0.03 10*3/uL 08/01/2025 1:59 PM EDT [facility] Lymphocyte # 1.60 0.85 - 3.90 10*3/uL 08/01/2025 1:59 PM EDT [facility] Monocyte # 0.40 0.20 - 0.95 10*3/uL 08/01/2025 1:59 PM EDT [facility] Eosinophil # 0.10 0.02 - 0.50 10*3/uL 08/01/2025 1:59 PM EDT [facility] CLINICAL PATHOLOGY LABORATORY Basophil # <0.03 0.00 - 0.20 10*3/uL 08/01/2025 1:59 PM EDT [facility] CL[facility]ICAL PATHOLOGY LABORATORY nRBC % 0.0 /100 WBCs 08/01/2025 1:59 PM EDT [facility] nRBC # <0.01 <0.01 10*3/uL 08/01/2025 1:59 PM EDT [facility] CL[facility]ICAL PATHOLOGY LAB[facility] Blood Structure of peripheral vein / Unknown Venipuncture / Unknown 08/01/2025 1:36 PM EDT 08/01/2025 1:50 PM EDT us Angélica Wade MD LAB BLOOD ORDERABLES Final Resul t [facility] CL[facility] LAB[facility] [address] [place] [address], [place] * AFP tumor marker (08/01/2025 1:36 PM EDT) Only the most recent of2 resultswithin the time period is included. Alpha Fetoprotein, Tumor Marker 3.3 <6.1 ng/mL 08/02/2025 10:26 AM EDT [facility] Comment: This test was performed using the Konrad Joshua chemiluminescent method. Values obtained from different assay methods cannot be used interchangeably. AFP levels, regardless of value, should not be interpreted as absolute evidence of the presence or absence of disease. Blood Structure of peripheral vein / Unknown Venipuncture / Unknown 08/01/2025 1:36 PM EDT 08/01/2025 1:51 PM EDT Narrative [facility] 08/02/2025 10:26 AM EDT [facility] Received Date:[id number] us Angélica Wade MD LAB BLOOD ORDERABLES Final Resul t [facility] [address] [facility] [address], [place] [address], [place] [phone] [facility] [address], [place] [address], [place] [phone] * (ABNORMAL) Pro[facility]-INR (08/01/2025 1:36 PM EDT) Only the most recent of2 resultswithin the time period is included. PT 14.1(H) 9.6 - 12.4 Seconds 08/01/2025 2:49 PM EDT [facility] INR 1.3 0.9 - 1.1 08/01/2025 2:49 PM EDT [facility] Comment:The optimal therapeu tic INR range for patients treated with Vitamin K antagonists (VKAS, e.g., Warfarin) is 2.0 to 3.5. Discuss the desired range with your doctor/care team. Blood Structure of peripheral vein / Unknown Venipuncture / Unknown 08/01/2025 1:36 PM EDT 08/01/2025 1:50 PM EDT Angélica Wade MD LAB BLOOD ORDERABLES Final Resul t [facility] [address] [place] [address], * (ABNORMAL) Comprehensive Metabolic Panel (08/01/2025 1:36 PM EDT) Only the most recent of2 resultswithin the time period is included. NA 139 135 - 145 mmol/L 08/01/2025 2:25 PM EDT [facility] K 3.8 3.5 - 5.3 mmol/L 08/01/2025 2:25 PM EDT [facility] Cl 106 98 - 107 mmol/L 08/01/2025 2:25 PM EDT [facility] CO2 23 22 - 32 mmol/L 08/01/2025 2:25 PM EDT [facility] Anion Gap 10 5 - 15 08/01/2025 2:25 PM EDT [facility] Glucose 103(H) 65 - 99 mg/dL 08/01/2025 2:25 PM EDT [facility] Creatinine 0.79 0.60 - 1.30 mg/dL 08/01/2025 2:25 PM EDT [facility] Calcium 9.3 8.6 - 10.5 mg/dL 08/01/2025 2:25 PM EDT [facility] Total Protein 8.2(H) 6.0 - 8.0 g/dL 08/01/2025 2:25 PM EDT [facility] Albumin 3.9 3.5 - 5.2 g/dL 08/01/2025 2:25 PM EDT [facility] Bilirubin, Total 2.6(H) 0.2 - 1.2 mg/dL 08/01/2025 2:25 PM EDT [facility] Alkaline Phosphatase 149(H) 35 - 129 U/L 08/01/2025 2:25 PM EDT [facility] AST 61(H) 10 - 40 U/L 08/01/2025 2:25 PM EDT [facility] ALT 12 10 - 40 U/L 08/01/2025 2:25 PM EDT [employer] [facility] BUN 8 7 - 23 mg/dL 08/01/2025 2:25 PM EDT [facility] eGFR >90 >=60 mL/min/1. 73m2 08/01/2025 2:25 PM EDT [facility] Comment:The estimated glomer ular filtration rate [...] in Diagnosing Kidney Disease . Globulin, Total 4.3(H) 2.1 - 4.2 g/dL 08/01/2025 2:25 PM EDT [facility] A/G Ratio 0.9(L) 1.5 - 3.0 08/01/2025 2:25 PM EDT [facility] Blood Structure of peripheral vein / Unknown Venipuncture / Unknown 08/01/2025 1:36 PM EDT 08/01/2025 1:51 PM EDT us Angélica Wade MD LAB BLOOD ORDERABLES Final Resul t [facility] [address] [place] [address], [place] * US Liver Surveillance w/ TIPS w/ Doppler Complete (08/01/2025 1:08 PM EDT) Anatomical Region Laterality Modality Body N/A Ultrasound 08/01/2025 1:50 PM EDT Impressions 08/01/2025 1:57 PM EDT 1. Satisfactory velocities within the TIPS shunt. No ascites. Appropriate flow direction within the portal veins. 2. Splenic enlargement. Ultrasound visualization score: VIS-A: Limitations, if any, are unlikely to meaningfully affect sensitivity. US LI-RADS Category US-1: Negative, no ultrasound evidence for HCC. Follow-up LI-RADS surveillance US recommended in 6 months. Ultrasound LI-RADS 2023: [email or web address]://doi.org/10.1148/[email or web address] If this radiology report contains a blank impression section, it is an incomplete radiology report. Please contact the interpreting radiologist or applicable radiology division as soon as possible to obtain the completed interpretation. Workstation ID: [id number] Narrative 08/01/2025 1:57 PM EDT EXAMINATION: Limited ultrasound of the abdomen with Doppler (for surveillance of chronic liver disease). INDICATION: Alcoholic cirrhosis. TECHNIQUE: Limited ultrasound evaluation of the abdomen. Multiple grayscale, color Doppler, and spectral Doppler images were obtained. COMPARISON: 06/20/2025 TIPS FINDINGS: LIVER: Heterogeneous parenchymal echotexture. Mildly undersurface nodularity. No focal lesions. LIVER VESSELS: Expected direction of color Doppler flow is detected within the demonstrated portal and hepatic veins and demonstrated hepatic artery with normal portal venous, hepatic venous, and hepatic arterial waveforms. - The main portal vein is patent with appropriate hepatopetal flow and a peak velocity of 35 cm/sec. There is expected flow reversal within the left and right anterior portal veins. - The right hepatic artery demonstrates a brisk systolic upstroke, with a peak systolic velocity of 124 cm/sec and a resistive index of 0.59. - Sampled hepatic veins demonstrate hepatofugal flow. TIPS: The TIPS is patent on color Doppler with [id number] color flow. Velocities are as follows: 114 cm/sec at the portal venous end, 133 cm/s in the mid TIPS, 189 cm/s at the caval end. BILIARY: Contracted gallbladder without stones or wall thickening. The common bile duct measures 4 mm. PERITONEUM: No free fluid. SPLEEN: Enlarged 15 cm. Resulting Agency Comment [id number] Procedure Note Paula Shipley MD - 08/01/2025 EXAMINATION: Limited ultrasound of the abdomen with Doppler (forsurveillance of chronic liver disease). INDICATION: Alcoholic cirrhosis. TECHNIQUE: Limited ultrasound evaluation of the abdomen. Multiplegrayscale, color Doppler, and spectral Doppler images were obtained. COMPARISON: 06/20/2025 TIPS FINDINGS: LIVER: Heterogeneous parenchymal echotexture. Mildly undersurfacenodularity. No focal lesions. LIVER VESSELS: Expected direction of color Doppler flow is detected withinthe demonstrated portal and hepatic veins and demonstrated hepatic arterywith normal portal venous, hepatic venous, and hepatic arterial waveforms. - The main portal vein is patent with appropriate hepatopetal flow and apeak velocity of 35 cm/sec. There is expected flow reversal within theleft and right anterior portal veins. - The right hepatic artery demonstrates a brisk systolic upstroke, with apeak systolic velocity of 124 cm/sec and a resistive index of 0.59. - Sampled hepatic veins demonstrate hepatofugal flow. TIPS: The TIPS is patent on color Doppler with [id number] color flow.Velocities are as follows: 114 cm/sec at the portal venous end, 133 cm/sin the mid TIPS, 189 cm/s at the caval end. BILIARY: Contracted gallbladder without stones or wall thickening. Thecommon bile duct measures 4 mm. PERITONEUM: No free fluid. SPLEEN: Enlarged 15 cm. IMPRESSION: 1. Satisfactory velocities within the TIPS shunt. No ascites. Appropriate flow direction within the portal veins. 2. Splenic enlargement. Ultrasound visualization score: VIS-A: Limitations, if any, are unlikelyto meaningfully affect sensitivity. US LI-RADS Category US-1: Negative, no ultrasound evidence for HCC.Follow-up LI- RADS surveillance US recommended in 6 months. Ultrasound LI-RADS 2023: [email or web address] If this radiology report contains a blank impression section, it is anincomplete radiology report. Please contact the interpreting radiologistor applicable radiology division as soon as possible to obtain thecompleted interpretation. Workstation ID: [id number] us Angélica Wade MD IMG US PROCEDURES Final Result * Magnesium (07/04/2025 6:08 AM EDT) MG 2.0 1.5 - 2.5 mg/dL 07/04/2025 9:42 AM EDT [facility] Blood Structure of peripheral vein / Unknown Venipuncture / Unknown 07/04/2025 6:08 AM EDT 07/04/2025 7:34 AM EDT Narrative [facility] - 07/04/2025 9:42 AM EDT NUR3\S\313\S\B\S\0156\S\S\BED\S\0156 NUR3\S\313\S\B\S\0156\S\S\BED\S\0156 us Brisa Madrigal MD LAB BLOOD ORDERABLES Margoth almanzar Result [facility] [address] [place] [id number], [place] [phone] * Basic Metabolic Panel (07/04/2025 6:08 AM EDT) NA 139 136 - 145 mmol/L 07/04/2025 9:42 AM EDT [facility] K 4.4 3.5 - 5.1 mmol/L 07/04/2025 9:42 AM EDT [facility] Cl 104 98 - 109 mmol/L 07/04/2025 9:42 AM EDT [facility] CO2 24 22 - 32 mmol/L 07/04/2025 9:42 AM EDT [facility] BUN 7 6 - 20 mg/dL 07/04/2025 9:42 AM EDT [facility] Creatinine 0.72 0.50 - 1.12 mg/dL 07/04/2025 9:42 AM EDT [facility] Glucose 78 60 - 99 mg/dL 07/04/2025 9:42 AM EDT [facility] Calcium 8.8 8.4 - 10.4 mg/dL 07/04/2025 9:42 AM EDT [facility] Anion Gap 15 >=0 07/04/2025 9:42 AM EDT [facility] eGFR >90 >=60 mL/min/1. 73m2 07/04/2025 9:42 AM EDT [facility] Comment:The estimated glomer ular filtration [...] 6:08 AM EDT 07/04/2025 7:34 AM EDT [facility] - 07/04/2025 9:42 AM EDT NUR3\S\313\S\B\S\0156\S\S\BED\S\0156 NUR3\S\313\S\B\S\0156\S\S\BED\S\0156 Jacy POSEY LAB BLOOD ORDERABLES Final Resul t [facility] [address] [facility] [facility] [address] [place] [address], * Hepatitis C Antibody w/Reflex to PCR (01/22/2025 4:12 PM EST) Hepatitis C Antibody NON-REACT WHIT NON-REACT WHIT 01/23/2025 1:38 AM EST [facility] Comment: HCV antibody was non-reactive. There is no laboratory evidence of HCV infection. In most cases, no further action is required. However, if recent HCV exposure is suspected, a test for HCV RNA (test code 30115) is suggested. For additional information please refer to http://education.Meetmeals/faq/LLO01n8 (This link is being provided for informational/ educational purposes only.) Blood Structure of peripheral vein / Unknown Venipuncture / Unknown 01/22/2025 4:12 PM EST 01/22/2025 4:26 PM EST Narrative [facility] - 01/23/2025 1:38 AM EST [facility] Received Date:[id number] us Angélica Wade MD LAB BLOOD ORDERABLES Final Resul t [facility] [address] [facility] [facility] [address], [place] [address], [employer] [facility] [address] [facility] [address] [facility] [address], [place] [address], * CT Abdomen Pelvis with Contrast (10/25/2024 [...] section, it is an incomplete radiology report. Please contact the interpreting radiologist or applicable radiology division as soon as possible to obtain the completed interpretation. Workstation ID: [id number] Up-to-date CT equipment and radiation dose reduction [...] TISSUES: Within normal limits. Resulting Agency Comment [id number] Procedure Note Ernestina Pepper MD - 10/25/2024 [...] possible to obtain thecompleted interpretation. Workstation ID: [id number] Up-to-date CT equipment and radiation dose reduction techniques wereemployed. CTDIvol: 14.7 mGy. DLP: 868 mGy-cm. Rory Georges MD IMG CT PROCEDURES Final Res ult from Last 3 Months or Most Recently Relevant to Health Maintenance Insurance (Home) [address] [place] [address] [employer] [employer] [place]Home) [address] [place] [address] [employer] [employer] [place]) [address] [place] [address] Advance Directives Documents on File Type Date Recorded Patient Community Facilitator Aliza hernandez Health Care Proxy 03/05/2025 9:07 AM 02/22 * Full Code (Latest Code Status on File) Date Activated Date Inactivated Comments 06/18/2025 10:04 PM 06/28/2025 9:49 PM * Presumed Full Code Date Activated Date Inactivated Comments 06/18/2025 8:54 PM 06/18/2025 10:04 PM * Full Code Date Activated Date Inactivated Comments 10/25/2024 10:59 PM 10/29/2024 6:56 PM Healthcare Agents on File Name Relationship Healthcare Agent Relationshi p Communication Janet Knox Mother Health Care Agent Care Teams Crew Attendant Relationship Specialty Start Date End Date Kallie An DO [address] [place] [address] PCP - General Family Medicine 12/17/24 BERYL Denson Career And Guidance Counselor 07/12/25
--- OUTSIDE RECORDS SUMMARY | 2025-10-03 20:42 | XMS_ITS | Patient Health Record ---
Author Organization [facility] Address [address] [place] [id number] Care Team Providers Care Packager Name Role Phone Kallie An DO Primary Care Provider Unav shonda Noah McclendonRonnell Unavailable Results Component Value Reference Range Notes Prothrombin Time INR Reviewed date:12/24/2024 04:19:10 PM Interpretation: Performing Lab:[facility], [address] [place] [phone] Notes/Report: Prothrombin Time 21.0 10.9-12.4 SEC INTERNATIONAL NORM RATIO 1.8 0.9-1.1 INTERNATIONAL NORMALIZED RATIO (INR) REFERENCE RANGES Reference Range For patients not on anticoagulant therapy: 0.9 - 1.1 INR ranges for oral anticoagulant therapy: For prevention and treatment of venous thrombosis and pulmonary embolism: 2.0 - 3.0 For acute myocardial infarction with aspirin therapy: 2.0 - 3.0 For acute myocardial infarction without aspirin therapy: 3.0 - 4.0 For patients with mechanical prosthetic heart valves: 2.5 - 3.5 Liver Panel Reviewed date:12/24/2024 04:19:16 PM Interpretation: Performing Lab:[facility], [address] [place] [phone] Notes/Report: Bilirubin Total 2.4 0.0-1.0 mg/dL Slight Icte silas. Bilirubin Direct 1.2 0.0-0.5 mg/dL Slight Ict erus. Aspartate Amino Transferase 24 5-37 U/L Alanine Aminotransferase < 6 0-40 U/L Total Protein 6.4 6.5-8.0 g/dL Albumin Level 2.8 3.5-5.0 g/dL Alkaline Phosphatase 84 39-117 U/L Basic Metabolic Panel Reviewed date:12/24/2024 04:19:23 PM Interpretation: Performing Lab:[facility], [address] [place] [phone] Notes/Report: Sodium 134 135-145 mmol/L Potassium 3.7 3.3-5.1 mmol/L Chloride 104 96-108 mmol/L Carbon Dioxide 22 22-29 mmol/L Anion Gap 12 12-20 Blood Urea Nitrogen 14 9-16 mg/dL Creatinine 0.93 0.5-1.4 mg/dL Creatinine Clr Calc Pharmacy 120.3 eGFR (calculated from the MDRD study equation) and eCrCl (calculated from the Cockcroft-Gault equation) are based on different parameters and may not yield comparable results. If eCrCl result is absurd, please check patient's height/weight. Estimated Glomerular Filt Rate > 60 Chronic Kidney Disease: Estimated GFR < 60 mL/min/1.73m2 Severe Kidney Disease: Estimated GFR < 15 mL/min/1.73m2 Glucose Random 144 60-115 mg/dL Calcium 7.7 8.4-10.2 mg/dL Complete Blood Count Auto Di ff Reviewed date:12/24/2024 04:18:12 PM Interpretation: Performing Lab:[facility], [address] [place] [phone] Notes/Report: White Blood Count 2.6 4.8-10.8 X10*3/uL Red Blood Count 2.71 4.60-5.80 X10*6/uL Hemoglobin 7.9 14.0-18.0 g/dl Hematocrit 22.9 42.0-52.0 % Mean Corpuscular Volume 84.5 80.0-98.0 fL Mean Corpuscular Hemoglobin 29.2 27.0-33.0 pg Mean Corpuscular HGB Conc 34.5 31.0-36.0 g/dl Red Cell Distribution Width 14.2 11.0-16.0 % Platelet Count 63 160-400 X10*3/uL Mean Platelet Volume 9.8 9.4-12.4 fL Neutrophils Percent Auto 72.6 45-73 % Imm Gran Pct Auto 1.2 0.0-0.4 % Lymphocytes Percent Auto 21.9 20-40 % Monocytes Percent Auto 3.9 2-11 % Eosinophils Percent Auto 0.0 0-4 % Basophils Percent Auto 0.4 0-2 % NRBC Pct Auto 0.0 0.0-0.2 /100WBC Neutrophils Absolute Auto 1.9 2.0-8.3 x10*3/u L Imm Gran Abs Auto 0.03 0.00-0.03 X10*3/uL Lymphocytes Absolute Auto 0.6 1.2-4.9 X10*3/u L Monocytes Absolute Auto 0.1 0.1-1.2 X10*3/uL Eosinophils Absolute Auto 0.0 0.0-0.4 X10*3/u L Basophils Absolute Auto 0.0 0.0-0.2 X10*3/uL NRBC Abs Auto 0.000 0.0-0.012 X10*3/uL Prothrombin Time INR Reviewed date:12/24/2024 04:18:19 PM Interpretation: Performing Lab:[address] [phone] Notes/Report: Prothrombin Time 19.0 10.9-12.4 SEC INTERNATIONAL NORM RATIO 1.6 0.9-1.1 INTERNATIONAL NORMALIZED RATIO (INR) REFERENCE RANGES Reference Range For patients not on anticoagulant therapy: 0.9 - 1.1 INR ranges for oral anticoagulant therapy: For prevention and treatment of venous thrombosis and pulmonary embolism: 2.0 - 3.0 For acute myocardial infarction with aspirin therapy: 2.0 - 3.0 For acute myocardial infarction without aspirin therapy: 3.0 - 4.0 For patients with mechanical prosthetic heart valves: 2.5 - 3.5 Liver Panel Reviewed date:12/24/2024 04:18:26 PM Interpretation: Performing Lab:[address] [phone] Notes/Report: Bilirubin Total 2.4 0.0-1.0 mg/dL Slight Icte silas. Bilirubin Direct 1.3 0.0-0.5 mg/dL Slight Ict erus. Aspartate Amino Transferase 28 5-37 U/L Alanine Aminotransferase < 6 0-40 U/L Total Protein 7.1 6.5-8.0 g/dL Albumin Level 3.3 3.5-5.0 g/dL Alkaline Phosphatase 72 39-117 U/L Basic Metabolic Panel Reviewed date:12/24/2024 04:18:52 PM Interpretation: Performing Lab:[address] [place] [address] Notes/Report: Sodium 138 135-145 mmol/L Potassium 4.6 3.3-5.1 mmol/L Chloride 108 96-108 mmol/L Carbon Dioxide 22 22-29 mmol/L Anion Gap 13 12-20 Blood Urea Nitrogen 13 9-16 mg/dL Creatinine 0.72 0.5-1.4 mg/dL Creatinine Clr Calc Pharmacy 155.4 eGFR (calculated from the MDRD study equation) and eCrCl (calculated from the Cockcroft-Gault equation) are based on different parameters and may not yield comparable results. If eCrCl result is absurd, please check patient's height/weight. Estimated Glomerular Filt Rate > 60 Chronic Kidney Disease: Estimated GFR < 60 mL/min/1.73m2 Severe Kidney Disease: Estimated GFR < 15 mL/min/1.73m2 Glucose Random 142 60-115 mg/dL Calcium 8.1 8.4-10.2 mg/dL Phosphorus Reviewed date:12/24/2024 04:18:57 PM Interpretation: Performing Lab:[address] [phone] Notes/Report: Phosphorus 4.1 2.7-4.5 mg/dL Magnesium Reviewed date:12/24/2024 04:19:04 PM Interpretation: Performing Lab:[address] [address] Notes/Report: Magnesium 2.0 1.6-2.6 mg/dL Reason For Referral No Information Problems Problem Type SNOMED Code ICD Code Onset Dates Problem Status W/U Status Risk Notes Problem Gastro-esophagea l reflux disease without esophagitis (449345767) Gastro-esophage al reflux disease without esophagitis (K21.9) Active confirmed Problem Cirrhotic (646036300) Cirrhosis (K74.60) Active confirmed Encounters Encounter Location Date Provider Diagnosis [facility] Inpatient [address] [place] [id number] 06/17/2025 Ronnell Zamora Jr Plan Of Treatment No Information Insurance Providers Payer Name Payer Address Payer Phone Subscriber Number Group Number Insured Name Patient Relationship to Insured Coverage Start Date Coverage End Date [address] [address] [phone] [id number] JOLANTA KUMAR Self - patient is the insured
[2025-10-03 21:53] VITALS: BP 104/57; PULSE 78; RESP 18; TEMP 36.6; O2SAT 99
[2025-10-03 23:19] VITALS: BP 115/66; PULSE 74; RESP 16; TEMP 36.6; O2SAT 99
== END 2025-10-03 23:19 | disposition home or self-care (01) ==
PROVIDERS: Physician Assistant; Emergency Provider Emergency Medicine
DX: K59.00 Constipation, unspecified (principal); F41.9 Anxiety disorder, unspecified; R06.02 Shortness of breath; R00.2 Palpitations; R09.81 Nasal congestion; R05.9 Cough, unspecified; R42 Dizziness and giddiness; Z79.899 Other long term (current) drug therapy; Z51.81 Encounter for therapeutic drug level monitoring
CPT/HCPCS: 36415; 71045; 74018; 80053; 80307; 82140; 83735; 83880; 84484; 85025; 93005; 99284

== ENCOUNTER → 2025-10-03 17:36 | Outpatient (BNV) | payer OTHER, SELFPAY | PROVIDERS: Visit Provider Radiology Diagnostic Radiology | DX: R06.02 Shortness of breath (principal); R10.9 Unspecified abdominal pain | CPT/HCPCS: 71045; 74018 ==

== ENCOUNTER → 2025-10-03 17:36 | Outpatient (BNV) | payer OTHER, SELFPAY | PROVIDERS: Emergency Provider Emergency Medicine; Visit Provider Internal Medicine Cardiovascular Disease | DX: I25.2 Old myocardial infarction (principal) | CPT/HCPCS: 93010 ==